=== PATIENT | male | born 1935 | race Caucasian/White ===

== ENCOUNTER → 2019-06-12 08:45 | Outpatient (BNVA) | payer MEDICARE, BC, SELFPAY | PROVIDERS: Family Provider Internal Medicine; PCP Internal Medicine; Visit Provider Specialist | DX: G40.909 Epilepsy, unspecified, not intractable, without status epilepticus (principal); G40.109 Localization-related (focal) (partial) symptomatic epilepsy and epileptic syndromes with simple partial seizures, not intractable, without status epilepticus; I65.1 Occlusion and stenosis of basilar artery; G31.84 Mild cognitive impairment of uncertain or unknown etiology | CPT/HCPCS: 99214 ==

== ENCOUNTER 2019-06-14 09:27 | Outpatient (CLI) | payer MEDICARE, BC, SELFPAY ==
[2019-06-14 09:51] LABS: Basophils # 0.1 10^3/uL (0.0-0.1); Basophils % 1.2 %; Eosinophils # 0.4 10^3/uL (0.0-0.8); Eosinophils % 3.4 %; Hematocrit 47.8 % (42.0-52.0); Hemoglobin 14.6 g/dL (11.7-16.6); Lymphocytes # 0.9 10^3/uL (0.8-4.8); Lymphocytes % 7.7 %; Mean Corpuscular HGB Conc 30.5 g/dL (30.0-36.0); Mean Corpuscular Hemoglobin 28.3 pg (28.0-34.0); Mean Corpuscular Volume 92.6 fL (80-94); Mean Platelet Volume 10.2 fL (7.4-10.4); Monocytes # 0.5 10^3/uL (0.2-0.9); Monocytes % 4.8 %; Neutrophils # 9.3 10^3/uL (1.8-7.7); Neutrophils % 82.4 %; Nucleated Red Blood Cells % 0 %; Platelet Count 589 10^3/cmm (130-400); Red Blood Count 5.16 10^6/uL (4.1-5.3); Red Cell Distribution Width 15.7 % (12.1-15.1); White Blood Count 11.2 10^3/uL (4.0-10.0)
== END 2019-06-14 09:28 | disposition home or self-care (01) ==
PROVIDERS: Family Provider Internal Medicine; PCP Internal Medicine; Visit Provider Internal Medicine Hematology & Oncology
DX: D75.1 Secondary polycythemia (principal)
CPT/HCPCS: 85025

== ENCOUNTER 2019-06-21 10:55 | Outpatient (CLI) | payer MEDICARE, BC, SELFPAY ==
[2019-06-21] MEDS: sodium chloride 0.9% 250 ML 999 ML IV (11:50)
--- NOTE | 2019-06-22 08:18 | ONC FU_ITS ---
Dr. Pratt follow up note Patient: Casey Alves Unit #: [id number]: 1935 Dicatated By: Connie Pratt M.D.Date of Visit:Jun 21, 2019 Onc Med Follow-up/Prog Note History of Present Illness: Mr. 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 sleep apnea on cpap Clinically, it appears he may be depressed as his couple of years ago, as per his daughter he is on Zoloft not using his CPAP machine as recommended by his PMD. 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 As per patient when he was in the hospital in [place], his hydroxyurea was increased to 500 mg twice a day and then later on it was reduced to 500 mg daily whereas before he went to [place] he used to take 500 mg every other day.So on 03/06/2019 hydroxyurea was reduced to 500 mg every other day. Because of progressive polycythemia which appears multifactorial including due to sleep apnea and patient being noncompliant with CPAP, now being treated with phlebotomies on as-needed basis And goal is to keep his hematocrit equal to or less than 45 Came for follow-up, denies any specific complaints, no headaches no fever no chills no melena hematochezia but patient is noncompliant with CPAP machine. Has seen Dr. Newman recently and had CT scan of head done on 05/24/2019 which shows mild atrophy and chronic ischemic disease no progression since 02/14/2019. Medications: Eliquis 1 (2.5 mg) Tablet Oral b.i.d., Finasteride 1 Tablet (of 5 mg) Oral daily, hydroCHLOROthiazide (25 mg) Tablet Oral Take as Directed, Hydroxyurea (500 mg) Capsule Oral Take as Directed, Keppra 1 Tablet (of 750 mg) Oral b.i.d., levETIRAcetam 1 Tablet (of 750 mg) Oral b.i.d., Levo-T 1 (137 mcg) Tablet Oral daily, Memantine HCl Tablet Oral b.i.d., Tamsulosin HCl Capsule Oral at bedtime Allergies: No Known Allergies. Review of Systems: Constitutional - Energy is fair. Appetite is good and weight is stable. No fever, chills, hot flashes, or night sweats, ENMT - No sinus congestion/drainage. No mouth sores. No sore throat or difficulty swallowing, Hematologic/Lymphatic - No abnormal bruising or bleeding, Respiratory - No shortness of breath. No cough. No pleuritic pain or hemoptysis, Cardiovascular - No angina pain. No palpitations, Gastrointestinal - No nausea or vomiting. No heartburn or acid reflux. No diarrhea or constipation. No blood in the stool or black stools, Genitourinary (M) - No dysuria or hematuria. No urinary frequency. No urgency or incontinence, Musculoskeletal - No complaint of joint pain, Integumentary - No chronic rashes, inflammation, ulcerations or skin changes, Neurologic - No headache or dizziness. No numbness/paresthesias or other focal neurologic symptoms, Psychiatric - No anxiety or depression. No insomnia. Vital Signs: Performed on Jun 21, 2019 11:11 Height - 74.00 in Weight - 219.0 lbs (LOW) BSA - 2.26 sq.m BMI - 28.12 Temperature - 98.3 F (LOW) Pulse - 57 /min (LOW) Respiration - 20 /min BP - 138/82 mm(hg) O2 Sat - 94 % (LOW) Pain - 0 Performance Status: 1 - No physically strenuous activity, but ambulatory and able to carry out light or sedentary work (e.g. office work, light house work). (ECOG) Physical Examination: ENMT - No oral exudates, ulcers, masses, thrush or mucositis. Oropharynx clear. Tongue normal, Respiratory - Lungs are clear to auscultation without rhonchi or wheezing, Cardiovascular - Regular rate and rhythm of heart, Abdomen - Non-tender, non-distended, Good bowel sounds. No guarding or rebound tenderness. No pulsatile masses, Extremities - no edema. Lab/Imaging: Test performed on Jun 14, 2019 09:39 WBC 11.2 10^9/L RBC 5.16 10^12/L HGB 14.6 g/dL HCT 47.8 % MCV 92.6 fl MCH 28.3 pg MCHC 30.5 g/dL RDW 15.7 % Platelet Count 589 10^9/L MPV 10.2 fL Neutrophils (Gran) 9.3 10^9/L Lymphocytes 0.9 10^9/L Monocytes 0.5 10^9/L Eosinophils 0.4 10^9/L Basophils 0.1 10^9/L Neutrophil % 3.4 % Manual Lymphocytes 7.7 % Manual Monocytes 4.8 % Manual Eosinophils 3.4 % Manual Basophils 1.2 % NRBCs 0.0 /100 WBC Test performed on May 10, 2019 10:13 Lymphocyte % 9.1 % Monocyte % 6.3 % Eosinophil % 3.6 % Basophils % 1.4 % Test performed on Mar 06, 2019 08:22 Sodium 143 mmol/L Potassium 4.0 mmol/L Chloride 99 mmol/L CO2 33 mmol/L Anion Gap 15.0 BUN 33 mg/dL Creatinine 1.4 mg/dL Cr Clearance (Est) 54.08 mL/min Glucose 127 mg/dl Calcium 9.0 mg/dL Protein, Total 6.8 g/dL Albumin 4.6 g/dL Globulin 2.2 gm/dL Bilirubin, Total 0.3 mg/dL ALT (SGPT) 33 U/L AST (SGOT) 11 U/L Alkaline Phosphatase 76 U/L CBC Slide Review SLIDE REVIEW PERFORM SLIDE REVIEW AGREES WITH AUTOMATED RESULTS ST Impression: 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 On cytoreduction therapy with hydroxyurea he was 1500 mg daily , was held till CBC recovery , then started on hydrea 500 mg twice a week , now changed to 3x/week on 08/31/17 , Sleep apnea confirmed with sleep study now using CPAP machine non compliant Anxiety/depression on antidepressant Zoloft 50 mg daily Intermittent jerky movements involving left arm/shoulder due to epilepsia partialis continua diagnosed by neurologist in [place] on 02/23/2019, now being treated with valproate. A. fib, controlled rate, on Eliquis 2.5 mg twice a day Plan: Discuss with patient regarding his labs white blood count 11.2 hemoglobin 14.6 crit 47.8 platelets 589,000 Clinically, patient is doing well tolerating hydroxyurea well with expected side effects. Patient has polycythemia which is multifactorial including due to myeloproliferative disorder and sleep apnea. Patient is supposed to use CPAP machine on daily basis but he is noncompliant. Discussed with him regarding importance of CPAP machine and patient said he will try to be compliant. In the meantime we will proceed with phlebotomy today as goal is to keep hematocrit equal to or below 45 and today's lab shows hematocrit is 47.8. He'll return to clinic in one month with CBC. Signed By: Connie Pratt M.D. <<Signature on File>>
== END 2019-06-21 10:56 | disposition home or self-care (01) ==
LOC: ONCMED 10:59
PROVIDERS: Family Provider Internal Medicine; PCP Internal Medicine; Visit Provider Internal Medicine Hematology & Oncology
DX: D45 Polycythemia vera (principal); G47.33 Obstructive sleep apnea (adult) (pediatric); G40.109 Localization-related (focal) (partial) symptomatic epilepsy and epileptic syndromes with simple partial seizures, not intractable, without status epilepticus; Z91.19 Patient's noncompliance with other medical treatment and regimen; F41.8 Other specified anxiety disorders; I48.91 Unspecified atrial fibrillation; Z79.01 Long term (current) use of anticoagulants; Z79.899 Other long term (current) drug therapy
CPT/HCPCS: 99195; 99214; J7050

== ENCOUNTER 2019-07-19 12:19 | Outpatient (CLI) | payer MEDICARE, BC, SELFPAY ==
[2019-07-19 12:50] LABS: Basophils # 0.1 10^3/uL (0.0-0.1); Basophils % 1.2 %; Eosinophils # 0.4 10^3/uL (0.0-0.8); Eosinophils % 3.4 %; Hematocrit 43.5 % (42.0-52.0); Lymphocytes # 1.1 10^3/uL (0.8-4.8); Lymphocytes % 9.8 %; Mean Corpuscular HGB Conc 29.9 g/dL (30.0-36.0); Mean Corpuscular Hemoglobin 24.8 pg (28.0-34.0); Mean Corpuscular Volume 82.9 fL (80-94); Monocytes # 0.7 10^3/uL (0.2-0.9); Monocytes % 6.1 %; Neutrophils # 8.5 10^3/uL (1.8-7.7); Neutrophils % 79.1 %; Nucleated Red Blood Cells % 0 %; Platelet Count 599 10^3/cmm (130-400); Red Blood Count 5.25 10^6/uL (4.1-5.3); Red Cell Distribution Width 15.3 % (12.1-15.1); White Blood Count 10.7 10^3/uL (4.0-10.0)
== END 2019-07-19 12:20 | disposition home or self-care (01) ==
LOC: ONCMED 12:26
PROVIDERS: Family Provider Internal Medicine; PCP Internal Medicine; Visit Provider Internal Medicine Hematology & Oncology
DX: D45 Polycythemia vera (principal)
CPT/HCPCS: 85025

== ENCOUNTER 2019-08-17 10:15 | Outpatient (CLI) | payer MEDICARE, BC, SELFPAY ==
[2019-08-17 10:16] LABS: Basophils # 0.2 10^3/uL (0.0-0.1); Basophils % 1.3 %; Eosinophils # 0.5 10^3/uL (0.0-0.8); Eosinophils % 3.6 %; Hematocrit 46.4 % (42.0-52.0); Hemoglobin 13.6 g/dL (11.7-16.6); Lymphocytes % 8.4 %; Mean Corpuscular HGB Conc 29.3 g/dL (30.0-36.0); Mean Corpuscular Hemoglobin 23.3 pg (28.0-34.0); Mean Corpuscular Volume 79.5 fL (80-94); Mean Platelet Volume 10.9 fL (7.4-10.4); Monocytes # 0.8 10^3/uL (0.2-0.9); Monocytes % 6.2 %; Neutrophils # 9.9 10^3/uL (1.8-7.7); Neutrophils % 80.2 %; Nucleated Red Blood Cells % 0 %; Platelet Count 699 10^3/cmm (130-400); Red Blood Count 5.84 10^6/uL (4.1-5.3); Red Cell Distribution Width 16.5 % (12.1-15.1); White Blood Count 12.3 10^3/uL (4.0-10.0)
== END 2019-08-17 10:16 | disposition home or self-care (01) ==
LOC: ONCMED 10:15
PROVIDERS: Family Provider Internal Medicine; PCP Internal Medicine; Visit Provider Internal Medicine Hematology & Oncology
DX: D45 Polycythemia vera (principal)
CPT/HCPCS: 85025

== ENCOUNTER 2019-09-04 12:10 | Outpatient (CLI) | payer MEDICARE, BC, SELFPAY ==
[2019-09-04 12:33] LABS: Basophils # 0.1 10^3/uL (0.0-0.1); Basophils % 1.2 %; Eosinophils # 0.4 10^3/uL (0.0-0.8); Eosinophils % 3.9 %; Hematocrit 46.1 % (42.0-52.0); Hemoglobin 13.6 g/dL (11.7-16.6); Lymphocytes % 8.8 %; Mean Corpuscular HGB Conc 29.5 g/dL (30.0-36.0); Mean Corpuscular Hemoglobin 23.4 pg (28.0-34.0); Mean Corpuscular Volume 79.5 fL (80-94); Mean Platelet Volume 10.6 fL (7.4-10.4); Monocytes # 0.7 10^3/uL (0.2-0.9); Neutrophils # 8.8 10^3/uL (1.8-7.7); Neutrophils % 79.6 %; Nucleated Red Blood Cells % 0 %; Platelet Count 644 10^3/cmm (130-400); Red Cell Distribution Width 17.2 % (12.1-15.1); White Blood Count 11.1 10^3/uL (4.0-10.0)
[2019-09-04 12:56] LABS: Alanine Aminotransferase 16 U/L (0-41); Albumin Level 4.4 g/dL (3.5-5.2); Alkaline Phosphatase 82 IU/L (40-130); Aspartate Amino Transferase 17 U/L (0-40); Blood Urea Nitrogen 23 mg/dL (8-23); Calcium 8.8 mg/dL (8.5-10.5); Carbon Dioxide 27 mmol/L (22-29); Chloride 100 mmol/L (98-107); Globulin 2.4 g/dL (1.3-4.6); Glucose 172 mg/dL (65-115); Osmolality Calculated 291 mOsm/kg (285-295); Sodium 140 mmol/L (136-145); Total Bilirubin 0.5 mg/dL (0.15-1.2); Total Protein 6.8 g/dL (6.6-8.7)
--- NOTE | 2019-09-04 14:34 | ONC FU_ITS ---
Dr. Pratt follow up note Patient: Casey Alves Unit #: [id number]: 1935 Dicatated By: Connie Pratt M.D.Date of Visit:Sep 04, 2019 Onc Med Follow-up/Prog Note History of Present Illness: Mr. 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 sleep apnea on cpap Clinically, it appears he may be depressed as his couple of years ago, as per his daughter he is on Zoloft not using his CPAP machine as recommended by his PMD. 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 As per patient when he was in the hospital in [place], his hydroxyurea was increased to 500 mg twice a day and then later on it was reduced to 500 mg daily whereas before he went to [place] he used to take 500 mg every other day.So on 03/06/2019 hydroxyurea was reduced to 500 mg every other day. Because of progressive polycythemia which appears multifactorial including due to sleep apnea and patient being noncompliant with CPAP, now being treated with phlebotomies on as-needed basis And goal is to keep his hematocrit equal to or less than [address] Newman recently and had CT scan of head done on 05/24/2019 which shows mild atrophy and chronic ischemic disease no progression since 02/14/2019. Came for follow-up, denies any specific complaints except episode of shortness of breath and feeling dizzy, lateral realize it was due to hydralazine prescribed by cardiology and as per patient now medicine has been discontinued and he is feeling better. Denies any headaches blurred vision double vision denies any fever chills denies any nausea or vomiting tolerating hydroxyurea well and also using CPAP machine on a regular basis. Medications: Eliquis 1 (2.5 mg) Tablet Oral b.i.d., Finasteride 1 Tablet (of 5 mg) Oral daily, hydroCHLOROthiazide (25 mg) Tablet Oral Take as Directed, Hydroxyurea (500 mg) Capsule Oral Take as Directed, Keppra 1 Tablet (of 750 mg) Oral b.i.d., levETIRAcetam 1 Tablet (of 750 mg) Oral b.i.d., Levo-T 1 (137 mcg) Tablet Oral daily, Memantine HCl Tablet Oral b.i.d., Tamsulosin HCl Capsule Oral at bedtime Allergies: No Known Allergies. Review of Systems: Constitutional - Energy is fair. Appetite is good and weight is stable. No fever, chills, hot flashes, or night sweats, ENMT - No sinus congestion/drainage. No mouth sores. No sore throat or difficulty swallowing, Hematologic/Lymphatic - No abnormal bruising or bleeding, Respiratory - No shortness of breath. No cough. No pleuritic pain or hemoptysis, Cardiovascular - No angina pain. No palpitations, Gastrointestinal - No nausea or vomiting. No heartburn or acid reflux. No diarrhea or constipation. No blood in the stool or black stools, Genitourinary (M) - No dysuria or hematuria. No urinary frequency. No urgency or incontinence, Musculoskeletal - No complaint of joint pain, Integumentary - Positive for bilateral lower edema, Neurologic - No headache or dizziness. No numbness/paresthesias or other focal neurologic symptoms, Psychiatric - No anxiety or depression. No insomnia. Vital Signs: Performed on Sep 04, 2019 13:36 Height - 74.00 in Weight - 228.2 lbs (HIGH) BSA - 2.30 sq.m BMI - 29.30 Temperature - 98.1 F (LOW) Pulse - 60 /min Respiration - 24 /min BP - 137/70 mm(hg) O2 Sat - 93 % (LOW) Pain - 0 Performance Status: 1 - No physically strenuous activity, but ambulatory and able to carry out light or sedentary work (e.g. office work, light house work). (ECOG) Physical Examination: ENMT - No oral exudates, ulcers, masses, thrush or mucositis. Oropharynx clear. Tongue normal, Respiratory - Lungs are clear to auscultation without rhonchi or wheezing, Cardiovascular - Regular rate and rhythm of heart, Abdomen - Non-tender, non-distended, Good bowel sounds. No guarding or rebound tenderness. No pulsatile masses, Extremities - no edema. Lab/Imaging: Test performed on Aug 17, 2019 08:15 WBC 12.3 10 3/uL RBC 5.84 10 6/uL HGB 13.6 g/dL HCT 46.4 % MCV 79.5 fL MCH 23.3 pg MCHC 29.3 g/dL RDW 16.5 % Platelet Count 699 10 3/cmm MPV 10.9 fL Neutrophils 9.9 10 3/uL Lymphocytes 1.0 10 3/uL Monocytes 0.8 10 3/uL Eosinophils 0.5 10 3/uL Basophils 0.2 10 3/uL Neutrophil % 80.2 % Lymphocyte % 8.4 % Monocyte % 6.2 % Eosinophil % 3.6 % Basophils % 1.3 % Test performed on Jun 14, 2019 09:39 Manual Lymphocytes 7.7 % Manual Monocytes 4.8 % Manual Eosinophils 3.4 % Manual Basophils 1.2 % NRBCs 0.0 /100 WBC Impression: 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 On cytoreduction therapy with hydroxyurea he was 1500 mg daily , was held till CBC recovery , then started on hydrea 500 mg twice a week , now changed to 3x/week on 08/31/17 , Sleep apnea confirmed with sleep study now using CPAP machine non compliant Anxiety/depression on antidepressant Zoloft 50 mg daily Intermittent jerky movements involving left arm/shoulder due to epilepsia partialis continua diagnosed by neurologist in [place] on 02/23/2019, now being treated with valproate. A. fib, controlled rate, on Eliquis 2.5 mg twice a day Plan: Discussed with patient regarding his labs white blood count 11.1 hemoglobin 13.6 crit 46.1 platelets 644,000 CMP within normal limit except glucose 172 creatinine 1.6 Clinically, patient is doing reasonably well, tolerating hydroxyurea 500 mg by mouth every other day, well. Also using CPAP machine as recommended on a regular basis. Overall feeling better , hematocrit 46.1 on is to keep it is equal to or below 45 but patient was having symptoms due to hydralazine, and also on diuretics for lower extremity edema. His creatinine is 1.6 compared to 1. 4 earlier so could be mildly dehydrated. Patient was advised to maintain good hydration. And his hematocrit may also be elevated due to mild dehydration. We will hold his phlebotomy and repeat CBC in a month. And patient was advised to maintain hydration and be compliant with CPAP machine and hydroxyurea. Signed By: Connie Pratt M.D. <<Signature on File>>
== END 2019-09-04 12:11 | disposition home or self-care (01) ==
LOC: ONCMED 12:10
PROVIDERS: Family Provider Internal Medicine; PCP Internal Medicine; Visit Provider Internal Medicine Hematology & Oncology
DX: D45 Polycythemia vera (principal); G47.33 Obstructive sleep apnea (adult) (pediatric); F41.8 Other specified anxiety disorders; I48.91 Unspecified atrial fibrillation; Z91.19 Patient's noncompliance with other medical treatment and regimen; Z79.899 Other long term (current) drug therapy; Z79.01 Long term (current) use of anticoagulants
CPT/HCPCS: 36415; 80053; 85025; 99214

== ENCOUNTER → 2019-10-02 07:43 | Outpatient (BNVA) | payer MEDICARE, BC, SELFPAY | PROVIDERS: Family Provider Internal Medicine; PCP Internal Medicine; Visit Provider Specialist | DX: G40.909 Epilepsy, unspecified, not intractable, without status epilepticus (principal); G30.9 Alzheimer's disease, unspecified; F02.80 Dementia in other diseases classified elsewhere, unspecified severity, without behavioral disturbance, psychotic disturbance, mood disturbance, and anxiety; R26.81 Unsteadiness on feet; R07.9 Chest pain, unspecified | CPT/HCPCS: 96116; 99214 ==

== ENCOUNTER 2019-10-04 07:05 | Outpatient (CLI) | payer MEDICARE, BC, SELFPAY ==
[2019-10-04 08:06] LABS: Basophils # 0.1 10^3/uL (0.0-0.1); Basophils % 1.3 %; Eosinophils # 0.4 10^3/uL (0.0-0.8); Eosinophils % 3.3 %; Hematocrit 47.5 % (42.0-52.0); Hemoglobin 13.9 g/dL (11.7-16.6); Lymphocytes # 0.8 10^3/uL (0.8-4.8); Lymphocytes % 7.5 %; Mean Corpuscular HGB Conc 29.3 g/dL (30.0-36.0); Mean Corpuscular Hemoglobin 23.5 pg (28.0-34.0); Mean Corpuscular Volume 80.2 fL (80-94); Mean Platelet Volume 11.2 fL (7.4-10.4); Monocytes # 0.6 10^3/uL (0.2-0.9); Monocytes % 5.6 %; Neutrophils # 9.1 10^3/uL (1.8-7.7); Neutrophils % 81.8 %; Nucleated Red Blood Cells % 0 %; Platelet Count 646 10^3/cmm (130-400); Red Blood Count 5.92 10^6/uL (4.1-5.3); Red Cell Distribution Width 18.6 % (12.1-15.1); White Blood Count 11.1 10^3/uL (4.0-10.0)
== END 2019-10-04 07:06 | disposition home or self-care (01) ==
LOC: ONCMED 15:31
PROVIDERS: Family Provider Internal Medicine; PCP Internal Medicine; Visit Provider Internal Medicine Hematology & Oncology
DX: D45 Polycythemia vera (principal)
CPT/HCPCS: 85025

== ENCOUNTER 2019-10-05 06:58 | Outpatient (CLI) | payer MEDICARE, BC, SELFPAY ==
--- NOTE | 2019-10-05 17:55 | ONC FU_ITS ---
Dr. Pratt follow up note Patient: Casey Alves Unit #: [id number]: 1935 Dicatated By: Connie Pratt M.D.Date of Visit:Oct 05, 2019 Onc Med Follow-up/Prog Note History of Present Illness: Mr. 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 sleep apnea on cpap Clinically, it appears he may be depressed as his couple of years ago, as per his daughter he is on Zoloft not using his CPAP machine as recommended by his PMD. 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 As per patient when he was in the hospital in [place], his hydroxyurea was increased to 500 mg twice a day and then later on it was reduced to 500 mg daily whereas before he went to [place] he used to take 500 mg every other day.So on 03/06/2019 hydroxyurea was reduced to 500 mg every other day. Because of progressive polycythemia which appears multifactorial including due to sleep apnea and patient being noncompliant with CPAP, now being treated with phlebotomies on as-needed basis And goal is to keep his hematocrit equal to or less than [address] Newman recently and had CT scan of head done on 05/24/2019 which shows mild atrophy and chronic ischemic disease no progression since 02/14/2019. tolerating hydroxyurea well and also using CPAP machine on a regular basis. Came for follow-up, denies any specific complaint except had a fall as he tripped over something, but denies any seizure-like activity except off and on increasing jerking movement in his left arm, for which she has seen Dr. Newman, as per patient she is considering brain scans and adjustment in his medication. Otherwise denies any headaches blurred vision or double vision, denies any focal weakness, denies any fever chills. Tolerating hydroxyurea well and using CPAP machine regularly Medications: Eliquis 1 (2.5 mg) Tablet Oral b.i.d., Finasteride 1 Tablet (of 5 mg) Oral daily, hydroCHLOROthiazide (25 mg) Tablet Oral Take as Directed, Hydroxyurea (500 mg) Capsule Oral Take as Directed, Keppra 1 Tablet (of 750 mg) Oral b.i.d., levETIRAcetam 1 Tablet (of 750 mg) Oral b.i.d., Levo-T 1 (137 mcg) Tablet Oral daily, Memantine HCl Tablet Oral b.i.d., Tamsulosin HCl Capsule Oral at bedtime Allergies: No Known Allergies. Review of Systems: Review of Systems is not available for this patient. Vital Signs: Vitals are not available for this patient. Performance Status: 2 - Ambulatory/capable of all self-care, unable to perform any work activities. Up and about more than 50% of waking hours. (ECOG) Physical Examination: Respiratory - Lungs are clear, Cardiovascular - Regular rate and rhythm of heart, Abdomen - bowel sounds present, no tenderness, Extremities - no visible edema but superficial abrasion on right knee, no knee swelling, movements intact. Lab/Imaging: Test performed on Sep 04, 2019 12:15 Sodium 140 mmol/L Potassium 4.0 mmol/L Chloride 100 mmol/L CO2 27 mmol/L Anion Gap 17.0 BUN 23 mg/dL Creatinine 1.6 mg/dL Cr Clearance (Est) 50.32 mL/min Glucose 172 mg/dL Calcium 8.8 mg/dL Protein, Total 6.8 g/dL Albumin 4.4 g/dL Globulin 2.4 g/dL Bilirubin, Total 0.5 mg/dL ALT (SGPT) 16 U/L AST (SGOT) 17 U/L Alkaline Phosphatase 82 IU/L WBC 11.1 10 3/uL RBC 5.80 10 6/uL HGB 13.6 g/dL HCT 46.1 % MCV 79.5 fL MCH 23.4 pg MCHC 29.5 g/dL RDW 17.2 % Platelet Count 644 10 3/cmm MPV 10.6 fL Neutrophils 8.8 10 3/uL Lymphocytes 1.0 10 3/uL Monocytes 0.7 10 3/uL Eosinophils 0.4 10 3/uL Basophils 0.1 10 3/uL Neutrophil % 79.6 % Lymphocyte % 8.8 % Monocyte % 6.0 % Eosinophil % 3.9 % Basophils % 1.2 % Test performed on Jun 14, 2019 09:39 Manual Lymphocytes 7.7 % Manual Monocytes 4.8 % Manual Eosinophils 3.4 % Manual Basophils 1.2 % NRBCs 0.0 /100 WBC Impression: 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 On cytoreduction therapy with hydroxyurea he was 1500 mg daily , was held till CBC recovery , then started on hydrea 500 mg twice a week , now changed to 3x/week on 08/31/17 , Sleep apnea confirmed with sleep study now using CPAP machine non compliant Anxiety/depression on antidepressant Zoloft 50 mg daily Intermittent jerky movements involving left arm/shoulder due to epilepsia partialis continua diagnosed by neurologist in [place] on 02/23/2019, now being treated with valproate. A. fib, controlled rate, on Eliquis 2.5 mg twice a day Plan: Discussed with patient regarding his labs white blood count 11.1 hemoglobin 13.9 crit 47.5 platelets 646,000 Clinically, patient doing reasonably well, tolerating hydroxyurea well. His follow-up lab shows mildly elevated hematocrit, goal is keep it equal to or under 45, we'll consider phlebotomy with a 500 mL whole blood and 250 cc normal saline replacement. And repeat CBC in 2 weeks. And patient was advised to maintain hydration and be compliant with CPAP machine and hydroxyurea. Signed By: Connie Pratt M.D. <<Signature on File>>
== END 2019-10-05 06:59 | disposition home or self-care (01) ==
PROVIDERS: Family Provider Internal Medicine; PCP Internal Medicine; Visit Provider Internal Medicine Hematology & Oncology
DX: D45 Polycythemia vera (principal); G47.30 Sleep apnea, unspecified; F41.8 Other specified anxiety disorders; G40.109 Localization-related (focal) (partial) symptomatic epilepsy and epileptic syndromes with simple partial seizures, not intractable, without status epilepticus; I48.91 Unspecified atrial fibrillation; Z79.01 Long term (current) use of anticoagulants; Z79.899 Other long term (current) drug therapy; Z91.19 Patient's noncompliance with other medical treatment and regimen
CPT/HCPCS: 99195; 99214

== ENCOUNTER → 2019-10-10 09:19 | Outpatient (BNVA) | payer MEDICARE, BC, SELFPAY | PROVIDERS: Family Provider Internal Medicine; PCP Internal Medicine; Visit Provider Specialist | DX: R56.9 Unspecified convulsions (principal) | CPT/HCPCS: 95816 ==

== ENCOUNTER 2019-10-11 07:10 | Outpatient (RCR) | payer MEDICARE, BC, SELFPAY | END 2019-11-05 23:59 | disposition home or self-care (01) | LOC: SPT 07:10 | PROVIDERS: Family Provider Internal Medicine; PCP Internal Medicine; Referring Provider Specialist; Visit Provider Specialist | DX: R26.81 Unsteadiness on feet (principal) | CPT/HCPCS: 97110; 97161 ==

== ENCOUNTER 2019-10-12 08:51 | Outpatient (CLI) | payer MEDICARE, BC, SELFPAY ==
--- NOTE | 2019-10-12 09:16 | ECG_ITS ---
NAME OF STUDY: DOBUTAMINE SESTAMIBI STRESS TEST INDICATION: UNSTABLE ANGINA PROCEDURE: At the baseline, the blood pressure was 105/78 mmHg, oxygen saturation 88% with a heart rate of 55 bpm. The electrocardiogram showed atrial fibrillation with frequent PVCs or aberrantly conducted beats. Nonspecific ST-T wave changes. The dobutamine was infused over a period of 10 minutes 40 seconds. The maximum heart rate obtained was 125 (91 % of the maximum predicted heart rate). The blood pressure at that time was 189/76 mmHg oxygen saturation 93%. The patient did not have any chest pain or any significant electrocardiogram changes with the dobutamine infusion. Frequent PVCs, PVC couplets/aberrantly conducted beats noted throughout the study. The physical examination remained unchanged. During the recovery phase, the patient did not have any specific symptoms. The blood pressure at the end of the recovery phase was 187/75 mmHg, oxygen saturation 92% with a heart rate of 98 beats per minute. CONCLUSION: 1. No significant EKG changes with dobutamine infusion. 2. Functional status could not be assessed given dobutamine infusion protocol. 3. Frequent PVCs, PVC couplets and aberrantly conducted beats noted during the study. 4. Sestamibi/Sestamibi perfusion scan pending; see separate report. Electronically Signed On 10-13-2019 16:10:06 CDT by Marlen Bernstein M.D. [email or web address]
--- NOTE | 2019-10-12 09:16 | NMCV_ITS ---
NM idalia perf SPECT r/s* [id number] Casey Alves Age: 84 Gender: M : 1935 Exam Date: 10/12/2019 10:03 Ordering Phys: Fela Newman MD Technologist: HARSHIL Anguiano Exam Location: [facility] Indications: UNSTABLE ANGINA PECTORIS STRESS TEST [facility] IMAGE PROTOCOL Rest/Stress 1 Dobutamine Day Radiopharmaceutical Dose (mCi) Administration Site Administered by Rest: Tc-99m 10.8 IV HARSHIL Anguiano Sestamibi Stress:Tc-99m 32.8 IV HARSHIL Marks Sestamibi Rest: 12-Oct-2019 60 Discovery 630 Stress: 12-Oct-2019 15 Discovery 630 Radiopharmaceutical was injected at 85 % maximum heart rate. Supine position only as patient was unable to lay prone. SPECT RESULTS Technical Quality: Good Raw Data Analysis: Normal Image Corrections: No attenuation or motion correction applied Summed Stress Score: 3 Summed Rest Score: 0 Summed Difference Score: 3 PERFUSION FINDINGS Small size perfusion abnormality of mild severity of entire inferior wall on rest images with mild reversibility in mid to apical inferior wall on supine stress images. FUNCTIONAL RESULTS (calculated via Gated SPECT) Stress Image LV EF (%): 59 Stress EDV (mL):109 TID: 0.88 Stress ESV (mL):45 FUNCTIONAL FINDINGS: The left ventricle is normal in size. Transient Ischemia Dilatation of 0.88. There is normal left ventricular systolic function. The left ventricular ejection fraction is normal with a value of 59%. There is normal left ventricular wall thickening. IMPRESSIONS 1. Small size reversible perfusion abnormality of mild severity of mid to apical inferior wall. This may represent small area of ischemia in right coronary artery territory, however in absence of prone imaging attenuation artifact cannot be completely ruled out. 2. The left ventricular ejection fraction is normal with a value of 59%. 3. There is normal left ventricular wall thickening. 4. No prior similar studies to compare. Marlen Bernstein MD (Electronically Signed) Final Date: 13 Oct 2019 15:59 S
[2019-10-12 09:19] VITALS: BMI 29.8
[2019-10-12 12:38] VITALS: BP 187/75; PULSE 98
[2019-10-12] MEDS: DOBUTtamine 200 MG in sodium chloride 0.9% 34 ML 59.9 MG IV (12:41)
== END 2019-10-12 08:52 | disposition home or self-care (01) ==
LOC: RAD 08:53
PROVIDERS: Family Provider Internal Medicine; PCP Internal Medicine; Visit Provider Specialist
DX: I20.0 Unstable angina (principal)
CPT/HCPCS: 78452; 93017; A9500; J0461; J1250; J3490; J7050

== ENCOUNTER 2019-10-18 09:10 | Outpatient (CLI) | payer MEDICARE, BC, SELFPAY ==
[2019-10-18 09:58] LABS: Basophils # 0.1 10^3/uL (0.0-0.1); Basophils % 1.3 %; Eosinophils # 0.3 10^3/uL (0.0-0.8); Hematocrit 44.8 % (42.0-52.0); Lymphocytes # 0.7 10^3/uL (0.8-4.8); Lymphocytes % 6.7 %; Mean Corpuscular Hemoglobin 23.3 pg (28.0-34.0); Mean Corpuscular Volume 80.1 fL (80-94); Mean Platelet Volume 10.9 fL (7.4-10.4); Monocytes # 0.6 10^3/uL (0.2-0.9); Monocytes % 5.7 %; Neutrophils # 8.8 10^3/uL (1.8-7.7); Neutrophils % 82.9 %; Nucleated Red Blood Cells % 0 %; Platelet Count 648 10^3/cmm (130-400); Red Blood Count 5.59 10^6/uL (4.1-5.3); Red Cell Distribution Width 18.2 % (12.1-15.1); White Blood Count 10.6 10^3/uL (4.0-10.0)
--- NOTE | 2019-10-18 14:50 | ONC FU_ITS ---
Dr. Pratt follow up note Patient: Casey Alves Unit #: [id number]: 1935 Dicatated By: Connie Pratt M.D.Date of Visit:October 18, 2019 Onc Med Follow-up/Prog Note History of Present Illness: Mr. 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 sleep apnea on cpap Clinically, it appears he may be depressed as his couple of years ago, as per his daughter he is on Zoloft not using his CPAP machine as recommended by his PMD. 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 As per patient when he was in the hospital in [place], his hydroxyurea was increased to 500 mg twice a day and then later on it was reduced to 500 mg daily whereas before he went to [place] he used to take 500 mg every other day.So on 03/06/2019 hydroxyurea was reduced to 500 mg every other day. Because of progressive polycythemia which appears multifactorial including due to sleep apnea and patient being noncompliant with CPAP, now being treated with phlebotomies on as-needed basis And goal is to keep his hematocrit equal to or less than [address] Newman recently and had CT scan of head done on 05/24/2019 which shows mild atrophy and chronic ischemic disease no progression since 02/14/2019. tolerating hydroxyurea well and also using CPAP machine on a regular basis. Came for follow-up, denies any specific complaints except generalized weakness and fatigue, unstable balance, now being evaluated by physical therapy, recommended by Dr. Newman and she is also adjusting his medication, and he was told, he may have another small 'stroke' , and recently underwent EEG and awaiting results. Denies any headaches blurred vision double vision otherwise no other new complaints no fever or chills no nausea or vomiting no diarrhea constipation no headaches or blurred vision. Tolerating hydroxyurea well, patient is noncompliant with his CPAP machine. And also tolerating by mouth on phlebotomies well Medications: Eliquis 1 (2.5 mg) Tablet Oral b.i.d., Finasteride 1 Tablet (of 5 mg) Oral daily, hydroCHLOROthiazide (25 mg) Tablet Oral Take as Directed, Hydroxyurea (500 mg) Capsule Oral Take as Directed, Keppra 1 Tablet (of 750 mg) Oral b.i.d., levETIRAcetam 1 Tablet (of 750 mg) Oral b.i.d., Levo-T 1 (137 mcg) Tablet Oral daily, Memantine HCl Tablet Oral b.i.d., Tamsulosin HCl Capsule Oral at bedtime Allergies: No Known Allergies. Review of Systems: Constitutional - Energy is poor. Appetite is good and weight is stable. No fever, chills, hot flashes, or night sweats, ENMT - No sinus congestion/drainage. No mouth sores. No sore throat or difficulty swallowing, Hematologic/Lymphatic - No abnormal bruising or bleeding, Respiratory - No shortness of breath. No cough. No pleuritic pain or hemoptysis, Cardiovascular - No angina pain. No palpitations, Gastrointestinal - No nausea or vomiting. No heartburn or acid reflux. No diarrhea or constipation. No blood in the stool or black stools, Genitourinary (M) - No dysuria or hematuria. No urinary frequency. No urgency or incontinence, Musculoskeletal - No complaint of joint pain, Neurologic - No headache or dizziness. Pt states that he has had testing done recently to check for possible recent stroke. Pt states he has not yet gotten the results, Psychiatric - No anxiety or depression. No insomnia. Vital Signs: Performed on October 18, 2019 10:28 Height - 74 in Weight - 219.6 lbs (LOW) BSA - 2.26 sq.m BMI - 28.20 Temperature - 97.8 F (LOW) Pulse - 118 /min (HIGH) Respiration - 16 /min BP - 151/78 mm(hg) (HIGH) O2 Sat - 94 % (LOW) Pain - 0 Performance Status: 2 - Ambulatory/capable of all self-care, unable to perform any work activities. Up and about more than 50% of waking hours. (ECOG) Physical Examination: ENMT - no mouth sores, Respiratory - Lungs are clear, Cardiovascular - irregular rhythm with controlled rate, Abdomen - soft also present, Extremities - no edema. Lab/Imaging: Test performed on October 18, 2019 09:25 WBC 10.6 10 3/uL RBC 5.59 10 6/uL HGB 13.0 g/dL HCT 44.8 % MCV 80.1 fL MCH 23.3 pg MCHC 29.0 g/dL RDW 18.2 % Platelet Count 648 10 3/cmm MPV 10.9 fL Neutrophils 8.8 10 3/uL Lymphocytes 0.7 10 3/uL Monocytes 0.6 10 3/uL Eosinophils 0.3 10 3/uL Basophils 0.1 10 3/uL Neutrophil % 82.9 % Lymphocyte % 6.7 % Monocyte % 5.7 % Eosinophil % 3.0 % Basophils % 1.3 % Test performed on Sep 04, 2019 12:15 Sodium 140 mmol/L Potassium 4.0 mmol/L Chloride 100 mmol/L CO2 27 mmol/L Anion Gap 17.0 BUN 23 mg/dL Creatinine 1.6 mg/dL Cr Clearance (Est) 50.32 mL/min Glucose 172 mg/dL Calcium 8.8 mg/dL Protein, Total 6.8 g/dL Albumin 4.4 g/dL Globulin 2.4 g/dL Bilirubin, Total 0.5 mg/dL ALT (SGPT) 16 U/L AST (SGOT) 17 U/L Alkaline Phosphatase 82 IU/L Test performed on Jun 14, 2019 09:39 Manual Lymphocytes 7.7 % Manual Monocytes 4.8 % Manual Eosinophils 3.4 % Manual Basophils 1.2 % NRBCs 0.0 /100 WBC Impression: 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 On cytoreduction therapy with hydroxyurea he was 1500 mg daily , was held till CBC recovery , then started on hydrea 500 mg twice a week , now changed to 3x/week on 08/31/17 , Sleep apnea confirmed with sleep study now using CPAP machine non compliant Anxiety/depression on antidepressant Zoloft 50 mg daily Intermittent jerky movements involving left arm/shoulder due to epilepsia partialis continua diagnosed by neurologist in [place] on 02/23/2019, now being treated with valproate. A. fib, controlled rate, on Eliquis 2.5 mg twice a day Plan: Discussed with patient regarding his labs white blood count 10.6 hemoglobin 13 crit 44.8 platelets 648,000 Clinically, patient is doing reasonably well, his follow-up CBC shows hematocrit less than 45, which is the target, so we'll continue to monitor as long as hematocrit is staying under 45 and patient was advised to use CPAP machine diligently and be compliant with hydroxyurea. And return to clinic in one month with CBC and continue phlebotomy on as-needed basis to keep hematocrit less than 45 Signed By: Connie Pratt M.D. <<Signature on File>>
== END 2019-10-18 09:11 | disposition home or self-care (01) ==
LOC: ONCMED 09:14
PROVIDERS: PCP Internal Medicine; Visit Provider Internal Medicine Hematology & Oncology
DX: D45 Polycythemia vera (principal); D47.3 Essential (hemorrhagic) thrombocythemia; D47.1 Chronic myeloproliferative disease; G47.33 Obstructive sleep apnea (adult) (pediatric); F41.8 Other specified anxiety disorders; G40.109 Localization-related (focal) (partial) symptomatic epilepsy and epileptic syndromes with simple partial seizures, not intractable, without status epilepticus; I48.19 Other persistent atrial fibrillation; Z79.01 Long term (current) use of anticoagulants; Z79.899 Other long term (current) drug therapy
CPT/HCPCS: 36415; 85025; 99214

== ENCOUNTER 2019-11-06 06:00 | Outpatient (RCR) | payer MEDICARE, BC, SELFPAY | END 2019-12-05 23:59 | disposition home or self-care (01) | LOC: SPT 06:00 | PROVIDERS: PCP Internal Medicine; Visit Provider Specialist | DX: R26.81 Unsteadiness on feet (principal) | CPT/HCPCS: 97110 ==

== ENCOUNTER 2019-11-21 07:52 | Outpatient (CLI) | payer MEDICARE, BC, SELFPAY ==
[2019-11-21 08:27] LABS: Basophils # 0.2 10^3/uL (0.0-0.1); Basophils % 1.4 %; Eosinophils # 0.3 10^3/uL (0.0-0.8); Eosinophils % 2.8 %; Hematocrit 47.9 % (42.0-52.0); Hemoglobin 13.6 g/dL (11.7-16.6); Lymphocytes # 0.8 10^3/uL (0.8-4.8); Lymphocytes % 6.6 %; Mean Corpuscular HGB Conc 28.4 g/dL (30.0-36.0); Mean Corpuscular Hemoglobin 22.9 pg (28.0-34.0); Mean Corpuscular Volume 80.6 fL (80-94); Mean Platelet Volume 10.6 fL (7.4-10.4); Monocytes # 0.7 10^3/uL (0.2-0.9); Monocytes % 5.4 %; Neutrophils # 10.3 10^3/uL (1.8-7.7); Neutrophils % 83.5 %; Nucleated Red Blood Cells % 0 %; Platelet Count 800 10^3/cmm (130-400); Red Blood Count 5.94 10^6/uL (4.1-5.3); Red Cell Distribution Width 19.2 % (12.1-15.1); White Blood Count 12.4 10^3/uL (4.0-10.0)
--- NOTE | 2019-11-21 17:26 | ONC FU_ITS ---
Dr. Pratt follow up note Patient: Casey Alves Unit #: [id number]: 1935 Dicatated By: Connie Pratt M.D.Date of Visit:Nov 21, 2019 Onc Med Follow-up/Prog Note History of Present Illness: Mr. 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 sleep apnea on cpap Clinically, it appears he may be depressed as his couple of years ago, as per his daughter he is on Zoloft not using his CPAP machine as recommended by his PMD. 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 As per patient when he was in the hospital in [place], his hydroxyurea was increased to 500 mg twice a day and then later on it was reduced to 500 mg daily whereas before he went to [place] he used to take 500 mg every other day.So on 03/06/2019 hydroxyurea was reduced to 500 mg every other day. Because of progressive polycythemia which appears multifactorial including due to sleep apnea and patient being noncompliant with CPAP, now being treated with phlebotomies on as-needed basis And goal is to keep his hematocrit equal to or less than [address] Newman recently and had CT scan of head done on 05/24/2019 which shows mild atrophy and chronic ischemic disease no progression since 02/14/2019. tolerating hydroxyurea well and also using CPAP machine on a regular basis. Came for follow-up, denies any specific complaint except generalized weakness and fatigue, recently underwent left forearm skin lesion biopsy, by PMD, waiting for pathology report. Otherwise denies any headaches blurred vision or double vision, denies any focal weakness, denies any nausea vomiting, denies any fever or chills. Tolerating hydroxyurea, every other day, well otherwise Medications: Eliquis 1 (2.5 mg) Tablet Oral b.i.d., Finasteride 1 Tablet (of 5 mg) Oral daily, hydroCHLOROthiazide (25 mg) Tablet Oral Take as Directed, Hydroxyurea (500 mg) Capsule Oral Take as Directed, Keppra 1 Tablet (of 750 mg) Oral b.i.d., levETIRAcetam 1 Tablet (of 750 mg) Oral b.i.d., Levo-T 1 (137 mcg) Tablet Oral daily, Memantine HCl Tablet Oral b.i.d., Tamsulosin HCl Capsule Oral at bedtime Allergies: No Known Allergies. Review of Systems: Constitutional - Energy is poor. Appetite is good and weight is stable. No fever, chills, hot flashes, or night sweats, ENMT - No sinus congestion/drainage. No mouth sores. No sore throat or difficulty swallowing, Hematologic/Lymphatic - No abnormal bruising or bleeding, Respiratory - No shortness of breath. No cough. No pleuritic pain or hemoptysis, Cardiovascular - No angina pain. No palpitations, Gastrointestinal - No nausea or vomiting. No heartburn or acid reflux. No diarrhea or constipation. No blood in the stool or black stools, Genitourinary (M) - No dysuria or hematuria. Positive for urinary frequency. No urgency or incontinence, Musculoskeletal - No complaint of joint pain, Integumentary - Positive for bilateral lower edema, Neurologic - No headache or dizziness, Psychiatric - No anxiety or depression. No insomnia. Vital Signs: Performed on Nov 21, 2019 08:44 Height - 74.00 in Weight - 224.6 lbs (HIGH) BSA - 2.28 sq.m BMI - 28.84 Temperature - 97.0 F (LOW) Pulse - 54 /min (LOW) Respiration - 20 /min BP - 195/92 mm(hg) (HIGH) O2 Sat - 93 % (LOW) Pain - 0 Performance Status: 1 - No physically strenuous activity, but ambulatory and able to carry out light or sedentary work (e.g. office work, light house work). (ECOG) Physical Examination: ENMT - No mouth sores, no thrush, no jaundice, Respiratory - Lungs are clear, Cardiovascular - irRegular rate and rhythm, Abdomen - Soft, bowel sounds present, nontender, Extremities - No visible edema, about half a centimeters skin lesion on the dorsum of left forearm status post biopsy. Lab/Imaging: Test performed on October 18, 2019 09:25 WBC 10.6 10 3/uL RBC 5.59 10 6/uL HGB 13.0 g/dL HCT 44.8 % MCV 80.1 fL MCH 23.3 pg MCHC 29.0 g/dL RDW 18.2 % Platelet Count 648 10 3/cmm MPV 10.9 fL Neutrophils 8.8 10 3/uL Lymphocytes 0.7 10 3/uL Monocytes 0.6 10 3/uL Eosinophils 0.3 10 3/uL Basophils 0.1 10 3/uL Neutrophil % 82.9 % Lymphocyte % 6.7 % Monocyte % 5.7 % Eosinophil % 3.0 % Basophils % 1.3 % Test performed on Sep 04, 2019 12:15 Sodium 140 mmol/L Potassium 4.0 mmol/L Chloride 100 mmol/L CO2 27 mmol/L Anion Gap 17.0 BUN 23 mg/dL Creatinine 1.6 mg/dL Cr Clearance (Est) 50.32 mL/min Glucose 172 mg/dL Calcium 8.8 mg/dL Protein, Total 6.8 g/dL Albumin 4.4 g/dL Globulin 2.4 g/dL Bilirubin, Total 0.5 mg/dL ALT (SGPT) 16 U/L AST (SGOT) 17 U/L Alkaline Phosphatase 82 IU/L Test performed on Jun 14, 2019 09:39 Manual Lymphocytes 7.7 % Manual Monocytes 4.8 % Manual Eosinophils 3.4 % Manual Basophils 1.2 % NRBCs 0.0 /100 WBC Impression: 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 On cytoreduction therapy with hydroxyurea he was 1500 mg daily , was held till CBC recovery , then started on hydrea 500 mg twice a week , now changed to 3x/week on 08/31/17 , Sleep apnea confirmed with sleep study now using CPAP machine non compliant Anxiety/depression on antidepressant Zoloft 50 mg daily Intermittent jerky movements involving left arm/shoulder due to epilepsia partialis continua diagnosed by neurologist in [place] on 02/23/2019, now being treated with valproate. A. fib, controlled rate, on Eliquis 2.5 mg twice a day Plan: Discussed with patient regarding his labs white blood count 12.4 hemoglobin 13.6 crit 47.9 platelets 800,000 compared to 648,000 on November 04, 2019 Clinically, patient is doing reasonably well, his follow-up lab work-up showed progressive polycythemia, patient is noncompliant with his CPAP machine. Patient was advised to use CPAP machine on regular basis. In the meantime we will consider phlebotomy to keep his hematocrit close to 42, if tolerated otherwise less than 45. We will also consider increasing his hydroxyurea dose to 500 mg p.o. daily from 500 mg 3 times a week as his follow-up CBC showed progressive thrombocytosis and now polycythemia with mild leukocytosis. We will repeat his CBC in 2 weeks and consider phlebotomy to keep hematocrit under 45, preferably 42, if tolerated. In the meantime patient was advised to maintain good hydration and he will return to clinic in 1 month with CBC. Signed By: Connie Pratt M.D. <<Signature on File>>
== END 2019-11-21 07:53 | disposition home or self-care (01) ==
LOC: ONCMED 07:57
PROVIDERS: PCP Internal Medicine; Visit Provider Internal Medicine Hematology & Oncology
DX: D75.1 Secondary polycythemia (principal); D47.3 Essential (hemorrhagic) thrombocythemia; D47.1 Chronic myeloproliferative disease; D72.829 Elevated white blood cell count, unspecified; G47.30 Sleep apnea, unspecified; F41.8 Other specified anxiety disorders; G40.109 Localization-related (focal) (partial) symptomatic epilepsy and epileptic syndromes with simple partial seizures, not intractable, without status epilepticus; I48.91 Unspecified atrial fibrillation; Z79.01 Long term (current) use of anticoagulants; Z91.19 Patient's noncompliance with other medical treatment and regimen; Z99.89 Dependence on other enabling machines and devices; Z79.899 Other long term (current) drug therapy
CPT/HCPCS: 36415; 85025; 99195; 99214

== ENCOUNTER 2019-12-04 16:53 | Outpatient (CLI) | payer MEDICARE, BC, SELFPAY ==
[2019-12-04 11:07] LABS: Basophils # 0.2 10^3/uL (0.0-0.1); Basophils % 1.8 %; Eosinophils # 0.4 10^3/uL (0.0-0.8); Eosinophils % 3.7 %; Hematocrit 44.9 % (42.0-52.0); Hemoglobin 12.8 g/dL (11.7-16.6); Lymphocytes # 0.9 10^3/uL (0.8-4.8); Lymphocytes % 8.4 %; Mean Corpuscular HGB Conc 28.5 g/dL (30.0-36.0); Mean Corpuscular Hemoglobin 22.7 pg (28.0-34.0); Mean Corpuscular Volume 79.8 fL (80-94); Mean Platelet Volume 10.5 fL (7.4-10.4); Monocytes # 0.6 10^3/uL (0.2-0.9); Monocytes % 5.5 %; Neutrophils # 8.3 10^3/uL (1.8-7.7); Neutrophils % 80.1 %; Nucleated Red Blood Cells % 0 %; Platelet Count 718 10^3/cmm (130-400); Red Blood Count 5.63 10^6/uL (4.1-5.3); Red Cell Distribution Width 18.3 % (12.1-15.1); White Blood Count 10.4 10^3/uL (4.0-10.0)
== END 2019-12-04 16:54 | disposition home or self-care (01) ==
LOC: ONCMED 16:53
PROVIDERS: PCP Internal Medicine; Visit Provider Internal Medicine Hematology & Oncology
DX: D45 Polycythemia vera (principal)
CPT/HCPCS: 85025

== ENCOUNTER 2019-12-18 08:10 | Outpatient (CLI) | payer MEDICARE, BC, SELFPAY ==
[2019-12-18 09:41] LABS: Basophils # 0.2 10^3/uL (0.0-0.1); Basophils % 1.4 %; Eosinophils # 0.4 10^3/uL (0.0-0.8); Eosinophils % 3.5 %; Hematocrit 45.8 % (42.0-52.0); Hemoglobin 13.3 g/dL (11.7-16.6); Lymphocytes # 0.9 10^3/uL (0.8-4.8); Lymphocytes % 8.2 %; Mean Corpuscular Hemoglobin 22.9 pg (28.0-34.0); Mean Platelet Volume 10.6 fL (7.4-10.4); Monocytes # 0.7 10^3/uL (0.2-0.9); Monocytes % 6.3 %; Neutrophils # 8.94 10^3/uL (1.8-7.7); Neutrophils % 80.2 %; Nucleated Red Blood Cells % 0 %; Platelet Count 467 10^3/cmm (130-400); White Blood Count 11.1 10^3/uL (4.0-10.0)
== END 2019-12-18 08:11 | disposition home or self-care (01) ==
LOC: ONCMED 10:11
PROVIDERS: PCP Internal Medicine; Visit Provider Internal Medicine Hematology & Oncology
DX: D45 Polycythemia vera (principal); E03.9 Hypothyroidism, unspecified; I10 Essential (primary) hypertension
CPT/HCPCS: 85025

== ENCOUNTER 2020-01-02 11:19 | Outpatient (CLI) | payer MEDICARE, BC, SELFPAY ==
[2020-01-02 12:04] LABS: Basophils # 0.2 10^3/uL (0.0-0.1); Basophils % 1.4 %; Eosinophils # 0.3 10^3/uL (0.0-0.8); Eosinophils % 2.3 %; Hematocrit 47.6 % (42.0-52.0); Hemoglobin 13.6 g/dL (11.7-16.6); Lymphocytes % 8.2 %; Mean Corpuscular HGB Conc 28.6 g/dL (30.0-36.0); Mean Corpuscular Hemoglobin 22.7 pg (28.0-34.0); Mean Corpuscular Volume 79.6 fL (80-94); Mean Platelet Volume 10.3 fL (7.4-10.4); Monocytes # 0.7 10^3/uL (0.2-0.9); Monocytes % 5.9 %; Neutrophils # 10.16 10^3/uL (1.8-7.7); Neutrophils % 81.7 %; Nucleated Red Blood Cells % 0 %; Platelet Count 603 10^3/cmm (130-400); Red Blood Count 5.98 10^6/uL (4.1-5.3); Red Cell Distribution Width 18.3 % (12.1-15.1); White Blood Count 12.4 10^3/uL (4.0-10.0)
[2020-01-02] MEDS: sodium chloride 0.9% 250 ML 999 ML IV (14:15)
--- NOTE | 2020-01-02 16:23 | ONC FU_ITS ---
Dr. Pratt follow up note Patient: Casey Alves Unit #: [id number]: 1935 Dicatated By: Connie Pratt M.D.Date of Visit:Jan 02, 2020 Onc Med Follow-up/Prog Note History of Present Illness: Mr. 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 sleep apnea on cpap Clinically, it appears he may be depressed as his couple of years ago, as per his daughter he is on Zoloft not using his CPAP machine as recommended by his PMD. 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 As per patient when he was in the hospital in [place], his hydroxyurea was increased to 500 mg twice a day and then later on it was reduced to 500 mg daily whereas before he went to [place] he used to take 500 mg every other day.So on 03/06/2019 hydroxyurea was reduced to 500 mg every other day. Because of progressive polycythemia which appears multifactorial including due to sleep apnea and patient being noncompliant with CPAP, now being treated with phlebotomies on as-needed basis And goal is to keep his hematocrit equal to or less than [address] Newman recently and had CT scan of head done on 05/24/2019 which shows mild atrophy and chronic ischemic disease no progression since 02/14/2019. tolerating hydroxyurea well and also using CPAP machine on a regular basis. Came for follow-up, denies any specific complaint except generalized weakness and fatigue otherwise no headaches no blurred vision no double vision, no shortness of breath or chest pain, no fever chills, no nausea or vomiting, no diarrhea constipation, tolerating hydroxyurea and phlebotomy on as-needed basis, well Medications: Eliquis 1 (2.5 mg) Tablet Oral b.i.d., Finasteride 1 Tablet (of 5 mg) Oral daily, hydroCHLOROthiazide (25 mg) Tablet Oral Take as Directed, Hydroxyurea (500 mg) Capsule Oral Take as Directed, Keppra 1 Tablet (of 750 mg) Oral b.i.d., levETIRAcetam 1 Tablet (of 750 mg) Oral b.i.d., Levo-T 1 (137 mcg) Tablet Oral daily, Memantine HCl Tablet Oral b.i.d., Tamsulosin HCl Capsule Oral at bedtime Allergies: No Known Allergies. Review of Systems: Constitutional - Energy is poor. Appetite is good and weight is stable. No fever, chills, hot flashes, or night sweats, ENMT - No sinus congestion/drainage. No mouth sores. No sore throat or difficulty swallowing, Hematologic/Lymphatic - No abnormal bruising or bleeding, Respiratory - No shortness of breath. No cough. No pleuritic pain or hemoptysis, Cardiovascular - No angina pain. No palpitations, Gastrointestinal - No nausea or vomiting. No heartburn or acid reflux. No diarrhea or constipation. No blood in the stool or black stools, Genitourinary (M) - No dysuria or hematuria. Positive for urinary frequency. No urgency or incontinence, Musculoskeletal - No complaint of joint pain, Integumentary - Positive for bilateral lower edema, Neurologic - No headache or dizziness, Psychiatric - No anxiety or depression. No insomnia. Vital Signs: Performed on Jan 02, 2020 12:43 Height - 74.00 in Weight - 212.4 lbs (LOW) BSA - 2.23 sq.m BMI - 27.27 Temperature - 97.8 F (LOW) Pulse - 59 /min (LOW) Respiration - 20 /min BP - 155/87 mm(hg) (HIGH) O2 Sat - 95 % (LOW) Pain - 6 Performance Status: 1 - No physically strenuous activity, but ambulatory and able to carry out light or sedentary work (e.g. office work, light house work). (ECOG) Physical Examination: ENMT - No mouth sores, no thrush, no jaundice, Respiratory - Lungs are clear, Cardiovascular - Regular rate and rhythm of heart, Abdomen - Soft, bowel sounds, Extremities - No visible edema. Lab/Imaging: Test performed on Dec 18, 2019 08:10 WBC 11.1 10 3/uL RBC 5.80 10 6/uL HGB 13.3 g/dL HCT 45.8 % MCV 79.0 fL MCH 22.9 pg MCHC 29.0 g/dL RDW 18.0 % Platelet Count 467 10 3/cmm MPV 10.6 fL Neutrophils 8.94 10 3/uL Lymphocytes 0.9 10 3/uL Monocytes 0.7 10 3/uL Eosinophils 0.4 10 3/uL Basophils 0.2 10 3/uL Neutrophil % 80.2 % Lymphocyte % 8.2 % Monocyte % 6.3 % Eosinophil % 3.5 % Basophils % 1.4 % NRBC % 0 % Test performed on Sep 04, 2019 12:15 Sodium 140 mmol/L Potassium 4.0 mmol/L Chloride 100 mmol/L CO2 27 mmol/L Anion Gap 17.0 BUN 23 mg/dL Creatinine 1.6 mg/dL Cr Clearance (Est) 50.32 mL/min Glucose 172 mg/dL Calcium 8.8 mg/dL Protein, Total 6.8 g/dL Albumin 4.4 g/dL Globulin 2.4 g/dL Bilirubin, Total 0.5 mg/dL ALT (SGPT) 16 U/L AST (SGOT) 17 U/L Alkaline Phosphatase 82 IU/L Impression: 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 On cytoreduction therapy with hydroxyurea he was 1500 mg daily , was held till CBC recovery , then started on hydrea 500 mg twice a week , now changed to 3x/week on 08/31/17 , Sleep apnea confirmed with sleep study now using CPAP machine non compliant Anxiety/depression on antidepressant Zoloft 50 mg daily Intermittent jerky movements involving left arm/shoulder due to epilepsia partialis continua diagnosed by neurologist in [place] on 02/23/2019, now being treated with valproate. A. fib, controlled rate, on Eliquis 2.5 mg twice a day Plan: Discussed with patient regarding his labs white blood count 12.4 hemoglobin 13.6 crit 47.6 platelets 603,000 Clinically, patient is doing well, with no new signs symptoms, tolerating hydroxyurea and phlebotomies on as-needed basis well. His follow-up labs shows hematocrit gone up to 47.6 and platelet count is 603,000 Patient was advised to be compliant with hydroxyurea as there is a concern about compliance. In the meantime, we will proceed with phlebotomy today and then continue every 2 weeks to keep hematocrit less than 45 as with further drop, there is a worsening of his generalized weakness and fatigue. Patient was advised to continue with aspirin and maintain good hydration and to be compliant with hydroxyurea and then return to clinic in 2 weeks with CBC and consider phlebotomy if his hematocrit is more than 45 and I will see him back in 1 month with CBC Signed By: Connie Pratt M.D. <<Signature on File>>
== END 2020-01-02 11:20 | disposition home or self-care (01) ==
PROVIDERS: PCP Internal Medicine; Visit Provider Internal Medicine Hematology & Oncology
DX: D47.1 Chronic myeloproliferative disease (principal); R53.1 Weakness; R53.83 Other fatigue; G47.30 Sleep apnea, unspecified; F41.8 Other specified anxiety disorders; G40.109 Localization-related (focal) (partial) symptomatic epilepsy and epileptic syndromes with simple partial seizures, not intractable, without status epilepticus; Z79.899 Other long term (current) drug therapy; I48.91 Unspecified atrial fibrillation; Z79.01 Long term (current) use of anticoagulants
CPT/HCPCS: 85025; 99195; 99214; J7050

== ENCOUNTER 2020-01-16 12:12 | Outpatient (CLI) | payer MEDICARE, BC, SELFPAY ==
[2020-01-16 13:23] LABS: Basophils # 0.1 10^3/uL (0.0-0.1); Basophils % 1.4 %; Eosinophils # 0.3 10^3/uL (0.0-0.8); Eosinophils % 2.9 %; Hematocrit 42.5 % (42.0-52.0); Hemoglobin 12.3 g/dL (11.7-16.6); Lymphocytes # 0.9 10^3/uL (0.8-4.8); Lymphocytes % 9.8 %; Mean Corpuscular HGB Conc 28.9 g/dL (30.0-36.0); Mean Corpuscular Hemoglobin 22.8 pg (28.0-34.0); Mean Corpuscular Volume 78.8 fL (80-94); Mean Platelet Volume 10.9 fL (7.4-10.4); Monocytes # 0.5 10^3/uL (0.2-0.9); Monocytes % 5.3 %; Neutrophils # 7.48 10^3/uL (1.8-7.7); Neutrophils % 80.2 %; Nucleated Red Blood Cells % 0 %; Platelet Count 413 10^3/cmm (130-400); Red Blood Count 5.39 10^6/uL (4.1-5.3); Red Cell Distribution Width 18.1 % (12.1-15.1); White Blood Count 9.3 10^3/uL (4.0-10.0)
== END 2020-01-16 12:13 | disposition home or self-care (01) ==
LOC: ONCMED 12:15
PROVIDERS: PCP Internal Medicine; Visit Provider Internal Medicine Hematology & Oncology
DX: D45 Polycythemia vera (principal); I10 Essential (primary) hypertension; E03.9 Hypothyroidism, unspecified
CPT/HCPCS: 36415; 85025

== ENCOUNTER 2020-01-30 11:07 | Outpatient (CLI) | payer MEDICARE, BC, SELFPAY ==
[2020-01-30 12:04] LABS: Basophils # 0.1 10^3/uL (0.0-0.1); Basophils % 1.4 %; Eosinophils # 0.3 10^3/uL (0.0-0.8); Eosinophils % 2.9 %; Hematocrit 41.8 % (42.0-52.0); Hemoglobin 12.2 g/dL (11.7-16.6); Lymphocytes # 0.8 10^3/uL (0.8-4.8); Lymphocytes % 8.1 %; Mean Corpuscular HGB Conc 29.2 g/dL (30.0-36.0); Mean Corpuscular Hemoglobin 23.4 pg (28.0-34.0); Mean Corpuscular Volume 80.1 fL (80-94); Mean Platelet Volume 10.5 fL (7.4-10.4); Monocytes # 0.5 10^3/uL (0.2-0.9); Monocytes % 5.4 %; Neutrophils # 7.91 10^3/uL (1.8-7.7); Neutrophils % 81.5 %; Nucleated Red Blood Cells % 0 %; Platelet Count 500 10^3/cmm (130-400); Red Blood Count 5.22 10^6/uL (4.1-5.3); Red Cell Distribution Width 18.9 % (12.1-15.1); White Blood Count 9.7 10^3/uL (4.0-10.0)
--- NOTE | 2020-01-30 13:40 | ONC FU_ITS ---
Dr. Pratt follow up note Patient: Casey Alves Unit #: [id number]: 1935 Dicatated By: Connie Pratt M.D.Date of Visit:Jan 30, 2020 Onc Med Follow-up/Prog Note History of Present Illness: Mr. 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 sleep apnea on cpap Clinically, it appears he may be depressed as his couple of years ago, as per his daughter he is on Zoloft not using his CPAP machine as recommended by his PMD. 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 As per patient when he was in the hospital in [place], his hydroxyurea was increased to 500 mg twice a day and then later on it was reduced to 500 mg daily whereas before he went to [place] he used to take 500 mg every other day.So on 03/06/2019 hydroxyurea was reduced to 500 mg every other day. Because of progressive polycythemia which appears multifactorial including due to sleep apnea and patient being noncompliant with CPAP, now being treated with phlebotomies on as-needed basis And goal is to keep his hematocrit equal to or less than [address] Newman recently and had CT scan of head done on 05/24/2019 which shows mild atrophy and chronic ischemic disease no progression since 02/14/2019. tolerating hydroxyurea well and also using CPAP machine on a regular basis. Came for follow-up, denies any specific complaints, no headaches, no blurred vision or double vision, no fever chills, no nausea or vomiting ,tolerating hydroxyurea and phlebotomy on as-needed basis, well Medications: Aspirin 1 Tablet (of 81 mg) Tablet, enteric coated Oral daily, Eliquis 1 (2.5 mg) Tablet Oral b.i.d., Finasteride 1 Tablet (of 5 mg) Oral daily, Hydroxyurea (500 mg) Capsule Oral Take as Directed, Keppra 1 Tablet (of 750 mg) Oral b.i.d., Levo-T 1 (137 mcg) Tablet Oral daily, Memantine HCl Tablet Oral b.i.d., Tamsulosin HCl Capsule Oral at bedtime Allergies: No Known Allergies. Review of Systems: Constitutional - Energy is poor. Appetite is good and weight is stable. No fever, chills, hot flashes, or night sweats, ENMT - No sinus congestion/drainage. No mouth sores. No sore throat or difficulty swallowing, Hematologic/Lymphatic - No abnormal bruising or bleeding, Respiratory - No shortness of breath. No cough. No pleuritic pain or hemoptysis, Cardiovascular - No angina pain. No palpitations, Gastrointestinal - No nausea or vomiting. No heartburn or acid reflux. No diarrhea or constipation. No blood in the stool or black stools, Genitourinary (M) - No dysuria or hematuria. Positive for urinary frequency. No urgency or incontinence, Musculoskeletal - No complaint of joint pain, Integumentary - Positive for bilateral lower edema, Neurologic - No headache or dizziness, Psychiatric - No anxiety or depression. No insomnia. Vital Signs: Performed on Jan 30, 2020 12:39 Height - 74.00 in Weight - 213.6 lbs (HIGH) BSA - 2.23 sq.m BMI - 27.42 Temperature - 98.0 F (LOW) Pulse - 43 /min (LOW) Respiration - 16 /min BP - 153/61 mm(hg) (HIGH) O2 Sat - 96 % Pain - 0 Performance Status: 1 - No physically strenuous activity, but ambulatory and able to carry out light or sedentary work (e.g. office work, light house work). (ECOG) Physical Examination: ENMT - No mouth sores, no thrush, no jaundice, Respiratory - Lungs are clear, Cardiovascular - Regular rate and rhythm of heart, Abdomen - Soft, bowel sounds present, Extremities - No edema or rash. Lab/Imaging: Test performed on Jan 16, 2020 12:30 WBC 9.3 10 3/uL RBC 5.39 10 6/uL HGB 12.3 g/dL HCT 42.5 % MCV 78.8 fL MCH 22.8 pg MCHC 28.9 g/dL RDW 18.1 % Platelet Count 413 10 3/cmm MPV 10.9 fL Neutrophils 7.48 10 3/uL Lymphocytes 0.9 10 3/uL Monocytes 0.5 10 3/uL Eosinophils 0.3 10 3/uL Basophils 0.1 10 3/uL Neutrophil % 80.2 % Lymphocyte % 9.8 % Monocyte % 5.3 % Eosinophil % 2.9 % Basophils % 1.4 % NRBC % 0 % Test performed on Sep 04, 2019 12:15 Sodium 140 mmol/L Potassium 4.0 mmol/L Chloride 100 mmol/L CO2 27 mmol/L Anion Gap 17.0 BUN 23 mg/dL Creatinine 1.6 mg/dL Cr Clearance (Est) 50.32 mL/min Glucose 172 mg/dL Calcium 8.8 mg/dL Protein, Total 6.8 g/dL Albumin 4.4 g/dL Globulin 2.4 g/dL Bilirubin, Total 0.5 mg/dL ALT (SGPT) 16 U/L AST (SGOT) 17 U/L Alkaline Phosphatase 82 IU/L Impression: 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 On cytoreduction therapy with hydroxyurea he was 1500 mg daily , was held till CBC recovery , then started on hydrea 500 mg twice a week , now changed to 3x/week on 08/31/17 , Sleep apnea confirmed with sleep study now using CPAP machine non compliant Anxiety/depression on antidepressant Zoloft 50 mg daily Intermittent jerky movements involving left arm/shoulder due to epilepsia partialis continua diagnosed by neurologist in [place] on 02/23/2019, now being treated with valproate. A. fib, controlled rate, on Eliquis 2.5 mg twice a day Plan: Discussed with patient regarding his labs white blood count 9.7, hemoglobin 12.2 hematocrit 41.8 platelets 500,000 Clinically, patient is doing well, tolerating hydroxyurea and phlebotomy on as-needed basis well, his hemoglobin/hematocrit and platelet count in a desirable range, will continue same and return to clinic in 2 months with CBC Signed By: Connie Pratt M.D. <<Signature on File>>
== END 2020-01-30 11:08 | disposition home or self-care (01) ==
LOC: ONCMED 11:12
PROVIDERS: PCP Internal Medicine; Visit Provider Internal Medicine Hematology & Oncology
DX: D47.1 Chronic myeloproliferative disease (principal); F41.8 Other specified anxiety disorders; I48.91 Unspecified atrial fibrillation; G40.109 Localization-related (focal) (partial) symptomatic epilepsy and epileptic syndromes with simple partial seizures, not intractable, without status epilepticus; Z79.01 Long term (current) use of anticoagulants; Z79.899 Other long term (current) drug therapy; G47.33 Obstructive sleep apnea (adult) (pediatric); Z91.19 Patient's noncompliance with other medical treatment and regimen
CPT/HCPCS: 85025; 99214

== ENCOUNTER 2020-02-02 12:33 | Emergency (ER) | payer MEDICARE, BC, SELFPAY ==
[2020-02-02 12:42] VITALS: BP 206/100; PULSE 66; RESP 18; TEMP 36.6; O2SAT 91; BMI 35.2
--- NOTE | 2020-02-02 12:45 | XR_ITS ---
WS: [id number] Left shoulder, 3 views, 02/02/2020 Clinical Data: Fall/injury Comparison: None. Findings: No fractures or dislocations are seen. The AC joint is normal. The adjacent left clavicle, left scapu la and ribs are normal. There is a small pellet in the soft tissue adjacent to the inferior left nec k. XR/XR shoulder LT min 2V* [id number] Impression: Negative left shoulder.
--- NOTE | 2020-02-02 12:45 | XR_ITS ---
WS: [id number] Right shoulder, 3 views, 02/02/2020 Clinical Data: Fall/injury Comparison: None. Findings: No fractures or dislocations are seen. The AC joint shows osteoarthritis. The adjacent right clavicle , right scapula and ribs are normal. The soft tissues are unremarkable. XR/XR shoulder RT min 2V* [id number] Impression: Negative for right shoulder fracture or dislocation.
--- NOTE | 2020-02-02 12:46 | CT_ITS ---
WS: [id number] CT cervical spine. Additional two-dimensional coronal and sagittal reconstruction was performed. 02/01 Clinical Data: PAIN Comparison: None. DLP: 815.[address] scans at [facility] use at least one of these dose optimization techniques: automat ed exposure control; mA and/or kV adjustment per patient size (includes targeted exams where dose is matched to clinical indication); or iterative reconstruction. Findings: No compression fractures are seen. Degenerative disc narrowing occurs at all levels but is most sever e at C4-C5, C5-C6 and C6-C7. There are anterior and posterior osteophytes at C4-C5, C5-C6 and C6-C7.. The spinous processes are in good alignment. The odontoid is unremarkable. There is no prevertebral soft tissue swelling. The soft tissues of the cervical spine and the lung apices show only a radiopaq ue pellet in the subcutaneous soft tissue lateral to the left C3 vertebral body. C2-C3: No disc bulge, canal stenosis or foraminal stenosis is seen. There is left facet joint arthrit is. C3-C4: No disc bulge, canal stenosis or foraminal stenosis is seen. Bilateral facet joint arthritis i s present. C4-C5: There is posterior osteophyte impingement causing mild canal stenosis C5-C6: No disc bulge, canal stenosis or foraminal stenosis is seen. There is bilateral facet joint ar thritis. C6-C7: There is posterior osteophyte impingement and bilateral facet joint arthritis causing canal an d foraminal stenosis. C7-T1: No disc bulge, canal stenosis or foraminal stenosis is seen. CT/CT cervical spin wo con* [id number] Impression: 1. Negative for cervical spine fracture. 2. Osteoarthritic change of the vertebral bodies C4-C7 with accompanying degene rative disc disease. 3. Multilevel posterior osteophyte formation, canal stenosis and facet joint ar thritis.
--- NOTE | 2020-02-02 12:46 | CT_ITS ---
WS: [id number] CT scan of the head, 02/02/2020 Clinical Data: Fall/injury/anticoagulated Comparison: CT head, 05/24/2019. DLP: 396.[address] scans at [facility] use at least one of these dose optimization techniques: automat ed exposure control; mA and/or kV adjustment per patient size (includes targeted exams where dose is matched to clinical indication); or iterative reconstruction. Findings: The ventricular system is moderately dilated without shift. Patient motion obscures detail especially of the skull base. No recent infarct or hemorrhage is seen. There is an area of encephalomalacia inv olving the posterior right parietal lobe which was not present on the previous CT. This appears to be several weeks or several months old. There are no abnormal intracerebral masses. The cerebellum and brainstem are not remarkable. Bony windows of the skull and skull base show no fractures or erosions. The mastoid air cells, safety intern al auditory canals, sella turcica, intraorbital contents, and paranasal sinuses are unremarkable. CT/CT head wo con* [id number] Impression: 1. Negative for acute infarct or hemorrhage. 2. 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 3. Moderate cerebral atrophy.
--- NOTE | 2020-02-02 12:46 | CT_ITS ---
WS: [id number] CT scan of the thoracic spine. Additional two-dimensional coronal and sagittal reconstruction was per formed. 02/02/2020 Clinical Data: Fall/injury Comparison: None. DLP: 1951.[address] scans at [facility] use at least one of these dose optimization techniques: automat ed exposure control; mA and/or kV adjustment per patient size (includes targeted exams where dose is matched to clinical indication); or iterative reconstruction. Findings: No compression fractures are seen. There is moderate anterior osteoarthritic spurring of the thoraci c vertebral bodies. The spinous processes are in good alignment. The proximal ribs are not remarkable . Osteoporosis and kyphosis are present. The disc heights are narrow at all levels. There is an incid ental left renal cyst. CT/CT thoracic spin wo con* [id number] Impression: 1. Negative for compression fracture. 2. Osteoarthritis, osteoporosis and kyphosis.
--- NOTE | 2020-02-02 12:46 | XR_ITS ---
WS: [id number] Portable AP upright chest, 02/02/2020 Clinical Data: Fall/injury Comparison: Portable chest, 02/15/2019. Findings: No nodules, masses or effusions are seen. The heart is enlarged. The pulmonary vascularity is not increased. No pneumonia or pneumothorax is seen. The aortic arch and descending aorta are tort uous. XR/XR chest 1V portable [id number] Impression: Atherosclerosis and cardiomegaly.
--- NOTE | 2020-02-02 12:48 | W.ED.FALL ---
HPI - Fall General: Chief Complaint: Fall Stated Complaint: fall Time Seen by Provider: 02/02/20 12:38 Source: patient and family Mode of arrival: ambulatory Limitations: no limitations History of Present Illness: HPI Narrative: Mr. Alves is a nice 84-year-old male who comes in complaining of back and shoulder pain after falling. Patient states that he fell asleep in a lawn chair outside and fell backward from a seated height onto the ground. Patient did not have loss of consciousness. He woke up when he felt himself falling. He is complaining of pain to his head, neck, upper back and both shoulders. His pain is not made any worse by range of motion of note the patient is on Eliquis for A. fib Associated symptoms-after fall: Reports neck pain; Denies abdominal pain, chest pain, confusion, difficulty walking, headache(s), hematuria, lightheadedness or vertigo Review of Systems Const: Denies: fever(s), chills, body aches, fatigue, malaise or diaphoresis Eyes: Denies: change in vision, blurry vision, photophobia, eye discomfort, eye discharge or eye redness ENMT: Denies: throat pain, odynophagia, hoarseness, swelling of lips/tongue, ear or mastoid pain, ear discharge, change in hearing or nasal discharge Card: Denies: chest pain, palpitations, irregular heart rhythm, edema, lightheadedness, syncope, pre-syncope, dyspnea on exertion or orthopnea Resp: Denies: dyspnea, productive cough, non-productive cough, wheezing, hemoptysis or chest congestion GI: Denies: abdominal pain, nausea, vomiting, hematemesis, coffee ground emesis, heartburn, diarrhea, constipation, GI cramping, hematochezia or melena : Denies: flank pain, dysuria, urinary frequency, urinary urgency or hematuria Musc: Reports: neck pain, back pain and extremity pain; Denies: extremity swelling, joint pain, joint swelling, joint redness, joint warmth or joint stiffness Skin/Breast: Denies: rash, pruritus, erythema or skin tenderness Neuro: Denies: headache(s), numbness in extremities, weakness in extremities, sensory changes, lack of coordination, difficulty walking, dizziness, vertigo, confusion, Slurred speech present or seizure-like activity Liban/Lymph: Denies: easy bruising, easy bleeding, petechiae, purpura or enlarged lymph nodes All/Imm: Denies: urticaria, throat swelling, tongue swelling, facial swelling or acute wheezing PFSH ED PFSH: Medical History Bradycardia Cardiomegaly Chronic atrial fibrillation 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 Hernia Hypertension Hypothyroid Obstructive sleep apnea Pancytopenia Polycythemia Pulmonary hypertension Restless leg Family History Father CAD (coronary artery disease) Physical Exam Const: COMMON NORMALS: no acute distress, patient oriented x3, no limitations, healthy appearing and well nourished GENERAL APPEARANCE: cooperative, well kempt and well developed HENMT: COMMON NORMALS: normocephalic, atraumatic, external ears normal, EAC's normal and Normal external nose present HEAD & SCALP: normal to inspection, normocephalic and atraumatic FACE & SINUS: normal facial exam and face symmetric NOSE: Normal external nose present and Normal nares present EXTERNAL EAR: Yes external ears normal EXTERNAL AUDITORY CANAL: EAC's normal MOUTH: Normal oral and palatal mucosa present, lip normal and tongue normal Eye: COMMON NORMALS: Equal, round and reactive pupils present and conjunctivae normal GENERAL EYE: appearance normal, both eyes and all related structures ALIGNMENT: Yes alignment normal PERIORBITAL: periorbital findings normal EYELID: eyelids normal CONJUNCTIVA: Yes conjunctivae normal SCLERA: sclerae normal PUPIL: Yes Equal, round and reactive pupils present Neck/C-Spine: COMMON NORMALS: full ROM, no lymphadenopathy, supple, no meningeal signs and no JVD GENERAL: Yes normal visual inspection, Yes trachea midline and Yes other (Mild tenderness to palpation in the midline) Chest: COMMONS NORMALS: normal inspection of the chest and normal palpation of entire chest wall Resp: COMMON NORMALS: normal respiratory effort, No retractions, No use of accessory muscles and clear to auscultation bilaterally EFFORT & INSPECTION: Yes able to speak in complete sentences and Yes symmetric chest movement AUSCULTATION: clear to auscultation bilaterally, no crackles, no rales, no rhonchi and no wheezes Cardio: COMMON NORMALS: no JVD, regular rate, regular rhythm, S1 normal heart sound present and S2 normal heart sound present RATE: regular rate RHYTHM: regular rhythm HEART SOUNDS: S1 normal heart sound present, S2 normal heart sound present, no click, no gallops, no murmurs, no rubs and abnormal split S2 GI: COMMON NORMALS: Soft to palpation and No hepatosplenomegaly present PALPATION: Yes Soft to palpation, No Tenderness to palpation present (GI), No Guarding due to palpation present (GI), No Rigid due to palpation, Yes No hepatosplenomegaly present, No Hernia present, No Palpable mass present and No Pulsatile mass present : COMMON NORMALS: Yes no CVA tenderness BLADDER/KIDNEY EXAM: Yes no CVA tenderness Back/Pelvis: COMMON NORMALS: no CVA tenderness GENERAL BACK: Yes other (Mild tenderness to palpation to the upper and mid thoracic spine) Extremity: COMMON NORMALS: normal to inspection, full ROM, capillary refill normal, no joint enlargement, no clubbing, cyanosis or edema and no calf tenderness Neuro: COMMON NORMALS: patient oriented x3, CN's II-XII intact bilaterally, moves all extremities, no focal motor deficits and no sensory deficits noted MENINGEAL SIGNS: Yes no meningeal signs SPEECH: speech normal Psych: COMMON NORMALS: mental status grossly normal, Normal thought process present, cooperative, normal affect, speech normal and activity/motor behavior normal APPEARANCE: Yes well kempt SPEECH: Yes normal speech THOUGHT PROCESS: Normal thought process present Skin: COMMON NORMALS: no rashes or lesions noted, turgor normal, no jaundice, no petechiae and no mottling GENERAL SKIN EXAM: no rashes or lesions noted and turgor normal Course Vital Signs: Vital signs: Vital Signs Temperature 97.9 F 02/02/20 12:42 Pulse Rate 69 02/02/20 15:37 Respiratory Rate 17 02/02/20 15:37 Blood Pressure 185/80 02/02/20 15:37 Pulse Oximetry 96 02/02/20 15:37 MDM - Fall MDM Narrative: Medical decision making narrative: Mr. Alves is a nice 84-year-old male who comes in after a fall at home. He is adamant he had no syncopal spell and has refused any lab work or EKGs. Patient states he simply fell back in the chair and landed on his back. There is no evidence of fracture or deep injury. He declines any further fashion care and like to be discharged. I see no sign of acute life-threatening injury. The patient thinks he will be okay taking Tylenol Motrin at home. I will give him 1 dose of something stronger here but he does agree to return here if her symptoms change or worsen. Lab Data: Labs: Lab Results 02/02/20 Range/Units 14:35 Urine Color Yellow (Yellow) Urine Appearance Clear (CLEAR) Urine pH 5 (5-7) Ur Specific Gravit y 1.015 (1.005-1.030) Urine Protein Trace (Negative) Urine Glucose (UA) Norm (Normal) Urine Ketones Negative (Negative) Urine Blood Neg (Negative) Urine Nitrate Negative (Negative) Urine Bilirubin Neg (NEGATIVE) Urine Urobilinogen Norm (Negative) mg/dL Ur Leukocyte Lila ase Negative (Negative) Urine RBC None (0-2) /hpf Urine WBC 0-4 H (0-5) /hpf Ur Squamous Epith Cells 0-4 H (0-5) Amorphous Sediment Not Reportable Urine Bacteria 1+ H (NONE) Hyaline Casts 0-4 H Urine Mucus Trace Imaging Data^: CXR: Attestation: I personally reviewed and interpreted this imaging study as follows: My impression: No acute cardiopulmonary or traumatic findings Left Shoulder: Attestation: I personally reviewed and interpreted this imaging study as follows: My impression: No acute fractures or dislocations Right Shoulder: Attestation: I personally reviewed and interpreted this imaging study as follows: My impression: No acute fractures or dislocations CT Head: Radiologist's impression: [place] [address] CT Scan Report Signed Patient: Casey Alves Unit #: [id number] : 1935 Age/Sex: 84 / M ADM Date: 02/02/20 Loc: ER Room/Bed: Attending Dr: Ordering Provider/Ordering MD: Kalina Sunshine DO Date of Service: 02/02/20 Procedure(s): CT head wo con* [id number] Accession Number(s): [id number] Report Number: [id number] WS: [id number] CT scan of the head, 02/02/2020 Clinical Data: Fall/injury/anticoagulated Comparison: CT head, 05/24/2019. DLP: 396.[address] scans at [facility] use at least one of these dose optimization techniques: automated exposure control; mA and/or kV adjustment per patient size (includes targeted exams where dose is matched to clinical indication); or iterative reconstruction. Findings: The ventricular system is moderately dilated without shift. Patient motion obscures detail especially of the skull base. No recent infarct or hemorrhage is seen. There is an area of encephalomalacia involving the posterior right parietal lobe which was not present on the previous CT. This appears to be several weeks or several months old. There are no abnormal intracerebral masses. The cerebellum and brainstem are not remarkable. Bony windows of the skull and skull base show no fractures or erosions. The mastoid air cells, internal auditory canals, sella turcica, intraorbital contents, and paranasal sinuses are unremarkable. CT/CT head wo con* [id number] Impression: 1. Negative for acute infarct or hemorrhage. 2. 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 3. Moderate cerebral atrophy. Dictated By: Jocelin Keller MD Signed By: Jocelin Keller MD Signed Date/Time: 02/02/20 1420 DD/ 1415 CT Cervical Spine: Radiologist's impression: [address] [address] [address] Scan Report Signed Patient: Casey Alves Unit #: [id number] : 1935 Age/Sex: 84 / M ADM Date: 02/02/20 Loc: ER Room/Bed: Attending Dr: Ordering Provider/Ordering MD: Kalina Sunshine DO Date of Service: 02/02/20 Procedure(s): CT cervical spin wo con* [id number] Accession Number(s): [id number] Report Number: [id number] WS: [id number] CT cervical spine. Additional two-dimensional coronal and sagittal reconstruction was performed. 02/02/2020 Clinical Data: PAIN Comparison: None. DLP: 815.[address] scans at [facility] use at least one of these dose optimization techniques: automated exposure control; mA and/or kV adjustment per patient size (includes targeted exams where dose is matched to clinical indication); or iterative reconstruction. Findings: No compression fractures are seen. Degenerative disc narrowing occurs at all levels but is most severe at C4-C5, C5-C6 and C6-C7. There are anterior and posterior osteophytes at C4-C5, C5-C6 and C6-C7.. The spinous processes are in good alignment. The odontoid is unremarkable. There is no prevertebral soft tissue swelling. The soft tissues of the cervical spine and the lung apices show only a radiopaque pellet in the subcutaneous soft tissue lateral to the left C3 vertebral body. C2-C3: No disc bulge, canal stenosis or foraminal stenosis is seen. There is left facet joint arthritis. C3-C4: No disc bulge, canal stenosis or foraminal stenosis is seen. Bilateral facet joint arthritis is present. C4-C5: There is posterior osteophyte impingement causing mild canal stenosis C5-C6: No disc bulge, canal stenosis or foraminal stenosis is seen. There is bilateral facet joint arthritis. C6-C7: There is posterior osteophyte impingement and bilateral facet joint arthritis causing canal and foraminal stenosis. C7-T1: No disc bulge, canal stenosis or foraminal stenosis is seen. CT/CT cervical spin wo con* [id number] Impression: 1. Negative for cervical spine fracture. 2. Osteoarthritic change of the vertebral bodies C4-C7 with accompanying degenerative disc disease. 3. Multilevel posterior osteophyte formation, canal stenosis and facet joint arthritis. Dictated By: Jocelin Keller MD Signed By: Jocelin Keller MD Signed Date/Time: 02/02/20 1415 DD/ 1407 CT Thoracic Spine: Radiologist's impression: [address] [address] [address] Scan Report Signed Patient: Casey Alves Unit #: [id number] : 1935 Age/Sex: 84 / M ADM Date: 02/02/20 Loc: ER Room/Bed: Attending Dr: Ordering Provider/Ordering MD: Kalina Sunshine DO Date of Service: 02/02/20 Procedure(s): CT thoracic spin wo con* [id number] Accession Number(s): [id number] Report Number: [id number] WS: [id number] CT scan of the thoracic spine. Additional two-dimensional coronal and sagittal reconstruction was performed. 02/02/2020 Clinical Data: Fall/injury Comparison: None. DLP: 1951.[address] scans at [facility] use at least one of these dose optimization techniques: automated exposure control; mA and/or kV adjustment per patient size (includes targeted exams where dose is matched to clinical indication); or iterative reconstruction. Findings: No compression fractures are seen. There is moderate anterior osteoarthritic spurring of the thoracic vertebral bodies. The spinous processes are in good alignment. The proximal ribs are not remarkable. Osteoporosis and kyphosis are present. The disc heights are narrow at all levels. There is an incidental left renal cyst. CT/CT thoracic spin wo con* [id number] Impression: 1. Negative for compression fracture. 2. Osteoarthritis, osteoporosis and kyphosis. Dictated By: Jocelin Keller MD Signed By: Jocelin Keller MD Signed Date/Time: 02/02/201425 DD/ 19 Discharge Plan Discharge Patient Disposition: Home Clinical Impression: Multiple contusions Condition: Stable Prescriptions: No Action donepezil 10 mg tablet 10 mg PO ONCE Qty: 90 RF: 1 Eliquis 2.5 mg tablet 2.5 mg PO BID RF: 0 finasteride 5 mg tablet 5 mg PO ONCE RF: 0 hydroxyurea 500 mg capsule 500 mg PO .COMPLEX RF: 0 levothyroxine 137 mcg capsule 137 mcg PO ONCE RF: 0 nystatin [Nystop] 100,000 unit/gram powder 1 applic TOPICAL .COMPLEX RF: 0 tamsulosin 0.4 mg capsule 0.4 mg PO ONCE RF: 0 levetiracetam [Keppra] 1,000 mg tablet 1,000 mg PO BID Qty: 180 RF: 2 isosorbide mononitrate 30 mg tablet extended release 24 hr See Rx Instructions .ROUTE .COMPLEX Qty: 90 RF: 3 hydralazine 25 mg tablet See Rx Instructions .ROUTE .COMPLEX Qty: 60 RF: 6 pravastatin 20 mg tablet 20 mg PO DAILY Qty: 90 RF: 3 Discharge Orders: Discharge Order (Routine); Ordered 02/02/20 Ordered By: Kalina Sunshine Referrals: Chin Salazar DO [Primary Care Provider] - 1-3 days Discharge Diet: Advance as tolerated Discharge Activity: Increase activity as tolerated Patient Instructions: Contusion in Adults (ED) Activity Restrictions/Additional Instructions: Please return to the ER immediately for any of the signs or symptoms listed on your discharge instruction sheets, worsening/changing of your symptoms, you are not getting better as quickly as expected, or for ANY other cause or concerns. Take [id number] Tylenol and Motrin for your pain at home. Rest until your pain is resolved. Regarding the abnormal findings of encephalomalacia seen on your CT scan today be certain to follow-up with Dr. Newman to address this further. Discharge Date/Time: 02/02/20 15:37 Coding Level of Care Code ED [employer] for [employer] Fwd Exam Comprehensive
[2020-02-02 13:03] VITALS: BP 186/95; PULSE 52; RESP 16; O2SAT 93
[2020-02-02 15:08] LABS: Add Urine Microscopic? YES; Bilirubin Urine Neg (NEGATIVE); Blood Urine Neg (Negative); Glucose Urine UA Norm (Normal); Ketones Urine Negative (Negative); Leukocyte Esterase Urine Negative (Negative); Nitrate Urine Negative (Negative); Protein Urine Trace (Negative); Specific Gravity, Urine 1.015 (1.005-1.030); Urine Appearance Clear (CLEAR); Urine Color Yellow (Yellow); Urobilinogen Urine Norm (Negative); pH Urine 5 (5-7)
[2020-02-02 15:13] VITALS: PULSE 54; RESP 16; O2SAT 91
[2020-02-02 15:14] VITALS: BP 185/80
[2020-02-02 15:17] LABS: Add Urine Culture? No; Bacteria Urine 1+; Hyaline Casts Urine 0-4; Mucus Urine TRACE; Squamous Epithelial Cell Urine 0-4 (0-5); WBC Urine 0-4 /hpf (0-5)
[2020-02-02 15:37] VITALS: BP 185/80; PULSE 69; RESP 17; O2SAT 96
== END 2020-02-02 15:37 | disposition home or self-care (01) ==
PROVIDERS: Emergency Provider Emergency Medicine; PCP Internal Medicine
DX: T07.XXXA Unspecified multiple injuries, initial encounter (principal); I48.20 Chronic atrial fibrillation, unspecified; I10 Essential (primary) hypertension; W07.XXXA Fall from chair, initial encounter
CPT/HCPCS: 12345; 70450; 71045; 72125; 72128; 73030; 81001; 99282; 99283

== ENCOUNTER 2020-02-09 13:33 | Emergency (ER) | payer MEDICARE, BC, SELFPAY ==
--- NOTE | 2020-02-09 | XR_ITS ---
WS: [id number] Portable AP upright chest, 02/09/2020 Clinical Data: CONSTIPATION Comparison: Portable chest, 02/02/2020. Findings: No nodules, masses or effusions are seen. The heart is large. The pulmonary vascularity is not increased. No pneumonia or pneumothorax is seen. The patient has a poor inspiratory effort. The a ortic arch and descending aorta show tortuosity. XR/XR chest 1V portable [id number] Impression: Cardiomegaly and atherosclerosis.
[2020-02-09 13:38] VITALS: BP 174/103; PULSE 60; RESP 20; TEMP 36.7; O2SAT 93; BMI 29.7
--- NOTE | 2020-02-09 14:06 | XR_ITS ---
WS: [id number] KUB, upright, 02/09/2020 Clinical Data: constipation Comparison: KUB, 02/16/2019. Findings: No abnormal intraabdominal masses or calcifications are seen. There is no dilatated small bowel or ev idence of obstruction. There are scattered air-fluid levels which are probably a small and large hima l. Patient motion obscures some detail. There is fecal material throughout the colon and there appears t o be a fecal impaction. XR/XR abdomen 1V* [id number] Impression: 1. Scattered air-fluid levels which may suggest a diffuse ileus. 2. Fecal material throughout the colon.
[2020-02-09 14:28] LABS: Basophils # 0.2 10^3/uL (0.0-0.1); Basophils % 1.6 %; Eosinophils # 0.2 10^3/uL (0.0-0.8); Eosinophils % 2.1 %; Hematocrit 42.9 % (42.0-52.0); Hemoglobin 12.6 g/dL (11.7-16.6); Lymphocytes # 0.7 10^3/uL (0.8-4.8); Lymphocytes % 7.2 %; Mean Corpuscular HGB Conc 29.4 g/dL (30.0-36.0); Mean Corpuscular Hemoglobin 23.6 pg (28.0-34.0); Mean Corpuscular Volume 80.2 fL (80-94); Mean Platelet Volume 10.1 fL (7.4-10.4); Monocytes # 0.5 10^3/uL (0.2-0.9); Monocytes % 5.4 %; Neutrophils # 8.28 10^3/uL (1.8-7.7); Neutrophils % 83.4 %; Nucleated Red Blood Cells % 0 %; Platelet Count 484 10^3/cmm (130-400); Red Blood Count 5.35 10^6/uL (4.1-5.3); Red Cell Distribution Width 19.7 % (12.1-15.1); White Blood Count 9.9 10^3/uL (4.0-10.0)
--- NOTE | 2020-02-09 14:29 | W.ED.ABDPA2 ---
HPI - Abdominal Pain General: Chief Complaint: Abdominal Pain Stated Complaint: cant go to the bathroom Time Seen by Provider: 02/09/20 13:40 Source: patient Mode of arrival: ambulatory Limitations: no limitations History of Present Illness: HPI narrative: 84-year-old gentleman with history of bowel issues presents to the emergency department with constipation. His last bowel movement has been more than a week ago. Normal for him is twice a week. He says he has been unable to have a bowel movement. His daughter asked him to come to the emergency department for evaluation. Denies any nausea but admits that his abdomen is distended and firm. No fever. No change in his urinary habits. Pertinent past history: constipation Associated Symptoms: Reports constipation; Denies chills, dysuria, fever(s), nausea and vomiting Review of Systems General: Reports: 10 or more systems reviewed and unremarkable except in HPI and below Const: Denies: fever(s), chills or body aches Eyes: Denies: change in vision or blurry vision ENMT: Denies: throat pain, enlarged tonsils, odynophagia, hoarseness, mouth pain or swelling of lips/tongue Card: Denies: palpitations, irregular heart rhythm, edema or swelling of feet/ankles Resp: Denies: dyspnea, productive cough or non-productive cough GI: Reports: abdominal pain and constipation; Denies: nausea or vomiting : Denies: flank pain, dysuria, urinary frequency, urinary urgency or urinary hesitancy Musc: Denies: neck pain, back pain or extremity swelling Skin/Breast: Denies: rash, pruritus or erythema Neuro: Denies: headache(s), numbness in extremities or weakness in extremities Endo: Denies: polyuria, polydipsia or tired all the time [facility] ED PFSH: Medical History Bradycardia Cardiomegaly Chronic atrial fibrillation 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 Hernia Hypertension Hypothyroid Obstructive sleep apnea Pancytopenia Polycythemia Pulmonary hypertension Restless leg Family History Father CAD (coronary artery disease) Physical Exam Const: COMMON NORMALS: no acute distress, average body habitus, patient oriented x3, no limitations, healthy appearing, alert and well nourished HENMT: COMMON NORMALS: normocephalic, atraumatic and moist oral mucous membranes HEAD & SCALP: normocephalic and atraumatic Neck/C-Spine: COMMON NORMALS: no meningeal signs and no JVD Resp: COMMON NORMALS: normal respiratory effort, No retractions, No use of accessory muscles, clear to auscultation bilaterally and percussion normal AUSCULTATION: clear to auscultation bilaterally PERCUSSION: percussion normal Cardio: COMMON NORMALS: no JVD, regular rate, regular rhythm, S1 normal heart sound present, S2 normal heart sound present, No gallops present (Cardio), No clicks present (Cardio), No murmurs present (Cardio), No rub (Cardio) and Peripheral pulses 2+ throughout RATE: regular rate RHYTHM: regular rhythm HEART SOUNDS: S1 normal heart sound present and S2 normal heart sound present PERIPHERAL PULSES: Peripheral pulses 2+ throughout GI: COMMON NORMALS: non-tender, No hepatosplenomegaly present, no masses and no bruits INSPECTION: Yes abdominal distension PALPATION: Yes Firmness to palpation present (GI) and Yes No hepatosplenomegaly present Extremity: COMMON NORMALS: normal to inspection, full ROM, capillary refill normal, no calf tenderness and no pedal edema Neuro: COMMON NORMALS: patient oriented x3 SENSORIUM/ORIENTATION: Yes alert MENINGEAL SIGNS: Yes no meningeal signs Skin: COMMON NORMALS: no rashes or lesions noted, no wounds, turgor normal, no jaundice, no petechiae and no mottling GENERAL SKIN EXAM: no rashes or lesions noted and turgor normal Course ED course: Patient absolutely refused to get the CT scan. He says he is unable to go and lie on the table. I advised that we could given some anxiolytic but he refused and said if I order a CT scan he will leave the emergency department. Reevaluation(s): Reevaluation #1: Patient has had a large to extra large bowel movement following the milk of molasses enema. Discussed his lab and imaging findings with him. Nothing acute other than constipation. We will discharge him home with a prescription for laxative. He voiced understanding and is in agreement with the plan. Time: 17:53 Vital Signs: Vital signs: Vital Signs Temperature 98.0 F 02/09/20 13:38 Pulse Rate 60 02/09/20 13:38 Respiratory Rate 20 H 02/09/20 13:38 Blood Pressure 174/103 02/09/20 13:38 Pulse Oximetry 93 02/09/20 13:38 MDM - Abdominal Pain MDM Narrative: Medical decision making narrative: 84-year-old gentleman who presents with constipation. He was given an enema with good success. He is discharged home with laxatives. Medical Records: Attestation: I reviewed the patient's medical records. Lab Data: Attestation: I reviewed the patient's lab results. Labs: Lab Results 02/09/20 02/09/20 Range/Units 14:20 14:20 WBC 9.9 (4.0-10.0) 10^3/ uL RBC 5.35 H (4.1-5.3) 10^6/u L Hgb 12.6 (11.7-16.6) g/dL Hct 42.9 (42.0-52.0) % MCV 80.2 (80-94) fL MCH 23.6 L (28.0-34.0) pg MCHC 29.4 L (30.0-36.0) g/dL RDW 19.7 H (12.1-15.1) % Plt Count 484 H (130-400) 10^3/c mm MPV 10.1 (7.4-10.4) fL Neut % (Auto) 83.4 % Lymph % (Auto) 7.2 % [place] % (Auto) 5.4 % Eos % (Auto) 2.1 % Baso % (Auto) 1.6 % Neut # (Auto) 8.28 H (1.8-7.7) 10^3/u L Lymph # (Auto) 0.7 L (0.8-4.8) 10^3/u L [place] # (Auto) 0.5 (0.2-0.9) 10^3/u L Eos # (Auto) 0.2 (0.0-0.8) 10^3/u L Baso # (Auto) 0.2 H (0.0-0.1) 10^3/u L Nucleated RBC % (a uto) 0 % Nucleated RBCs # 0.0 /100WBC Sodium 142 (136-145) mmol/L Potassium 4.4 (3.5-5.1) mmol/L Chloride 104 (98-107) mmol/L Carbon Dioxide 30 H (22-29) mmol/L Anion Gap 12.4 (5-19) BUN 22 (8-23) mg/dL Creatinine 1.4 H (0.7-1.2) mg/dL GFR Calculation Not Reportable Glucose 133 H (65-115) mg/dL Calculated Osmolal ity 293 (285-295) mOsm/k g Calcium 8.5 (8.5-10.5) mg/dL Total Bilirubin 0.5 (0.15-1.2) mg/dL AST 14 (0-40) U/L ALT 27 (0-41) U/L Alkaline Phosphata se 76 (40-130) IU/L Total Protein 6.9 (6.6-8.7) g/dL Albumin 4.2 (3.5-5.2) g/dL Globulin 2.7 (1.3-4.6) g/dL Imaging Data ^: Other Xray: Radiologist's impression: [address] [address] XRay Report Signed Patient: Libby Alves #: [id number] : 5Acct#:[id number] Age/Sex: 84 / MADM Date: 02/09/20 Loc: ERRoom/Bed: Attending Dr: Ordering Provider/Ordering MD: Thalia [place] [facility] [place] Service: 02/09/20 Procedure(s): XR abdomen 1V* [id number] Accession Number(s): [id number] Report Number: [id number] WS: [id number] KUB, upright, 02/09/2020 Clinical Data: constipation Comparison: KUB, 02/16/2019. Findings: No abnormal intraabdominal masses or calcifications are seen. There is no dilatated small bowel or evidence of obstruction. There are scattered air-fluid levels which are probably a small and large bowel. Patient motion obscures some detail. There is fecal material throughout the colon and there appears to be a fecal impaction. XR/XR abdomen 1V* [id number] Impression: 1. Scattered air-fluid levels which may suggest a diffuse ileus. 2. Fecal material throughout the colon. Dictated By:Jocelin Keller MD Signed By:Jocelin Keller MDSigned Date/Time:02/09/20 1500 DD/ 1459 Discharge Plan Discharge Patient Disposition: Home Clinical Impression: Constipation Qualifiers: Constipation type: chronic idiopathic constipation Qualified Code(s): K59.04 - Chronic idiopathic constipation Condition: Stable Prescriptions: New Miralax 17 gram/dose powder 17 gm PO DAILY PRN (Reason: constipation) Qty: 119 RF: 0 Continued donepezil 10 mg tablet 10 mg PO ONCE Qty: 90 RF: 1 Eliquis 2.5 mg tablet 2.5 mg PO BID RF: 0 finasteride 5 mg tablet 5 mg PO ONCE RF: 0 hydroxyurea 500 mg capsule 500 mg PO .COMPLEX RF: 0 levothyroxine 137 mcg capsule 137 mcg PO ONCE RF: 0 nystatin [Nystop] 100,000 unit/gram powder 1 applic TOPICAL .COMPLEX RF: 0 tamsulosin 0.4 mg capsule 0.4 mg PO ONCE RF: 0 levetiracetam [Keppra] 1,000 mg tablet 1,000 mg PO BID Qty: 180 RF: 2 isosorbide mononitrate 30 mg tablet extended release 24 hr See Rx Instructions .ROUTE .COMPLEX Qty: 90 RF: 3 hydralazine 25 mg tablet See Rx Instructions .ROUTE .COMPLEX Qty: 60 RF: 6 pravastatin 20 mg tablet 20 mg PO DAILY Qty: 90 RF: 3 Discharge Orders: Discharge Order (Routine); Ordered 02/09/20 Ordered By: Thalia Cooper Referrals: Chin Salazar DO [Primary Care Provider] - 4-7 days Discharge Diet: Usual diet Discharge Activity: Increase activity as tolerated Patient Instructions: Constipation (ED) Activity Restrictions/Additional Instructions: Return for any new or worsening symptoms. Increase your fiber intake. Drink plenty of fluids to keep well-hydrated. Use MiraLAX daily as needed. Coding Level of Care Code ED Relay Adjuster for Chg Fwd Exam Comprehensive
[2020-02-09 14:49] LABS: Alanine Aminotransferase 27 U/L (0-41); Albumin Level 4.2 g/dL (3.5-5.2); Alkaline Phosphatase 76 IU/L (40-130); Anion Gap 12.4 (5-19); Aspartate Amino Transferase 14 U/L (0-40); Blood Urea Nitrogen 22 mg/dL (8-23); Calcium 8.5 mg/dL (8.5-10.5); Carbon Dioxide 30 mmol/L (22-29); Chloride 104 mmol/L (98-107); Globulin 2.7 g/dL (1.3-4.6); Glucose 133 mg/dL (65-115); Osmolality Calculated 293 mOsm/kg (285-295); Potassium 4.4 mmol/L (3.5-5.1); Sodium 142 mmol/L (136-145); Total Bilirubin 0.5 mg/dL (0.15-1.2); Total Protein 6.9 g/dL (6.6-8.7)
[2020-02-09 18:04] VITALS: BP 143/88; PULSE 87; RESP 18; O2SAT 98
== END 2020-02-09 18:07 | disposition home or self-care (01) ==
PROVIDERS: Emergency Provider Family Medicine; PCP Internal Medicine
DX: K59.04 Chronic idiopathic constipation (principal); Z79.01 Long term (current) use of anticoagulants; I10 Essential (primary) hypertension; I48.20 Chronic atrial fibrillation, unspecified
CPT/HCPCS: 12345; 36415; 45915; 71045; 74018; 80053; 85025; 99281; 99282; 99283

== ENCOUNTER → 2020-02-22 13:03 | Outpatient (BNVA) | payer MEDICARE, BC, SELFPAY | PROVIDERS: PCP Internal Medicine; Referring Provider Internal Medicine; Visit Provider Nurse Practitioner Family | DX: R39.9 Unspecified symptoms and signs involving the genitourinary system (principal) | CPT/HCPCS: 81001 ==

== ENCOUNTER → 2020-03-19 15:05 | Outpatient (BNVA) | payer MEDICARE, BC, SELFPAY | PROVIDERS: PCP Internal Medicine; Visit Provider Urology | DX: R39.9 Unspecified symptoms and signs involving the genitourinary system (principal) | CPT/HCPCS: 81001 ==

== ENCOUNTER 2020-04-01 13:55 | Outpatient (CLI) | payer MEDICARE, BC, SELFPAY ==
[2020-04-01 14:41] LABS: Basophils # 0.2 10^3/uL (0.0-0.1); Basophils % 1.7 %; Eosinophils # 0.2 10^3/uL (0.0-0.8); Eosinophils % 2.3 %; Hematocrit 41.4 % (42.0-52.0); Hemoglobin 11.8 g/dL (11.7-16.6); Lymphocytes # 0.8 10^3/uL (0.8-4.8); Lymphocytes % 8.8 %; Mean Corpuscular HGB Conc 28.5 g/dL (30.0-36.0); Mean Corpuscular Hemoglobin 23.8 pg (28.0-34.0); Mean Corpuscular Volume 83.5 fL (80-94); Mean Platelet Volume 10.7 fL (7.4-10.4); Monocytes # 0.5 10^3/uL (0.2-0.9); Monocytes % 5.3 %; Neutrophils # 7.12 10^3/uL (1.8-7.7); Neutrophils % 81.6 %; Nucleated Red Blood Cells % 0 %; Platelet Count 479 10^3/cmm (130-400); Red Blood Count 4.96 10^6/uL (4.1-5.3); White Blood Count 8.7 10^3/uL (4.0-10.0)
== END 2020-04-01 13:56 | disposition home or self-care (01) ==
PROVIDERS: PCP Internal Medicine; Visit Provider Internal Medicine Hematology & Oncology
DX: D45 Polycythemia vera (principal)
CPT/HCPCS: 36415; 85025

== ENCOUNTER 2020-04-02 06:25 | Outpatient (CLI) | payer MEDICARE, BC, SELFPAY ==
--- NOTE | 2020-04-02 15:53 | ONC FU_ITS ---
Dr. Pratt follow up note Patient: Casey Alves Unit #: [id number]: 1935 Dicatated By: Connie Pratt M.D.Date of Visit:Apr 02, 2020 Onc Med Follow-up/Prog Note History of Present Illness: Mr. 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 sleep apnea on cpap Clinically, it appears he may be depressed as his couple of years ago, as per his daughter he is on Zoloft not using his CPAP machine as recommended by his PMD. 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 As per patient when he was in the hospital in [place], his hydroxyurea was increased to 500 mg twice a day and then later on it was reduced to 500 mg daily whereas before he went to [place] he used to take 500 mg every other day.So on 03/06/2019 hydroxyurea was reduced to 500 mg every other day. Because of progressive polycythemia which appears multifactorial including due to sleep apnea and patient being noncompliant with CPAP, now being treated with phlebotomies on as-needed basis And goal is to keep his hematocrit equal to or less than [address] Newman recently and had CT scan of head done on 05/24/2019 which shows mild atrophy and chronic ischemic disease no progression since 02/14/2019. tolerating hydroxyurea well and also using CPAP machine on a regular basis. Came for follow-up, denies any specific complaints,Except recent history of excessive urination at night, as per patient his PMD gave him medication which controlled it reasonably well and he was also referred to nephrology for lower extremity bilateral edema. no fever chills, no nausea or vomiting, no diarrhea or constipation, no headaches blurred vision or double vision Medications: Aspirin 1 Tablet (of 81 mg) Tablet, enteric coated Oral daily, Eliquis 1 (2.5 mg) Tablet Oral b.i.d., Finasteride 1 Tablet (of 5 mg) Oral daily, Hydroxyurea (500 mg) Capsule Oral Take as Directed, Keppra 1 Tablet (of 750 mg) Oral b.i.d., Levo-T 1 (137 mcg) Tablet Oral daily, Memantine HCl Tablet Oral b.i.d., Tamsulosin HCl Capsule Oral at bedtime Allergies: No Known Allergies. Review of Systems: Constitutional - Energy is poor. Appetite is good and weight is stable. No fever, chills, hot flashes, or night sweats, ENMT - No sinus congestion/drainage. No mouth sores. No sore throat or difficulty swallowing, Hematologic/Lymphatic - No abnormal bruising or bleeding, Respiratory - No shortness of breath. No cough. No pleuritic pain or hemoptysis, Cardiovascular - No angina pain. No palpitations, Gastrointestinal - No nausea or vomiting. No heartburn or acid reflux. No diarrhea or constipation. No blood in the stool or black stools, Genitourinary (M) - No dysuria or hematuria. Positive for urinary frequency. No urgency or incontinence, Musculoskeletal - No complaint of joint pain, Integumentary - Positive for bilateral lower edema, Neurologic - No headache or dizziness, Psychiatric - No anxiety or depression. No insomnia. Vital Signs: Performed on Apr 02, 2020 14:10 Height - 74.00 in Temperature - 98.4 F Pulse - 59 /min (LOW) Respiration - 20 /min BP - 170/76 mm(hg) (HIGH) O2 Sat - 92 % (LOW) Pain - 0 Performance Status: 1 - No physically strenuous activity, but ambulatory and able to carry out light or sedentary work (e.g. office work, light house work). (ECOG) Physical Examination: ENMT - No mouth sores, no thrush, no jaundice, Respiratory - Lungs are clear to auscultation, Cardiovascular - Regular rate and rhythm of heart, Abdomen - Soft, bowel sounds present, Extremities - 1+ edema bilaterally. 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 was On cytoreduction therapy with hydroxyurea 1500 mg daily , was held till CBC recovery , then started on hydrea 500 mg twice a week , now changed to 3x/week on 08/31/17 , Sleep apnea confirmed with sleep study now using CPAP machine non compliant Anxiety/depression on antidepressant Zoloft 50 mg daily Intermittent jerky movements involving left arm/shoulder due to epilepsia partialis continua diagnosed by neurologist in [place] on 02/23/2019, now being treated with valproate. A. fib, controlled rate, on Eliquis 2.5 mg twice a day Plan: Discussed with patient regarding his labs white blood count 8.7 hemoglobin 11.8 hematocrit 41.4 platelets 479,000 Clinically, patient is doing well with no new signs symptoms, tolerating hydroxyurea 500 mg p.o. every other day well his follow-up labs shows blood counts in desirable range, will continue with same and return to clinic in 3 months with CBC Signed By: Connie Pratt M.D. <<Signature on File>>
== END 2020-04-02 06:26 | disposition home or self-care (01) ==
LOC: ONCMED 06:27
PROVIDERS: PCP Internal Medicine; Visit Provider Internal Medicine Hematology & Oncology
DX: C94.6 Myelodysplastic disease, not elsewhere classified (principal); D75.1 Secondary polycythemia; G47.33 Obstructive sleep apnea (adult) (pediatric); F41.8 Other specified anxiety disorders; G40.109 Localization-related (focal) (partial) symptomatic epilepsy and epileptic syndromes with simple partial seizures, not intractable, without status epilepticus; I48.91 Unspecified atrial fibrillation; Z79.01 Long term (current) use of anticoagulants; Z79.899 Other long term (current) drug therapy
CPT/HCPCS: 99214

== ENCOUNTER → 2020-05-22 15:32 | Outpatient (BNVA) | payer MEDICARE, BC, SELFPAY | PROVIDERS: PCP Internal Medicine; Visit Provider Urology | DX: R39.9 Unspecified symptoms and signs involving the genitourinary system (principal) | CPT/HCPCS: 81003 ==

== ENCOUNTER → 2020-07-03 11:04 | Outpatient (BNVA) | payer MEDICARE, BC, SELFPAY | PROVIDERS: PCP Internal Medicine; Visit Provider Specialist | DX: G40.909 Epilepsy, unspecified, not intractable, without status epilepticus (principal) | CPT/HCPCS: 99214 ==

== ENCOUNTER 2020-07-04 08:54 | Outpatient (CLI) | payer MEDICARE, BC, SELFPAY ==
[2020-07-04 10:36] LABS: Basophils # 0.1 10^3/uL (0.0-0.1); Basophils % 1.4 %; Eosinophils # 0.2 10^3/uL (0.0-0.8); Eosinophils % 2.9 %; Hematocrit 45.9 % (42.0-52.0); Hemoglobin 13.4 g/dL (11.7-16.6); Lymphocytes # 0.9 10^3/uL (0.8-4.8); Mean Corpuscular HGB Conc 29.2 g/dL (30.0-36.0); Mean Corpuscular Volume 85.5 fL (80-94); Mean Platelet Volume 10.3 fL (7.4-10.4); Monocytes # 0.5 10^3/uL (0.2-0.9); Monocytes % 5.7 %; Neutrophils # 6.59 10^3/uL (1.8-7.7); Neutrophils % 78.6 %; Nucleated Red Blood Cells % 0 %; Platelet Count 494 10^3/cmm (130-400); Red Blood Count 5.37 10^6/uL (4.1-5.3); Red Cell Distribution Width 18.2 % (12.1-15.1); White Blood Count 8.4 10^3/uL (4.0-10.0)
--- NOTE | 2020-07-04 14:02 | ONC FU_ITS ---
Dr. Pratt follow up note Patient: Casey Alves Unit #: [id number]: 1935 Dicatated By: Connie Pratt M.D.Date of Visit:Jul 04, 2020 Onc Med Follow-up/Prog Note History of Present Illness: Mr. 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 sleep apnea on cpap Clinically, it appears he may be depressed as his couple of years ago, as per his daughter he is on Zoloft not using his CPAP machine as recommended by his PMD. 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 As per patient when he was in the hospital in [place], his hydroxyurea was increased to 500 mg twice a day and then later on it was reduced to 500 mg daily whereas before he went to [place] he used to take 500 mg every other day.So on 03/06/2019 hydroxyurea was reduced to 500 mg every other day. Because of progressive polycythemia which appears multifactorial including due to sleep apnea and patient being noncompliant with CPAP, now being treated with phlebotomies on as-needed basis And goal is to keep his hematocrit equal to or less than [address] Newman recently and had CT scan of head done on 05/24/2019 which shows mild atrophy and chronic ischemic disease no progression since 02/14/2019. tolerating hydroxyurea well and also using CPAP machine on a regular basis. Came for follow-up, denies any specific complaints, no fever chills, no nausea or vomiting, no diarrhea or constipation, no headaches blurred vision or double vision, tolerating hydroxyurea every other day, well Medications: Aspirin 1 Tablet (of 81 mg) Tablet, enteric coated Oral daily, Eliquis 1 (2.5 mg) Tablet Oral b.i.d., Finasteride 1 Tablet (of 5 mg) Oral daily, Hydroxyurea (500 mg) Capsule Oral Take as Directed, Keppra 1 Tablet (of 750 mg) Oral b.i.d., Levo-T 1 (137 mcg) Tablet Oral daily, Memantine HCl Tablet Oral b.i.d., Tamsulosin HCl Capsule Oral at bedtime Allergies: No Known Allergies. Review of Systems: Constitutional - Energy is poor. Appetite is good and weight is stable. No fever, chills, hot flashes, or night sweats, ENMT - No sinus congestion/drainage. No mouth sores. No sore throat or difficulty swallowing, Hematologic/Lymphatic - No abnormal bruising or bleeding, Respiratory - No shortness of breath. No cough. No pleuritic pain or hemoptysis, Cardiovascular - No angina pain. No palpitations, Gastrointestinal - No nausea or vomiting. No heartburn or acid reflux. No diarrhea or constipation. No blood in the stool or black stools, Genitourinary (M) - No dysuria or hematuria. Positive for urinary frequency. No urgency or incontinence, Musculoskeletal - No complaint of joint pain, Integumentary - Positive for bilateral lower edema, Neurologic - No headache or dizziness, Psychiatric - No anxiety or depression. No insomnia. Vital Signs: Performed on Jul 04, 2020 13:31 Height - 74.00 in Temperature - 98.6 F Pulse - 57 /min (LOW) Respiration - 16 /min BP - 133/77 mm(hg) O2 Sat - 96 % Pain - 0 Performance Status: 1 - No physically strenuous activity, but ambulatory and able to carry out light or sedentary work (e.g. office work, light house work). (ECOG) Physical Examination: ENMT - No mouth sores, no thrush, no jaundice, Respiratory - Lungs are clear to auscultation, Cardiovascular - Regular rate and rhythm of heart, Abdomen - Soft, bowel sounds present, Extremities - No visible edema. 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 was On cytoreduction therapy with hydroxyurea 1500 mg daily , was held till CBC recovery , then started on hydrea 500 mg twice a week , now changed to 3x/week on 08/31/17 , Sleep apnea confirmed with sleep study now using CPAP machine non compliant Anxiety/depression on antidepressant Zoloft 50 mg daily Intermittent jerky movements involving left arm/shoulder due to epilepsia partialis continua diagnosed by neurologist in [place] on 02/23/2019, now being treated with valproate. A. fib, controlled rate, on Eliquis 2.5 mg twice a day Plan: Discussed with patient regarding his labs white blood count 8.4 hemoglobin 13.4 hematocrit 45.9 platelets 494,000 Clinically, patient doing well with no new signs symptoms, tolerating hydroxyurea 500 mg p.o. every other day and a daily aspirin, well, his follow-up lab work-up is in desirable range, will continue to monitor and then he will return to clinic in 1 month with CBC Signed By: Connie Pratt M.D. <<Signature on File>>
== END 2020-07-04 08:55 | disposition home or self-care (01) ==
LOC: ONCMED 08:58
PROVIDERS: PCP Internal Medicine; Visit Provider Internal Medicine Hematology & Oncology
DX: D45 Polycythemia vera (principal); D47.3 Essential (hemorrhagic) thrombocythemia; C94.6 Myelodysplastic disease, not elsewhere classified; G47.33 Obstructive sleep apnea (adult) (pediatric); F41.9 Anxiety disorder, unspecified; F32.9 Major depressive disorder, single episode, unspecified; G40.109 Localization-related (focal) (partial) symptomatic epilepsy and epileptic syndromes with simple partial seizures, not intractable, without status epilepticus; I48.91 Unspecified atrial fibrillation; Z79.01 Long term (current) use of anticoagulants; Z79.899 Other long term (current) drug therapy
CPT/HCPCS: 36415; 85025; 99214

== ENCOUNTER 2020-07-30 07:10 | Outpatient (CLI) | payer MEDICARE, BC, SELFPAY ==
[2020-07-30 08:44] LABS: Basophils # 0.1 10^3/uL (0.0-0.1); Basophils % 1.5 %; Eosinophils # 0.2 10^3/uL (0.0-0.8); Eosinophils % 2.7 %; Hematocrit 45.2 % (42.0-52.0); Hemoglobin 13.4 g/dL (11.7-16.6); Lymphocytes # 0.8 10^3/uL (0.8-4.8); Lymphocytes % 9.2 %; Mean Corpuscular HGB Conc 29.6 g/dL (30.0-36.0); Mean Corpuscular Hemoglobin 25.7 pg (28.0-34.0); Mean Corpuscular Volume 86.8 fL (80-94); Mean Platelet Volume 11.1 fL (7.4-10.4); Monocytes # 0.6 10^3/uL (0.2-0.9); Monocytes % 7.3 %; Neutrophils # 6.53 10^3/uL (1.8-7.7); Neutrophils % 78.9 %; Nucleated Red Blood Cells % 0 %; Platelet Count 490 10^3/cmm (130-400); Red Blood Count 5.21 10^6/uL (4.1-5.3); Red Cell Distribution Width 18.6 % (12.1-15.1); White Blood Count 8.3 10^3/uL (4.0-10.0)
--- NOTE | 2020-07-30 16:08 | ONC FU_ITS ---
Dr. Pratt follow up note Patient: Casey Alves Unit #: [id number]: 1935 Dicatated By: Connie Pratt M.D.Date of Visit:Jul 30, 2020 Onc Med Follow-up/Prog Note History of Present Illness: Mr. 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 sleep apnea on cpap Clinically, it appears he may be depressed as his couple of years ago, as per his daughter he is on Zoloft not using his CPAP machine as recommended by his PMD. 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 As per patient when he was in the hospital in [place], his hydroxyurea was increased to 500 mg twice a day and then later on it was reduced to 500 mg daily whereas before he went to [place] he used to take 500 mg every other day.So on 03/06/2019 hydroxyurea was reduced to 500 mg every other day. Because of progressive polycythemia which appears multifactorial including due to sleep apnea and patient being noncompliant with CPAP, now being treated with phlebotomies on as-needed basis And goal is to keep his hematocrit equal to or less than [address] Newman recently and had CT scan of head done on 05/24/2019 which shows mild atrophy and chronic ischemic disease no progression since 02/14/2019. tolerating hydroxyurea well and also using CPAP machine on a regular basis. Came for follow-up, denies any specific complaints except generalized weakness and fatigue, no fever chills, no nausea vomiting, no diarrhea or constipation, no headaches blurred vision double vision, no new episode of focal weakness. Tolerating hydroxyurea well otherwise Medications: Aspirin 1 Tablet (of 81 mg) Tablet, enteric coated Oral daily, Eliquis 1 (2.5 mg) Tablet Oral b.i.d., Finasteride 1 Tablet (of 5 mg) Oral daily, Hydroxyurea (500 mg) Capsule Oral Take as Directed, Keppra 1 Tablet (of 750 mg) Oral b.i.d., Levo-T 1 (137 mcg) Tablet Oral daily, Memantine HCl Tablet Oral b.i.d., Tamsulosin HCl Capsule Oral at bedtime Allergies: No Known Allergies. Review of Systems: Review of Systems is not available for this patient. Vital Signs: Performed on Jul 30, 2020 09:39 Height - 74.00 in Weight - 209.4 lbs (LOW) BSA - 2.22 sq.m BMI - 26.89 Temperature - 97.9 F (LOW) Pulse - 89 /min Respiration - 18 /min BP - 132/70 mm(hg) O2 Sat - 91 % (LOW) Pain - 0 Performance Status: 2 - Ambulatory/capable of all self-care, unable to perform any work activities. Up and about more than 50% of waking hours. (ECOG) Physical Examination: ENMT - No mouth sores, no thrush, no jaundice, Respiratory - Lungs are clear to auscultation, Cardiovascular - Irregular rate and rhythm, Abdomen - Soft, bowel sounds present, Extremities - Trace edema bilaterally. Lab/Imaging: Test performed on Jul 04, 2020 10:18 WBC 8.4 10 3/uL RBC 5.37 10 6/uL HGB 13.4 g/dL HCT 45.9 % MCV 85.5 fL MCH 25.0 pg MCHC 29.2 g/dL RDW 18.2 % Platelet Count 494 10 3/cmm MPV 10.3 fL Neutrophils 6.59 10 3/uL Lymphocytes 0.9 10 3/uL Monocytes 0.5 10 3/uL Eosinophils 0.2 10 3/uL Basophils 0.1 10 3/uL Neutrophil % 78.6 % Lymphocyte % 11.0 % Monocyte % 5.7 % Eosinophil % 2.9 % Basophils % 1.4 % NRBC % 0 % Impression: 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 was On cytoreduction therapy with hydroxyurea 1500 mg daily , was held till CBC recovery , then started on hydrea 500 mg twice a week , now changed to 3x/week on 08/31/17 , Sleep apnea confirmed with sleep study now using CPAP machine non compliant Anxiety/depression on antidepressant Zoloft 50 mg daily Intermittent jerky movements involving left arm/shoulder due to epilepsia partialis continua diagnosed by neurologist in [place] on 02/23/2019, now being treated with valproate. A. fib, controlled rate, on Eliquis 2.5 mg twice a day Plan: Discussed with patient regarding his labs white blood count 8.3 hemoglobin 13.4 hematocrit 45.2 platelets 490,000 Clinically, patient is doing well with no new signs symptoms, tolerating hydroxyurea 500 mg p.o. every other day well but with expected side effects. His blood count looks reasonable, will continue with same dose of hydroxyurea and return to clinic in 3 months with CBC Signed By: Connie Pratt M.D. <<Signature on File>>
== END 2020-07-30 07:11 | disposition home or self-care (01) ==
LOC: ONCMED 07:13
PROVIDERS: PCP Internal Medicine; Visit Provider Internal Medicine Hematology & Oncology
DX: D45 Polycythemia vera (principal); D47.3 Essential (hemorrhagic) thrombocythemia; D47.1 Chronic myeloproliferative disease; Z79.899 Other long term (current) drug therapy; I48.91 Unspecified atrial fibrillation; Z79.01 Long term (current) use of anticoagulants
CPT/HCPCS: 36415; 85025; 99214

== ENCOUNTER 2020-10-30 12:03 | Outpatient (CLI) | payer MEDICARE, BC, SELFPAY ==
--- NOTE | 2020-10-30 16:54 | ONC FU_ITS ---
Dr. Pratt follow up note Patient: Casey Alves Unit #: [id number]: 1935 Dicatated By: Connie Pratt M.D.Date of Visit:October 30, 2020 Onc Med Follow-up/Prog Note History of Present Illness: Mr. 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 sleep apnea on cpap Clinically, it appears he may be depressed as his couple of years ago, as per his daughter he is on Zoloft not using his CPAP machine as recommended by his PMD. 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 As per patient when he was in the hospital in [place], his hydroxyurea was increased to 500 mg twice a day and then later on it was reduced to 500 mg daily whereas before he went to [place] he used to take 500 mg every other day.So on 03/06/2019 hydroxyurea was reduced to 500 mg every other day. Because of progressive polycythemia which appears multifactorial including due to sleep apnea and patient being noncompliant with CPAP, now being treated with phlebotomies on as-needed basis And goal is to keep his hematocrit equal to or less than [address] Newman recently and had CT scan of head done on 05/24/2019 which shows mild atrophy and chronic ischemic disease no progression since 02/14/2019. tolerating hydroxyurea well and also using CPAP machine on a regular basis. Came for follow-up, denies any specific complaints except generalized weakness and fatigue but no nausea or vomiting, no diarrhea or constipation, no melena or hematochezia, tolerating hydroxyurea well Medications: Aspirin 1 Tablet (of 81 mg) Tablet, enteric coated Oral daily, Eliquis 1 (2.5 mg) Tablet Oral b.i.d., Finasteride 1 Tablet (of 5 mg) Oral daily, Hydroxyurea (500 mg) Capsule Oral Take as Directed, Keppra 1 Tablet (of 750 mg) Oral b.i.d., Levo-T 1 (137 mcg) Tablet Oral daily, Memantine HCl Tablet Oral b.i.d., Tamsulosin HCl Capsule Oral at bedtime Allergies: No Known Allergies. Review of Systems: Review of Systems is not available for this patient. Vital Signs: Performed on October 30, 2020 15:10 Height - 74.00 in Weight - 212.6 lbs (HIGH) BSA - 2.23 sq.m BMI - 27.30 Temperature - 98.0 F (LOW) Pulse - 106 /min (HIGH) Respiration - 18 /min BP - 158/78 mm(hg) (HIGH) O2 Sat - 91 % (LOW) Pain - 0 Fatigue - 0 Performance Status: 0 - Fully active, able to carry on all predisease activities without restrictions. (ECOG) Physical Examination: ENMT - No mouth sores, no thrush, no jaundice, Respiratory - Lungs are clear to auscultation, Cardiovascular - Regular rate and rhythm of heart, Abdomen - Soft, bowel sounds present, Extremities - No visible edema. Lab/Imaging: Test performed on October 22, 2020 10:41 TSH 2.66 uU/mL Glucose 123.0 mg/dL BUN 24.0 mg/dL Creatinine 1.4 mg/dL Sodium 142.0 mmol/L Potassium 3.7 mmol/L Chloride 102.0 mmol/L CO2 32.0 mmol/L Calcium 8.5 mg/dL WBC 9.7 10^9/L RBC 5.06 10^12/L HGB 14.0 g/dL HCT 45.7 % MCV 90.3 fl MCH 27.7 pg MCHC 30.7 g/dL RDW 18.5 % Platelet Count 452.5 10^9/L Neutrophils (Gran) 7.8 10^9/L Lymphocytes 0.9 10^9/L Monocytes 0.7 10^9/L Manual Lymphocytes 9.3 % Manual Monocytes 6.9 % Test performed on Jul 30, 2020 08:20 MPV 11.1 fL Eosinophils 0.2 10 3/uL Basophils 0.1 10 3/uL Neutrophil % 78.9 % Lymphocyte % 9.2 % Monocyte % 7.3 % Eosinophil % 2.7 % Basophils % 1.5 % NRBC % 0 % Impression: 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 was On cytoreduction therapy with hydroxyurea 1500 mg daily , was held till CBC recovery , then started on hydrea 500 mg twice a week , now changed to 3x/week on 08/31/17 , Sleep apnea confirmed with sleep study now using CPAP machine non compliant Anxiety/depression on antidepressant Zoloft 50 mg daily Intermittent jerky movements involving left arm/shoulder due to epilepsia partialis continua diagnosed by neurologist in [place] on 02/23/2019, now being treated with valproate. A. fib, controlled rate, on Eliquis 2.5 mg twice a day Plan: Discussed with patient regarding his labs white blood count 9.7 hemoglobin 14 hematocrit 45.7 platelets 452 thousand, CMP within normal limits Clinically, patient doing well with no new signs, tolerating hydroxyurea well, his blood count is in desirable range, will continue with same e.g. 500 mg every other day Return to clinic in 3 months with CBC Signed By: Connie Pratt M.D. <<Signature on File>>
== END 2020-10-30 12:04 | disposition home or self-care (01) ==
LOC: ONCMED 12:07
PROVIDERS: PCP Internal Medicine; Visit Provider Internal Medicine Hematology & Oncology
DX: D45 Polycythemia vera (principal); D72.820 Lymphocytosis (symptomatic); G47.33 Obstructive sleep apnea (adult) (pediatric); F41.9 Anxiety disorder, unspecified; F32.9 Major depressive disorder, single episode, unspecified; G40.109 Localization-related (focal) (partial) symptomatic epilepsy and epileptic syndromes with simple partial seizures, not intractable, without status epilepticus; I48.20 Chronic atrial fibrillation, unspecified; Z79.01 Long term (current) use of anticoagulants; Z79.899 Other long term (current) drug therapy
CPT/HCPCS: 99214

== ENCOUNTER → 2021-01-01 10:21 | Outpatient (BNVA) | payer MEDICARE, BC, SELFPAY | PROVIDERS: PCP Internal Medicine; Visit Provider Specialist | DX: G40.909 Epilepsy, unspecified, not intractable, without status epilepticus (principal); G30.9 Alzheimer's disease, unspecified; F02.80 Dementia in other diseases classified elsewhere, unspecified severity, without behavioral disturbance, psychotic disturbance, mood disturbance, and anxiety | CPT/HCPCS: 96116; 99215 ==

== ENCOUNTER 2021-01-09 15:21 | Observation (INO) | payer MEDICARE, BC, SELFPAY ==
[2021-01-09] VITALS (9 sets, daily range): BP systolic 109–190; BP diastolic 65–114; PULSE 50–72; RESP 14–25; TEMP 37.3; O2SAT 94–98
--- NOTE | 2021-01-09 15:55 | XRR_ITS ---
PROCEDURE INFORMATION: Exam: XR Chest Exam date and time: 01/09/2021 3:55 PM Age: 85 years old Clinical indication: Cough and dyspnea; Patient HX: Low o2; Additional info: Dyspnea/cough TECHNIQUE: Imaging protocol: XR of the chest. Views: 1 view. Total images: 1 COMPARISON: CR XR chest 1V portable [id number] 02/09/2020 2:16 PM FINDINGS: Lungs: Mild bibasilar discoid atelectasis. Pleural spaces: Unremarkable. No pleural effusion. No pneumothorax. Heart/Mediastinum: Cardiac structures and configuration with cardiomegaly and arteriosclerosis. Bones/joints: Unremarkable for age. Soft tissues: Heavy body habitus. XR/XR chest 1V portable [id number] IMPRESSION: Mild bibasilar discoid atelectasis.
--- NOTE | 2021-01-09 15:56 | ECG_ITS ---
[facility] ED Test Date: 2021-01-09 Pat Name: Casey Alves Department: Room: Gender: Male Director Of Clinical Services: : 1935 Requested By: Wilbert Joseph Order Number: [id number] Lonny MD: Marlen Bernstein M.D. Measurements Intervals [place] Rate: 52 P: AR: QRS: 42 QRSD: 89 T: -70 QT: 499 QTc: 467 Interpretive Statements ATRIAL FIBRILLATION WITH SLOW VENTRICULAR RESPONSE ST DEVIATION AND MODERATE T-WAVE ABNORMALITY, CONSIDER INFERIOR ISCHEMIA [-0.1+ mV T WAVE IN II/aVF] Compared to ECG 02/11/2019 05:43:09 T-wave abnormality now present Possible ischemia now present Electronically Signed On 01-10-2021 16:42:18 CDT by Marlen Bernstein M.D. [id number]
--- NOTE | 2021-01-09 16:01 | ED_ITS ---
HPI - Weakness General: Chief complaint: Weakness Stated complaint: low o2, sent from [facility] Time Seen by Provider: 01/09/21 15:52 History of Present Illness: HPI Narrative: 85-year-old male presents emergency room from his primary care doctor's office. For last 3 days he had a relatively elevated blood pressure fever and hypoxia. He did not usually on oxygen is requiring 3 L by nasal cannula to maintain sats in the mid 90s he is mildly confused when I ask historical questions he responds with long-winded stories did not actually was answer the question that was asked. Patient had a negative Covid antigen at [facility]. Complaint: generalized weakness Onset (ago): day(s) (3) Duration: progressively worsening Severity: moderate Relieving factors: none Exacerbating factors: none Associated symptoms: Reports confusion, decreased appetite, nausea and short of breath; Denies chest pain, chills, melena, diaphoresis, dysuria, easy bruising, fever(s), headache(s), myalgias, rash, syncope or vomiting Review of Systems Const: Denies: fever(s), chills or diaphoresis Card: Denies: chest pain or syncope Resp: Reports: dyspnea and non-productive cough; Denies: productive cough GI: Reports: nausea; Denies: vomiting or melena : Denies: dysuria Neuro: Reports: confusion; Denies: headache(s) Liban/Lymph: Denies: easy bruising [facility] ED PFS: Medical History (Updated 01/09/21 @ 17:37 by Wilbert Alonzo DO) Bradycardia Cardiomegaly Chronic atrial fibrillation 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 Hernia Hypertension Hypothyroid Lower urinary tract symptoms (LUTS) Obstructive sleep apnea Pancytopenia Polycythemia Pulmonary hypertension Restless leg Family History Father CAD (coronary artery disease) CHF (congestive heart failure) Social History Smoking and tobacco status: never smoked Alcohol intake: never Adopted: No Lives independently: Yes Marital status: / History of recent travel: No Physical Exam Const: COMMON NORMALS: no acute distress GENERAL APPEARANCE: cooperative an d comfortable HENMT: COMMON NORMALS: normocephalic, atraumatic and hearing grossly normal bilaterally HEAD & SCALP: normocephalic and atraumatic Lymph: LYMPHATIC: no lymphadenopathy noted and no lymphedema noted Resp: AUSCULTATION: rales (Right greater than left) bilateral Cardio: COMMON NORMALS: regular rate, regular rhythm and No murmurs present (Cardio) RATE: regular rate RHYTHM: regular rhythm GI: COMMON NORMALS: Soft to palpation and No hepatosplenomegaly present AUSCULTATION: Yes normoactive bowel sounds PALPATION: Yes Soft to palpation, No Tenderness to palpation present (GI), No Guarding due to palpation present (GI) and Yes No hepatosplenomegaly present Extremity: COMMON NORMALS: normal to inspection, capillary refill normal, no clubbing, cyanosis or edema, no calf tenderness and no pedal edema Skin: COMMON NORMALS: no rashes or lesions noted GENERAL SKIN EXAM: no rashes or lesions noted Course Vital Signs: Vital signs: Vital Signs Temperature 99.2 F 01/09/21 15:45 Pulse Rate 51 L 01/09/21 16:30 Respiratory Rate 14 01/09/21 16:30 Blood Pressure 109/65 01/09/21 16:30 Pulse Oximetry 96 01/09/21 16:30 MDM - Weakness MDM Narrative: Medical decision making narrative: Discussed with hospitalist will admit for presumptive pneumonia with hypoxia and altered mental status. He has no neurologic symptoms and no meningeal symptoms. started on Levaquin. Lab Data: Labs: Lab Results 01/09/21 01/09/21 01/09/21 Range/Units 16:05 16:05 16:05 WBC 10.7 H (4.0-10.0) 10^3/ uL RBC 5.32 H (4.1-5.3) 10^6/u L Hgb 13.4 (11.7-16.6) g/dL Hct 45.9 (42.0-52.0) % MCV 86.3 (80-94) fL MCH 25.2 L (28.0-34.0) pg MCHC 29.2 L (30.0-36.0) g/dL RDW 17.3 H (12.1-15.1) % Plt Count 599 H (130-400) 10^3/c mm MPV 11.6 H (7.4-10.4) fL Neut % (Auto) 82.6 % Lymph % (Auto) 6.9 % Bacon % (Auto) 5.8 % Eos % (Auto) 3.0 % Baso % (Auto) 1.4 % Neut # (Auto) 8.87 H (1.8-7.7) 10^3/u L Lymph # (Auto) 0.7 L (0.8-4.8) 10^3/u L Bacon # (Auto) 0.6 (0.2-0.9) 10^3/u L Eos # (Auto) 0.3 (0.0-0.8) 10^3/u L Baso # (Auto) 0.2 H (0.0-0.1) 10^3/u L Nucleated RBC % (a uto) 0 % Nucleated RBCs # 0.0 /100WBC Specimen Type Sample Site ABG pH (7.35-7.45) ABG pCO2 (35-45) mmHg ABG pO2 (80.0-100.0) mmH g ABG HCO3 (22-26) mmol/L ABG O2 Saturation ABG Base Excess (-2.0-2.0) mmol/ L Gordon Test Hematocrit (42-52) % Hgb O2 Saturation (95-100) % Carboxyhemoglobin (0.4-20.1) %THgb Methemoglobin (0.4-1.5) % Total Hemoglobin (14-18) g/dL Ionized Calcium (1.1-1.4) mmol/L O2 Delivery Device O2 Liters/Min % Principal Web Developer ID Sodium 140 (136-145) mmol/L Potassium 4.6 (3.5-5.1) mmol/L Chloride 100 (98-107) mmol/L Carbon Dioxide 28 (22-29) mmol/L Anion Gap 16.6 (5-19) BUN 22 (8-23) mg/dL Creatinine 1.3 H (0.7-1.2) mg/dL GFR Calculation Not Reportable Glucose 104 (65-115) mg/dL Calculated Osmolal ity 294 (285-295) mOsm/k g Lactic Acid 1.2 (0.5-2.2) mmol/L Calcium 8.1 L (8.5-10.5) mg/dL Total Bilirubin 0.5 (0.15-1.2) mg/dL AST 11 (0-40) U/L ALT 14 (0-41) U/L Alkaline Phosphata se 78 (40-130) IU/L Creatine Kinase 67 (39-308) U/L Troponin T Baselin e (0-15) ng/L Total Protein 6.4 L (6.6-8.7) g/dL Albumin 4.0 (3.5-5.2) g/dL Globulin 2.4 (1.3-4.6) g/dL Lipase 21 (13-60) U/L 01/09/21 01/09/21 Range/Units 16:05 16:28 WBC (4.0-10.0) 10^3/ uL RBC (4.1-5.3) 10^6/u L Hgb (11.7-16.6) g/dL Hct (42.0-52.0) % MCV (80-94) fL MCH (28.0-34.0) pg MCHC (30.0-36.0) g/dL RDW (12.1-15.1) % Plt Count (130-400) 10^3/c mm MPV (7.4-10.4) fL Neut % (Auto) % Lymph % (Auto) % Bacon % (Auto) % Eos % (Auto) % Baso % (Auto) % Neut # (Auto) (1.8-7.7) 10^3/u L Lymph # (Auto) (0.8-4.8) 10^3/u L Bacon # (Auto) (0.2-0.9) 10^3/u L Eos # (Auto) (0.0-0.8) 10^3/u L Baso # (Auto) (0.0-0.1) 10^3/u L Nucleated RBC % (a uto) % Nucleated RBCs # /100WBC Specimen Type Arterial Sample Site Radial, left ABG pH 7.39 (7.35-7.45) ABG pCO2 55.0 H (35-45) mmHg ABG pO2 126.0 H (80.0-100.0) mmH g ABG HCO3 33.4 H (22-26) mmol/L ABG O2 Saturation 99.1 ABG Base Excess 6.7 H (-2.0-2.0) mmol/ L Gordon Test Pos Hematocrit 43.0 (42-52) % Hgb O2 Saturation 96.6 (95-100) % Carboxyhemoglobin 1.6 (0.4-20.1) %THgb Methemoglobin 0.8 (0.4-1.5) % Total Hemoglobin 14.0 (14-18) g/dL Ionized Calcium 1.1 (1.1-1.4) mmol/L O2 Delivery Device Nc O2 Liters/Min 3.0 % Principal Web Developer ID [email or web address] Sodium 144.0 H (136-145) mmol/L Potassium 4.1 (3.5-5.1) mmol/L Chloride (98-107) mmol/L Carbon Dioxide (22-29) mmol/L Anion Gap (5-19) BUN (8-23) mg/dL Creatinine (0.7-1.2) mg/dL GFR Calculation Glucose 111.0 (65-115) mg/dL Calculated Osmolal ity (285-295) mOsm/k g Lactic Acid (0.5-2.2) mmol/L Calcium (8.5-10.5) mg/dL Total Bilirubin (0.15-1.2) mg/dL AST (0-40) U/L ALT (0-41) U/L Alkaline Phosphata se (40-130) IU/L Creatine Kinase (39-308) U/L Troponin T Baselin e 44 H (0-15) ng/L Total Protein (6.6-8.7) g/dL Albumin (3.5-5.2) g/dL Globulin (1.3-4.6) g/dL Lipase (13-60) U/L Discharge Plan Discharge Patient Disposition: Admitted As Inpatient Clinical Impression: Pneumonia, Chronic atrial fibrillation, Hypertension, Mild cognitive impairment with memory loss, Suspected 2019-nCoV infection Condition: Stable Coding Level of Care Code ED Primary Teacher for [employer] Fwd Exam Comprehensive
[2021-01-09] MEDS: sodium chloride 0.9% 1,000 ML 500 ML IV (16:20)
[2021-01-09 16:21] LABS: Basophils # 0.2 10^3/uL (0.0-0.1); Basophils % 1.4 %; Eosinophils # 0.3 10^3/uL (0.0-0.8); Hematocrit 45.9 % (42.0-52.0); Hemoglobin 13.4 g/dL (11.7-16.6); Lymphocytes # 0.7 10^3/uL (0.8-4.8); Lymphocytes % 6.9 %; Mean Corpuscular HGB Conc 29.2 g/dL (30.0-36.0); Mean Corpuscular Hemoglobin 25.2 pg (28.0-34.0); Mean Corpuscular Volume 86.3 fL (80-94); Mean Platelet Volume 11.6 fL (7.4-10.4); Monocytes # 0.6 10^3/uL (0.2-0.9); Monocytes % 5.8 %; Neutrophils # 8.87 10^3/uL (1.8-7.7); Neutrophils % 82.6 %; Nucleated Red Blood Cells % 0 %; Platelet Count 599 10^3/cmm (130-400); Red Blood Count 5.32 10^6/uL (4.1-5.3); Red Cell Distribution Width 17.3 % (12.1-15.1); White Blood Count 10.7 10^3/uL (4.0-10.0)
[2021-01-09 16:40] LABS: ABG PH Result 7.39 (7.35-7.45); Base Excess ABG 6.7 mmol/L (-2.0-2.0); Blood Gas Allen Test Pos; Blood Gas Sample Site Radial, left; Blood Gas Sample Type Arterial; Carboxyhemoglobin 1.6 %THgb (0.4-20.1); HCO3 ABG 33.4 mmol/L (22-26); HGB O2 Sat 96.6 % (95-100); Ionized Calcium Level - ABG 1.1 mmol/L (1.1-1.4); Methemoglobin 0.8 % (0.4-1.5); Oxygen Device NC; Oxygen Saturation ABG 99.1; Potassium Level - ABG 4.1 mmol/L (3.5-5.0)
[2021-01-09 16:58] LABS: Troponin(5th) Baseline 44 ng/L (0-15)
[2021-01-09 16:59] LABS: Lactic Sepsis W/Reflex 1.2 mmol/L (0.5-2.2)
[2021-01-09 17:00] LABS: Alanine Aminotransferase 14 U/L (0-41); Alkaline Phosphatase 78 IU/L (40-130); Aspartate Amino Transferase 11 U/L (0-40); Blood Urea Nitrogen 22 mg/dL (8-23); Calcium 8.1 mg/dL (8.5-10.5); Carbon Dioxide 28 mmol/L (22-29); Chloride 100 mmol/L (98-107); Creatine Phosphokinase 67 U/L (39-308); Globulin 2.4 g/dL (1.3-4.6); Glucose 104 mg/dL (65-115); Lipase 21 U/L (13-60); Potassium 4.6 mmol/L (3.5-5.1); Total Bilirubin 0.5 mg/dL (0.15-1.2); Total Protein 6.4 g/dL (6.6-8.7)
[2021-01-09 17:32] LABS: Anion Gap 16.6 (5-19); Osmolality Calculated 294 mOsm/kg (285-295); Sodium 140 mmol/L (136-145)
[2021-01-09] MEDS: levofloxacin-dextrose 5 % 750 MG/150 ML PREMIX 100 MG IV (17:49)
--- NOTE | 2021-01-09 17:56 | ECG_ITS ---
[facility] ED Test Date: 2021-01-09 Pat Name: Casey Alves Department: Room: Gender: Male Campground Manager: : 1935 Requested By: Wilbert Joseph Order Number: [id number] Lonny MD: Marlen Bernstein M.D. Measurements Intervals [place] Rate: 57 P: DE: QRS: 52 QRSD: 97 T: 38 QT: 486 QTc: 474 Interpretive Statements ATRIAL FIBRILLATION WITH SLOW VENTRICULAR RESPONSE PROBABLE SEPTAL MYOCARDIAL INFARCTION [35 ms Q WAVE IN V1/V2], PROBABLY OLD Compared to ECG 01/09/2021 16:30:35 Myocardial infarct finding now present T-wave abnormality no longer present Possible ischemia no longer present Electronically Signed On 01-16-2021 10:07:52 CDT by Marlen Bernstein M.D. [id number]
--- NOTE | 2021-01-09 19:39 | P.HP_ITS ---
Providers/Chief Complaint Admitting Physician: Eddie Bearden Primary Care Provider: Chin Salazar DO Chief Complaint: low o2, sent from [facility] History of Present Illness 85-year-old gentleman with history of polycythemia vera, epilepsy partials continua, Alzheimer disease, atrial fibrillation, HTN, ISELA, not using CPAP, reported pulmonary hypertension, although he is not aware of this condition, recently with progressive functional decline due to which she had moved into assisted living, never smoker, denies other lung conditions, not on supplemental oxygen usually was brought in for evaluation due to malaise, generalized weakness, hypoxia noted requiring 3 L of oxygen, referred from primary provider's office. He himself attributes his symptoms to recent stress, having had an auction he states about 4 days ago to sell his house as well as all personal belongings, states that currently signed over the house, and feels that due to all that became unwell. Reported antigen done at PCP office for COVID was negative. He states he had received full course of vaccination. PCR test is sent in ER. CXR with mild bibasilar atelectasis. Temp is noted 99.2. Minimal WBC elevation at 10.7. Neutrophilic predominance. Saturation noted in the high 90s on 2 L nasal cannula. Baseline troponin 44. EKG with atrial fibrillation slow ventricular response. 99.6 reported at [facility]. Reported feeling unwell. Occasional cough, nonproductive. Little bit harder work of breathing. Also reported several accidents with diarrhea. Daughter does state he sometimes may get diarrhea after not having bowel movement for several days, and then taking fiber as well. Review of Systems Const: Reports: fever(s) and malaise; Denies: chills or body aches Eyes: Denies: change in vision or eye redness ENMT: Denies: throat pain, oral sores or ear or mastoid pain Card: Reports: dyspnea on exertion; Denies: chest pain, edema or pre-syncope Resp: Denies: dyspnea, productive cough, change in phlegm color or hemoptysis GI: Reports: diarrhea; Denies: abdominal pain, nausea, vomiting, constipation, hematochezia or melena : Denies: flank pain, difficulty urinating, urinary frequency or hematuria Musc: Denies: back pain, joint swelling or joint redness Skin/Breast: Denies: rash, sores or new lesions Neuro: Reports: confusion (Mild reported); Denies: headache(s), numbness in extremities, weakness in extremities, dizziness or seizure-like activity Endo: Denies: polyuria or polydipsia Liban/Lymph: Denies: easy bleeding or purpura All/Imm: Denies: urticaria, throat swelling or tongue swelling Medications/Allergies Home Medications Medication Instructions Recorded Confirmed Last Taken Type apixaban 2.5 mg tablet 2.5 mg PO BID@799,199906/12/19 01/09/21 01/09/21 History finasteride 5 mg tablet 5 mg PO DAILY@199906/12/19 01/09/21 01/08/21 History levothyroxine 137 mcg capsule 137 mcg PO DAILY@79906/12/19 01/09/21 01/09/21 History tamsulosin 0.4 mg capsule 0.4 mg PO DAILY@199906/12/19 01/09/21 01/08/21 History potassium chloride 10 mEq 10 meq PO DAILY@79905/22/20 01/09/21 01/09/21 History capsule,extended release hydroxyurea 500 mg capsule 500 mg PO DAILY@08 cap 07/03/20 01/09/21 Unknown History furosemide 40 mg tablet 40 mg PO DAILY@79901/01/21 01/09/21 01/09/21 History quetiapine 25 mg tablet 25 mg PO TID PRN #90 tab 01/01/21 01/09/21 Unknown Rx citalopram 20 mg PO DAILY@79901/09/21 01/09/21 01/09/21 History galantamine 8 mg PO DAILY@79901/09/21 01/09/21 01/09/21 History galantamine 16 mg PO DAILY 01/09/21 01/09/21 Unknown History galantamine 24 mg PO DAILY@79901/09/21 01/09/21 Unknown History hydralazine 25 mg PO BID@799,199901/09/21 01/09/21 01/09/21 History isosorbide mononitrate 15 mg PO DAILY@79901/09/21 01/09/21 01/09/21 History levetiracetam 1,000 mg PO BID@799,199901/09/21 01/09/21 01/09/21 History Allergies Allergy/AdvReac Type Severity Reaction Status Date / Time lorazepam [From Ativan] AdvReac hallucinati Verified 01/09/21 15:43 ons PFSH Acute PFSH: Medical History (Updated 01/09/21 @ 20:07 by Eddie Bearden MD) Bradycardia Cardiomegaly Chronic atrial fibrillation 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 Hernia Hypertension Hypothyroid Lower urinary tract symptoms (LUTS) Obstructive sleep apnea Pancytopenia Polycythemia Pulmonary hypertension Restless leg Family History Father CAD (coronary artery disease) CHF (congestive heart failure) Social History Smoking and tobacco status: never smoked Alcohol intake: never Adopted: No Lives independently: Yes Marital status: / History of recent travel: No Vitals/I&O/Wt Last Vital Signs Temp 99.2 F 01/09/21 15:45 Pulse 58 L 01/09/21 19:03 Resp 20 H 01/09/21 19:03 BP 158/78 01/09/21 19:03 Pulse Ox 97 01/09/21 19:03 01/09/21 01/09/21 01/09/21 06:59 14:59 22:59 Intake Total 1000 / 1000 Balance 1000 / 1000 Weight last 48 hrs Weight 93.894 kg Physical Exam Const: COMMON NORMALS: no acute distress, patient oriented x3 and alert G ENERAL APPEARANCE: cooperative, comfortable and frail appearing ORIENTATI ON/CONSCIOUSNESS: Yes awake HENMT: COMMON NORMALS: oropharynx normal Neck/C-Spine: COMMON NORMALS: no JVD Resp: COMMON NORMALS: normal respiratory effort and clear to auscultation bilaterally AUSCULTATION: clear to auscultation bilaterally and crackles Laterality: bilateral (Base) Cardio: COMMON NORMALS: no JVD, regular rhythm, S1 normal heart sound present, S2 normal heart sound present and No murmurs present (Cardio) RHYTHM: regular rhythm HEART SOUNDS: S1 normal heart sound present and S2 normal heart sound present GI: COMMON NORMALS: Normal to inspection, nondistended, normoactive bowel sounds present, Soft to palpation and non-tender PALPATION: Yes Soft to palpation Extremity: COMMON NORMALS: no joint enlargement GENERAL: Yes edema (Trace) Neuro: COMMON NORMALS: patient oriented x3 and moves all extremities Skin: COMMON NORMALS: no rashes or lesions noted GENERAL SKIN EXAM: no haydee hes or lesions noted Data : 01/09/21 16:05 01/09/21 16:05 A&P Assessment and plan (1) Fever: Unclear cause of fever at this time. Presenting with malaise, generalized weakness. Appears to be having some new hypoxia. Reported several episodes of diarrhea. Rapid antigen negative for COVID-19, and reports has received full course of vaccination. However, given constellation of symptoms, PCR has been sent out for additional assessment of possible COVID-19. Chest x-ray with noted atelectasis. Incentive spirometry requested. Pending UA. Requested bladder scan and straight cath. Blood cultures were collected in ER. He empirically received a dose of Levaquin. For now we will hold off continue antibiotic pending additional work-up. Reassess symptoms. Status: Acute (2) Malaise: As above. Status: Acute (3) Diarrhea: As above, COVID-19 PCR requested. Requesting stool studies. Alternatively diarrhea could also be secondary to galantamine which was recently initiated. Status: Acute (4) Hypoxia: New onset hypoxia with rigors requiring oxygen therapy. Does have history of pulmonary hypertension which is her states was diagnosed by his PCP. Denies he has seen a specialist. Would benefit from home O2 evaluation prior to discharge. Additional work-up as above with regards to COVID-19 testing. He does appear to also have JVD, reports dyspnea on exertion. Trace edema noted on exam. Mild crackles at bases, although does have noted atelectasis on chest x-ray. Not sure that NT proBNP will be reliable in his case, will not request at this time. We will assess with TTE. He otherwise does not appear to show symptoms of PE, VTE, and is on chronic anticoagulation with Eliquis. Status: Acute (5) Atelectasis: Incentive spirometry. Status: Acute (6) Troponin level elevated: Discussed with his daughter. Troponin at baseline 44. Complete troponin EKG series. Does not have chest pain or pressure. Does appear to have possibly some symptoms of CHF with JVD, [place] ROS[place], trace edema. Chronically takes Lasix. Discussed concern of underlying coronary disease with stress test with small size reversible perfusion abnormality of mild severity in mid to apical inferior wall. Attenuation artifact could not be entirely excluded. Ejection fraction was noted normal. Does not appear to be on antiplatelet medication or statin. We will add. With bradycardia and avoid beta-nabila. TTE as above. Status: Acute (7) Dyspnea on exertion: As above. Status: Acute (8) CAD (coronary artery disease): Suspected CAD based on stress testing back in October 2018. Discussed with the daughter. Discussed initiation of aspirin in addition to blood thinner, discussed risk of bleeding. Statin. Avoid beta-nabila due to slow ventricular response. Status: Acute (9) Atrial fibrillation with slow ventricular response: Continue Eliquis. 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 Following with Dr. Newman. Status: Acute (11) Alzheimer disease: Recently started on galantamine Status: Acute (12) Polycythemia: Hydroxyurea, phlebotomy as needed. Following with Dr. Pratt. Status: Acute Additional A&P Information ISELA: Does not use CPAP Appears to also have chronic kidney disease Other comorbidities noted Attestations Medical Necessity Statement*: Placed in observation for assessment management of fever, malaise, new need for supplemental oxygen, dyspnea on exertion in a gentleman with suspected underlying CAD, a number of additional comorbidities as above and advanced age. 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
[2021-01-09] MEDS: FUROsemide 10 mg/mL SDV 2mL 20 MG IVP (20:51)
[2021-01-09] MEDS: hyDRALAzine 25 mg Tablet PO (20:55)
[2021-01-09] MEDS: atorvastatin 40 mg Tablet PO (20:55)
[2021-01-09] MEDS: quetiapine 25 mg Tablet PO (20:56)
[2021-01-09 21:02] LABS: Thyroid Stimulating Hormone 1.52 uIU/mL (0.27-4.20)
[2021-01-09 22:10] LABS: Add Urine Microscopic? NO; Charge for UA Resulting for Rev
[2021-01-09 22:23] LABS: Bilirubin Urine Neg (Negative); Blood Urine Neg (Negative); Glucose Urine UA Norm (Normal); Ketones Urine Negative (Negative); Leukocyte Esterase Urine Negative (Negative); Nitrate Urine Negative (Negative); Protein Urine Neg (Negative); Specific Gravity, Urine 1.015 (1.005-1.030); Urine Appearance Clear (CLEAR); Urine Color Yellow (Yellow); Urobilinogen Urine Norm (Negative); pH Urine 5 (5-7)
[2021-01-09 22:36] LABS: Troponin 5 6HR 47.14 ng/L (0-15); Troponin 5 6HR Delta 3.14 ng/L (0-12)
[2021-01-10] VITALS (8 sets, daily range): BP systolic 135–175; BP diastolic 69–93; PULSE 48–70; RESP 18–20; TEMP 36.3–36.4; O2SAT 90–98
--- NOTE | 2021-01-10 07:48 | PC.NURSE ---
Around 1999: Patients b/p elevated. Notified Dr. Curiel. Orders received see, AUG. Around 0000: Patient confused, oriented to self, attempted to leave. Refusing telemetry. Patient needing frequent re-orientation and redirection. Frequent rounding performed and Bed alarm set. Around 0400: Patient refused morning labs, still refusing telemetry.
[2021-01-10] MEDS: citalopram 20 mg Tablet PO (10:23)
[2021-01-10] MEDS: levETIRAcetam 500 mg Tablet 1000 MG PO (10:23)
[2021-01-10] MEDS: FUROsemide 40 mg Tablet PO (10:24)
[2021-01-10] MEDS: apixaban 5 mg Tablet 2.5 MG PO (10:24)
[2021-01-10] MEDS: hyDRALAzine 25 mg Tablet PO (10:25)
[2021-01-10] MEDS: levothyroxine 137 mcg Tablet PO (10:25)
[2021-01-10] MEDS: aspirin 81 mg EC Tablet PO (10:26)
[2021-01-10] MEDS: isosorbide mononitrate ER 30 mg Tablet 15 MG PO (10:29)
--- NOTE | 2021-01-10 11:57 | PC.CHAP ---
Pastoral Care Encounter/Spiritual Assessment Type of Contact [] Declined transition nurse visit [] Patient/Family/Request visit [] Outpatient visit [] Follow-up visit [] Physician referral [] Code/Alert [] Routine visit [] Staff referral [] Actively dying [] Patient sleeping [] Family support [] [] Out of room [] Palliative care [] [] Receiving care in room [] Pre-surgical visit [] Trauma [] Long length of stay [] ICU visit [xx] Other: ISOLATION Relational/Emotional Strength [] Patient feels connected with others/family/visitors/staff [] Distress [] Loneliness/isolation [] Abandonment Spirituality of Patient [] Person of Ana [] Attends Amish of their [place] [] Believes in Prayer [] Reads Bible or Christian materials [] There are Spiritual issues to be addressed Vest [employer]isher Interventions [] Prayer [] Active listening [] Non-anxious presence [] Spiritual/emotional support [] Crisis/trauma care [] Spiritual counseling [] Bereavement support [] Provided bereavement packet [] Provided Bible/devotional materials [] Provided toy/stuffed animal, coloring book to patient or family member [] Provided Communion [] Anointing/[place] [] Salvation [] Completed spiritual assessment [] Other: Impact on Illness or Injury [] Angry [] Fearful [] Anxious [] Often cries [] Exhaustion [] Unable to work [] Unable to attend adventism [] Unable to walk/stand [] Unable to read [] Unable to drive [] Unable to eat/drink [] Unable to sleep [] Unable to be with family [] Patient intubated [] Other: Summary Time spent with patient
[2021-01-10 15:02] LABS: Coronavirus Test Green County Not Detected
[2021-01-10] MEDS: guaiFENesin 600 mg Tablet 1200 MG PO (15:49)
[2021-01-10] MEDS: levoFLOXacin 750 mg Tablet PO (15:50)
--- NOTE | 2021-01-10 16:00 | PM.DCS ---
Discharge Providers Date of Admission: 01/09/21 17:48 Date of Discharge: January 10, 2021 Attending Provider at Admission: Eddie Bearden Attending Provider at Discharge: Eddie Bearden Primary Care Provider: Chin Salazar, DO Diagnoses at Discharge Discharge Diagnosis (1) Fever: Status: Acute (2) Malaise: Status: Acute (3) Diarrhea: Status: Acute (4) Hypoxia: Status: Acute (5) Atelectasis: Status: Acute (6) Troponin level elevated: Status: Acute (7) Dyspnea on exertion: Status: Acute (8) CAD (coronary artery disease): Status: Acute (9) Atrial fibrillation with slow ventricular response: Status: Acute (10) 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: Status: Acute (11) Alzheimer disease: Status: Acute (12) Polycythemia: Status: Acute Reason for Visit Reason for Visit: low o2, sent from [facility] Hospital Course Pleasant 85-year-old gentleman with history of polycythemia vera, epilepsy partials continua, Alzheimer disease, atrial fibrillation, HTN, ISELA, not using CPAP, reported pulmonary hypertension, although he is not aware of this condition, recently with progressive functional decline due to which she had moved into assisted living, never smoker, denies other lung conditions, not on supplemental oxygen usually was brought in for evaluation due to malaise, generalized weakness, hypoxia noted requiring 3 L of oxygen, referred from primary provider's office. There was question of low-grade fever, possibly 99.6 at assisted living. Highest temperature here 99.2. Otherwise afebrile. Afebrile today. Due to hypoxia, generalized weakness, new oxygen requirement, was assessed by COVID-19 PCR which was negative. Chest x-ray showed some atelectasis in bibasilar lungs, possibly contributing symptoms, although early pneumonia could not be excluded. He was complaining of some congestive changes/difficulty getting up phlegm in his chest. Due to this he is given a short course of antibiotic for possible bacterial pneumonia. Mucinex is provided. He is asked to continue incentive spirometer for atelectasis. He did, however, undergo additional assessment by echocardiography due to finding of abnormal troponin presentation, [id number]. He remained chest pain-free. There is no suggestion of acute myocardial infarction. He does have history of abnormal stress test back in October 2019, with small size reversible perfusion abnormality of mild severity of mid to apical inferior wall, thought to be small area of ischemia in the right coronary artery territory, although attenuation could not be completely ruled out. Repeat echocardiogram currently shows severe pulmonary hypertension with tricuspid and pulmonic valve regurgitation. Biatrial enlargement. His hypoxia appears to be secondary to progression of pulmonary hypertension. He is on chronic anticoagulation with Eliquis due to known atrial fibrillation with slow ventricular response. Findings discussed with him and his daughter. Intermittent hypoxia, especially on exertion may explain episodes of confusion noted by his daughter. Due to need for oxygen he is were now asked not to drive until he can be reassessed by his primary provider. Home oxygen evaluation is requested prior to discharge. He is also asked to follow-up with pulmonology specialist after discharge. Due to concern for underlying coronary disease he is additionally initiated on low-dose aspirin, statin. He is additionally referred for reassessment by stress testing on outpatient basis. Today he otherwise did well. He has been up to chair. Pleasant, conversant. Denying any pain or discomfort. No trouble breathing with oxygen on. Does not appear to exhibit signs of confusion currently. Loose stool episodes reported prior to admission, did not appear to recur here. Stool studies were requested but could not be collected due to lack of sample. While in the hospital recently initiating galantamine was held. This is for now resumed, however, in case of recurrence of diarrhea episodes, please hold medication and contact his neurologist's office. Discussed with his daughter. Physical Exam Const: COMMON NORMALS: no acute distress, patient oriented x3 and alert GENERAL APPEARANCE: cooperative and comfortable ORIENTATION/CONSCIOUSNESS: Yes awake OTHER: Sitting up in chair. Pleasant, conversant. In good spirits. Tells me the story of how he was nominated to be [employer] at a [employer] party. HENMT: COMMON NORMALS: oropharynx normal Neck/C-Spine: COMMON NORMALS: no JVD Resp: COMMON NORMALS: normal respiratory effort and clear to auscultation bilaterally AUSCULTATION: clear to auscultation bilaterally Cardio: COMMON NORMALS: no JVD, regular rhythm, S1 normal heart sound present, S2 normal heart sound present and No murmurs present (Cardio) RHYTHM: regular rhythm HEART SOUNDS: S1 normal heart sound present and S2 normal heart sound present GI: COMMON NORMALS: Normal to inspection, nondistended, normoactive bowel sounds present, Soft to palpation and non-tender PALPATION: Yes Soft to palpation Extremity: COMMON NORMALS: no joint enlargement and no pedal edema Neuro: COMMON NORMALS: patient oriented x3 and moves all extremities SENSORIUM/ORIENTATION: Yes alert Skin: COMMON NORMALS: no rashes or lesions noted GENERAL SKIN EXAM: no rashes or lesions noted Discharge Data Data Completed and Pending: Completed Studies During Hospitalization Category Date Time Status XR chest 1V joo ble [id number] Stat Exams 01/09/21 15:55 Completed CV. echo complete * [id number] Routine Ultrasound 01/10/21 19:49 Completed Pending at discharge Category Date Time Status Blood Culture Sta t Lab 01/09/21 19:15 Results Clostridioides Di fficile PCR Routin e Lab 01/09/21 19:47 Uncollected Complete Blood Co unt w/Auto AM LABS Lab 01/10/21 04:00 Ordered Comprehensive Met abolic Panel AM LA BS Lab 01/10/21 04:00 Ordered Enteric Bacterial Panel by PCR Rout ine Lab 01/09/21 19:47 Uncollected Enteric Parasite Panel by PCR Routi ne Lab 01/09/21 19:47 Uncollected Labs from last 24 hours 01/09/21 01/09/21 01/09/21 21:57 21:30 19:20 WBC RBC Hgb Hct MCV MCH MCHC RDW Plt Count MPV Neut % (Auto) Lymph % (Auto) [place] % (Auto) Eos % (Auto) Baso % (Auto) Neut # (Auto) Lymph # (Auto) [place] # (Auto) Eos # (Auto) Baso # (Auto) Nucleated RBC % (a uto) Nucleated RBCs # Specimen Type Sample Site ABG pH ABG pCO2 ABG pO2 ABG HCO3 ABG O2 Saturation ABG Base Excess Gordon Test A-a O2 Gradient Hematocrit Hgb O2 Saturation Carboxyhemoglobin Methemoglobin Total Hemoglobin Ionized Calcium O2 Delivery Device O2 Liters/Min [employer] ID Sodium Potassium Chloride Carbon Dioxide Anion Gap BUN Creatinine GFR Calculation Glucose Calculated Osmolal ity Lactic Acid Calcium Total Bilirubin AST ALT Alkaline Phosphata se Creatine Kinase Troponin T Baselin e Troponin T 120 Min [place] Troponin T Troponin T Hi Sens 6Hr 47.14 H Troponin T Hi Sens 6Hr Delta 3.14 Total Protein Albumin Globulin Lipase TSH 1.52 Urine Color Yellow Urine Appearance Clear Urine pH 5 Ur Specific Gravit y 1.015 Urine Protein Neg Urine Glucose (UA) Norm Urine Ketones Negative Urine Blood Neg Urine Nitrate Negative Urine Bilirubin Neg Urine Urobilinogen Norm Ur Leukocyte Lila ase Negative Nasal/Oral COVID-1 9 PCR 01/09/21 01/09/21 01/09/21 19:20 16:28 16:05 WBC RBC Hgb Hct MCV MCH MCHC RDW Plt Count MPV Neut % (Auto) Lymph % (Auto) [place] % (Auto) Eos % (Auto) Baso % (Auto) Neut # (Auto) Lymph # (Auto) [place] # (Auto) Eos # (Auto) Baso # (Auto) Nucleated RBC % (a uto) Nucleated RBCs # Specimen Type Arterial Sample Site Radial, left ABG pH 7.39 ABG pCO2 55.0 H ABG pO2 126.0 H ABG HCO3 33.4 H ABG O2 Saturation 99.1 ABG Base Excess 6.7 H Gordon Test Pos A-a O2 Gradient Not Reportable Hematocrit 43.0 Hgb O2 Saturation 96.6 Carboxyhemoglobin 1.6 Methemoglobin 0.8 Total Hemoglobin 14.0 Ionized Calcium 1.1 O2 Delivery Device Nc O2 Liters/Min 3.0 Elevator Operator Freight ID jmn Sodium 144.0 H Potassium 4.1 Chloride Carbon Dioxide Anion Gap BUN Creatinine GFR Calculation Glucose 111.0 Calculated Osmolal ity Lactic Acid Calcium Total Bilirubin AST ALT Alkaline Phosphata se Creatine Kinase Troponin T Baselin e Troponin T 120 Min [place] 44.10 H Delta Troponin T 0.10 Troponin T Hi Sens 6Hr Troponin T Hi Sens 6Hr Delta Total Protein Albumin Globulin Lipase TSH Urine Color Urine Appearance Urine pH Ur Specific Gravit y Urine Protein Urine Glucose (UA) Urine Ketones Urine Blood Urine Nitrate Urine Bilirubin Urine Urobilinogen Ur Leukocyte Lila ase Nasal/Oral COVID-1 9 PCR Not detected 01/09/21 01/09/21 01/09/21 16:05 16:05 16:05 WBC 10.7 H RBC 5.32 H Hgb 13.4 Hct 45.9 MCV 86.3 MCH 25.2 L MCHC 29.2 L RDW 17.3 H Plt Count 599 H MPV 11.6 H Neut % (Auto) 82.6 Lymph % (Auto) 6.9 [place] % (Auto) 5.8 Eos % (Auto) 3.0 Baso % (Auto) 1.4 Neut # (Auto) 8.87 H Lymph # (Auto) 0.7 L [place] # (Auto) 0.6 Eos # (Auto) 0.3 Baso # (Auto) 0.2 H Nucleated RBC % (a uto) 0 Nucleated RBCs # 0.0 Specimen Type Sample Site ABG pH ABG pCO2 ABG pO2 ABG HCO3 ABG O2 Saturation ABG Base Excess Gordon Test A-a O2 Gradient Hematocrit Hgb O2 Saturation Carboxyhemoglobin Methemoglobin Total Hemoglobin Ionized Calcium O2 Delivery Device O2 Liters/Min Elevator Operator Fre[employer] ID Sodium 140 Potassium 4.6 Chloride 100 Carbon Dioxide 28 Anion Gap 16.6 BUN 22 Creatinine 1.3 H GFR Calculation Not Reportable Glucose 104 Calculated Osmolal ity 294 Lactic Acid Calcium 8.1 L Total Bilirubin 0.5 AST 11 ALT 14 Alkaline Phosphata se 78 Creatine Kinase 67 Troponin T Baselin e 44 H Troponin T 120 Min [place] Troponin T Troponin T Hi Sens 6Hr Troponin T Hi Sens 6Hr Delta Total Protein 6.4 L Albumin 4.0 Globulin 2.4 Lipase 21 TSH Urine Color Urine Appearance Urine pH Ur Specific Gravit y Urine Protein Urine Glucose (UA) Urine Ketones Urine Blood Urine Nitrate Urine Bilirubin Urine Urobilinogen Ur Leukocyte Lila ase Nasal/Oral COVID-1 9 PCR 01/09/21 16:05 WBC RBC Hgb Hct MCV MCH MCHC RDW Plt Count MPV Neut % (Auto) Lymph % (Auto) [place] % (Auto) Eos % (Auto) Baso % (Auto) Neut # (Auto) Lymph # (Auto) [place] # (Auto) Eos # (Auto) Baso # (Auto) Nucleated RBC % (a uto) Nucleated RBCs # Specimen Type Sample Site ABG pH ABG pCO2 ABG pO2 ABG HCO3 ABG O2 Saturation ABG Base Excess Gordon Test A-a O2 Gradient Hematocrit Hgb O2 Saturation Carboxyhemoglobin Methemoglobin Total Hemoglobin Ionized Calcium O2 Delivery Device O2 Liters/Min Elevator Operator Freight ID Sodium Potassium Chloride Carbon Dioxide Anion Gap BUN Creatinine GFR Calculation Glucose Calculated Osmolal ity Lactic Acid 1.2 Calcium Total Bilirubin AST ALT Alkaline Phosphata se Creatine Kinase Troponin T Baselin e Troponin T 120 Min [place] Troponin T Troponin T Hi Sens 6Hr Troponin T Hi Sens 6Hr [place] Total Protein Albumin Globulin Lipase TSH Urine Color Urine Appearance Urine pH Ur Specific Gravit y Urine Protein Urine Glucose (UA) Urine Ketones Urine Blood Urine Nitrate Urine Bilirubin Urine Urobilinogen Ur Leukocyte Lila ase Nasal/Oral COVID-1 9 PCR Vitals: Last Vital Signs Temp 97.4 F L 01/10/21 04:00 Pulse 54 L 01/10/21 12:00 Resp 18 01/10/21 12:00 BP 135/75 01/10/21 12:00 Pulse Ox 96 01/10/21 12:00 Discharge Plan Discharge Patient Disposition: Home Condition: Stable Prescriptions: New atorvastatin 40 mg Tablet 40 mg PO BEDTIME Qty: 30 RF: 0 aspirin 81 mg Tablet,Delayed Release (Dr/Ec) 81 mg PO DAILY Qty: 30 RF: 0 levofloxacin 750 mg Tablet 750 mg PO Q24H Qty: 6 RF: 0 guaifenesin [Mucinex] 600 mg Tablet Extended Release 12hr 1,200 mg PO BID Qty: 28 RF: 0 Continued Eliquis 2.5 mg tablet 2.5 mg PO BID@ RF: 0 finasteride 5 mg tablet 5 mg PO DAILY@1999 RF: 0 levothyroxine 137 mcg capsule 137 mcg PO DAILY@799 RF: 0 tamsulosin 0.4 mg capsule 0.4 mg PO DAILY@1999 RF: 0 hydroxyurea 500 mg capsule 500 mg PO DAILY@799 RF: 0 potassium chloride 10 mEq capsule, extended release 10 meq PO DAILY@799 RF: 0 furosemide [Lasix] 40 mg tablet 40 mg PO DAILY@799 RF: 0 quetiapine [Seroquel] 25 mg tablet 25 mg PO TID PRN (Reason: withdrawal symptoms) Qty: 90 RF: 0 levetiracetam 1,000 mg tablet 1,000 mg PO BID@ RF: 0 isosorbide mononitrate 30 mg tablet extended release 24 hr 15 mg PO DAILY@799 RF: 0 hydralazine 25 mg tablet 25 mg PO BID@ RF: 0 citalopram 20 mg tablet 20 mg PO DAILY@799 RF: 0 galantamine 8 mg capsule,ext rel. pellets 24 hr 8 mg PO DAILY@0800 RF: 0 galantamine 16 mg capsule,ext rel. pellets 24 hr 16 mg PO DAILY RF: 0 galantamine 24 mg capsule,ext rel. pellets 24 hr 24 mg PO DAILY@0800 RF: 0 Discharge Orders: Discharge Order (Routine); Ordered 01/10/21 Ordered By: Eddie Bearden Other Ambulatory Orders: Sestamibi Stress Test Request (Routine) Timeframe: 1 Week Facility: [facility] - Location: Cardiac Diagnostic Laboratory Ordered By: Eddie Bearden Referrals: Pulmonary [Provider Group] - 1 month (Pulmonary hypertension) Chin Salazar DO [Primary Care Provider] - 4-7 days Discharge Diet: Cardiac Discharge Activity: Increase activity as tolerated, Limit activity as instructed and Oxygen as instructed Patient Instructions: Opioid Safety Activity Restrictions/Additional Instructions: Please note we are finding severe pulmonary hypertension on echocardiogram, likely progression from previous disease, and you are now requiring oxygen. Please note with new oxygen requirement please do not drive until he can be reassessed by your primary provider. Due to possibility of acute pneumonia as well you are given a course of antibiotic to complete with Levaquin. Please continue incentive spirometer. Your COVID-19 PCR test was negative. Please follow-up with pulmonology specialist regarding pulmonary hypertension, as well as consideration of additional evaluation, and possible additional treatment options. Please note due to concern for coronary artery disease you are referred for repeat stress test. You are also started on aspirin and cholesterol medication. Aspirin together with your blood thinner medication may increase risk of bleeding. Please make strong efforts to avoid any injury. If you notice any bleeding, please seek medical attention. If you experience worsening shortness of breath, any severe fatigue, confusion, chest pain, or any other unusual symptoms, please seek medical attention. Please note that galantamine which you had started recently can cause diarrhea. In case diarrhea recurs, please hold the medication and contact your neurologist's office. Please continue usual follow-up with hematology and other subspecialists. 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
--- NOTE | 2021-01-10 19:49 | USCV_ITS ---
Casey Alves Age: 85 Gender: M : 1935 Exam Date: 01/10/2021 06:39 Ordering Phys: Eddie Bearden MD Technologist: Keturah Soto Exam Location: [facility] [place] Indication: DYSPNEA ON EXERTION BP: 174 / 93 HR: 59 Rhythm: Sinus Technical Quality: Technically difficult study MEASUREMENTS (Male / Female) Normal Values 2D ECHO LV Diastolic Diameter PLAX 3.9 cm 4.2 - 5.9 / 3.9 - 5.3 cm LV Systolic Diameter PLAX 2.5 cm IVS Diastolic Thickness 1.9 cm 0.6 - 1.0 / 0.6 - 0.9 cm IVS Systolic Thickness 2.2 cm LVPW Diastolic Thickness 1.2 cm 0.6 - 1.0 / 0.6 - 0.9 cm LVPW Systolic Thickness 1.6 cm RV Chamber Size 3.9 cm LVOT Diameter 2.0 cm LV Ejection Fraction 2D Teich 65.0 % LV Ejection Fraction MOD 2C 55.5 % LV Ejection Fraction 2C AL 56.4 % LA Diameter 3.4 cm LA Width 3.8 cm LA Height 6.0 cm RA Width 4.6 cm RA Height 6.5 cm Aorta at Sinotubular Diameter 1.9 cm M-MODE Aortic Annulus Diameter 3.6 cm LA Ao Ratio MM 1.0 DOPPLER AV Peak Velocity 117.0 cm/s LVOT Peak Velocity 78.0 cm/s AV Area Cont Eq vti 2.0 cm squared AV Area Cont Eq pk 2.1 cm squared TR Peak Velocity 374.0 cm/s TR Peak Gradient 56.0 mmHg TV Peak E Velocity 64.0 cm/s PV Peak Velocity 84.0 cm/s RV Acceleration Time 0.1 s RV Ejection Time 0.3 s RV AcT/ET 0.2 FINDINGS Left Ventricle Normal left ventricular size. LV systolic function is normal with EF of 55-60%. No regional wall motion abnormalities. Diastolic function is infdeterminate Right Ventricle The right ventricle is normal in size and function. Right Atrium The right atrium is dilated Left Atrium The left atrium is severely dilated Mitral Valve Thickened mitral valvewithout significant stenosis or prolapse. There is trace mitral regurgitation. Aortic Valve Thickened aortic valve without stenosis. There is no aortic regurgitation. Tricuspid Valve Structurally normal tricuspid valve without significant stenosis. Moderate tricuspid regurgitation. RVSP is 60-65mmHg. Severe pulmonary regurgitation Pulmonic Valve Structurally normal pulmonic valve without significant stenosis. There is mild pulmonic regurgitation. Pericardium Normal pericardium without effusion. Aorta Normal ascending aorta dimension. CONCLUSIONS LV systolic function is normal with EF of 55-60% Biatrial enlargement Trace mitral regurgitation is seen. Mild pulmonic regurgitation There is moderate tricuspid regurgitation Severe pulmonary hypertension Compared to prior echocardiogram from 05/2017, no significant changes are noted Moustapha Kim MD (Electronically Signed) Final Date: 10 January 2021 13:39 S
--- NOTE | 2021-01-13 16:49 | PC.RESP ---
Pulmonary Rehab information sent to patient.
== END 2021-01-10 18:00 | disposition home or self-care (01) ==
LOC: ER 17:37 → CSU 18:28
PROVIDERS: Admitting Provider Internal Medicine; Emergency Provider Family Medicine; PCP Internal Medicine; Visit Provider Internal Medicine
DX: R50.9 Fever, unspecified (principal); R53.81 Other malaise; R19.7 Diarrhea, unspecified; R09.02 Hypoxemia; J98.11 Atelectasis; R77.8 Other specified abnormalities of plasma proteins; R06.00 Dyspnea, unspecified; I25.10 Atherosclerotic heart disease of native coronary artery without angina pectoris; I48.91 Unspecified atrial fibrillation; G40.109 Localization-related (focal) (partial) symptomatic epilepsy and epileptic syndromes with simple partial seizures, not intractable, without status epilepticus; G30.9 Alzheimer's disease, unspecified; F02.80 Dementia in other diseases classified elsewhere, unspecified severity, without behavioral disturbance, psychotic disturbance, mood disturbance, and anxiety; D75.1 Secondary polycythemia; I10 Essential (primary) hypertension; G47.33 Obstructive sleep apnea (adult) (pediatric); Z99.81 Dependence on supplemental oxygen
CPT/HCPCS: 36415; 36600; 71045; 80051; 80053; 81003; 82330; 82550; 82805; 83605; 83690; 84443; 84484; 85025; 87040; 87635; 93005; 93306; 96361; 96365; 96375; 99285; G0378; J1940; J1956; J7030

== ENCOUNTER 2021-01-12 14:53 | Emergency (ER) | payer MEDICARE, BC, SELFPAY ==
[2021-01-12] VITALS (10 sets, daily range): BP systolic 159–197; BP diastolic 84–106; PULSE 47–54; RESP 17–21; TEMP 36.7; O2SAT 84–98; BMI 27.3
--- NOTE | 2021-01-12 15:17 | W.ED.GENADLT ---
HPI - General Adult General: Chief complaint: General Medical Stated complaint: LOW O2/CP LAST NIGHT Time Seen by Provider: 01/12/21 15:17 History of Present Illness: HPI narrative: Mr. Alves is a 85-year-old gentleman with a significant past medical history of angina, bradycardia, hypoxia who presents to the emergency department with a chief complaint of low oxygen levels. He reports a longstanding history of likely COPD though at some point he was told that he had pulmonary artery hypertension. He was recently hospitalized at which point he was hypoxemic however he was evaluated by respiratory therapy and not initially candidate for home oxygen. He was discharged to his long term facility/independent living and noted increased shortness of breath. He describes marked symptoms with any exertion though his symptoms persist at rest. He does have associated dizziness with exertion. Additionally he had one episode of nonradiating right lower chest pressure/aching that resolved spontaneously and lasted approximately 30 minutes at about 3 AM last night. He denies frequent episodes of chest pain. Overall the course of symptoms has persisted. He denies other significant changes from time of discharge. He has been compliant with his medication regimen. There are no other specific exacerbating or alleviating factors reported. Review of Systems General: Reports: 10 or more systems reviewed and unremarkable except in HPI and below Narrative: CONSTITUTIONAL: denies fever, fatigue, weakness EYES - denies pain, denies loss of vision EARS - denies ear issues. NOSE - denies congestion or rhinorrhea. THROAT - denies sore throat or difficulty swallowing. CARDIOVASCULAR - denies palpitations. Chest pain as noted in HPI, no current chest pain. RESPIRATORY -shortness of breath as noted in HPI. Denies cough GASTROINTESTINAL - denies abdominal pain, no nausea vomiting, no changes in bowel habits GENITOURINARY - denies dysuria or urinary frequency MUSCULOSKELETAL- denies deformity or pain SKIN - denies rashes or new changed skin lesions NEUROLOGIC - denies focal weakness or sensory changes HEMATOLOGIC/LYMPHATIC - denies easy bruising or lymphadenopathy. 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 No acute distress. Supplemental oxygen in place Eyes - PERRL, no conjunctival injection ENMT - Atraumatic external nose and ears. Moist mucous membranes NECK - supple. trachea midline CARDIOVASCULAR -bradycardic rate and rhythm. Peripheral pulses 2+ and equal RESPIRATORY - diminished symmetrically no retractions or accessory muscle use. Possible component of restrictive lung disease given kyphosis ABDOMEN/GI - Nontender/Nondistended. No tenderness to percussion or evidence of peritonitis MSK - Extremities without obvious deformity or tenderness to palpation SKIN - Warm, Dry NEURO - alert and appropriately oriented. strength and sensation intact. Moves all extremities equally. PSYCH - Appropriate mood and affect Course ED course: - Patient was seen and evaluated by me at bedside - Patient placed on cardiac monitors - Initial evaluation notable for no acute distress, nontoxic appearance. Supplemental oxygen in place. - Labs notable for negative delta troponin - Upon serial reexamination after treatment the patient was similar, no redevelopment of chest pain or any other new complaints ?Home O2 assessment ordered and patient qualifies for home O2 - Based on patient history, evaluation, labs, and imaging as interpreted the most likely cause of the patient's condition is COPD resulting in hypoxemia with exertional symptoms - The results of ED evaluation were discussed with the patient including prescriptions and/or symptomatic cares including appropriate and responsible use, followup plan, and return precautions. The patient verbalized understanding and felt safe for discharge. - Patient discharged in satisfactory condition. Vital Signs: Vital signs: Vital Signs Temperature 98.0 F 01/12/21 15:10 Pulse Rate 51 L 01/12/21 19:23 Respiratory Rate 17 01/12/21 19:23 Blood Pressure 190/89 01/12/21 19:23 Pulse Oximetry 97 01/12/21 19:23 [facility] - General Adult Medical Records: Attestation: I reviewed the patient's medical records. Lab Data: Attestation: I reviewed the patient's lab results. Labs: Lab Results 01/12/21 01/12/21 Range/Units 15:45 17:42 Troponin T Baselin e 42 H (0-15) ng/L Troponin T 120 Min jn 41.85 H (0-15) ng/L Delta Troponin T -0.15 L (0-10) ABS# Discharge Plan Discharge Patient Disposition: Home Clinical Impression: Hypoxia Condition: Stable Prescriptions: No Action Eliquis 2.5 mg tablet 2.5 mg PO BID@799,1999 RF: 0 finasteride 5 mg tablet 5 mg PO DAILY@1999 RF: 0 levothyroxine 137 mcg capsule 137 mcg PO DAILY@799 RF: 0 tamsulosin 0.4 mg capsule 0.4 mg PO DAILY@1999 RF: 0 hydroxyurea 500 mg capsule 500 mg PO DAILY@08 RF: 0 potassium chloride 10 mEq capsule, extended release 10 meq PO DAILY@08 RF: 0 furosemide [Lasix] 40 mg tablet 40 mg PO DAILY@08 RF: 0 quetiapine [Seroquel] 25 mg tablet 25 mg PO TID PRN (Reason: withdrawal symptoms) Qty: 90 RF: 0 levetiracetam 1,000 mg tablet 1,000 mg PO BID@799,1999 RF: 0 isosorbide mononitrate 30 mg tablet extended release 24 hr 15 mg PO DAILY@08 RF: 0 hydralazine 25 mg tablet 25 mg PO BID@799,1999 RF: 0 citalopram 20 mg tablet 20 mg PO DAILY@0800 RF: 0 galantamine 8 mg capsule,ext rel. pellets 24 hr 8 mg PO DAILY@0800 RF: 0 galantamine 16 mg capsule,ext rel. pellets 24 hr 16 mg PO DAILY RF: 0 galantamine 24 mg capsule,ext rel. pellets 24 hr 24 mg PO DAILY@0800 RF: 0 atorvastatin 40 mg Tablet 40 mg PO BEDTIME Qty: 30 RF: 0 aspirin 81 mg Tablet,Delayed Release (Dr/Ec) 81 mg PO DAILY Qty: 30 RF: 0 levofloxacin 750 mg Tablet 750 mg PO Q24H Qty: 6 RF: 0 Mucinex 600 mg Tablet Extended Release 12hr 1,200 mg PO BID Qty: 28 RF: 0 Discharge Orders: Discharge ED (Routine); Ordered 01/12/21 Ordered By: Tre Kearney Other Ambulatory Orders: DME: Oxygen (Order) Location: None Selected Ordered By: Tre Kearney Referrals: Chin Salazar DO [Primary Care Provider] - Discharge Diet: Usual diet Discharge Activity: Resume usual activity Patient Instructions: Chest Pain (ED), Hypoxia (ED), Opioid Safety Activity Restrictions/Additional Instructions: Thank you for visiting the emergency department. You were seen and evaluated for concerns over needing oxygen due to low oxygen saturation at home and symptoms with exertion. Please follow-up with your primary care provider. Please return to the emergency department for any reason that you are concerned about and feel needs emergency department evaluation. Coding Level of Care Code ED [employer]er for [employer]
--- NOTE | 2021-01-12 15:31 | ECG_ITS ---
[facility] Test Date: 2021-01-12 Pat Name: Casey Alves Department: Room: Gender: Male Character Actor: : 1935 Requested By: Tre Kearney Order Number: [id number] Lonny MD: Moustapha Kim M.D. Measurements Intervals [place] Rate: 46 P: WI: QRS: 18 QRSD: 81 T: 50 QT: 473 QTc: 415 Interpretive Statements ATRIAL FIBRILLATION WITH SLOW VENTRICULAR RATE Compared to ECG 01/09/2021 18:14:48 Atrial fibrillation no longer present Myocardial infarct finding no longer present Electronically Signed On 01-13-2021 17:30:13 CDT by Moustapha Kim M.D. [id number]
[2021-01-12 16:29] LABS: Troponin(5th) Baseline 42 ng/L (0-15)
[2021-01-12 18:25] LABS: Troponin 5 2HR 41.85 ng/L (0-15)
[2021-01-12 18:30] LABS: Troponin 5 2HR Delta -0.15 ABS# (0-10)
== END 2021-01-12 19:34 | disposition home or self-care (01) ==
PROVIDERS: Emergency Provider Emergency Medicine; PCP Internal Medicine
DX: R09.02 Hypoxemia (principal); G30.9 Alzheimer's disease, unspecified; F02.80 Dementia in other diseases classified elsewhere, unspecified severity, without behavioral disturbance, psychotic disturbance, mood disturbance, and anxiety; I25.10 Atherosclerotic heart disease of native coronary artery without angina pectoris; J44.9 Chronic obstructive pulmonary disease, unspecified; I10 Essential (primary) hypertension; Z79.01 Long term (current) use of anticoagulants; Z79.82 Long term (current) use of aspirin
CPT/HCPCS: 84484; 93005; 99284

== ENCOUNTER 2021-02-13 12:57 | Outpatient (CLI) | payer MEDICARE, BC, SELFPAY ==
--- NOTE | 2021-02-14 13:46 | ONC FU_ITS ---
Dr. Pratt follow up note Patient: Casey Alves Unit #: [id number]: 1935 Dicatated By: Connie Pratt M.D.Date of Visit:Feb 13, 2021 Onc Med Follow-up/Prog Note History of Present Illness: Mr. 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 sleep apnea on cpap Clinically, it appears he may be depressed as his couple of years ago, as per his daughter he is on Zoloft not using his CPAP machine as recommended by his PMD. But tolerating hydroxyurea well otherwise , Intermittent jerky movements in the left arm/shoulder, persistent numbness in the left upper extremity, chronic numbness in the left lower extremity, was seen by neurologist in [place] on 02/23/2019 and was diagnosed with epilepsia partialis continua and started on valproate . As per patient when he was in the hospital in [place], his hydroxyurea was increased to 500 mg twice a day and then later on it was reduced to 500 mg daily whereas before he went to [place] he used to take 500 mg every other day.So on 03/06/2019 hydroxyurea was reduced to 500 mg every other day. Because of progressive polycythemia which appears multifactorial including due to sleep apnea and patient being noncompliant with CPAP, now being treated with phlebotomies on as-needed basis And goal is to keep his hematocrit equal to or less than [address] Newman recently and had CT scan of head done on 05/24/2019 which shows mild atrophy and chronic ischemic disease no progression since 02/14/2019. tolerating hydroxyurea well and also using CPAP machine on a regular basis. Came for follow-up, denies any specific complaints, no fever chills, no nausea or vomiting, no diarrhea constipation, patient is on home oxygen and now he is assisted living custodial resident, as per patient's daughter he was recently treated for congestive heart failure with diuretics and now on home oxygen and also diagnosed with dementia. But no focal weakness, no headaches or blurred vision or double vision, tolerating daily hydroxyurea well Medications: Aspirin 1 Tablet (of 81 mg) Tablet, enteric coated Oral daily, Eliquis 1 (2.5 mg) Tablet Oral b.i.d., Finasteride 1 Tablet (of 5 mg) Oral daily, Furosemide 1 Tablet (of 40 mg) Oral b.i.d., Hydroxyurea (500 mg) Capsule Oral Take as Directed, Keppra 1 Tablet (of 750 mg) Oral b.i.d., K-Tab 1 Tablet (of 10 meq) Tablet, controlled release Oral b.i.d., Levo-T 1 (137 mcg) Tablet Oral daily, Memantine HCl Tablet Oral b.i.d., SEROquel 1 Tablet (of 25 mg) Oral t.i.d. PRN, Tamsulosin HCl Capsule Oral at bedtime Allergies: No Known Allergies. Review of Systems: Review of Systems is not available for this patient. Vital Signs: Performed on Feb 13, 2021 13:35 Height - 74.00 in Temperature - 97.0 F (LOW) Pulse - 67 /min Respiration - 17 /min BP - 122/74 mm(hg) O2 Sat - 98 % Pain - 0 Performance Status: 2 - Ambulatory/capable of all self-care, unable to perform any work activities. Up and about more than 50% of waking hours. (ECOG) Physical Examination: ENMT - No mouth sores, no thrush, Respiratory - Poor air entry otherwise clear, Cardiovascular - Regular rate and rhythm of heart, Abdomen - Soft, bowel sounds present, Extremities - Trace edema bilaterally. Lab/Imaging: Test performed on October 22, 2020 10:41 TSH 2.66 uU/mL Glucose 123.0 mg/dL BUN 24.0 mg/dL Creatinine 1.4 mg/dL Sodium 142.0 mmol/L Potassium 3.7 mmol/L Chloride 102.0 mmol/L CO2 32.0 mmol/L Calcium 8.5 mg/dL WBC 9.7 10^9/L RBC 5.06 10^12/L HGB 14.0 g/dL HCT 45.7 % MCV 90.3 fl MCH 27.7 pg MCHC 30.7 g/dL RDW 18.5 % Platelet Count 452.5 10^9/L Neutrophils (Gran) 7.8 10^9/L Lymphocytes 0.9 10^9/L Monocytes 0.7 10^9/L Manual Lymphocytes 9.3 % Manual Monocytes 6.9 % Impression: 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 was On cytoreduction therapy with hydroxyurea 1500 mg daily , was held till CBC recovery , then started on hydrea 500 mg twice a week , now changed to 3x/week on 08/31/17 , Sleep apnea confirmed with sleep study now using CPAP machine non compliant Anxiety/depression on antidepressant Zoloft 50 mg daily Intermittent jerky movements involving left arm/shoulder due to epilepsia partialis continua diagnosed by neurologist in [place] on 02/23/2019, now being treated with valproate. A. fib, controlled rate, on Eliquis 2.5 mg twice a day Plan: Discussed with patient regarding his labs white blood count 11.7 hemoglobin 14.2 hematocrit 46.2 platelets 624,000 Clinically, patient doing reasonably well, considering his other comorbid condition like congestive heart failure, dementia, now on diuretics and home oxygen and patient not too happy with assisted home living resident., Is a follow-up lab work-up is in desirable range, will continue with hydroxyurea 500 mg p.o. daily and then return to clinic in 2 months with CBC, patient's daughter prefer telemedicine. Signed By: Connie Pratt M.D. <<Signature on File>>
== END 2021-02-13 12:58 | disposition home or self-care (01) ==
PROVIDERS: PCP Internal Medicine; Visit Provider Internal Medicine Hematology & Oncology
DX: D75.1 Secondary polycythemia (principal); D47.3 Essential (hemorrhagic) thrombocythemia; G47.30 Sleep apnea, unspecified; G40.109 Localization-related (focal) (partial) symptomatic epilepsy and epileptic syndromes with simple partial seizures, not intractable, without status epilepticus; I48.91 Unspecified atrial fibrillation; I50.9 Heart failure, unspecified; F03.90 Unspecified dementia, unspecified severity, without behavioral disturbance, psychotic disturbance, mood disturbance, and anxiety; Z79.01 Long term (current) use of anticoagulants; Z79.899 Other long term (current) drug therapy; Z79.82 Long term (current) use of aspirin; Z99.81 Dependence on supplemental oxygen
CPT/HCPCS: 99214

== ENCOUNTER → 2021-04-02 12:55 | Outpatient (BNVA) | payer MEDICARE, BC, SELFPAY | PROVIDERS: PCP Internal Medicine; Visit Provider Specialist | DX: G30.9 Alzheimer's disease, unspecified (principal); F02.80 Dementia in other diseases classified elsewhere, unspecified severity, without behavioral disturbance, psychotic disturbance, mood disturbance, and anxiety; R09.02 Hypoxemia; I69.398 Other sequelae of cerebral infarction; G40.109 Localization-related (focal) (partial) symptomatic epilepsy and epileptic syndromes with simple partial seizures, not intractable, without status epilepticus | CPT/HCPCS: 99214 ==

== ENCOUNTER 2021-04-15 13:41 | Outpatient (CLI) | payer MEDICARE, BC, SELFPAY ==
[2021-04-15 14:04] LABS: Basophils # 0.2 10^3/uL (0.0-0.1); Basophils % 1.4 %; Eosinophils # 0.4 10^3/uL (0.0-0.8); Eosinophils % 3.9 %; Hematocrit 47.1 % (42.0-52.0); Lymphocytes # 0.7 10^3/uL (0.8-4.8); Lymphocytes % 6.7 %; Mean Corpuscular HGB Conc 29.7 g/dL (30.0-36.0); Mean Corpuscular Hemoglobin 26.6 pg (28.0-34.0); Mean Corpuscular Volume 89.5 fl (80-94); Mean Platelet Volume 10.5 fL (7.4-10.4); Monocytes # 0.7 10^3/uL (0.2-0.9); Monocytes % 6.2 %; Neutrophils # 8.83 10^3/uL (1.8-7.7); Neutrophils % 81.2 %; Nucleated Red Blood Cells % 0 %; Platelet Count 714 10^3/cmm (130-400); Red Blood Count 5.26 10^6/uL (4.1-5.3); Red Cell Distribution Width 18.5 % (12.1-15.1); White Blood Count 10.9 10^3/uL (4.0-10.0)
== END 2021-04-15 13:42 | disposition home or self-care (01) ==
PROVIDERS: PCP Internal Medicine; Visit Provider Internal Medicine Hematology & Oncology
DX: D64.9 Anemia, unspecified (principal)
CPT/HCPCS: 85025

== ENCOUNTER 2021-04-17 06:55 | Outpatient (CLI) | payer MEDICARE, BC, SELFPAY ==
--- NOTE | 2021-04-17 16:04 | ONC FU_ITS ---
Dr. Pratt follow up note Patient: Casey Alves Unit #: [id number]: 1935 Dicatated By: Connie Pratt M.D.Date of Visit:Apr 17, 2021 Onc Med Follow-up/Prog Note History of Present Illness: Mr. 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 sleep apnea on cpap Clinically, it appears he may be depressed as his couple of years ago, as per his daughter he is on Zoloft not using his CPAP machine as recommended by his PMD. But tolerating hydroxyurea well otherwise , Intermittent jerky movements in the left arm/shoulder, persistent numbness in the left upper extremity, chronic numbness in the left lower extremity, was seen by neurologist in [place] on 02/23/2019 and was diagnosed with epilepsia partialis continua and started on valproate . As per patient when he was in the hospital in [place], his hydroxyurea was increased to 500 mg twice a day and then later on it was reduced to 500 mg daily whereas before he went to [place] he used to take 500 mg every other day.So on 03/06/2019 hydroxyurea was reduced to 500 mg every other day., On April 17, 2021 his hydroxyurea dose was increased to 1000 mg p.o. every Wednesday, Wednesday and Wednesday and continue with 5 mg on remaining days Because of progressive polycythemia which appears multifactorial including due to sleep apnea and patient being noncompliant with CPAP, now being treated with phlebotomies on as-needed basis And goal is to keep his hematocrit equal to or less than [address] Newman recently and had CT scan of head done on 05/24/2019 which shows mild atrophy and chronic ischemic disease no progression since 02/14/2019. tolerating hydroxyurea well and also using CPAP machine on a regular basis. Evaluated via telemedicine, patient denies any specific complaint except generalized weakness and fatigue but no headaches no blurred vision no double vision no focal weakness, no nausea or vomiting, no diarrhea constipation no fever or chills. Tolerating daily hydroxyurea well Medications: Aspirin 1 Tablet (of 81 mg) Tablet, enteric coated Oral daily, Eliquis 1 (2.5 mg) Tablet Oral b.i.d., Finasteride 1 Tablet (of 5 mg) Oral daily, Furosemide 1 Tablet (of 40 mg) Oral b.i.d., Hydroxyurea (500 mg) Capsule Oral Take as Directed, Keppra 1 Tablet (of 750 mg) Oral b.i.d., K-Tab 1 Tablet (of 10 meq) Tablet, controlled release Oral b.i.d., Levo-T 1 (137 mcg) Tablet Oral daily, Memantine HCl Tablet Oral b.i.d., SEROquel 1 Tablet (of 25 mg) Oral t.i.d. PRN, Tamsulosin HCl Capsule Oral at bedtime Allergies: No Known Allergies. Review of Systems: Review of Systems is not available for this patient. Vital Signs: Vitals are not available for this patient. Performance Status: 2 - Ambulatory/capable of all self-care, unable to perform any work activities. Up and about more than 50% of waking hours. (ECOG) Physical Examination: ENMT - Patient denies any mouth sores or jaundice, Respiratory - Denies any shortness of breath or wheezing, Cardiovascular - Denies any palpitation, Abdomen - Denies any abdominal pain or fullness, Extremities - Some edema lower extremities. Lab/Imaging: Test performed on Apr 15, 2021 13:20 WBC 10.9 10^9/L RBC 5.26 10^12/L HGB 14.0 g/dL HCT 47.1 % MCV 89.5 fl MCH 26.6 pg MCHC 29.7 g/dL RDW 18.5 % Platelet Count 714 10^9/L MPV 10.5 fL Neutrophils (Gran) 8.83 10^9/L Lymphocytes 0.7303 10^9/L Monocytes 0.6758 10^9/L Eosinophils 0.4251 10^9/L Basophils 0.1526 10^9/L NRBCs 0.0 /100 WBC Test performed on October 22, 2020 10:41 TSH 2.66 uU/mL Glucose 123.0 mg/dL BUN 24.0 mg/dL Creatinine 1.4 mg/dL Sodium 142.0 mmol/L Potassium 3.7 mmol/L Chloride 102.0 mmol/L CO2 32.0 mmol/L Calcium 8.5 mg/dL Manual Lymphocytes 9.3 % Manual Monocytes 6.9 % Impression: 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 was On cytoreduction therapy with hydroxyurea 1500 mg daily , was held till CBC recovery , then started on hydrea 500 mg twice a week , now changed to 3x/week on 08/31/17 , Sleep apnea confirmed with sleep study now using CPAP machine non compliant Anxiety/depression on antidepressant Zoloft 50 mg daily Intermittent jerky movements involving left arm/shoulder due to epilepsia partialis continua diagnosed by neurologist in [place] on 02/23/2019, now being treated with valproate. A. fib, controlled rate, on Eliquis 2.5 mg twice a day Plan: Discussed with patient regarding his labs white blood count 10.9 hemoglobin 14 hematocrit 47.1 platelets 714,000 Clinically, patient is doing reasonably well now being treated with hydroxyurea 500 mg p.o. daily, his follow-up lab work-up shows progressive thrombocytosis and mild increase in hematocrit, at this point, we will increase his hydroxyurea dose to 1000 mg p.o. on every Wednesday, Wednesday and Wednesday and on remaining days 500 mg p.o. and repeat his CBC in a month. Patient was advised to maintain hydration Signed By: Connie Pratt M.D. <<Signature on File>>
== END 2021-04-17 06:56 | disposition home or self-care (01) ==
LOC: ONCMED 06:55
PROVIDERS: PCP Internal Medicine; Visit Provider Internal Medicine Hematology & Oncology
DX: D45 Polycythemia vera (principal); D75.838 Other thrombocytosis; G47.33 Obstructive sleep apnea (adult) (pediatric); F41.9 Anxiety disorder, unspecified; F32.9 Major depressive disorder, single episode, unspecified; G40.109 Localization-related (focal) (partial) symptomatic epilepsy and epileptic syndromes with simple partial seizures, not intractable, without status epilepticus; Z79.899 Other long term (current) drug therapy
CPT/HCPCS: 99214

== ENCOUNTER 2021-05-22 08:58 | Outpatient (CLI) | payer MEDICARE, BC, SELFPAY ==
[2021-05-22 09:19] LABS: Basophils # 0.2 10^3/uL (0.0-0.1); Basophils % 1.5 %; Eosinophils # 0.4 10^3/uL (0.0-0.8); Eosinophils % 4.2 %; Hematocrit 48.5 % (42.0-52.0); Hemoglobin 14.4 g/dL (11.7-16.6); Lymphocytes # 0.7 10^3/uL (0.8-4.8); Lymphocytes % 6.5 %; Mean Corpuscular HGB Conc 29.7 g/dL (30.0-36.0); Mean Corpuscular Hemoglobin 27.4 pg (28.0-34.0); Mean Corpuscular Volume 92.2 fl (80-94); Mean Platelet Volume 10.5 fL (7.4-10.4); Monocytes # 0.6 10^3/uL (0.2-0.9); Monocytes % 5.6 %; Neutrophils % 81.9 %; Nucleated Red Blood Cells % 0 %; Platelet Count 568 10^3/cmm (130-400); Red Blood Count 5.26 10^6/uL (4.1-5.3); Red Cell Distribution Width 16.7 % (12.1-15.1); White Blood Count 10.4 10^3/uL (4.0-10.0)
== END 2021-05-22 08:59 | disposition home or self-care (01) ==
LOC: LAB 09:00
PROVIDERS: PCP Internal Medicine; Visit Provider Internal Medicine Hematology & Oncology
DX: D45 Polycythemia vera (principal)
CPT/HCPCS: 85025

== ENCOUNTER 2021-06-24 14:05 | Outpatient (CLI) | payer MEDICARE, BC, SELFPAY ==
[2021-06-24 14:28] LABS: Basophils # 0.1 10^3/uL (0.0-0.1); Basophils % 1.1 %; Eosinophils # 0.3 10^3/uL (0.0-0.8); Eosinophils % 3.2 %; Hematocrit 44.2 % (42.0-52.0); Hemoglobin 13.3 g/dL (11.7-16.6); Lymphocytes # 0.7 10^3/uL (0.8-4.8); Lymphocytes % 8.5 %; Mean Corpuscular HGB Conc 30.1 g/dL (30.0-36.0); Mean Corpuscular Hemoglobin 28.4 pg (28.0-34.0); Mean Corpuscular Volume 94.2 fl (80-94); Mean Platelet Volume 10.5 fL (7.4-10.4); Monocytes # 0.5 10^3/uL (0.2-0.9); Monocytes % 5.4 %; Neutrophils # 6.76 10^3/uL (1.8-7.7); Neutrophils % 81.3 %; Nucleated Red Blood Cells % 0 %; Platelet Count 438 10^3/cmm (130-400); Red Blood Count 4.69 10^6/uL (4.1-5.3); Red Cell Distribution Width 19.1 % (12.1-15.1); White Blood Count 8.3 10^3/uL (4.0-10.0)
== END 2021-06-24 14:06 | disposition home or self-care (01) ==
LOC: LAB 14:09
PROVIDERS: PCP Internal Medicine; Visit Provider Internal Medicine Hematology & Oncology
DX: D64.9 Anemia, unspecified (principal)
CPT/HCPCS: 85025

== ENCOUNTER 2021-07-07 14:04 | Outpatient (CLI) | payer MEDICARE, BC, SELFPAY ==
[2021-07-07 14:39] LABS: Basophils # 0.1 10^3/uL (0.0-0.1); Eosinophils # 0.2 10^3/uL (0.0-0.8); Eosinophils % 2.8 %; Hemoglobin 13.5 g/dL (11.7-16.6); Lymphocytes # 0.6 10^3/uL (0.8-4.8); Lymphocytes % 7.1 %; Mean Corpuscular HGB Conc 30.7 g/dL (30.0-36.0); Mean Corpuscular Hemoglobin 29.4 pg (28.0-34.0); Mean Corpuscular Volume 95.9 fl (80-94); Mean Platelet Volume 10.3 fL (7.4-10.4); Monocytes # 0.6 10^3/uL (0.2-0.9); Monocytes % 6.8 %; Neutrophils # 7.07 10^3/uL (1.8-7.7); Neutrophils % 82.1 %; Nucleated Red Blood Cells % 0 %; Platelet Count 458 10^3/cmm (130-400); Red Blood Count 4.59 10^6/uL (4.1-5.3); Red Cell Distribution Width 20.4 % (12.1-15.1); White Blood Count 8.6 10^3/uL (4.0-10.0)
== END 2021-07-07 14:05 | disposition home or self-care (01) ==
PROVIDERS: PCP Internal Medicine; Visit Provider Internal Medicine Hematology & Oncology
DX: D64.9 Anemia, unspecified (principal)
CPT/HCPCS: 85025

== ENCOUNTER 2021-07-30 13:58 | Emergency (ER) | payer MEDICARE, BC, SELFPAY ==
[2021-07-30 14:05] VITALS: BP 146/66; PULSE 47; RESP 16; TEMP 37.1; O2SAT 90; BMI 27.3
--- NOTE | 2021-07-30 14:06 | CT_ITS ---
WS: [id number] CT HEAD NONCONTRAST HISTORY: Fall, chronic oral anticoagulation TECHNIQUE: Contiguous axial imaging performed through the brain in 2.5 mm imaging. Bone and soft tiss ue windows. Sagittal and coronal reformats reviewed. All CT scans at [facility] use at least one of these dose optimization techniques: automated exposure control; mA and/or kV adjustment per pa tient size (includes targeted exams where dose is matched to clinical indication); or iterative recon struction. DLP: 1890.36 mGy.cm COMPARISON: 02/02/2020 No acute intracranial hemorrhage, midline shift or mass effect. Mild bilateral atrophy. Prior RIGHT occipital lobe infarct. Small lacunar infarcts in the LEFT thalam us and RIGHT vicente. Ventricles: Ventricles are very mildly prominent on the basis of atrophy. No inferior displacement of cerebellar tonsils. Paranasal sinuses: Mucous retention cyst LEFT maxillary sinus. Mastoid air cells: Well pneumatized. Calvarium and scalp: Skull is intact with no soft tissue edema or swelling. Ectatic and mildly dilated tortuous LEFT vertebral artery. Similar to prior studies. CT/CT head wo con* [id number] IMPRESSION: 1. No acute intracranial hemorrhage or edema. 2. Atrophy and remote RIGHT occipital lobe infarct and several lacunar infarct s as above.
[2021-07-30 14:14] VITALS: BP 146/66; PULSE 50; RESP 16; O2SAT 93
--- NOTE | 2021-07-30 14:41 | ED_ITS ---
HPI - Fall General: Chief Complaint: Fall Stated Complaint: GROUND LEVEL FALL/ HIT HEAD Time Seen by Provider: 07/30/21 14:01 Source: patient Mode of arrival: EMS History of Present Illness: 86-year-old male brought in by EMS from a local assisted living. He is going to the restroom stumbled and fell fell backwards and hit his head. There is no loss of conscious he has a small abrasion in the upper portion of the occiput. He is on Coumadin. He denies any other injuries. He is actually a little bit annoyed that he was made to come to the emergency room he states he does not really hurt anywhere he states he does not even have a headache. He denies any difficulty with speech balance or vision no nausea or vomiting since the fall. Denies any other injuries. Moves all extremities without difficulty. MD complaint: fall Onset (ago): minute(s) Fall from: standing Fall witnessed: yes, by bystander Place fall occurred: intermediate/SNF Loss of consciousness: None Prolonged down time: no Symptoms prior to fall: none Context: tripped/slipped Location of injury: head Severity: mild Quality: aching Associated symptoms-after fall: Denies abdominal pain or chest pain Review of Systems Const: Denies: fever(s), chills, body aches, change in appetite, fatigue or malaise ENMT: Denies: throat pain, ear or mastoid pain, nasal discharge or nasal congestion Card: Denies: chest pain, edema, dyspnea on exertion or orthopnea Resp: Denies: dyspnea, productive cough or non-productive cough GI: Denies: abdominal pain, nausea, vomiting, hematemesis, coffee ground emesis, diarrhea, constipation, bloating, hematochezia or melena : Denies: flank pain, dysuria, urinary frequency or urinary urgency Skin/Breast: Denies: rash or pruritus PFSH ED PFSH: Medical History Alzheimer disease Atrial fibrillation with slow ventricular response Bradycardia CAD (coronary artery disease) Cardiomegaly CHF (congestive heart failure), NYHA class III Chronic atrial fibrillation COPD (chronic obstructive pulmonary disease) Diarrhea 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 Hernia Hypertension Hypothyroid Lower urinary tract symptoms (LUTS) Mild cognitive impairment with memory loss Obstructive sleep apnea Pancytopenia Polycythemia Pulmonary hypertension Restless leg Family History Father CAD (coronary artery disease) CHF (congestive heart failure) Social History Second hand smoke exposure: No Smoking risk assessment/counseling performed?: No Alcohol intake: never Counseling given: No Counseling given: No Lives independently: Yes Marital status: / Current occupational status: retired History of recent travel: No Current gender identity: Male Physical Exam Const: COMMON NORMALS: no acute distress GENERAL APPEARANCE: cooperative and comfortable ORIENTATION/CONSCIOUSNESS: Yes awake, Yes oriented to person, Yes oriented to place and Yes oriented to time HENMT: COMMON NORMALS: normocephalic, atraumatic and hearing grossly normal bilaterally HEAD & SCALP: normocephalic and atraumatic Neck/C-Spine: COMMON NORMALS: no JVD Resp: COMMON NORMALS: normal respiratory effort, No retractions, No use of accessory muscles and clear to auscultation bilaterally AUSCULTATION: clear to auscultation bilaterally Cardio: COMMON NORMALS: no JVD, regular rate, regular rhythm and No murmurs present (Cardio) RATE: regular rate RHYTHM: regular rhythm GI: COMMON NORMALS: Soft to palpation and No hepatosplenomegaly present AUSCULTATION: Yes normoactive bowel sounds PALPATION: Yes Soft to palpation, No Tenderness to palpation present (GI), No Guarding due to palpation present (GI) and Yes No hepatosplenomegaly present Extremity: COMMON NORMALS: normal to inspection, capillary refill normal, no clubbing, cyanosis or edema, no calf tenderness and no pedal edema Neuro: SENSORIUM/ORIENTATION: Yes oriented to person, Yes oriented to place and Yes oriented to time Skin: OTHER: Abrasion over the occiput not full-thickness no active bleeding not amenable to sutures or violet Course Vital Signs: Vital signs: Vital Signs Temperature 98.7 F 07/30/21 14:05 Pulse Rate 50 L 07/30/21 14:14 Respiratory Rate 16 07/30/21 14:14 Blood Pressure 146/66 07/30/21 14:14 Pulse Oximetry 93 07/30/21 14:14 MDM - Fall Medical Decision Making CT head negative. Otherwise patient has no signs of injury. Will discharge back to intermediate follow-up as needed Medical Records I reviewed the patient's medical records. Lab Data I reviewed the patient's lab results. Radiology Impressions Head CT 07/30/21 14:06 IMPRESSION: 1. No acute intracranial hemorrhage or edema. 2. 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 Discharge Plan Discharge Patient Disposition: Home Clinical Impression: Fall Condition: Stable Prescriptions: No Action Eliquis 2.5 mg tablet 2.5 mg PO BID@0800,1999 0RF finasteride 5 mg tablet 5 mg PO DAILY@1999 0RF levothyroxine 137 mcg capsule 137 mcg PO DAILY@799 0RF tamsulosin 0.4 mg capsule 0.4 mg PO DAILY@1999 0RF hydroxyurea 500 mg capsule 500 mg PO DAILY@0800 0RF Rx Instructions: TAKE 3 TIMES PER WEEK. potassium chloride 10 mEq capsule, extended release 10 meq PO DAILY@0800 0RF furosemide [Lasix] 40 mg tablet 40 mg PO BID 0RF quetiapine [Seroquel] 25 mg tablet 25 mg PO TID PRN (Reason: withdrawal symptoms) Qty: 90 5RF Rx Instructions: Take three times a day as needed for agitation galantamine 24 mg capsule,ext rel. pellets 24 hr See Rx Instructions .ROUTE .COMPLEX Qty: 90 0RF Dose Instruction: TAKE 1 CAPSULE BY MOUTH DAILY AT 8 AM WITH BREAKFAST Rx Instructions: TAKE 1 CAPSULE BY MOUTH DAILY AT 8 AM WITH BREAKFAST citalopram 20 mg tablet See Rx Instructions .ROUTE .COMPLEX Qty: 28 10RF Dose Instruction: TAKE 1 TABLET BY MOUTH DAILY Rx Instructions: TAKE 1 TABLET BY MOUTH DAILY levetiracetam 1,000 mg tablet 1,000 mg PO BID@0800,1999 0RF hydralazine 25 mg tablet 25 mg PO BID@0800,1999 0RF atorvastatin 40 mg Tablet 40 mg PO BEDTIME Qty: 30 0RF aspirin 81 mg Tablet,Delayed Release (Dr/Ec) 81 mg PO DAILY Qty: 30 0RF isosorbide mononitrate 30 mg tablet extended release 24 hr 30 mg PO DAILY@0800 0RF Discharge Orders: Discharge ED (Routine); Ordered 07/30/21 Ordered By: Wilbert Alonzo Referrals: Chin Salazar DO [Primary Care Provider] - Discharge Diet: Usual diet Discharge Activity: Increase activity as tolerated Patient Instructions: Opioid Safety Coding Level of Care Code ED 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
== END 2021-07-30 17:27 | disposition home or self-care (01) ==
PROVIDERS: Emergency Provider Family Medicine; PCP Internal Medicine
DX: S00.01XA Abrasion of scalp, initial encounter (principal); Z79.01 Long term (current) use of anticoagulants; Z79.82 Long term (current) use of aspirin; G30.9 Alzheimer's disease, unspecified; F02.80 Dementia in other diseases classified elsewhere, unspecified severity, without behavioral disturbance, psychotic disturbance, mood disturbance, and anxiety; I25.10 Atherosclerotic heart disease of native coronary artery without angina pectoris; I11.0 Hypertensive heart disease with heart failure; I50.9 Heart failure, unspecified; J44.9 Chronic obstructive pulmonary disease, unspecified; W01.198A Fall on same level from slipping, tripping and stumbling with subsequent striking against other object, initial encounter; Y92.091 Bathroom in other non-institutional residence as the place of occurrence of the external cause
CPT/HCPCS: 70450; 99283

== ENCOUNTER 2021-08-02 11:49 | Emergency (ER) | payer MEDICARE, BC, SELFPAY ==
--- NOTE | 2021-08-02 11:51 | XRR_ITS ---
PROCEDURE INFORMATION: Exam: XR Right Hip Exam date and time: 08/02/2021 11:51 AM Age: 86 years old Clinical indication: Hip pain; Right hip; Additional info: Eval for hip pain TECHNIQUE: Imaging protocol: XR Right hip. Views: 1 view hip with pelvis when performed. COMPARISON: CT Chest/Abdomen/Pelvis wo IV 01/15/2018 4:31 AM FINDINGS: Bones/joints: Low density bone consistent with osteopenia/osteoporosis. Soft tissues: Unremarkable. XR/XR hip RT 2-3V wo/w pel* [id number] IMPRESSION: 1. Low density bone consistent with osteopenia/osteoporosis. 2. No acute findings. 3. If pain persists, CT or MRI of the pelvis and hip may be helpful to rule out occult pathology if clinically indicated.
[2021-08-02 11:52] VITALS: BP 140/69; PULSE 55; RESP 17; TEMP 36.9; O2SAT 98
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
--- NOTE | 2021-08-02 12:02 | XRR_ITS ---
PROCEDURE INFORMATION: Exam: XR Sacrum and Coccyx, 2 or More Views Exam date and time: 08/02/2021 12:02 PM Age: 86 years old Clinical indication: Injury or trauma; Fall; Blunt trauma (contusions or hematomas); Additional info: R glute hematoma TECHNIQUE: Imaging protocol: XR of the sacrum and coccyx, 2 or more views. COMPARISON: CR (PELVIS, ) 08/02/2021 12:26 PM FINDINGS: Bones/joints: Low density bone consistent with osteopenia/osteoporosis. Soft tissues: Normal. XR/XR sacrum coccyx min 2V 24478 IMPRESSION: 1. Low density bone consistent with osteopenia/osteoporosis. 2. No acute findings. 3. If pain persists, CT may be helpful to rule out occult pathology if clinically indicated.
--- NOTE | 2021-08-02 12:25 | ECG_ITS ---
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 Measurements Intervals [place] Rate: 44 P: MD: QRS: 30 QRSD: 85 T: 67 QT: 482 QTc: 417 Interpretive Statements Atrial fibrillation with a slow ventricular response rate. Nonspecific ST-T changes. 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 [email or web address]
[2021-08-02 13:35] LABS: Basophils # 0.1 10^3/uL (0.0-0.1); Basophils % 0.7 %; Eosinophils # 0.1 10^3/uL (0.0-0.8); Eosinophils % 1.2 %; Hematocrit 42.2 % (42.0-52.0); Hemoglobin 13.2 g/dL (11.7-16.6); Lymphocytes # 0.5 10^3/uL (0.8-4.8); Lymphocytes % 4.2 %; Mean Corpuscular HGB Conc 31.3 g/dL (30.0-36.0); Mean Corpuscular Hemoglobin 31.2 pg (28.0-34.0); Mean Corpuscular Volume 99.8 fl (80-94); Mean Platelet Volume 10.2 fL (7.4-10.4); Monocytes # 0.8 10^3/uL (0.2-0.9); Monocytes % 7.6 %; Neutrophils # 9.15 10^3/uL (1.8-7.7); Neutrophils % 85.7 %; Nucleated Red Blood Cells % 0 %; Platelet Count 435 10^3/cmm (130-400); Red Blood Count 4.23 10^6/uL (4.1-5.3); Red Cell Distribution Width 21.2 % (12.1-15.1); White Blood Count 10.7 10^3/uL (4.0-10.0)
[2021-08-02 13:39] LABS: Add Urine Microscopic? NO; Charge for UA Resulting for Rev
[2021-08-02 13:46] LABS: Bilirubin Urine Neg (Negative); Blood Urine Neg (Negative); Glucose Urine UA Norm (Normal); Ketones Urine Negative (Negative); Leukocyte Esterase Urine Negative (Negative); Nitrate Urine Negative (Negative); Protein Urine Neg (Negative); Urine Appearance Clear (CLEAR); Urine Color Straw (Yellow); Urobilinogen Urine Norm (Negative); pH Urine 7 (5-7)
[2021-08-02 14:00] VITALS: BP 142/67; PULSE 47; RESP 18; O2SAT 98
[2021-08-02 14:06] LABS: Anion Gap 13.5 (5-19); Blood Urea Nitrogen 19 mg/dL (8-23); Calcium 8.5 mg/dL (8.5-10.5); Carbon Dioxide 32 mmol/L (22-29); Chloride 101 mmol/L (98-107); Free T4 Free Thyroxine 1.55 ng/dL (0.82-1.77); Glucose 129 mg/dL (65-115); Magnesium 2.2 mg/dL (1.7-2.3); Osmolality Calculated 300 mOsm/kg (285-295); Potassium 3.5 mmol/L (3.5-5.1); Sodium 143 mmol/L (136-145); Thyroid Stimulating Hormone 1.34 uIU/mL (0.27-4.20)
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
[2021-08-02] MEDS: lidocaine 5% Patch 1 PATCH TOPICAL (14:49)
[2021-08-02 14:50] VITALS: RESP 20; O2SAT 95
[2021-08-02] MEDS: oxyCODONE-APAP 5-325 mg Tablet 1 TAB PO (14:50)
--- NOTE | 2021-08-04 13:59 | DCPLANNER ---
Addendum entered by Madison Curran 09/04/21 07:54: Patient had a follow up appointment scheduled for 08.05.[address] Muse at [facility] - patient did attend appointment. Original Note: manager produce had message to schedule a follow up appointment for patient with heart care, a primary care physician and [facility]. manager produce spoke with patients daughter, and stated that the only follow up appointment that needed to be scheduled at this time was with Dr. Matthew for primary care. manager produce was told that Dr. Crocker will be seeing patients at [facility], for patients. manager produce called [facility], spoke that [facility], gave clinic patients information. A follow up appointment was scheduled for Thursday, August 05, 2021 at 2:[address] Muse. Patient will then see Dr. Crocker at [facility]. manager produce called patients daughter, Malu, and gave her the appointment information.
== END 2021-08-02 16:15 | disposition home or self-care (01) ==
PROVIDERS: Emergency Provider Emergency Medicine; PCP Internal Medicine
DX: M25.551 Pain in right hip (principal); T14.8XXA Other injury of unspecified body region, initial encounter; Z79.01 Long term (current) use of anticoagulants; Z79.82 Long term (current) use of aspirin; I25.10 Atherosclerotic heart disease of native coronary artery without angina pectoris; I11.0 Hypertensive heart disease with heart failure; I50.9 Heart failure, unspecified; J44.9 Chronic obstructive pulmonary disease, unspecified; W19.XXXA Unspecified fall, initial encounter; Y92.129 Unspecified place in nursing home as the place of occurrence of the external cause
CPT/HCPCS: 72220; 73502; 80048; 81003; 83735; 84439; 84443; 85025; 93005; 99283

== ENCOUNTER 2021-08-13 14:10 | Outpatient (CLI) | payer MEDICARE, BC, SELFPAY ==
[2021-08-13 14:56] LABS: Basophils # 0.1 10^3/uL (0.0-0.1); Basophils % 0.7 %; Eosinophils # 0.2 10^3/uL (0.0-0.8); Eosinophils % 1.2 %; Hematocrit 46.5 % (42.0-52.0); Hemoglobin 14.5 g/dL (11.7-16.6); Lymphocytes # 0.5 10^3/uL (0.8-4.8); Mean Corpuscular HGB Conc 31.2 g/dL (30.0-36.0); Mean Corpuscular Hemoglobin 32.7 pg (28.0-34.0); Mean Corpuscular Volume 104.7 fl (80-94); Mean Platelet Volume 10.3 fL (7.4-10.4); Monocytes # 0.8 10^3/uL (0.2-0.9); Monocytes % 6.1 %; Neutrophils % 87.2 %; Nucleated Red Blood Cells % 0 %; Platelet Count 685 10^3/cmm (130-400); Red Blood Count 4.44 10^6/uL (4.1-5.3); Red Cell Distribution Width 20.6 % (12.1-15.1); White Blood Count 12.7 10^3/uL (4.0-10.0)
== END 2021-08-13 14:11 | disposition home or self-care (01) ==
LOC: LAB 14:14
PROVIDERS: PCP Internal Medicine; Visit Provider Internal Medicine Hematology & Oncology
DX: D64.9 Anemia, unspecified (principal)
CPT/HCPCS: 85025

== ENCOUNTER 2021-09-01 15:31 | Outpatient (CLI) | payer MEDICARE, BC, SELFPAY ==
[2021-09-01 15:49] LABS: Add Urine Microscopic? NO; Charge for UA Resulting for Rev
[2021-09-01 16:00] LABS: Urine Appearance Clear (CLEAR); Urine Color Yellow (Yellow)
[2021-09-01 16:01] LABS: Bilirubin Urine Neg (Negative); Blood Urine Neg (Negative); Glucose Urine UA Norm (Normal); Ketones Urine Negative (Negative); Leukocyte Esterase Urine Negative (Negative); Nitrate Urine Negative (Negative); Protein Urine Neg (Negative); Urobilinogen Urine Norm (Negative); pH Urine 6.5 (5-7)
== END 2021-09-01 15:32 | disposition home or self-care (01) ==
LOC: LAB 15:41
PROVIDERS: PCP Internal Medicine; Visit Provider Family Medicine
DX: Z01.89 Encounter for other specified special examinations (principal)
CPT/HCPCS: 81003; 87086

== ENCOUNTER 2021-09-10 07:36 | Emergency (ER) | payer MEDICARE, BC, SELFPAY ==
--- NOTE | 2021-09-10 07:47 | CT_ITS ---
WS: [id number] CT ABDOMEN PELVIS TECHNIQUE: Contrast-enhanced CT of the abdomen and pelvis with coronal and sagittal reformatted image s. CLINICAL INFORMATION: abd /back pain COMPARISON: CT January 15, 2018 DLP: 1849.[address] scans at [facility] use at least one of these dose optimization techniques: automated e xposure control; mA and/or kV adjustment per patient size (includes targeted exams where dose is matc hed to clinical indication); or iterative reconstruction. FINDINGS: Diffuse fatty infiltration liver. Multiple hepatic cysts. Normal portal vein and splenic vein. Normal spleen. Cardiomegaly. Bibasilar atelectasis. Cholelithiasis. No gallbladder wall thickening or peric holecystic fluid. Fatty atrophy of the pancreas. Normal caliber abdominal aorta. Small esophageal hia dread hernia. Celiac and SMA are patent. Normal caliber abdominal aorta. Rectosigmoid constipation with rectal distention. Adrenal glands are normal. Normal renal parenchymal enhancement. No hydronephrosis. LEFT renal cyst measuring 5.4 x 5.6 CM. Bilateral renal cortical atr ophy. Smaller bilateral renal cysts. Some of these are too small to definitively characterize.. No pe riaortic lymphadenopathy. Umbilical hernia containing a loop of nonobstructed small bowel. Hernia mouth measuring 4.5 x 1.9 cm transverse by craniocaudal. No bowel obstruction or fluid. Adjacent loop of colon closely abuts the hernia but not currently hernia. Acute appearing L2 compression fracture is new since 2018 with compression and fragmentation of the s uperior endplate. Air-filled fracture cleft with loss of approximately 30% vertebral body height. Min imal retropulsion posterior superior cortex. No high-grade central canal stenosis. Compression fractu re appears acute. Associated paravertebral soft tissue edema. CT/CT abdomen pelvis w con* [id number] IMPRESSION: 1. Fat-containing umbilical hernia with herniated loop of nonobstructed small bowel. No evidence of high-grade obstruction. Herniated bowel is new since 2018 . 2. Recent acute appearing compression fracture L2 vertebral body with compress ion superior endplate with fragmentation. Air in the fracture cleft. Loss of ap proximately 30% vertebral body height. Minimal retropulsion posterior superior cortex with mild effacement of ventral thecal sac. No high-grade central canal stenosis. Associated paravertebral edema. 3. Cardiomegaly. 4. Cholelithiasis. 5. Hepatic and renal cysts. 6. Rectosigmoid constipation. Notified Kimo Fernandez MD at 09/10/2021 10:33 AM.
--- NOTE | 2021-09-10 07:48 | ED_ITS ---
HPI - Abdominal Pain General: Chief Complaint: Back Pain/Injury Stated Complaint: CONSTIPATION/ BACK PAIN/ SI Time Seen by Provider: 09/10/21 07:37 History of Present Illness: 86-year-old male presents due to diffuse abdominal pain. Back pain. History of mechanical fall 2 to 3 weeks ago. He presents from nursing facility. States that since the fall he has had low back pain and diffuse abdominal pain. Also reports constipation but states that he is able to pass liquid stool just notes solid stool. Denies any chest pain headache or other focal pain or injury. Denies any nausea vomiting or diarrhea. Denies dysuria or urethral discharge. Patient states that he reported suicidal ideation and just to [facility] staff 4 weeks. States that he does not want to actually hurt himself. He has not had any recent attempts. Patient does have a history of Alzheimer's. States that he has recently choked around about shooting himself but does not have access to any firearms. Denies any desire to hurt anyone else. Patient also denies any urinary or fecal incontinence or retention or saddle anesthesia. Review of Systems Narrative: - CONSTITUTIONAL: Denies weight loss, fever and chills. - HEENT: Denies changes in vision and hearing. - RESPIRATORY: Denies SOB and cough. - CV: Denies palpitations and CP. - GI: As above - : Denies dysuria and urinary frequency. - MSK: Denies myalgia and joint pain. - SKIN: Denies rash and pruritus. - NEUROLOGICAL: Denies headache, weakness, numbness and syncope. 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 Hernia Hypertension Hypothyroid Lower urinary tract symptoms (LUTS) Mild cognitive impairment with memory loss Obstructive sleep apnea Pancytopenia Pulmonary hypertension Restless leg Vertebrobasilar dolichoectasia Weakness of both lower extremities Family History Father CAD (coronary artery disease) CHF (congestive heart failure) Social History Smoking and tobacco status: never smoked Second hand smoke exposure: No Smoking risk assessment/counseling performed?: No Alcohol intake: never Counseling given: No Counseling given: No Lives independently: Yes Marital status: / Current occupational status: retired History of recent travel: No Current gender identity: Male Physical Exam Narrative: EXAM NARRATIVE: - GENERAL: Alert and oriented x 3. No acute distress. Well-nourished. - EYES: EOMI. Anicteric. - HENT: Atraumatic, no C-spine tenderness. Moist mucous membranes. No scleral i cterus. No cervical lymphadenopathy. - LUNGS: Clear to auscultation bilaterally. No accessory muscle use. Equal lung sounds bilaterally. No respiratory distress. - CARDIOVASCULAR: Regular rate and rhythm. No murmur. No JVD. - ABDOMEN: Soft, non-tender and non-distended. Negative CVA tenderness bilaterally, no rebound or guarding, negative Suazo sign. No palpable masses. - EXTREMITIES: No edema. Non-tender. No back tenderness to palpation. No saddle anesthesia, lower extremity strength sensation reflexes intact. - SKIN: No rashes or lesions. Warm. - NEUROLOGIC: No meningismus or focal neurological deficits. CN II-XII grossly intact. - PSYCHIATRIC: Cooperative. Appropriate mood and affect. Course Vital Signs: Vital signs: Vital Signs Pulse Rate 50 L 09/10/21 17:36 Respiratory Rate 18 09/10/21 17:36 Blood Pressure 147/85 09/10/21 17:36 Pulse Oximetry 92 09/10/21 17:36 MDM - Abdominal Pain Medical Decision Making 86-year-old gentleman presents due to abdominal pain constipation back pain. CT scan is concerning for L2 compression fracture with some retropulsion. Does not have any focal neurologic deficits however in the setting of constipation and possible fecal retention MRI was obtained which is concerning for retropulsion and some effacement of the thecal sac. Discussed with radiologist and there also might be some enhancement concerning for small focal area of bleeding. Patient is on Eliquis which will likely need to be held. Discussed with spinal surgeon, Dr. Berry, at this time he does not recommend acute intervention and reviewed images and states that there is no sign of cauda equina syndrome however orthopedic surgery consulted and recommends thoracic images be obtained as well. Discussed orthopedic surgery they will follow up on results of the study on outpatient basis. In addition discussed with psychiatry who cleared him from suicidal ideation standpoint. Outpatient states that he made a joke and does not have access to firearms. Denies genuine desire to hurt himself or others. At this time I believe patient would be safe for discharge and outpatient follow-up. Return precautions provided. Plan was reviewed with the patient who expressed understanding. Questions answered. Patient will follow up with orthopedic surgery and PCP. Patient discharged in stable condition. Lab Data : 09/10/21 08:30 09/10/21 08:30 Labs/Radiology: Radiology Impressions Abdomen/Pelvis CT 09/10/21 07:47 IMPRESSION: 1. Fat-containing umbilical hernia with herniated loop of nonobstructed small bowel. No evidence of high-grade obstruction. Herniated bowel is new since 2018. 2. Recent acute appearing compression fracture L2 vertebral body with compression superior endplate with fragmentation. Air in the fracture cleft. Loss of approximately 30% vertebral body height. Minimal retropulsion posterior superior cortex with mild effacement of ventral thecal sac. No high-grade central canal stenosis. Associated paravertebral edema. 3. Cardiomegaly. 4. Cholelithiasis. 5. Hepatic and renal cysts. 6. Rectosigmoid constipation. Notified Kimo Fernandez MD at 09/10/2021 10:33 AM. Lumbar Spine MRI 09/10/21 10:47 IMPRESSION: 1. Again seen is the slightly comminuted acute L2 superior endplate compression fracture with slight retropulsion posterior superior endplate and fluid in the fracture cleft. In combination with L1-L2 disc bulging, this results in moderate central canal stenosis with narrowing of the subarticular recess. Moderate facet arthropathy at this level contributes to stenosis. 2. Diffuse paravertebral, psoas, and epidural enhancement at the L2 level with enhancement and edema in the inferior L1 endplate with superimposed Schmorl's node. Enhancement and edema presumably reactive post trauma. Recommend correlation with infection to exclude superimposed discitis. 3. Small amount of suspected LEFT eccentric epidural blood products at the L3- L4 level results in LEFT to RIGHT mass effect on the thecal sac and mild central canal stenosis. This would be compatible with recent trauma and fracture. 4. Mild central canal stenosis L4-L5 with slight impingement on the LEFT subarticular recess due to disc bulging with facet arthropathy and ligament flavum hypertrophy. 5. Otherwise mild foraminal narrowing described above. Notified Kimo Fernandez MD at 09/10/2021 2:52 PM. Laboratory Results WBC 9.6 10^3/uL (4.0-10.0) 09/10/21 08:30 RBC 4.52 10^6/uL (4.1-5.3) 09/10/21 08:30 Hgb 15.6 g/dL (11.7-16.6) 09/10/21 08:30 Hct 48.8 % (42.0-52.0) 09/10/21 08:30 MCV 108.0 fl (80-94) H 09/10/21 08:30 MCH 34.5 pg (28.0-34.0) H 09/10/21 08:30 MCHC 32.0 g/dL (30.0-36.0) 09/10/21 08:30 RDW 16.1 % (12.1-15.1) H 09/10/21 08:30 Plt Count 493 10^3/cmm (130-400) H 09/10/21 08:30 MPV 10.3 fL (7.4-10.4) 09/10/21 08:30 Neut % (Auto) 84.9 % 09/10/21 08:30 Lymph % (Auto) 6.2 % 09/10/21 08:30 Childress % (Auto) 6.3 % 09/10/21 08:30 Eos % (Auto) 1.1 % 09/10/21 08:30 Baso % (Auto) 0.7 % 09/10/21 08:30 Neut # (Auto) 8.12 10^3/uL (1.8-7.7) H 09/10/21 08:30 Lymph # (Auto) 0.6 10^3/uL (0.8-4.8) L 09/10/21 08:30 Childress # (Auto) 0.6 10^3/uL (0.2-0.9) 09/10/21 08:30 Eos # (Auto) 0.1 10^3/uL (0.0-0.8) 09/10/21 08:30 Baso # (Auto) 0.1 10^3/uL (0.0-0.1) 09/10/21 08:30 Nucleated RBC % (auto) 0 % 09/10/21 08:30 Nucleated RBCs # 0.0 /100WBC 09/10/21 08:30 Sodium 140 mmol/L (136-145) 09/10/21 08:30 Potassium 3.7 mmol/L (3.5-5.1) 09/10/21 08:30 Chloride 97 mmol/L (98-107) L 09/10/21 08:30 Carbon Dioxide 31 mmol/L (22-29) H 09/10/21 08:30 Anion Gap 15.7 (5-19) 09/10/21 08:30 BUN 23 mg/dL (8-23) 09/10/21 08:30 Creatinine 1.3 mg/dL (0.7-1.2) H 09/10/21 08:30 GFR Calculation Not Reportable 09/10/21 08:30 Glucose 153 mg/dL (65-115) H 09/10/21 08:30 Calculated Osmolality 297 mOsm/kg (285-295) H 09/10/21 08:30 Lactate 1.8 mmol/L (0.5-2.2) 09/10/21 08:30 Calcium 9.0 mg/dL (8.5-10.5) 09/10/21 08:30 Total Bilirubin 0.6 mg/dL (0.15-1.2) 09/10/21 08:30 AST 9 U/L (0-40) 09/10/21 08:30 ALT 15 U/L (0-41) 09/10/21 08:30 Alkaline Phosphatase 134 IU/L (40-130) H 09/10/21 08:30 Total Protein 7.0 g/dL (6.6-8.7) 09/10/21 08:30 Albumin 3.7 g/dL (3.5-5.2) 09/10/21 08:30 Globulin 3.3 g/dL (1.3-4.6) 09/10/21 08:30 Lipase 20 U/L (13-60) 09/10/21 08:30 TSH 1.88 uIU/mL (0.27-4.20) 09/10/21 08:30 Urine Color Dark yellow (Yellow) 09/10/21 10:00 Urine Appearance Clear (CLEAR) 09/10/21 10:00 Urine pH 6 (5-7) 09/10/21 10:00 Ur Specific [place] 1.015 (1.005-1.030) 09/10/21 10:00 Urine Protein Neg (Negative) 09/10/21 10:00 Urine Glucose (UA) Norm (Normal) 09/10/21 10:00 Urine Ketones Negative (Negative) 09/10/21 10:00 Urine Blood Neg (Negative) 09/10/21 10:00 Urine Nitrate Negative (Negative) 09/10/21 10:00 Urine Bilirubin Neg (Negative) 09/10/21 10:00 Urine Urobilinogen 1 mg/dL (Negative) H 09/10/21 10:00 Ur Leukocyte Esterase Negative (Negative) 09/10/21 10:00 Urine RBC None /hpf (0-2) 09/10/21 10:00 Urine WBC Rare /hpf (0-5) 09/10/21 10:00 Ur Squamous Epith Cells None /hpf (0-5) 09/10/21 10:00 Amorphous Sediment Not Reportable 09/10/21 10:00 Urine Bacteria None /hpf (NONE) 09/10/21 10:00 Discharge Plan Discharge Patient Disposition: Home Clinical Impression: Constipation, Compression fracture of vertebra, Suicidal ideation Condition: Stable Prescriptions: New Senna with Docusate Sodium 8.6-50 mg tablet 1 tab-cap PO DAILY Qty: 7 0RF No Action Eliquis 2.5 mg tablet 2.5 mg PO BID@0800,1999 0RF finasteride 5 mg tablet 5 mg PO DAILY@1999 0RF tamsulosin 0.4 mg capsule 0.4 mg PO DAILY@1999 0RF hydroxyurea 500 mg capsule See Rx Instructions .ROUTE .COMPLEX 0RF Rx Instructions: 1,000MG PO EVERY WEDNESDAY,WEDNESDAY, AND WEDNESDAY AND 500MG PO ON WEDNESDAY AND WEDNESDAY potassium chloride 10 mEq capsule, extended release 10 meq PO DAILY@0800 0RF aloe vera Gel 1 applic topical DAILY PRN (Reason: dry skin) 0RF Percocet 5-325 mg tablet 1 tab PO Q8H PRN (Reason: pain) 30 Days Qty: 60 0RF acetaminophen [Acetaminophen Extra Strength] 500 mg tablet 500 mg PO Q6H PRN (Reason: pain) Qty: 100 2RF levetiracetam 1,000 mg tablet 1,000 mg PO BID@0800,2000 0RF hydralazine 25 mg tablet 25 mg PO BID@0800,2000 0RF isosorbide mononitrate 30 mg tablet extended release 24 hr 15 mg PO DAILY@0800 0RF furosemide [Lasix] 80 mg Tablet 80 mg PO DAILY@08 0RF citalopram 20 mg tablet 20 mg PO DAILY@08 0RF galantamine 24 mg capsule,ext rel. pellets 24 hr 24 mg PO DAILY@08 0RF levothyroxine 137 mcg tablet 137 mcg PO DAILY@08 0RF Seroquel 25 mg tablet 25 mg PO TID PRN (Reason: Agitation) 0RF aspirin 81 mg tablet,delayed release (DR/EC) 81 mg PO DAILY@08 0RF Discharge Orders: Discharge ED (Routine); Ordered 09/10/21 Ordered By: Kimo Fernandez Referrals: Julito Berry DO [Physician] - 1-3 days Chin Salazar DO [Primary Care Provider] - 1-3 days Patient Instructions: Constipation (ED), Vertebral Compression Fracture (ED), Suicide Prevention (ED), Opioid Safety Coding Level of Care Code ED Broom Stitcher for Alfa Miller
[2021-09-10 07:49] VITALS: BP 147/85; PULSE 44; RESP 14; O2SAT 95; BMI 21.7
[2021-09-10] MEDS: HYDROcodone-acetaminophen 5-325 mg Tablet 1 TAB PO (08:15)
[2021-09-10] MEDS: sodium chloride 0.9% 500 ML 999 ML IV (08:16)
[2021-09-10 08:49] LABS: Basophils # 0.1 10^3/uL (0.0-0.1); Basophils % 0.7 %; Eosinophils # 0.1 10^3/uL (0.0-0.8); Eosinophils % 1.1 %; Hematocrit 48.8 % (42.0-52.0); Hemoglobin 15.6 g/dL (11.7-16.6); Lymphocytes # 0.6 10^3/uL (0.8-4.8); Lymphocytes % 6.2 %; Mean Corpuscular Hemoglobin 34.5 pg (28.0-34.0); Mean Platelet Volume 10.3 fL (7.4-10.4); Monocytes # 0.6 10^3/uL (0.2-0.9); Monocytes % 6.3 %; Neutrophils # 8.12 10^3/uL (1.8-7.7); Neutrophils % 84.9 %; Nucleated Red Blood Cells % 0 %; Platelet Count 493 10^3/cmm (130-400); Red Blood Count 4.52 10^6/uL (4.1-5.3); Red Cell Distribution Width 16.1 % (12.1-15.1); White Blood Count 9.6 10^3/uL (4.0-10.0)
[2021-09-10 09:09] LABS: Lactate (Lactic Acid level) 1.8 mmol/L (0.5-2.2)
[2021-09-10 09:18] LABS: Alanine Aminotransferase 15 U/L (0-41); Albumin Level 3.7 g/dL (3.5-5.2); Alkaline Phosphatase 134 IU/L (40-130); Anion Gap 15.7 (5-19); Aspartate Amino Transferase 9 U/L (0-40); Blood Urea Nitrogen 23 mg/dL (8-23); Carbon Dioxide 31 mmol/L (22-29); Chloride 97 mmol/L (98-107); Globulin 3.3 g/dL (1.3-4.6); Glucose 153 mg/dL (65-115); Lipase 20 U/L (13-60); Osmolality Calculated 297 mOsm/kg (285-295); Potassium 3.7 mmol/L (3.5-5.1); Sodium 140 mmol/L (136-145); Thyroid Stimulating Hormone 1.88 uIU/mL (0.27-4.20); Total Bilirubin 0.6 mg/dL (0.15-1.2)
[2021-09-10] MEDS: iodixanol 320 mg/mL 100mL Btl IV (09:41)
[2021-09-10 10:31] LABS: Add Urine Culture? No; Bilirubin Urine Neg (Negative); Blood Urine Neg (Negative); Glucose Urine UA Norm (Normal); Ketones Urine Negative (Negative); Nitrate Urine Negative (Negative); Protein Urine Neg (Negative); Specific Gravity, Urine 1.015 (1.005-1.030); Urine Appearance Clear (CLEAR); Urine Color Dark Yellow (Yellow); Urobilinogen Urine 1 mg/dL (Negative); WBC Urine RARE /hpf (0-5); pH Urine 6 (5-7)
--- NOTE | 2021-09-10 10:47 | MR_ITS ---
WS: [id number] MRI LUMBAR SPINE WITH CONTRAST TECHNIQUE: Sagittal T1, T2 and STIR imaging. Axial T1 and T2 imaging. Post gadolinium imaging was obt ained. CLINICAL INFORMATION: Vertebral fracture with retropulsion, constipation COMPARISON: CT September 10, 2021 FINDINGS: Mild lumbar curve. Again seen is the comminuted compression fracture involving the superior endplate L2 with loss of approximately 30% vertebral body height and fluid in the fracture cleft. Diffuse arsh a involving the L2 vertebral body with edema extending into the pedicles bilaterally. Slight retropul duke of the posterior superior endplate with moderate central canal stenosis. Narrowing of the subart icular recess bilaterally. Moderate facet arthropathy contributes to central canal stenosis. Diffuse epidural enhancement with diffuse paravertebral soft tissue edema and enhancement from recent trauma. Enhancement along the inferior endplate at L1 with edema and superimposed Schmorl's node. Mild LEFT to RIGHT central canal stenosis at the L3-L4 level with compression of the LEFT aspect of t he thecal sac. Small amount of suspected LEFT eccentric epidural blood products presumably from recen t trauma and compression fracture. L1-L2: Moderate central canal stenosis due to mild disc bulging in combination with slight retropulsi on of the superior endplate L2. Facet arthropathy and ligamentum hypertrophy contributes to stenosis. Slight narrowing of the subarticular recess bilaterally. Mild bilateral foraminal narrowing. L2-L3: Mild annular bulging. Slight narrowing of the subarticular recess bilaterally. Spinal canal an d foramen are patent. Moderate facet arthropathy. L3-L4: Mild annular bulging. LEFT eccentric suspected epidural blood products with LEFT to RIGHT mass effect on the thecal sac. Mild central canal stenosis. Moderate facet arthropathy. Foramen are paten t. L4-L5: Mild disc bulging with slight effacement of ventral thecal sac. Mild central canal stenosis. S light impingement on the traversing L5 nerve roots bilaterally. Moderate facet arthropathy. Mild LEFT and no significant RIGHT foraminal narrowing. L5-S1: Mild disc bulging with osteophytic ridging. Moderate facet arthropathy. Foramen are patent. Sp inal canal is patent. Partially visualized LEFT renal cyst. 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 Hemangiomas within the thoracic spine. MR/MR lumbar spine wo/w con [id number] IMPRESSION: 1. Again seen is the slightly comminuted acute L2 superior endplate compressio n fracture with slight retropulsion posterior superior endplate and fluid in th e fracture cleft. In combination with L1-L2 disc bulging, this results in moder ate central canal stenosis with narrowing of the subarticular recess. Moderate facet arthropathy at this level contributes to stenosis. 2. Diffuse paravertebral, psoas, and epidural enhancement at the L2 level with enhancement and edema in the inferior L1 endplate with superimposed Schmorl's node. Enhancement and edema presumably reactive post trauma. Recommend correlat ion with infection to exclude superimposed discitis. 3. Small amount of suspected LEFT eccentric epidural blood products at the L3- L4 level results in LEFT to RIGHT mass effect on the thecal sac and mild centra l canal stenosis. This would be compatible with recent trauma and fracture. 4. Mild central canal stenosis L4-L5 with slight impingement on the LEFT subar ticular recess due to disc bulging with facet arthropathy and ligament flavum h ypertrophy. 5. Otherwise mild foraminal narrowing described above. Notified Kimo Fernandez MD at 09/10/2021 2:52 PM.
[2021-09-10 10:50] LABS: Leukocyte Esterase Urine Negative (Negative)
--- NOTE | 2021-09-10 15:16 | PM.CONSULT ---
Providers/Reason For Consult Consulting Physician/Specialty*: Orthopedic spine Reason for Consult*: Back Pain Primary Care Provider: Chin Salazar DO History of Present Illness History of Present Illness Casey Alves is a 86 year old male who was evaluated in complaining of back pain. He states that approximately 3 weeks ago he had fallen from a standing position sustaining injury to his back he is presented to the emergency room on multiple different occasions without any findings in his back. He had a CAT scan today which showed an L2 compression fracture orthopedics was consulted for evaluation. Upon evaluation in the emergency room he complains of sharp stabbing pain in his back weakness in his legs. Movement bending twisting activities make his back pain unbearable. He denies any neck pain denies any shoulder or arm pain. States that the pain in his back is constant spasming in nature. He has not found much other than rest to give him some temporary relief. An extensive review of the patient's past medical history, surgical history, allergies, medications, family history, social history, and review of systems was completed Review of Systems Narrative: - CONSTITUTIONAL: Denies weight loss, fever and chills. - HEENT: Denies changes in vision and hearing. - RESPIRATORY: Denies SOB and cough. - CV: Denies palpitations and CP. - GI: As above - : Denies dysuria and urinary frequency. - MSK: Denies myalgia and joint pain. - SKIN: Denies rash and pruritus. - NEUROLOGICAL: Denies headache, weakness, numbness and syncope. - PSYCHIATRIC: As above Medications/Allergies Home Medications Medication Instructions Recorded Confirmed Last Taken Type apixaban 2.5 mg tablet (Eliquis) 2.5 mg PO BID@080006/12/19 09/10/21 09/09/21 History finasteride 5 mg tablet 5 mg PO DAILY@199906/12/19 09/10/21 09/09/21 History tamsulosin 0.4 mg capsule 0.4 mg PO DAILY@199906/12/19 09/10/21 09/09/21 History potassium chloride 10 mEq 10 meq PO DAILY@0800 05/22/20 09/10/21 09/09/21 History capsule,extended release hydralazine 25 mg tablet 25 mg PO BID@080001/09/21 09/10/21 09/09/21 History levetiracetam 1,000 mg tablet 1,000 mg PO BID@0800,2000 01/09/21 09/10/21 09/09/21 History isosorbide mononitrate 30 mg 15 mg PO DAILY@0800 tab 02/12/21 09/10/21 09/09/21 History tablet,extended release 24 hr citalopram 20 mg tablet 20 mg PO DAILY@08/02/21 09/10/21 09/09/21 History furosemide 80 mg tablet (Lasix) 80 mg PO DAILY@08/02/21 09/10/21 09/09/21 History galantamine 24 mg 24 hr 24 mg PO DAILY@08/02/21 09/10/21 09/09/21 History capsule,extended release aloe vera 1 applic TOPICAL DAILY PRN g 09/06/21 09/10/21 Unknown History hydroxyurea 500 mg capsule See Rx Instructions .ROUTE 09/06/21 09/10/21 Unknown History .COMPLEX cap acetaminophen 500 mg tablet 500 mg PO Q6H PRN #100 tab 09/08/21 09/10/21 Unknown Rx (Acetaminophen Extra Strength) oxycodone-acetaminophen 5 mg-325 1 tab PO Q8H PRN 30 Days #60 tab 09/08/21 09/10/21 09/10/21 01:15 Rx mg tablet (Percocet) aspirin 81 mg tablet,delayed 81 mg PO DAILY@09/10/21 09/10/21 09/09/21 History release levothyroxine 137 mcg tablet 137 mcg PO DAILY@09/10/21 09/10/21 09/09/21 History quetiapine 25 mg tablet (Seroquel) 25 mg PO TID PRN 09/10/21 09/10/21 Unknown History Allergies Allergy/AdvReac Type Severity Reaction Status Date / Time lorazepam [From Ativan] AdvReac hallucinati Verified 09/10/21 07:49 ons PFSH Acute PFSH: Medical History Acquired polycythemia vera Alzheimer disease Atrial fibrillation with slow ventricular response Bradycardia CAD (coronary artery disease) Cardiomegaly CHF (congestive heart failure), NYHA class III Chronic atrial fibrillation COPD (chronic obstructive pulmonary disease) Diarrhea Encounter for rehabilitation evaluation 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 Hernia Hypertension Hypothyroid Lower urinary tract symptoms (LUTS) Mild cognitive impairment with memory loss Obstructive sleep apnea Pancytopenia Pulmonary hypertension Restless leg Vertebrobasilar dolichoectasia Weakness of both lower extremities Family History Father CAD (coronary artery disease) CHF (congestive heart failure) Social History Smoking and tobacco status: never smoked Second hand smoke exposure: No Smoking risk assessment/counseling performed?: No Alcohol intake: never Counseling given: No Counseling given: No Lives independently: Yes Marital status: / Current occupational status: retired History of recent travel: No Current gender identity: Male Vitals/I&O/Wt Last Vital Signs Pulse 44 L 09/10/21 07:49 Resp 14 09/10/21 07:49 BP 147/85 09/10/21 07:49 Pulse Ox 95 09/10/21 07:49 Weight last 48 hrs Weight 165 lb Physical Exam Narrative: He is alert oriented he is able to wiggle all lower extremities with some pain worse in the left than the right. He can dorsiflex and plantarflex he can flex his knees with increased back pain. He has normal station light touch toes warm good cap refill dorsalis pedis posterior pulses are palpable. He has negative logroll bilaterally. He has palpable pain in the lumbar and thoracic region with percussion as well. He has normal station light touch in both upper extremities the shoulders elbows and wrists hands warm well cap refill is no palpable pain in the cervical spine. He is laying in the position no obvious bruising or swelling in his lumbar or thoracic region. States he has back pain with palpation through the mid and lumbar region. HENMT: COMMON NORMALS: normocephalic and atraumatic HEAD & SCALP: normocephalic and atraumatic Resp: EFFORT & INSPECTION: Yes decreased respiratory effort Cardio: RHYTHM: abnormal rhythm GI: COMMON NORMALS: Soft to palpation and non-tender PALPATION: Yes Soft to palpation : COMMON NORMALS: Yes no CVA tenderness BLADDER/KIDNEY EXAM: Yes no CVA tenderness Back/Pelvis: COMMON NORMALS: no CVA tenderness Psych: COMMON NORMALS: cooperative Data : 09/10/21 08:30 09/10/21 08:30 MRI: My impression: MRI scan of the lumbar spine shows advanced degenerative changes throughout the lumbar region. There is evidence of acute compression fracture of L2. There is advanced stenosis throughout the lumbar spine. With facet arthropathy. There is evidence of thoracic lesions at T8 and T9. A&P Assessment and plan (1) Traumatic compression fracture of L2 vertebra: Discussed at length with the patient treatment options which could involve a kyphoplasty at L2. Upon evaluation of the MRI scan there appears to be thoracic lesions and therefore would recommend an MRI scan with and without contrast of the thoracic spine. We will also get upright standing radiographs of the thoracic and lumbar spine. 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
--- NOTE | 2021-09-10 15:30 | MRR_ITS ---
PROCEDURE INFORMATION: Exam: MR Thoracic Spine With Contrast Exam date and time: 09/10/2021 6:09 PM Age: 86 years old Clinical indication: Pain in thoracic spine; Patient HX: Patient has had lower back pain and constipation for 3 weeks/post fall; Additional info: Fall and lesion t8/9 TECHNIQUE: Imaging protocol: Multiplanar magnetic resonance images of the thoracic spine with intravenous contrast. Contrast material: PROHANCE; Contrast volume: 17 ml; Contrast route: INTRAVENOUS (IV); COMPARISON: CT thoracic spin wo con* [id number] 02/02/2020 1:50 PM FINDINGS: Vertebrae: No acute thoracic spine fractures. Thoracic spine alignment is unremarkable with exaggerated kyphotic curvature. There is patchy increased T2 signal within T8 and T9 vertebral bodies with no height loss. The vertebral body is also demonstrate patchy increased T1 signal. There is patchy heterogeneous enhancement within the T8 vertebral body. No significant enhancement of T9 vertebral body. The known L2 vertebral fracture is partially visible. There is a previous compression fracture at T2 which is unchanged in height loss from the comparison. The thoracic spine demonstrates moderate degenerative changes at multiple levels. Spinal cord: Normal signal. No cord compression. T1-T2: No significant disc disease. No significant spinal canal stenosis. T2-T3: No significant disc disease. No significant spinal canal stenosis. T3-T4: No significant disc disease. No significant spinal canal stenosis. T4-T5: No significant disc disease. No significant spinal canal stenosis. T5-T6: No significant disc disease. No significant spinal canal stenosis. T6-T7: No significant disc disease. No significant spinal canal stenosis. T7-T8: No significant disc disease. No significant spinal canal stenosis. T8-T9: No significant disc disease. No significant spinal canal stenosis. T9-T10: No significant disc disease. No significant spinal canal stenosis. T10-T11: No significant disc disease. No significant spinal canal stenosis. T11-T12: No significant disc disease. No significant spinal canal stenosis. Soft tissues: Unremarkable thoracic paraspinal soft tissues. MR/MR thoracic spine w con [id number] IMPRESSION: 1. Negative for acute thoracic spine fracture. 2. No changes in thoracic spine from cross modality comparison utilizing CT thoracic spine from 02/02/2020. 3. Vertebral body lesions of T8 and T9 are likely benign. Paget disease changes are suspected, alternatively possibly intraosseous hemangiomas. 4. Redemonstration of known L2 vertebral compression fracture. 5. Healed T2 compression fracture.
[2021-09-10 17:06] VITALS: PULSE 52; RESP 16; O2SAT 99
[2021-09-10 17:36] VITALS: BP 147/85; PULSE 50; RESP 18; O2SAT 92
--- NOTE | 2021-09-10 18:08 | PC.NURSE ---
[id number] Work up ordered and intiated. Diagnostics obainted. VS stable, no acute distress [id number] CT done, Fracture seen in spine. MRI ordered. Daughter updated and states she will be in around 1 11-1300 MRI came for patient and requested to try to have a BM before transport. Attempt unsuccessful. MRI initiated. Daughter here at 1300. Updated that patient would be over there for at least an hour 1430 Patient returned. He is line of site of sitters. no aggressive or adverse behaviors noted in ED [id number] Additonal MRI ordered. Daughter is here. Telehealth eval by Psych completed. No new orders noted other than MRI. Confirmed with physician that patient to remain NPO until official plan of care recommended. 1814 To MRI via cart, daughter accompanied patient. VS stable.
--- NOTE | 2021-09-10 18:50 | PC.NURSE ---
1850 Back brace obtained, per physician request. Will have to be applied by nursing staff as no PT available. Patient still in MRI.
[2021-09-10 19:29] VITALS: BP 155/68; PULSE 51; RESP 16; O2SAT 99
--- NOTE | 2021-09-12 09:28 | DCPLANNER ---
Addendum entered by Madison Curran 09/30/21 20:45: Patient had a follow up appointment scheduled for with ortho - appointment was cancelled. Addendum entered by Madison Curran 09/16/21 09:03: Patient has a follow up appointment scheduled for , September 18, 2021 at 9:15 with MARLEE Tenorio at ortho. Clinic will call patient with appointment information. Original Note: health information manager had message to schedule a follow up appointment for patient with ortho. health information manager sent patients information to the ortho clinic front staff for review. Patients information will be printed and reviewed. Clinic will call patient with appointment information.
== END 2021-09-10 21:28 | disposition home or self-care (01) ==
PROVIDERS: Emergency Provider Emergency Medicine; PCP Internal Medicine
DX: K59.00 Constipation, unspecified (principal); S32.028A Other fracture of second lumbar vertebra, initial encounter for closed fracture; W19.XXXA Unspecified fall, initial encounter; Z91.81 History of falling; Y92.129 Unspecified place in nursing home as the place of occurrence of the external cause; R45.851 Suicidal ideations
CPT/HCPCS: 72147; 72158; 74177; 80053; 81001; 83605; 83690; 84443; 85025; 99284; J7040; Q9967

== ENCOUNTER 2021-09-16 08:04 | Inpatient (IN) | payer MEDICARE, BC, SELFPAY ==
[2021-09-16] VITALS (15 sets, daily range): BP systolic 110–182; BP diastolic 61–79; PULSE 39–72; RESP 15–20; TEMP 36.6–36.8; O2SAT 96–100; BMI 21.7; BMI 25.8
--- NOTE | 2021-09-16 08:14 | XRR_ITS ---
PROCEDURE INFORMATION: Exam: XR Chest Exam date and time: 09/16/2021 8:26 AM Age: 86 years old Clinical indication: Dyspnea TECHNIQUE: Imaging protocol: XR of the chest. Views: 1 view. COMPARISON: CR XR chest 1V portable [id number] 01/09/2021 4:05 PM FINDINGS: Lungs: Hypoinflation and mild interstitial prominence. Pleural spaces: Mild pleural thickening, without dependent pleural effusion. Heart/Mediastinum: Borderline cardiomegaly. Bones/joints: Osteopenia and degenerative change. XR/XR chest 1V portable [id number] IMPRESSION: Borderline cardiomegaly, without acute airspace
--- NOTE | 2021-09-16 08:15 | ECG_ITS ---
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 Measurements Intervals Curran Rate: 61 P: CT: QRS: 36 QRSD: 97 T: 11 QT: 457 QTc: 462 Interpretive Statements ATRIAL FIBRILLATION WITH ABERRANT CONDUCTION OR VENTRICULAR PREMATURE COMPLEXES MODERATE ST DEPRESSION [0.05+ mV ST DEPRESSION] Compared to ECG 08/02/2021 12:37:55 Ventricular premature complex(es) now present Aberrant conduction of supraventricular beat(s) now present ST (T wave) deviation still present Electronically Signed On 09-17-2021 6:35:35 CDT by Marlen Bernstein M.D. [id number]
[2021-09-16] MEDS: ondansetron 2 mg/ML SDV 2 mL 4 MG IVP (08:30)
[2021-09-16] MEDS: morphine 4 mg/mL SDV 1 mL IVP (08:31)
[2021-09-16 08:33] LABS: Basophils # 0.1 10^3/uL (0.0-0.1); Basophils % 0.7 %; Eosinophils # 0.2 10^3/uL (0.0-0.8); Eosinophils % 1.9 %; Hematocrit 43.6 % (42.0-52.0); Lymphocytes # 0.5 10^3/uL (0.8-4.8); Lymphocytes % 4.6 %; Mean Corpuscular HGB Conc 32.1 g/dL (30.0-36.0); Mean Corpuscular Hemoglobin 34.4 pg (28.0-34.0); Mean Corpuscular Volume 107.1 fl (80-94); Mean Platelet Volume 10.2 fL (7.4-10.4); Monocytes # 0.5 10^3/uL (0.2-0.9); Monocytes % 4.7 %; Neutrophils # 8.61 10^3/uL (1.8-7.7); Neutrophils % 87.6 %; Nucleated Red Blood Cells % 0 %; Platelet Count 494 10^3/cmm (130-400); Red Blood Count 4.07 10^6/uL (4.1-5.3); White Blood Count 9.8 10^3/uL (4.0-10.0)
[2021-09-16 09:29] LABS: Alanine Aminotransferase 11 U/L (0-41); Alkaline Phosphatase 124 IU/L (40-130); Chloride 99 mmol/L (98-107); Potassium 3.6 mmol/L (3.5-5.1); Sodium 138 mmol/L (136-145)
[2021-09-16 09:43] LABS: Anion Gap 12.6 (5-19); Aspartate Amino Transferase 13 U/L (0-40); Blood Urea Nitrogen 16 mg/dL (8-23); Calcium 8.6 mg/dL (8.5-10.5); Carbon Dioxide 30 mmol/L (22-29); Creatinine Clr Calc Pharmacy 53.0981; Glucose 173 mg/dL (65-115); Osmolality Calculated 291 mOsm/kg (285-295); Total Bilirubin 0.6 mg/dL (0.15-1.2); Total Protein 5.7 g/dL (6.6-8.7)
[2021-09-16 09:48] LABS: Albumin Level 3.4 g/dL (3.5-5.2); Globulin 2.3 g/dL (1.3-4.6)
--- NOTE | 2021-09-16 09:54 | PC.PHAR ---
pt is from [facility] from [facility] the pt had no medications except for one tab of oxycodone -apap 5mg/325mg today @05:30
--- NOTE | 2021-09-16 10:11 | ED_ITS ---
HPI - Back Pain/Injury General: Chief Complaint: Back Pain/Injury Stated Complaint: BACK PAIN Time Seen by Provider: 09/16/21 08:08 Source: patient and other (Discussed with patient's nurse at [facility]) Mode of arrival: EMS History of Present Illness: 86-year-old male presents emergency room from assisted via EMS. Chief complaint is back pain patient is little bit lethargic when he first arrived he denies any other injuries no recent falls or other exacerbating incidents since he was here 1 week ago in the emergency room at that time he had thoracic and lumbar MRIs. He is complaining of proximal thigh pain bilaterally and not able to get up and walk due to pain. He is using oxycodone 5/325 1 every 6 hours not adequately been treating his pain. I called and discussed with the nurse he has been ambulating with a walker less and less and now really unable to at all due to pain she denies him having any further suicidal ideation. When he came in last week that was an issue it has not been sent. Patient to consult by orthopedic spine surgery but has not had the follow-up yet nor is he had anything scheduled. MD elicited complaint: back pain Pertinent past history: prior back pain Timing: constant Location: lumbar spine Exacerbating factors: movement, sitting upright and walking Relieving factors: medication and supine Associated symptoms: Reports arthralgias, difficulty walking and weakness; Deny abdominal pain, chills, change in bowel habits, dysuria, fatigue, fecal incontinence, fever(s), hematuria, myalgias, nausea, numbness, syncope, tingling/numbness/burning, urinary frequency, urinary urgency or vomiting Treatments prior to arrival: prescription analgesics Work related injury: No Review of Systems Const: Denies: fever(s), chills or fatigue Card: Denies: syncope Resp: Denies: dyspnea, non-productive cough or wheezing GI: Denies: abdominal pain, nausea, vomiting, fecal incontinence or change in bowel habits : Denies: flank pain, difficulty urinating, dysuria, urinary urgency or hematuria Musc: Reports: back pain and extremity pain (Proximal thighs bilaterally) Neuro: Reports: difficulty walking PFS ED PFSH: Medical History Acquired polycythemia vera Alzheimer disease Atrial fibrillation with slow ventricular response Bradycardia CAD (coronary artery disease) Cardiomegaly CHF (congestive heart failure), NYHA class III Chronic atrial fibrillation COPD (chronic obstructive pulmonary disease) Diarrhea Encounter for rehabilitation evaluation 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 Hernia Hypertension Hypothyroid Lower urinary tract symptoms (LUTS) Mild cognitive impairment with memory loss Obstructive sleep apnea Pancytopenia Pulmonary hypertension Restless leg Vertebrobasilar dolichoectasia Weakness of both lower extremities Family History Father CAD (coronary artery disease) CHF (congestive heart failure) Social History Smoking and tobacco status: never smoked Second hand smoke exposure: No Smoking risk assessment/counseling performed?: No Alcohol intake: never Counseling given: No Counseling given: No Lives independently: Yes Marital status: / Current occupational status: retired History of recent travel: No Current gender identity: Male Physical Exam Const: COMMON NORMALS: no acute distress GENERAL APPEARANCE: cooperative and comfortable ORIENTATION/CONSCIOUSNESS: Yes awake HENMT: COMMON NORMALS: normocephalic, atraumatic and hearing grossly normal bilaterally HEAD & SCALP: normocephalic and atraumatic Neck/C-Spine: COMMON NORMALS: no JVD Resp: COMMON NORMALS: normal respiratory effort, No retractions, No use of accessory muscles and clear to auscultation bilaterally AUSCULTATION: clear to auscultation bilaterally Cardio: COMMON NORMALS: no JVD, regular rate, regular rhythm and No murmurs present (Cardio) RATE: regular rate RHYTHM: regular rhythm GI: COMMON NORMALS: Soft to palpation and No hepatosplenomegaly present AUSCULTATION: Yes normoactive bowel sounds PALPATION: Yes Soft to palpation, No Tenderness to palpation present (GI), No Guarding due to palpation present (GI) and Yes No hepatosplenomegaly present Extremity: COMMON NORMALS: normal to inspection, capillary refill normal and no calf tenderness Skin: COMMON NORMALS: no rashes or lesions noted GENERAL SKIN EXAM: no rashes or lesions noted Course Vital Signs: Vital signs: Vital Signs Temperature 98.2 F 09/16/21 08:12 Pulse Rate 53 L 09/16/21 10:06 Respiratory Rate 15 09/16/21 10:06 Blood Pressure 140/79 09/16/21 10:06 Pulse Oximetry 98 09/16/21 10:06 MDM - Back Pain/Injury Medical Decision Making Patient is failing outpatient therapy pain medication has been given is not adequate control his pain and he felt a point week cannot really get up to transfer or use the walker anymore. Was given pain medication he arrived here discussed Dr. ruiz and Dr. Moody will admit Dr. Berry plans to do kyphoplasty tomorrow morning. Christian will be the admitting Medical Records I reviewed the patient's medical records. Labs I reviewed the patient's lab results. : 09/16/21 08:26 09/16/21 09:00 Radiology Impressions Chest X-Ray 09/16/21 08:14 IMPRESSION: Borderline cardiomegaly, without acute airspace ADDENDUM: 09/16/21 1005 There is mild blunting of the left costophrenic angle, suspicious for small left pleural effusion. Laboratory Results WBC 9.8 10^3/uL (4.0-10.0) 09/16/21 08:26 RBC 4.07 10^6/uL (4.1-5.3) L 09/16/21 08:26 Hgb 14.0 g/dL (11.7-16.6) 09/16/21 08:26 Hct 43.6 % (42.0-52.0) 09/16/21 08:26 MCV 107.1 fl (80-94) H 09/16/21 08:26 MCH 34.4 pg (28.0-34.0) H 09/16/21 08:26 MCHC 32.1 g/dL (30.0-36.0) 09/16/21 08:26 RDW 15.0 % (12.1-15.1) 09/16/21 08:26 Plt Count 494 10^3/cmm (130-400) H 09/16/21 08:26 MPV 10.2 fL (7.4-10.4) 09/16/21 08:26 Neut % (Auto) 87.6 % 09/16/21 08:26 Lymph % (Auto) 4.6 % 09/16/21 08:26 Morrison % (Auto) 4.7 % 09/16/21 08:26 Eos % (Auto) 1.9 % 09/16/21 08: Baso % (Auto) 0.7 % 09/16/21 08: Neut # (Auto) 8.61 10^3/uL (1.8-7.7) H 09/16/21 08: Lymph # (Auto) 0.5 10^3/uL (0.8-4.8) L 09/16/21 08: Morrison # (Auto) 0.5 10^3/uL (0.2-0.9) 09/16/21 08: Eos # (Auto) 0.2 10^3/uL (0.0-0.8) 09/16/21 08: Baso # (Auto) 0.1 10^3/uL (0.0-0.1) 09/16/21 08: Nucleated RBC % (auto) 0 % 09/16/21 08: Nucleated RBCs # 0.0 /100WBC 09/16/21 08: Sodium 138 mmol/L (136-145) 09/16/21 09:00 Potassium 3.6 mmol/L (3.5-5.1) 09/16/21 09:00 Chloride 99 mmol/L (98-107) 09/16/21 09:00 Carbon Dioxide 30 mmol/L (22-29) H 09/16/21 09:00 Anion Gap 12.6 (5-19) 09/16/21 09:00 BUN 16 mg/dL (8-23) 09/16/21 09:00 Creatinine 1.1 mg/dL (0.7-1.2) 09/16/21 09:00 GFR Calculation Not Reportable 09/16/21 09:00 Glucose 173 mg/dL (65-115) H 09/16/21 09:00 Calculated Osmolality 291 mOsm/kg (285-295) 09/16/21 09:00 Calcium 8.6 mg/dL (8.5-10.5) 09/16/21 09:00 Total Bilirubin 0.6 mg/dL (0.15-1.2) 09/16/21 09:00 AST 13 U/L (0-40) 09/16/21 09:00 ALT 11 U/L (0-41) 09/16/21 09:00 Alkaline Phosphatase 124 IU/L (40-130) 09/16/21 09:00 Total Protein 5.7 g/dL (6.6-8.7) L 09/16/21 09:00 Albumin 3.4 g/dL (3.5-5.2) L 09/16/21 09:00 Globulin 2.3 g/dL (1.3-4.6) 09/16/21 09:00 Discharge Plan Discharge Patient Disposition: Admitted As Inpatient Clinical Impression: Compression fracture of vertebra, Bradycardia, COPD (chronic obstructive pulmonary disease), Alzheimer disease, Acquired polycythemia vera, Weakness of both lower extremities Condition: Stable Prescriptions: No Action Eliquis 2.5 mg tablet 2.5 mg PO BID@799,1999 0RF finasteride 5 mg tablet 5 mg PO DAILY@1999 0RF tamsulosin 0.4 mg capsule 0.4 mg PO DAILY@1999 0RF hydroxyurea 500 mg capsule See Rx Instructions .ROUTE .COMPLEX 0RF Rx Instructions: 1,000MG PO EVERY WEDNESDAY,WEDNESDAY, AND WEDNESDAY AND 500MG PO ON WEDNESDAY AND WEDNESDAY potassium chloride 10 mEq capsule, extended release 10 meq PO DAILY@0800 0RF aloe vera Gel 1 applic topical DAILY PRN (Reason: dry skin) 0RF Percocet 5-325 mg tablet 1 tab PO Q8H PRN (Reason: pain) 30 Days Qty: 60 0RF acetaminophen [Acetaminophen Extra Strength] 500 mg tablet 500 mg PO Q6H PRN (Reason: pain) Qty: 100 2RF levetiracetam 1,000 mg tablet 1,000 mg PO BID@799,1999 0RF hydralazine 25 mg tablet 25 mg PO BID@799,1999 0RF isosorbide mononitrate 30 mg tablet extended release 24 hr 15 mg PO DAILY@0800 0RF furosemide [Lasix] 80 mg Tablet 80 mg PO DAILY@08 0RF citalopram 20 mg tablet 20 mg PO DAILY@08 0RF galantamine 24 mg capsule,ext rel. pellets 24 hr 24 mg PO DAILY@08 0RF levothyroxine 137 mcg tablet 137 mcg PO DAILY@08 0RF quetiapine [Seroquel] 25 mg tablet 25 mg PO TID PRN (Reason: Agitation) 0RF aspirin 81 mg tablet,delayed release (DR/EC) 81 mg PO DAILY@08 0RF nystatin 100,000 unit/gram Powder 1 applic TOPICAL BID 0RF Rx Instructions: to groin area Senna Plus 8.6-50 mg tablet 1 tab-cap PO DAILY 0RF Rx Instructions: for 7 days (09/15/21-09/22/21) Referrals: Chin Salazar DO [Primary Care Provider] - Coding Level of Care Code ED Surgical Corsetier for Chg Paul
--- NOTE | 2021-09-16 14:05 | PM.HP ---
Providers/Chief Complaint Admitting Physician: Amilcar Sanchez MD Primary Care Provider: Chin Salazar DO Chief Complaint: BACK PAIN History of Present Illness Casey Alves is a 86 year old male with underlying dementia who resides at [facility]. From my understanding he had a fall 4 to 5 weeks ago, and has been having some back pain ever since. He was seen in the emergency department on September 10 for suicidal ideation, back pain and constipation. He received an orthopedic consultation at that time. He has come back to the emergency department today with intractable back pain, decreasing mobility. Patient himself has underlying confusion history is somewhat difficult. He does remember that he has back pain, that is in the lower portion of his back. He does remember a fall in the past. He states pain medicine helps some. Nursing facility reports diminished mobility. Other history is difficult to obtain from the patient. I have called and left a message for daughter. Review of Systems General: Reports: ROS unobtainable due to mental status (Difficult to obtain secondary to dementia) Medications/Allergies Home Medications Medication Instructions Recorded Confirmed Last Taken Type apixaban 2.5 mg tablet (Eliquis) 2.5 mg PO BID@0800,199906/12/19 09/16/21 09/15/21 History finasteride 5 mg tablet 5 mg PO DAILY@199906/12/19 09/16/21 09/15/21 History tamsulosin 0.4 mg capsule 0.4 mg PO DAILY@199906/12/19 09/16/21 09/15/21 History potassium chloride 10 mEq 10 meq PO DAILY@0800 05/22/20 09/16/21 09/15/21 History capsule,extended release hydralazine 25 mg tablet 25 mg PO BID@0800,199901/09/21 09/16/21 09/15/21 History levetiracetam 1,000 mg tablet 1,000 mg PO BID@0800,199901/09/21 09/16/21 09/15/21 History isosorbide mononitrate 30 mg 15 mg PO DAILY@0800 tab 02/12/21 09/16/21 09/15/21 History tablet,extended release 24 hr citalopram 20 mg tablet 20 mg PO DAILY@08/02/21 09/16/21 09/15/21 History furosemide 80 mg tablet (Lasix) 80 mg PO DAILY@08/02/21 09/16/21 09/15/21 History galantamine 24 mg 24 hr 24 mg PO DAILY@08/02/21 09/16/21 09/15/21 History capsule,extended release aloe vera 1 applic TOPICAL DAILY PRN g 09/06/21 09/16/21 Unknown History hydroxyurea 500 mg capsule See Rx Instructions .ROUTE 09/06/21 09/16/21 09/15/21 History .COMPLEX cap acetaminophen 500 mg tablet 500 mg PO Q6H PRN #100 tab 09/08/21 09/16/21 Unknown Rx (Acetaminophen Extra Strength) oxycodone-acetaminophen 5 mg-325 1 tab PO Q8H PRN 30 Days #60 tab 09/08/21 09/16/21 09/16/21 05:30 Rx mg tablet (Percocet) aspirin 81 mg tablet,delayed 81 mg PO DAILY@09/10/21 09/16/21 09/15/21 History release levothyroxine 137 mcg tablet 137 mcg PO DAILY@09/10/21 09/16/21 09/15/21 History quetiapine 25 mg tablet (Seroquel) 25 mg PO TID PRN 09/10/21 09/16/21 Unknown History nystatin 100,000 unit/gram topical 1 applic TOPICAL BID 09/16/21 09/16/21 Unknown History powder sennosides 8.6 mg-docusate sodium 1 tab-cap PO DAILY 09/16/21 09/16/21 09/15/21 History 50 mg tablet (Senna Plus) Allergies Allergy/AdvReac Type Severity Reaction Status Date / Time lorazepam [From Ativan] AdvReac hallucinati Verified 09/16/21 08:11 ons PFSH Acute PFSH: Medical History Acquired polycythemia vera Alzheimer disease Atrial fibrillation with slow ventricular response Bradycardia CAD (coronary artery disease) Cardiomegaly CHF (congestive heart failure), NYHA class III Chronic atrial fibrillation COPD (chronic obstructive pulmonary disease) Diarrhea Encounter for rehabilitation evaluation 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 Hernia Hypertension Hypothyroid Lower urinary tract symptoms (LUTS) Mild cognitive impairment with memory loss Obstructive sleep apnea Pancytopenia Pulmonary hypertension Restless leg Vertebrobasilar dolichoectasia Weakness of both lower extremities Family History Father CAD (coronary artery disease) CHF (congestive heart failure) Social History Smoking and tobacco status: never smoked Second hand smoke exposure: No Smoking risk assessment/counseling performed?: No Alcohol intake: never Counseling given: No Counseling given: No Lives independently: Yes Marital status: / Current occupational status: retired History of recent travel: No Current gender identity: Male Vitals/I&O/Wt Last Vital Signs Temp 97.9 F 09/16/21 11:52 Pulse 45 L 09/16/21 11:52 Resp 18 09/16/21 11:52 BP 150/69 09/16/21 11:52 Pulse Ox 97 09/16/21 11:52 Weight last 48 hrs Weight 74.843 kg Physical Exam Narrative: General exam is a conversant but confused male, in no distress. HEENT: Atraumatic normocephalic. Pupils equally round. Oropharynx clear. Neck supple no lymphadenopathy thyromegaly Cardiovascular irregular, irregular with slow rate Lungs are clear no wheezing or crackles. Diminished breath sounds are noted. Abdomen is soft with positive bowel sounds. No obvious organomegaly exam is deferred Extremities no cyanosis clubbing or edema, patient is able to perform a straight leg raise. Skin without rash Neuro: Confused with no obvious focal deficits. No foot drop. Sensation intact. On bladder scan only about 200 cc of retained urine. Data : 09/16/21 08:26 09/16/21 09:00 Other Labs: EKG demonstrated atrial fibrillation, rate of 60, normal axis, nonspecific ST-T wave changes I have ordered a urinalysis which is pending Chest x-ray cardiomegaly, no infiltrate Thoracic spine MRI no significant acute findings. Lumbar spine MRI demonstrates slightly comminuted acute L2 superior endplate compression, with disc bulging resulting in moderate central spinal stenosis. Some enhancement and edema consistent with post trauma and some small amount of likely blood products L3-L4 with some mass-effect on the thecal sac and mild central canal stenosis. These were done on September 10. CT abdomen and pelvis from September 10 demonstrated constipation, spinal abnormalities above, cardiomegaly, cholelithiasis LFTs are normal Albumin 3.4 A&P Assessment and plan (1) Compression fracture of vertebra: Patient presents with history of fall 4 to 5 weeks ago. He is having significant pain, intractable, that is affecting his mobility. This is progressed to a point he is no longer safe to be at his assisted care living facility. He does not have evidence of cauda equina syndrome currently. 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 Oxycodone, morphine as needed for pain Physical therapy consultation Addition of Neurontin 100 mg twice daily Consultation with orthopedic spine surgery Status: Acute (2) Atrial fibrillation with slow ventricular response: This is chronic Avoid any rate controlling agents Telemetry Hold patient's apixaban, as surgery may be needed for intractable back pain. Status: Acute (3) Alzheimer disease: Has dementia, with behaviors. Note that he has had a severe reaction to benzodiazepines in the past with hallucinations. Seroquel as needed is given at the assisted living. He has significant macrocytosis. TSH has been recently checked. We will also check a B12. Status: Acute (4) COPD (chronic obstructive pulmonary disease): Has significant COPD, on chronic oxygen at 3 L. Continue oxygen currently, use DuoNeb as needed. Status: Acute (5) Epilepsia partialis continua: Continue Keppra Status: Acute (6) CHF (congestive heart failure), NYHA class III: Currently compensated. Reassess on restarting Lasix, potassium tomorrow Status: Acute Qualifiers: Congestive heart failure type: diastolic Congestive heart failure chronicity: acute on chronic Qualified Code(s): I50.33 - Acute on chronic diastolic (congestive) heart failure Plan Multiple other medical problems as outlined in past medical history Full code currently SCDs for DVT prophylaxis as spinal surgery is being contemplated. 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
--- NOTE | 2021-09-16 14:27 | ECG_ITS ---
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 Measurements Intervals [place] Rate: 39 P: NE: QRS: 27 QRSD: 94 T: 29 QT: 532 QTc: 430 Interpretive Statements SUPRAVENTRICULAR BRADYCARDIA SEPTAL MYOCARDIAL INFARCTION , OF INDETERMINATE AGE [40+ ms Q WAVE IN V1/V2] CRITICAL TEST RESULT Compared to ECG 09/16/2021 08:21:29 Myocardial infarct finding now present Atrial fibrillation no longer present Ventricular premature complex(es) no longer present Aberrant conduction of supraventricular beat(s) no longer present ST (T wave) deviation no longer present Electronically Signed On 09-17-2021 6:50:22 CDT by Marlen Bernstein M.D. [id number]
[2021-09-16] MEDS: acetaminophen 500 mg Tablet PO (14:32)
[2021-09-16] MEDS: oxyCODONE 5 mg IR Tab/Cap PO (14:32)
[2021-09-16 14:35] LABS: Estmated Average Glucose 148; Hemoglobin A1C 6.8 % (4.0-6.0)
[2021-09-16 15:23] LABS: Vitamin B12 340 pg/mL (232-1245)
--- NOTE | 2021-09-16 17:37 | PM.CONSULT ---
Providers/Reason For Consult Consulting Physician/Specialty*: Orthopaedic Spine Reason for Consult*: Back Pain Attending Physician: Amilcar Sanchez MD Primary Care Provider: Chin Salazar DO History of Present Illness History of Present Illness Mr Alves is a 86 year old male who was evaluated in complaining of back pain.? He states that approximately 4-5 weeks ago he had fallen from a standing position sustaining injury to his back. He is presented to the [facility] ER on multiple occasions for his Back Pain. MRI and CAT scan have showed an acute L2 compression fracture orthopedics was consulted for evaluation.? He complains of sharp stabbing pain in his back with weakness in his legs.? Movement bending twisting activities make his back pain unbearable.? He denies any neck pain denies any shoulder or arm pain.? States that the pain in his back is constant spasming in nature.? He cannot stand due to pain. He has not found much other than rest to give him some temporary relief. He was evaluated in ROom 268 without family present. An extensive review of the patient's past medical history, surgical history, allergies, medications, family history, social history, and review of systems was completed Review of Systems General: Reports: ROS unobtainable due to mental status (Difficult to obtain secondary to dementia) Medications/Allergies Home Medications Medication Instructions Recorded Confirmed Last Taken Type apixaban 2.5 mg tablet (Eliquis) 2.5 mg PO BID@0800,199906/12/19 09/16/21 09/15/21 History finasteride 5 mg tablet 5 mg PO DAILY@199906/12/19 09/16/21 09/15/21 History tamsulosin 0.4 mg capsule 0.4 mg PO DAILY@199906/12/19 09/16/21 09/15/21 History potassium chloride 10 mEq 10 meq PO DAILY@0800 05/22/20 09/16/21 09/15/21 History capsule,extended release hydralazine 25 mg tablet 25 mg PO BID@0800,199901/09/21 09/16/21 09/15/21 History levetiracetam 1,000 mg tablet 1,000 mg PO BID@0800,199901/09/21 09/16/21 09/15/21 History isosorbide mononitrate 30 mg 15 mg PO DAILY@0800 tab 02/12/21 09/16/21 09/15/21 History tablet,extended release 24 hr citalopram 20 mg tablet 20 mg PO DAILY@08/02/21 09/16/21 09/15/21 History furosemide 80 mg tablet (Lasix) 80 mg PO DAILY@08/02/21 09/16/21 09/15/21 History galantamine 24 mg 24 hr 24 mg PO DAILY@08/02/21 09/16/21 09/15/21 History capsule,extended release aloe vera 1 applic TOPICAL DAILY PRN g 09/06/21 09/16/21 Unknown History hydroxyurea 500 mg capsule See Rx Instructions .ROUTE 09/06/21 09/16/21 09/15/21 History .COMPLEX cap acetaminophen 500 mg tablet 500 mg PO Q6H PRN #100 tab 09/08/21 09/16/21 Unknown Rx (Acetaminophen Extra Strength) oxycodone-acetaminophen 5 mg-325 1 tab PO Q8H PRN 30 Days #60 tab 09/08/21 09/16/21 09/16/21 05:30 Rx mg tablet (Percocet) aspirin 81 mg tablet,delayed 81 mg PO DAILY@09/10/21 09/16/21 09/15/21 History release levothyroxine 137 mcg tablet 137 mcg PO DAILY@09/10/21 09/16/21 09/15/21 History quetiapine 25 mg tablet (Seroquel) 25 mg PO TID PRN 09/10/21 09/16/21 Unknown History nystatin 100,000 unit/gram topical 1 applic TOPICAL BID 09/16/21 09/16/21 Unknown History powder sennosides 8.6 mg-docusate sodium 1 tab-cap PO DAILY 09/16/21 09/16/21 09/15/21 History 50 mg tablet (Senna Plus) Allergies Allergy/AdvReac Type Severity Reaction Status Date / Time lorazepam [From Ativan] AdvReac hallucinati Verified 09/16/21 08:11 ons Current Medications Generic Name Dose Route Start Last Admin Trade Name Freq PRN Reason Stop Dose Admin Acetaminophen 500 mg 09/16/21 14:03 09/16/21 14:32 Acetaminophen 500 Mg Tablet PO 500 mg Q6H PRN Administration MILD pain Oxycodone HCl 5 mg 09/16/21 14:04 09/16/21 14:32 Oxycodone 5 Mg Ir Tab/Cap PO 5 mg Q4H PRN Administration MODERATE PAIN PFSH Acute PFSH: Medical History Acquired polycythemia vera Alzheimer disease Atrial fibrillation with slow ventricular response Bradycardia CAD (coronary artery disease) Cardiomegaly CHF (congestive heart failure), NYHA class III Chronic atrial fibrillation COPD (chronic obstructive pulmonary disease) Diarrhea Encounter for rehabilitation evaluation 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 Hernia Hypertension Hypothyroid Lower urinary tract symptoms (LUTS) Mild cognitive impairment with memory loss Obstructive sleep apnea Pancytopenia Pulmonary hypertension Restless leg Vertebrobasilar dolichoectasia Weakness of both lower extremities Family History Father CAD (coronary artery disease) CHF (congestive heart failure) Social History Smoking and tobacco status: never smoked Second hand smoke exposure: No Smoking risk assessment/counseling performed?: No Alcohol intake: never Counseling given: No Counseling given: No Lives independently: Yes Marital status: / Current occupational status: retired History of recent travel: No Current gender identity: Male Vitals/I&O/Wt Last Vital Signs Temp 97.8 F 09/16/21 15:38 Pulse 51 L 09/16/21 15:38 Resp 17 09/16/21 15:38 BP 163/73 09/16/21 15:38 Pulse Ox 99 09/16/21 15:38 Weight last 48 hrs Weight 195 lb 14.4 oz Weight 165 lb Physical Exam Narrative: He is alert oriented he is able to wiggle all lower extremities with some pain worse in the left than the right.? He can dorsiflex and plantarflex he can flex his knees with increased back pain.? He has normal sensation to light touch, toes warm with good cap refill, dorsalis pedis posterior pulses are palpable.? He has negative logroll bilaterally.? He has palpable pain in the lumbar, non-tender in thoracic region.? He has normal station light touch in both upper extremities the shoulders elbows and wrists hands warm well cap refill is no palpable pain in the cervical spine.? He is laying in the position no obvious bruising or swelling in his lumbar or thoracic region.? States he has back pain with palpation through the mid and lumbar region. HENMT: COMMON NORMALS: normocephalic and atraumatic HEAD & SCALP: normocephalic and atraumatic Resp: COMMON NORMALS: normal respiratory effort Cardio: COMMON NORMALS: regular rate and regular rhythm RATE: regular rate RHYTHM: regular rhythm GI: COMMON NORMALS: non-tender : COMMON NORMALS: Yes no CVA tenderness BLADDER/KIDNEY EXAM: Yes no CVA tenderness Back/Pelvis: COMMON NORMALS: no CVA tenderness Psych: COMMON NORMALS: cooperative Data : 09/16/21 08:26 09/16/21 09:00 MRI: My impression: MR/MR lumbar spine wo/w con [id number] IMPRESSION: ? 1.? Again seen is the slightly comminuted acute L2 superior endplate compression fracture with slight retropulsion posterior superior endplate and fluid in the fracture cleft. In combination with L1-L2 disc bulging, this results in moderate central canal stenosis with narrowing of the subarticular recess. Moderate facet arthropathy at this level contributes to stenosis. 2.? Diffuse paravertebral, psoas, and epidural enhancement at the L2 level with enhancement and edema in the inferior L1 endplate with superimposed Schmorl's node. Enhancement and edema presumably reactive post trauma. Recommend correlation with infection to exclude superimposed discitis. 3.? Small amount of suspected LEFT eccentric epidural blood products at the L3-L4 level results in LEFT to RIGHT mass effect on the thecal sac and mild central canal stenosis. This would be compatible with recent trauma and fracture. 4.? Mild central canal stenosis L4-L5 with slight impingement on the LEFT subarticular recess due to disc bulging with facet arthropathy and ligament flavum hypertrophy. 5.? Otherwise mild foraminal narrowing described above. A&P Assessment and plan (1) Traumatic compression fracture of L2 vertebra: Discussed options with the patient of back brace verse surgical Kyphoplasty. He wishes to proceed with L2 Kyphoplasty. Disscussed with Dr Berry and he agrees with stated plan. 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
[2021-09-16] MEDS: morphine 4 mg/mL SDV 1 mL 2 MG IVP (17:52)
[2021-09-16] MEDS: gabapentin 100 mg Capsule PO (17:53)
[2021-09-16] MEDS: finasteride 5 mg Tablet PO (19:29)
[2021-09-16] MEDS: levETIRAcetam 500 mg Tablet 1000 MG PO (19:29)
[2021-09-16] MEDS: hyDRALAzine 25 mg Tablet PO (19:29)
[2021-09-16] MEDS: tamsulosin 0.4 mg Capsule PO (19:30)
[2021-09-16 19:51] LABS: Add Urine Culture? No; Bacteria Urine TRACE /hpf; Bilirubin Urine 2+ (Negative); Blood Urine Neg (Negative); Glucose Urine UA Norm (Normal); Hyaline Casts Urine 0-4 /lpf; Ketones Urine Negative (Negative); Leukocyte Esterase Urine Negative (Negative); Nitrate Urine Negative (Negative); Protein Urine Neg (Negative); RBC Urine 0-4 /hpf (0-2); Specific Gravity, Urine 1.015 (1.005-1.030); Squamous Epithelial Cell Urine 0-4 /hpf (0-5); Urine Appearance Clear (CLEAR); Urine Color Yellow (Yellow); Urobilinogen Urine 1 mg/dL (Negative); WBC Urine 0-4 /hpf (0-5); pH Urine 6 (5-7)
[2021-09-16 21:35] LABS: Glucose Point of Care 168 mg/dL (70-110)
[2021-09-17] VITALS (25 sets, daily range): BP systolic 133–168; BP diastolic 58–84; PULSE 39–78; RESP 12–19; TEMP 36.1–36.7; O2SAT 90–100
--- NOTE | 2021-09-17 | SCC_ITS ---
Procedure done: L2 Kyphoplasty 90.7 seconds of fluoroscopic guidance, for a cumulative dose of 96.8 mGy, was provided to Dr. Berry by the radiology department. C-arm images of the lumbar spine were saved for the patient's permanent record. [facility]
[2021-09-17 06:14] LABS: Basophils # 0.1 10^3/uL (0.0-0.1); Eosinophils # 0.2 10^3/uL (0.0-0.8); Eosinophils % 1.8 %; Hematocrit 44.6 % (42.0-52.0); Lymphocytes # 0.6 10^3/uL (0.8-4.8); Lymphocytes % 6.2 %; Mean Corpuscular HGB Conc 31.4 g/dL (30.0-36.0); Mean Corpuscular Hemoglobin 35.3 pg (28.0-34.0); Mean Corpuscular Volume 112.3 fl (80-94); Mean Platelet Volume 9.7 fL (7.4-10.4); Monocytes # 0.6 10^3/uL (0.2-0.9); Monocytes % 6.9 %; Neutrophils # 7.71 10^3/uL (1.8-7.7); Neutrophils % 83.5 %; Nucleated Red Blood Cells % 0 %; Platelet Count 445 10^3/cmm (130-400); Red Blood Count 3.97 10^6/uL (4.1-5.3); Red Cell Distribution Width 15.3 % (12.1-15.1); White Blood Count 9.2 10^3/uL (4.0-10.0)
[2021-09-17 07:05] LABS: Alanine Aminotransferase 12 U/L (0-41); Albumin Level 3.2 g/dL (3.5-5.2); Alkaline Phosphatase 120 IU/L (40-130); Anion Gap 12.8 (5-19); Aspartate Amino Transferase 7 U/L (0-40); Blood Urea Nitrogen 16 mg/dL (8-23); Calcium 8.7 mg/dL (8.5-10.5); Carbon Dioxide 34 mmol/L (22-29); Chloride 102 mmol/L (98-107); Globulin 3.1 g/dL (1.3-4.6); Glucose 120 mg/dL (65-115); Osmolality Calculated 302 mOsm/kg (285-295); Potassium 3.8 mmol/L (3.5-5.1); Sodium 145 mmol/L (136-145); Total Bilirubin 0.5 mg/dL (0.15-1.2); Total Protein 6.3 g/dL (6.6-8.7)
[2021-09-17] MEDS: levothyroxine 137 mcg Tablet PO (07:47)
[2021-09-17] MEDS: hyDRALAzine 25 mg Tablet PO ×2 (07:48→20:16)
[2021-09-17] MEDS: levETIRAcetam 500 mg Tablet 1000 MG PO ×2 (07:49→20:16)
[2021-09-17] MEDS: isosorbide mononitrate ER 30 mg Tablet 15 MG PO (07:49)
[2021-09-17] MEDS: oxyCODONE 5 mg IR Tab/Cap PO (07:49)
[2021-09-17] MEDS: citalopram 20 mg Tablet PO (07:51)
--- NOTE | 2021-09-17 08:09 | PC.NURSE ---
meds Sip of water to take morning meds.
--- NOTE | 2021-09-17 09:18 | PM.PN ---
Subjective Subjective: Casey reports his back hurts quite a bit. He knows he is getting surgery today. No chest pain or shortness of breath. Medications: Reviewed: Yes Vitals/I&O/Wt Last Vital Signs Temp 97.9 F 09/17/21 07:28 Pulse 39 L 09/17/21 07:58 Resp 18 09/17/21 07:58 BP 166/81 09/17/21 07:28 Pulse Ox 96 09/17/21 07:58 09/16/21 09/17/21 09/17/21 22:59 06:59 14:59 Intake Total 680 / 680 Output Total 475 / 475 Balance 680 / 680 -475 / 205 Weight last 48 hrs Weight 88.859 kg Weight 74.843 kg Physical Exam Narrative: General exam conversant but confused Neck supple no lymphadenopathy thyromegaly Cardiovascular irregular, irregular with slow rate Lungs are clear no wheezing or crackles. Diminished breath sounds are noted. Abdomen is soft with positive bowel sounds. No obvious organomegaly exam demonstrates Tee Extremities no cyanosis clubbing or edema, patient is able to perform a straight leg raise. Skin without rash Neuro: Confused but no focal deficits Urinary Catheter Management: Tee: Cath Placed During This Visit: yes Reason for Continuing Indwelling Catheter: Acute Urinary Retention or Obstruction Urinary Catheter Date of Insertion: 09/16/21 Urinary Catheter Time of Insertion: 19:15 Data : 09/17/21 06:04 09/17/21 06:04 A&P Assessment and plan (1) Compression fracture of vertebra: Patient presents with history of fall 4 to 5 weeks ago. He is having significant pain, intractable, that is affecting his mobility. This is progressed to a point he is no longer safe to be at his assisted care living facility. He does not have evidence of cauda equina syndrome currently. 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 Oxycodone, morphine as needed for pain Physical therapy consultation appreciated Neurontin added yesterday Appreciate orthopedic spine surgery consult. Kyphoplasty planned today Will need nursing facility placement Status: Acute (2) Atrial fibrillation with slow ventricular response: This is chronic Avoid any rate controlling agents Telemetry Hold patient's apixaban, as surgery may be needed for intractable back pain. Status: Acute (3) Alzheimer disease: Has dementia, with behaviors. Note that he has had a severe reaction to benzodiazepines in the past with hallucinations. Seroquel as needed is given at the assisted living. He has significant macrocytosis. TSH has been recently checked. B12 is normal Status: Acute (4) COPD (chronic obstructive pulmonary disease): Has significant COPD, on chronic oxygen at 3 L. Continue oxygen currently, use DuoNeb as needed. Status: Acute (5) Epilepsia partialis continua: Continue Keppra Status: Acute (6) CHF (congestive heart failure), NYHA class III: Currently compensated. Holding Lasix currently Status: Acute Qualifiers: Congestive heart failure type: diastolic Congestive heart failure chronicity: acute on chronic Qualified Code(s): I50.33 - Acute on chronic diastolic (congestive) heart failure Plan Multiple other medical problems as outlined in past medical history Full code currently SCDs for DVT prophylaxis as spinal surgery is being contemplated. 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
--- NOTE | 2021-09-17 11:20 | PC.CHAP ---
Pastoral Care Encounter/Spiritual Assessment Type of Contact [] Declined subscription crew leader visit [] Patient/Family/Request visit [] Outpatient visit [] Follow-up visit [] Physician referral [] Code/Alert [x] Routine visit [] Staff referral [] Actively dying [] Patient sleeping [] Family support [] [x] Out of room [] Palliative care [] [] Receiving care in room [] Pre-surgical visit [] Trauma [] Long length of stay [] ICU visit [] Other: Relational/Emotional Strength [] Patient feels connected with others/family/visitors/staff [] Distress [] Loneliness/isolation [] Abandonment Spirituality of Patient [] Person of Ana [] Attends Jehovah'S Witness of their Ana [] Believes in Prayer [] Reads Bible or Jewish materials [] There are Spiritual issues to be addressed Match Up Worker Interventions [] Prayer [] Active listening [] Non-anxious presence [] Spiritual/emotional support [] Crisis/trauma care [] Spiritual counseling [] Bereavement support [] Provided bereavement packet [] Provided Bible/devotional materials [] Provided toy/stuffed animal, coloring book to patient or family member [] Provided Communion [] Anointing/Ezel [] Salvation [] Completed spiritual assessment [] Other: Impact on Illness or Injury [] Angry [] Fearful [] Anxious [] Often cries [] Exhaustion [] Unable to work [] Unable to attend quaker [] Unable to walk/stand [] Unable to read [] Unable to drive [] Unable to eat/drink [] Unable to sleep [] Unable to be with family [] Patient intubated [] Other: Summary Time spent with patient
--- NOTE | 2021-09-17 11:23 | PC.NURSE ---
Surgery Pt taken down to surgery.
--- NOTE | 2021-09-17 11:50 | W.PM.OPSUD ---
Surgery/Procedure H&P Update DATE OF PROCEDURE: September 17, 2021 DATE H&P PERFORMED: 09/16/21 H&P UPDATE INFORMATION: I have reviewed H&P completed within last 30 days, I have examined patient prior to procedure and No changes to prior documentation PREOP DIAGNOSIS: L2 Traumatic Compression Fracture PLANNED PROCEDURE: Operation Date: 09/17/21 11:15 Proposed Procedures p Kyphoplasty L2(Not Applicable) - Julito Berry, DO
[2021-09-17] MEDS: sodium chloride 0.9% 1,000 ML 30 ML IV (12:00)
--- NOTE | 2021-09-17 12:43 | ANES.PREANE2 ---
Pre-Anesthetic Assessment Height/Weight: Height 1.85 m Weight 88.859 kg Temp Pulse Resp BP Pulse Ox 97.9 F 39 L 18 166/81 96 09/17/21 07:28 09/17/21 07:58 09/17/21 07:58 09/17/21 07:28 09/17/21 07:58 Preop Diagnosis: L2 Traumatic Compression Fracture Operation Date: 09/17/21 11:15 Proposed Procedures p Kyphoplasty L2(Not Applicable) - Julito Berry, DO Familial anesthetic complications: None Was Beta Inez taken within 24 hours: N/A Was Clonidine taken within 24 hours: N/A Last intake: Intake Last Liquid Date 09/17/21 Last Liquid Time 07:55 Last Solid Date 09/16/21 Last Solid Time 18:00 Social No alcohol and No tobacco Exam alert and clear to auscultation bilaterally Rohit Airway Submandibular: within normal limits Cervical ROM: within normal limits Mallampati: Class II Dentition: chipped Pulmonary Chronic Obstructive Pulmonary Disease CV/HEM Congestive Heart Failure (preserved LV fxn) and Hypertension PHTN (severe) Musc/skel Lower Back Pain and Osteoarthritis/DJD Neuropsych Dementia and Neuropathy Anesthetic Plan ASA status: 3 Anesthesia: General Medications/Allergies Home Medications Medication Instructions Recorded Confirmed Last Taken Type apixaban 2.5 mg tablet (Eliquis) 2.5 mg PO BID@0800,199906/12/19 09/16/21 09/15/21 History finasteride 5 mg tablet 5 mg PO DAILY@199906/12/19 09/16/21 09/15/21 History tamsulosin 0.4 mg capsule 0.4 mg PO DAILY@199906/12/19 09/16/21 09/15/21 History potassium chloride 10 mEq 10 meq PO DAILY@0800 05/22/20 09/16/21 09/15/21 History capsule,extended release hydralazine 25 mg tablet 25 mg PO BID@0800,199901/09/21 09/16/21 09/15/21 History levetiracetam 1,000 mg tablet 1,000 mg PO BID@0800,199901/09/21 09/16/21 09/15/21 History isosorbide mononitrate 30 mg 15 mg PO DAILY@0800 tab 02/12/21 09/16/21 09/15/21 History tablet,extended release 24 hr citalopram 20 mg tablet 20 mg PO DAILY@08/02/21 09/16/21 09/15/21 History furosemide 80 mg tablet (Lasix) 80 mg PO DAILY@08/02/21 09/16/21 09/15/21 History galantamine 24 mg 24 hr 24 mg PO DAILY@08/02/21 09/16/21 09/15/21 History capsule,extended release aloe vera 1 applic TOPICAL DAILY PRN g 09/06/21 09/16/21 Unknown History hydroxyurea 500 mg capsule See Rx Instructions .ROUTE 09/06/21 09/16/21 09/15/21 History .COMPLEX cap acetaminophen 500 mg tablet 500 mg PO Q6H PRN #100 tab 09/08/21 09/16/21 Unknown Rx (Acetaminophen Extra Strength) oxycodone-acetaminophen 5 mg-325 1 tab PO Q8H PRN 30 Days #60 tab 09/08/21 09/16/21 09/16/21 05:30 Rx mg tablet (Percocet) aspirin 81 mg tablet,delayed 81 mg PO DAILY@09/10/21 09/16/21 09/15/21 History release levothyroxine 137 mcg tablet 137 mcg PO DAILY@09/10/21 09/16/21 09/15/21 History quetiapine 25 mg tablet (Seroquel) 25 mg PO TID PRN 09/10/21 09/16/21 Unknown History nystatin 100,000 unit/gram topical 1 applic TOPICAL BID 09/16/21 09/16/21 Unknown History powder sennosides 8.6 mg-docusate sodium 1 tab-cap PO DAILY 09/16/21 09/16/21 09/15/21 History 50 mg tablet (Senna Plus) Allergies Allergy/AdvReac Type Severity Reaction Status Date / Time lorazepam [From Ativan] AdvReac hallucinati Verified 09/16/21 08:11 ons Current Medications Generic Name Dose Route Start Last Admin Trade Name Freq PRN Reason Stop Dose Admin Acetaminophen 500 mg 09/16/21 14:03 09/16/21 14:32 Acetaminophen 500 Mg Tablet PO 500 mg Q6H PRN Administration MILD pain Citalopram Hydrobromide 20 mg 09/17/21 08:00 09/17/21 07:51 Citalopram 20 Mg Tablet PO 20 mg DAILY@08 [facility] Administration Finasteride 5 mg 09/16/21 20:00 09/16/21 19:29 Finasteride 5 Mg Tablet PO 5 mg DAILY@1999 [facility] Administration Gabapentin 100 mg 09/16/21 18:00 09/17/21 09:21 Gabapentin 100 Mg Capsule PO Not Given BID [facility] Hydralazine HCl 25 mg 09/16/21 20:00 09/17/21 07:48 Hydralazine 25 Mg Tablet PO 25 mg BID@08 [facility] Administration Sodium Chloride 1,000 mls @ 30 mls/hr 09/17/21 11:30 09/17/21 12:00 Sodium Chloride 0.9% IV 09/18/21 11:29 30 mls/hr .Q24H [facility] Administration Isosorbide Mononitrate 15 mg 09/17/21 08:00 09/17/21 07:49 Isosorbide Mononitrate Er 30 Mg Tablet PO 15 mg DAILY@0800 [facility] Administration Levetiracetam 1,000 mg 09/16/21 20:00 09/17/21 07:49 Levetiracetam 500 Mg Tablet PO 1,000 mg BID@ [facility] Administration Levothyroxine Sodium 137 mcg 09/17/21 08:00 09/17/21 07:47 Levothyroxine 137 Mcg Tablet PO 137 mcg DAILY@08 [facility] Administration Morphine Sulfate 2 mg 09/16/21 14:25 09/16/21 17:52 Morphine 4 Mg/Ml Sdv 1 Ml IVP 2 mg Q4H PRN Administration SEVERE PAIN Oxycodone HCl 5 mg 09/16/21 14:04 09/17/21 07:49 Oxycodone 5 Mg Ir Tab/Cap PO 5 mg Q4H PRN Administration MODERATE PAIN Senna/Docusate Sodium 1 tab 09/17/21 09:00 09/17/21 09:21 Sennosides-Docusate Tablet PO Not Given DAILY [facility] Tamsulosin HCl 0.4 mg 09/16/21 20:00 09/16/21 19:30 Tamsulosin 0.4 Mg Capsule PO 0.4 mg DAILY@1999 [facility] Administration [facility] Anesthesia Medical History Acquired polycythemia vera Alzheimer disease Atrial fibrillation with slow ventricular response Bradycardia CAD (coronary artery disease) Cardiomegaly CHF (congestive heart failure), NYHA class III Chronic atrial fibrillation COPD (chronic obstructive pulmonary disease) Diarrhea Encounter for rehabilitation evaluation 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 Hernia Hypertension Hypothyroid Lower urinary tract symptoms (LUTS) Mild cognitive impairment with memory loss Obstructive sleep apnea Pancytopenia Pulmonary hypertension Restless leg Vertebrobasilar dolichoectasia Weakness of both lower extremities Family History Father CAD (coronary artery disease) CHF (congestive heart failure) Social History Smoking and tobacco status: never smoked Second hand smoke exposure: No Smoking risk assessment/counseling performed?: No Alcohol intake: never Counseling given: No Counseling given: No Lives independently: Yes Marital status: / Current occupational status: retired History of recent travel: No Current gender identity: Male Data Anesthesia : 09/17/21 06:04 09/17/21 06:04 Short CBC 09/16/21 09/17/21 Range/Units 08:26 06:04 WBC 9.8 9.2 (4.0-10.0) 10^3/uL Hgb 14.0 14.0 (11.7-16.6) g/dL Hct 43.6 44.6 (42.0-52.0) % MCV 107.1 H 112.3 H (80-94) fl Plt Count 494 H 445 H (130-400) 10^3/cmm Neut % (Auto) 87.6 83.5 % Neut # (Auto) 8.61 H 7.71 H (1.8-7.7) 10^3/uL BMP 09/16/21 09/16/21 09/17/21 08:26 09:00 06:04 Sodium Cancelled 138 145 Potassium Cancelled 3.6 3.8 Chloride Cancelled 99 102 Carbon Dioxide Cancelled 30 H 34 H BUN Cancelled 16 16 Creatinine Cancelled 1.1 1.1 Glucose Cancelled 173 H 120 H Calcium Cancelled 8.6 8.7 Liver Function 09/16/21 09/16/21 09/17/21 Range/Units 08:26 09:00 06:04 Total Bilirubin Cancelled 0.6 0.5 AST Cancelled 13 7 ALT Cancelled 11 12 Alkaline Phosphatase Cancelled 124 120 Albumin Cancelled 3.4 L 3.2 L Urine 09/16/21 Range/Units 19:16 Urine Color Yellow (Yellow) Urine Appearance Clear (CLEAR) Urine pH 6 (5-7) Ur Specific [place] 1.015 (1.005-1.030) Urine Protein Neg (Negative) Urine Glucose (UA) Norm (Normal) Urine Ketones Negative (Negative) Urine Nitrate Negative (Negative) Urine Bilirubin 2+ H (Negative) Ur Leukocyte Esterase Negative (Negative) Urine RBC 0-4 H (0-2) /hpf Urine WBC 0-4 H (0-5) /hpf Cardiac Studies: Echocardiogram 01/10/21 Sestamibi Stress Test (Cardiology) 10/12/19 Holter Monitor 09/28/19
[2021-09-17] MEDS: iohexol 300 mg/mL 50 mL Btl (OR ONLY) XX (12:44)
[2021-09-17] MEDS: lactated ringers 1,000 ML 90 ML IV (15:44)
[2021-09-17] MEDS: HYDROcodone-acetaminophen 5-325 mg Tablet PO (15:48)
--- NOTE | 2021-09-17 16:18 | ANE.PACU2 ---
Inpatient post-anesthesia follow up: Airway intact: Yes Vital signs: Temperature 97.6 F Pulse Rate 53 Respiratory Rate 18 Blood Pressure 168/78 Pulse Oximetry 97 Oxygen Delivery Me thod Room Air Oxygen Flow Rate 3 Fraction of Inspir ed Oxygen Hydration adequate: Yes Nausea and vomiting: No Pain level: 2 Mental status: Baseline
--- NOTE | 2021-09-17 18:15 | SC_ITS ---
WS: [id number] Lumbar kyphoplasty, 09/17/2021 Clinical Data: L2 Kypho Comparison: None. Findings: Lumbar kyphoplasty. SC/C-arm FL for Kyphoplasty Impression: Lumbar kyphoplasty.
[2021-09-17] MEDS: gabapentin 100 mg Capsule PO (18:29)
[2021-09-17] MEDS: docusate sodium 100 mg Capsule PO (18:29)
[2021-09-17] MEDS: finasteride 5 mg Tablet PO (20:16)
[2021-09-17] MEDS: tamsulosin 0.4 mg Capsule PO (20:16)
[2021-09-17 21:02] LABS: Glucose Point of Care 242 mg/dL (70-110)
[2021-09-18] VITALS (7 sets, daily range): BP systolic 132–164; BP diastolic 58–87; PULSE 49–82; RESP 16–20; TEMP 36.5–36.9; O2SAT 92–98
[2021-09-18] MEDS: lactated ringers 1,000 ML 90 ML IV (02:11)
[2021-09-18 06:06] LABS: Basophils % 0.5 %; Eosinophils # 0.1 10^3/uL (0.0-0.8); Eosinophils % 0.7 %; Hematocrit 41.3 % (42.0-52.0); Lymphocytes # 0.4 10^3/uL (0.8-4.8); Mean Corpuscular HGB Conc 31.5 g/dL (30.0-36.0); Mean Corpuscular Volume 111.3 fl (80-94); Mean Platelet Volume 10.2 fL (7.4-10.4); Monocytes # 0.7 10^3/uL (0.2-0.9); Monocytes % 7.5 %; Neutrophils % 85.5 %; Nucleated Red Blood Cells % 0 %; Platelet Count 481 10^3/cmm (130-400); Red Blood Count 3.71 10^6/uL (4.1-5.3); Red Cell Distribution Width 14.9 % (12.1-15.1); White Blood Count 8.7 10^3/uL (4.0-10.0)
[2021-09-18 06:14] LABS: Glucose Point of Care 129 mg/dL (70-110)
[2021-09-18] MEDS: HYDROcodone-acetaminophen 5-325 mg Tablet PO ×2 (06:18→17:40)
[2021-09-18 06:32] LABS: Anion Gap 10.5 (5-19); Blood Urea Nitrogen 23 mg/dL (8-23); Calcium 8.3 mg/dL (8.5-10.5); Carbon Dioxide 33 mmol/L (22-29); Chloride 100 mmol/L (98-107); Glucose 135 mg/dL (65-115); Osmolality Calculated 294 mOsm/kg (285-295); Potassium 4.5 mmol/L (3.5-5.1); Sodium 139 mmol/L (136-145)
--- NOTE | 2021-09-18 08:09 | PM.PN ---
Subjective Subjective: Casey reports he is doing okay. Back still hurts, but improved from yesterday. Confusion is evident in my conversation, about the same as yesterday. No chest pain or shortness of breath. Medications: Reviewed: Yes Vitals/I&O/Wt Last Vital Signs Temp 98.4 F 09/18/21 07:02 Pulse 59 L 09/18/21 07:31 Resp 16 09/18/21 07:31 BP 164/87 09/18/21 07:02 Pulse Ox 96 09/18/21 07:31 09/17/21 09/18/21 09/18/21 22:59 06:59 14:59 Intake Total 1150 / 1400 1820.5 / 3220.5 Output Total 275 / 1075 400 / 1475 Balance 875 / 325 1420.5 / 1745.5 Weight last 48 hrs Weight 88.859 kg Physical Exam Narrative: General exam conversant but confused Neck supple no lymphadenopathy thyromegaly Cardiovascular irregular, irregular with slow rate Lungs are clear no wheezing or crackles. Diminished breath sounds are noted. Abdomen is soft with positive bowel sounds. No obvious organomegaly Back with small dressing, no drainage exam demonstrates Tee Extremities no cyanosis clubbing or edema, patient is able to perform a straight leg raise. Skin without rash Neuro: Confused but no focal deficits Urinary Catheter Management: Tee: Cath Placed During This Visit: yes Reason for Continuing Indwelling Catheter: Acute Urinary Retention or Obstruction Urinary Catheter Date of Insertion: 09/16/21 Urinary Catheter Time of Insertion: 19:15 Data : 09/18/21 05:39 09/18/21 05:39 A&P Assessment and plan (1) Compression fracture of vertebra: Patient presents with history of fall 4 to 5 weeks ago. He is having significant pain, intractable, that is affecting his mobility. This is progressed to a point he is no longer safe to be at his assisted care living facility. He does not have evidence of cauda equina syndrome currently. 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 Oxycodone, morphine as needed for pain Physical therapy consultation appreciated Neurontin added yesterday Appreciate orthopedic spine surgery consult. Kyphoplasty was performed September 17. Patient believes pain is improved. Will need nursing facility placement Required Tee on entering hospital. DC Tee today, BladderScan as needed Status: Acute (2) Atrial fibrillation with slow ventricular response: This is chronic Avoid any rate controlling agents Telemetry Hold patient's apixaban, as surgery may be needed for intractable back pain. Resume apixaban tonight Status: Acute (3) Alzheimer disease: Has dementia, with behaviors. Note that he has had a severe reaction to benzodiazepines in the past with hallucinations. Seroquel as needed is given at the assisted living. He has significant macrocytosis. TSH has been recently checked. B12 is normal Status: Acute (4) COPD (chronic obstructive pulmonary disease): Has significant COPD, on chronic oxygen at 3 L. Continue oxygen currently, use DuoNeb as needed. Status: Acute (5) Epilepsia partialis continua: Continue Keppra Status: Acute (6) CHF (congestive heart failure), NYHA class III: Currently compensated. May resume his Lasix. Status: Acute Qualifiers: Congestive heart failure type: diastolic Congestive heart failure chronicity: acute on chronic Qualified Code(s): I50.33 - Acute on chronic diastolic (congestive) heart failure Plan Multiple other medical problems as outlined in past medical history Full code currently SCDs for DVT prophylaxis as spinal surgery is being contemplated. Attestations Medical Necessity Statement*: Needs continued hospitalization, for close follow-up of intractable pain, started physical therapy, concern for placement in this gentleman with spinal stenosis secondary to compression fracture with kyphoplasty yesterday. 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
[2021-09-18] MEDS: levothyroxine 137 mcg Tablet PO (08:33)
[2021-09-18] MEDS: isosorbide mononitrate ER 30 mg Tablet 15 MG PO (08:33)
[2021-09-18] MEDS: docusate sodium 100 mg Capsule PO ×2 (08:33→17:39)
[2021-09-18] MEDS: citalopram 20 mg Tablet PO (08:33)
[2021-09-18] MEDS: sennosides-docusate Tablet 1 TAB PO (08:33)
[2021-09-18] MEDS: gabapentin 100 mg Capsule PO ×2 (08:33→17:39)
[2021-09-18] MEDS: levETIRAcetam 500 mg Tablet 1000 MG PO ×2 (08:33→20:30)
--- NOTE | 2021-09-18 08:35 | P.PN_ITS ---
Subjective Subjective: POD 1 Casey is sitting up in the chair this morning states his back pain is much improved. He is somewhat confused this morning. Denies any chest pain or shortness of breath. Denies any headaches. Vitals/I&O/Wt Last Vital Signs Temp 98.4 F 09/18/21 07:02 Pulse 59 L 09/18/21 07:31 Resp 16 09/18/21 07:31 BP 164/87 09/18/21 07:02 Pulse Ox 96 09/18/21 07:31 09/17/21 09/18/21 09/18/21 22:59 06:59 14:59 Intake Total 1150 / 1400 1820.5 / 3220.5 Output Total 275 / 1075 400 / 1475 Balance 875 / 325 1420.5 / 1745.5 Weight last 48 hrs Weight 195 lb 14.4 oz Physical Exam Narrative: Patient presents alert with a good general appearance normal mood and affect. Mild tenderness around the incisional site with the incision appear to be clean and dry. No signs of erythema or drainage. No signs of infection. Patient denies any fevers or chills. 4/5 motor strength both lower extremities with negative straight leg raise bilaterally. Calves are supple no medial thigh tenderness. Pulses are 2+ at the dorsalis pedis and posterior tibial region. Good capillary refill throughout normal sensation light touch both lower extremities. Urinary Catheter Management: Tee: Cath Placed During This Visit: yes Reason for Continuing Indwelling Catheter: Acute Urinary Retention or Obstruction Urinary Catheter Date of Insertion: 09/16/21 Urinary Catheter Time of Insertion: 19:15 Data : 09/18/21 05:39 09/18/21 05:39 A&P Assessment and plan (1) Traumatic compression fracture of L2 vertebra: Casey is reporting significant improvement of his back pain this morning following a L2 kyphoplasty procedure. From orthopedic standpoint he is ready for discharge back to nursing facility when medically stable. We will see him back in the office in 2 weeks time for suture removal. Discussed being cautious with bending lifting and twisting activities. Continue to mobilize with physical therapy. Discontinue Tee catheter. 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
[2021-09-18] MEDS: FUROsemide 40 mg Tablet 80 MG PO (08:36)
[2021-09-18] MEDS: potassium chloride ER 10 mEq Tablet PO (08:36)
[2021-09-18] MEDS: hyDRALAzine 25 mg Tablet PO ×2 (08:36→20:29)
[2021-09-18 14:02] LABS: SARS Covid-2 Antigen Negative (Negative)
[2021-09-18] MEDS: apixaban 5 mg Tablet 2.5 MG PO (20:29)
[2021-09-18] MEDS: finasteride 5 mg Tablet PO (20:29)
[2021-09-18] MEDS: tamsulosin 0.4 mg Capsule PO (20:30)
[2021-09-19] VITALS: BP 119/66; PULSE 44; RESP 17; TEMP 37.1; O2SAT 97
[2021-09-19] MEDS: HYDROcodone-acetaminophen 5-325 mg Tablet PO ×2 (01:06→05:23)
[2021-09-19 04:00] VITALS: BP 173/73; PULSE 52; RESP 19; TEMP 36.8; O2SAT 97
[2021-09-19 05:47] LABS: Basophils # 0.1 10^3/uL (0.0-0.1); Eosinophils # 0.2 10^3/uL (0.0-0.8); Eosinophils % 1.9 %; Hematocrit 44.2 % (42.0-52.0); Hemoglobin 14.1 g/dL (11.7-16.6); Lymphocytes # 0.6 10^3/uL (0.8-4.8); Lymphocytes % 7.7 %; Mean Corpuscular HGB Conc 31.9 g/dL (30.0-36.0); Mean Corpuscular Hemoglobin 35.1 pg (28.0-34.0); Mean Platelet Volume 10.2 fL (7.4-10.4); Monocytes # 0.6 10^3/uL (0.2-0.9); Monocytes % 7.5 %; Neutrophils # 6.64 10^3/uL (1.8-7.7); Neutrophils % 80.8 %; Nucleated Red Blood Cells % 0 %; Platelet Count 473 10^3/cmm (130-400); Red Blood Count 4.02 10^6/uL (4.1-5.3); Red Cell Distribution Width 15.2 % (12.1-15.1); White Blood Count 8.2 10^3/uL (4.0-10.0)
[2021-09-19 06:10] LABS: Anion Gap 12.4 (5-19); Blood Urea Nitrogen 21 mg/dL (8-23); Calcium 8.2 mg/dL (8.5-10.5); Carbon Dioxide 35 mmol/L (22-29); Chloride 101 mmol/L (98-107); Glucose 129 mg/dL (65-115); Osmolality Calculated 303 mOsm/kg (285-295); Potassium 4.4 mmol/L (3.5-5.1); Sodium 144 mmol/L (136-145)
[2021-09-19 07:31] VITALS: BP 164/71; PULSE 69; RESP 18; TEMP 36.8; O2SAT 94
[2021-09-19 08:17] VITALS: PULSE 53; RESP 18; O2SAT 96
[2021-09-19] MEDS: levothyroxine 137 mcg Tablet PO (08:24)
[2021-09-19] MEDS: docusate sodium 100 mg Capsule PO (08:24)
[2021-09-19] MEDS: isosorbide mononitrate ER 30 mg Tablet 15 MG PO (08:25)
[2021-09-19] MEDS: sennosides-docusate Tablet 1 TAB PO (08:25)
[2021-09-19] MEDS: potassium chloride ER 10 mEq Tablet PO (08:25)
[2021-09-19] MEDS: gabapentin 100 mg Capsule PO (08:25)
[2021-09-19] MEDS: FUROsemide 40 mg Tablet 80 MG PO (08:25)
[2021-09-19] MEDS: citalopram 20 mg Tablet PO (08:25)
[2021-09-19] MEDS: hyDRALAzine 25 mg Tablet PO (08:27)
[2021-09-19] MEDS: levETIRAcetam 500 mg Tablet 1000 MG PO (08:27)
[2021-09-19] MEDS: apixaban 5 mg Tablet 2.5 MG PO (08:27)
--- NOTE | 2021-09-19 08:35 | PM.PN ---
Subjective Subjective: POD 2 Patient resting comfortably. Reports some back pain is resolved. Denies any headaches, chest pain, shortness of breath. Vitals/I&O/Wt Last Vital Signs Temp 98.3 F 09/19/21 07:31 Pulse 53 L 09/19/21 08:17 Resp 18 09/19/21 08:17 BP 164/71 09/19/21 07:31 Pulse Ox 96 09/19/21 08:17 09/18/21 09/19/21 09/19/21 22:59 06:59 14:59 Intake Total 360 / 780 540 / 1320 Output Total 400 / 850 400 / 1250 Balance -40 / -70 140 / 70 Physical Exam Narrative: Patient presents alert with a good general appearance normal mood and affect. Normal coordination normal stability. Mild tenderness around the incisional site with the incision appear to be healing nicely. No signs of erythema or drainage. No signs of infection. Patient denies any fevers or chills. 5/5 motor strength both lower extremities with negative straight leg raise bilaterally. Calves are supple no medial thigh tenderness. Pulses are 2+ at the dorsalis pedis and posterior tibial region. Good capillary refill throughout normal sensation light touch both lower extremities. Urinary Catheter Management: Tee: Cath Placed During This Visit: yes, but has since been removed by the nurse Reason for Continuing Indwelling Catheter: Decision to DC Catheter Urinary Catheter Date of Insertion: 09/16/21 Urinary Catheter Time of Insertion: 19:15 Date Urinary Catheter Removed: 09/18/21 Time Urinary Catheter Discontinued: 09:00 Data : 09/19/21 05:05 09/19/21 05:05 A&P Assessment and plan (1) Traumatic compression fracture of L2 vertebra: Physical therapy to continue mobilizing. Be cautious with bending lifting or twisting activities. Okay from orthopedic standpoint to send him back to the nursing facility once cleared medically. We will see him back in the office in 2 weeks time for suture removal. 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
--- NOTE | 2021-09-19 09:29 | P.DS_ITS ---
Discharge Providers Date of Admission: 09/16/21 10:08 Date of Discharge: September 19, 2021 Attending Provider at Admission: Amilcar Sanchez MD Attending Provider at Discharge: Amilcar Sanchez MD Primary Care Provider: Chin Salazar DO Diagnoses at Discharge Discharge Diagnosis (1) Traumatic compression fracture of L2 vertebra: Status: Acute Reason for Visit Reason for Visit: BACK PAIN Hospital Course Hospital Course Joselyn Mistry presented with intractable back pain. He had known compression fracture, with some spinal stenosis resulting. Orthopedic spine surgery was consulted, and kyphoplasty performed on September 17. Etiology of compression fract ure was a fall 4 to 5 weeks previously. He did well after surgery with decreased pain. It was thought he could benefit from nursing facility placement which was arranged on September 19. Physical Exam Narrative: General exam no distress Neck is supple Cardiovascular irregular, without murmur Lungs clear Abdomen is soft positive bowel sounds Extremities no cyanosis clubbing or edema. No foot drop. Back dressing noted Urinary Catheter Management: Tee: Cath Placed During This Visit: yes, but has since been removed by the nurse Reason for Continuing Indwelling Catheter: Decision to DC Catheter Urinary Catheter Date of Insertion: 09/16/21 Urinary Catheter Time of Insertion: 19:15 Date Urinary Catheter Removed: 09/18/21 Time Urinary Catheter Discontinued: 09:00 Discharge Data Studies Completed and Pending Completed Studies During Hospitalization Category Date Time Status XR chest 1V portable [id number] Urgent Exams 09/16/21 08:14 Completed Pathology: Surgical [PTH] Routine Pth 09/17/21 12:42 Completed Radiology Impressions Chest X-Ray 09/16/21 08:14 IMPRESSION: Borderline cardiomegaly, without acute airspace ADDENDUM: 09/16/21 1005 There is mild blunting of the left costophrenic angle, suspicious for small left pleural effusion. C-Arm Fluoroscopy 09/17/21 18:15 Impression: Lumbar kyphoplasty. Laboratory Results WBC 8.2 10^3/uL (4.0-10.0) 09/19/21 05:05 RBC 4.02 10^6/uL (4.1-5.3) L 09/19/21 05:05 Hgb 14.1 g/dL (11.7-16.6) 09/19/21 05:05 Hct 44.2 % (42.0-52.0) 09/19/21 05:05 MCV 110.0 fl (80-94) H 09/19/21 05:05 MCH 35.1 pg (28.0-34.0) H 09/19/21 05:05 MCHC 31.9 g/dL (30.0-36.0) 09/19/21 05:05 RDW 15.2 % (12.1-15.1) H 09/19/21 05:05 Plt Count 473 10^3/cmm (130-400) H 09/19/21 05:05 MPV 10.2 fL (7.4-10.4) 09/19/21 05:05 Neut % (Auto) 80.8 % 09/19/21 05:05 Lymph % (Auto) 7.7 % 09/19/21 05:05 Randall % (Auto) 7.5 % 09/19/21 05:05 Eos % (Auto) 1.9 % 09/19/21 05:05 Baso % (Auto) 1.0 % 09/19/21 05:05 Neut # (Auto) 6.64 10^3/uL (1.8-7.7) 09/19/21 05:05 Lymph # (Auto) 0.6 10^3/uL (0.8-4.8) L 09/19/21 05:05 Randall # (Auto) 0.6 10^3/uL (0.2-0.9) 09/19/21 05:05 Eos # (Auto) 0.2 10^3/uL (0.0-0.8) 09/19/21 05:05 Baso # (Auto) 0.1 10^3/uL (0.0-0.1) 09/19/21 05:05 Nucleated RBC % (auto) 0 % 09/19/21 05:05 Nucleated RBCs # 0.0 /100WBC 09/19/21 05:05 Sodium 144 mmol/L (136-145) 09/19/21 05:05 Potassium 4.4 mmol/L (3.5-5.1) 09/19/21 05:05 Chloride 101 mmol/L (98-107) 09/19/21 05:05 Carbon Dioxide 35 mmol/L (22-29) H 09/19/21 05:05 Anion Gap 12.4 (5-19) 09/19/21 05:05 BUN 21 mg/dL (8-23) 09/19/21 05:05 Creatinine 1.2 mg/dL (0.7-1.2) 09/19/21 05:05 GFR Calculation Not Reportable 09/19/21 05:05 Glucose 129 mg/dL (65-115) H 09/19/21 05:05 POC Glucose 129 mg/dL (70-110) H 09/18/21 06:00 Estimat Average Glucose 148 09/16/21 08:26 Hemoglobin A1c 6.8 % (4.0-6.0) H 09/16/21 08:26 Calculated Osmolality 303 mOsm/kg (285-295) H 09/19/21 05:05 Calcium 8.2 mg/dL (8.5-10.5) L 09/19/21 05:05 Total Bilirubin 0.5 mg/dL (0.15-1.2) 09/17/21 06:04 AST 7 U/L (0-40) 09/17/21 06:04 ALT 12 U/L (0-41) 09/17/21 06:04 Alkaline Phosphatase 120 IU/L (40-130) 09/17/21 06:04 Total Protein 6.3 g/dL (6.6-8.7) L 09/17/21 06:04 Albumin 3.2 g/dL (3.5-5.2) L 09/17/21 06:04 Globulin 3.1 g/dL (1.3-4.6) 09/17/21 06:04 Vitamin B12 340 pg/mL (232-1245) 09/16/21 09:00 Urine Color Yellow (Yellow) 09/16/21 19:16 Urine Appearance Clear (CLEAR) 09/16/21 19:16 Urine pH 6 (5-7) 09/16/21 19:16 Ur Specific Stockwell 1.015 (1.005-1.030) 09/16/21 19:16 Urine Protein Neg (Negative) 09/16/21 19:16 Urine Glucose (UA) Norm (Normal) 09/16/21 19:16 Urine Ketones Negative (Negative) 09/16/21 19:16 Urine Blood Neg (Negative) 09/16/21 19:16 Urine Nitrate Negative (Negative) 09/16/21 19:16 Urine Bilirubin 2+ (Negative) H 09/16/21 19:16 Urine Urobilinogen 1 mg/dL (Negative) H 09/16/21 19:16 Ur Leukocyte Esterase Negative (Negative) 09/16/21 19:16 Urine RBC 0-4 /hpf (0-2) H 09/16/21 19:16 Urine WBC 0-4 /hpf (0-5) H 09/16/21 19:16 Ur Squamous Epith Cells 0-4 /hpf (0-5) H 09/16/21 19:16 Amorphous Sediment Not Reportable 09/16/21 19:16 Urine Bacteria Trace /hpf (NONE) 09/16/21 19:16 Hyaline Casts 0-4 /lpf H 09/16/21 19:16 SARS-CoV-2 Ag (Rapid) Negative (Negative) 09/18/21 12:30 Vitals Last Vital Signs Temp 98.3 F 09/19/21 07:31 Pulse 53 L 09/19/21 08:17 Resp 18 09/19/21 08:17 BP 164/71 09/19/21 07:31 Pulse Ox 96 09/19/21 08:17 Discharge Plan Discharge Patient Disposition: Xfer SNF Condition: Stable Prescriptions: New oxycodone 5 mg Tablet 5 mg PO Q4H PRN (Reason: Moderate Pain) Qty: 20 0RF gabapentin 100 mg Capsule 100 mg PO BID Qty: 60 0RF Continued Eliquis 2.5 mg tablet 2.5 mg PO BID@799,1999 0RF finasteride 5 mg tablet 5 mg PO DAILY@1999 0RF tamsulosin 0.4 mg capsule 0.4 mg PO DAILY@1999 0RF hydroxyurea 500 mg capsule See Rx Instructions .ROUTE .COMPLEX 0RF Rx Instructions: 1,000MG PO EVERY WEDNESDAY,WEDNESDAY, AND WEDNESDAY AND 500MG PO ON WEDNESDAY AND WEDNESDAY potassium chloride 10 mEq capsule, extended release 10 meq PO DAILY@0800 0RF aloe vera Gel 1 applic topical DAILY PRN (Reason: dry skin) 0RF acetaminophen [Acetaminophen Extra Strength] 500 mg tablet 500 mg PO Q6H PRN (Reason: pain) Qty: 100 2RF levetiracetam 1,000 mg tablet 1,000 mg PO BID@799,1999 0RF hydralazine 25 mg tablet 25 mg PO BID@0800,2000 0RF isosorbide mononitrate 30 mg tablet extended release 24 hr 15 mg PO DAILY@0800 0RF furosemide [Lasix] 80 mg Tablet 80 mg PO DAILY@08 0RF citalopram 20 mg tablet 20 mg PO DAILY@08 0RF galantamine 24 mg capsule,ext rel. pellets 24 hr 24 mg PO DAILY@08 0RF levothyroxine 137 mcg tablet 137 mcg PO DAILY@08 0RF quetiapine [Seroquel] 25 mg tablet 25 mg PO TID PRN (Reason: Agitation) 0RF aspirin 81 mg tablet,delayed release (DR/EC) 81 mg PO DAILY@08 0RF nystatin 100,000 unit/gram Powder 1 applic TOPICAL BID 0RF Rx Instructions: to groin area Senna Plus 8.6-50 mg tablet 1 tab-cap PO DAILY 0RF Rx Instructions: for 7 days (09/15/21-09/22/21) Discontinued Percocet 5-325 mg tablet 1 tab PO Q8H PRN (Reason: pain) 30 Days Qty: 60 0RF Discharge Orders: Discharge Order (Routine); Ordered 09/19/21 Ordered By: Amilcar Sanchez Referrals: [facility] [Outside] Julito Berry DO [Physician] - 2 weeks Chin Salazar DO [Primary Care Provider] - 09/29/21 3:45 pm Discharge Diet: Cardiac Discharge Activity: Increase activity as tolerated Activity Restrictions/Additional Instructions: Thank you for [facility] for your care! The following is a list of instructions, from your provider, to follow upon your discharge to ensure you have the optimal recovery from your recent injury or surgery. Follow-up care is a danielson part of your treatment and safety. Be sure to make and go to all appointments and call your doctor if you are having problems. If you do not already have a follow-up appointment made, call Dr. Berry's] office in the next 1-3 days to make follow up appointment for [1-2] weeks at [phone]. It is also a good idea to know your test results and keep a list of the medicines you take. Medications will be prescribed for you at your provider's discretion. These me dications are to be used as instructed; if they are taken more often that prescribed they will not be refilled early and in most cases will not be refilled at all. > When a refill is needed,you should contact clemente hernandez 2-3 business days before your prescription runs out. Medications will NOT be refilled by numerical control drill press operator providers after hours! > Many pain medications contain Tylenol (Acetaminophen). Do not consume more than 4,000 mg of Tylenol per day in total with any combination ofmedications. > Pain medications can cause constipation. Please use an over the counter stool softener as directed, while taking pain medications. Consult your local pharmacist with questions or recommendations on stool softeners. If constipation persists, contact our office or your primary care provider. > While under our care, you are not to receive pain medications or other controlled substances from any other provider unless our office is notified and approves. Any attempts to do so will result in refusal to prescribe any further pain medications and possible dismissal from our practice. Your wound and/or dressing should remain clean and dry for [address] surgery. On postoperative day 2 (48 hours after your surgery) the dressing (if present) should be removed and it is okay to shower and get the incision wet. Pad dry afterwards. No further dressing should be required from that point on. Do not put any creams or ointments on theincision > It is normal for there to be a small amount of discharge (bloody or blood tinged) present from a surgical wound for the first 1-3days. > The wound should be examined twice a day for signs of infection. Mild redness or bruising is to be expected but indications that an infection maybe starting would include; An increase in redness, swelling, or discharge, a foul odor present around the incision, and/or a fever greater than 101 ?F ? Showering is permitted, however we ask that you do not take a bath, sit in a whirlpool / Jacuzzi, or go swimming for 1 month. For only the first 2 days after surgery, lt will be necessary for you to cover your wound/dressing with plastic and tape to keep it dry. ? Walking is essential for the healing process after surgery. We would like you to slowly advance your walking. This should be done on relatively flat clear ground (inside or out) or can be done on a treadmill. Remember this goal does not have to happen all at once, slowly increase your distance and duration. This can be broken into more more than one walk per day as tolerated. Patients who walk as directed after surgery rarely require Physical Therapy. In the unlikely event this issue arises your provider will direct hospital staff to make the appropriate arrangements. ? No lifting over 5 pounds {a gallon of milk) or bending/twisting until further notice. Each of these activities places an unnecessary amount of stress onto the body and can impede the delicate healing process. > Instead of bending at the waist, keep your back straight and bend at the knees. > Instead of twisting your torso, keep your back straight and turn your entire body with your feet. ? You may sleep in any position which makes you comfortable. Many patients find comfort sleeping in a reclining chair. It is not abnormal to have difficulty sleeping for the first several weeks following your surgery. We recommend trying Benadry! or Tylenol PM as directed to help with your sleeping difficulties. Both medications are over the counter and available without pr escription. ? NO SMOKING!!! Smoking dramatically increases the probability of developing postoperative wound infections. ? Common complaints after lumbar and/or thoracic spine surgery include, but are not limited to: numbness and/or tingling in the legs, pain around the incision and surrounding tissues, muscle spasms, or stiffness of the middle to low back. Contact our office if these symptoms persist or if an acute change occurs. ? No driving for the first 3-5days, and not while taking narcotics until seen at your follow-up appointment and cleared. There are no restrictions for riding on short trips, however if you take a longer trip, arrangements should be made to make regular stops to get out of the vehicle and stretch . ? Swelling is an unfortunate event that will take place with any surgery and is the primary source of your postoperative discomfort. While walking and regular approved activities helps control inflammation, there are additional steps you can take to minimizeswelling. > Place ice over the surgical site and surrounding tissue for twenty minutes, followed by applying a low/medium heat (heating pad) for an additional twenty minutes every 1-2 hours as needed for painrelief. > You may use of over the counter anti-inflammatory medications (Ibuprofen, Motrin, Aleve, Advil, etc) as directed on the package label. These types of medicines wm significantly reduce the amount of discomfort you experience after surgery from swelling. It should be noted that if you have and allergy to any of these medications, or a history of ulcers or kidney disease you should consult you primary care provider prior to starting these medications. Take all medicine as required Follow-up for any worsening Discharge Attestations Time Spent in Discharge Care*: greater than 30 min Quality Metrics Clinical Quality Measures [ No reported AMI, CVA or VTE this stay] Coding Level of Care Code Acute [facility] note Diagnoses Traumatic compression fracture of L2 vertebra S32.020A
--- NOTE | 2021-09-19 10:51 | PC.SOCIAL ---
IMM Update pg 2 of IMM updated and reviewed w/ patient. Copy provided and copy placed in chart.
[2021-09-19 11:14] VITALS: BP 159/89; PULSE 64; RESP 18; TEMP 37; O2SAT 96
--- NOTE | 2021-09-19 11:16 | PC.NURSE ---
Report called to HINA Girard, at [facility].
[2021-09-19 12:15] VITALS: RESP 18
[2021-09-19] MEDS: oxyCODONE 5 mg IR Tab/Cap PO (12:15)
--- NOTE | 2021-09-22 13:42 | P.OP_ITS ---
Operative Report Date of procedure: September 22, 2021 Pre-op diagnosis: Preop Diagnosis L2 Traumatic osteoporotic Wedge Compression Fracture Post-op diagnosis: same Procedure done: L2 Kyphoplasty Surgeon: Julito Berry Estimated blood loss (mL): 5 Procedure: Patient had an L2 kyphoplasty done. Brought to operative suite after undergoing anesthesia was placed in the prone position. AP and lateral fluoroscopy was brought in in biplanar fluoroscopy. Skin screws made at the 11:00 on the left pedicle and the 1:00 on the right pedicle the cannulated awl was inserted first biopsy was taken. And then the drill was placed and then the balloon was inserted this was followed by placing cement this was done under C-arm guidance ensure the cement stayed into the vertebral space. AP lateral fluoroscopy showed the cement was appropriate placed nothing trial back in the pedicles wou nds were irrigated and closed with a nylon suture and sterile dressings applied patient was transferred to the PACU in stable condition.
== END 2021-09-19 13:15 | disposition skilled nursing facility (03) | DRG 478 ==
LOC: ER 11:06 → MEDSURG 11:23
PROVIDERS: Orthopaedic Surgery; Admitting Provider Internal Medicine; Emergency Provider Family Medicine; PCP Internal Medicine; Visit Provider Internal Medicine
PROC: 0QU03JZ Supplement Lumbar Vertebra with Synthetic Substitute, Percutaneous Approach (ICD-10-PCS; principal; 2021-09-17 11:15)
DX: M80.88XA Other osteoporosis with current pathological fracture, vertebra(e), initial encounter for fracture (principal); G40.109 Localization-related (focal) (partial) symptomatic epilepsy and epileptic syndromes with simple partial seizures, not intractable, without status epilepticus; I50.32 Chronic diastolic (congestive) heart failure; M48.061 Spinal stenosis, lumbar region without neurogenic claudication; J43.9 Emphysema, unspecified; G30.9 Alzheimer's disease, unspecified; F02.80 Dementia in other diseases classified elsewhere, unspecified severity, without behavioral disturbance, psychotic disturbance, mood disturbance, and anxiety; D45 Polycythemia vera; K59.00 Constipation, unspecified; I48.91 Unspecified atrial fibrillation; I11.0 Hypertensive heart disease with heart failure; Z79.01 Long term (current) use of anticoagulants; Z79.82 Long term (current) use of aspirin
CPT/HCPCS: 36415; 36416; 51702; 51798; 71045; 76000; 80048; 80053; 81001; 82607; 82962; 83036; 85025; 87426; 88307; 88311; 93005; 96374; 96375; 97161; 97530; 99285; J0690; J1100; J2270; J2405; J2704; J2710; J3010; J3490; J7030

== ENCOUNTER → 2021-10-02 08:11 | Outpatient (BNVA) | payer MEDICARE, BC, SELFPAY | PROVIDERS: PCP Internal Medicine; Visit Provider Physician Assistant | DX: Z47.89 Encounter for other orthopedic aftercare (principal); Z98.890 Other specified postprocedural states | CPT/HCPCS: 72100; 99024; 99999 ==

== ENCOUNTER 2022-01-31 18:25 | Inpatient (IN) | payer MEDICARE, BC, SELFPAY ==
[2022-01-31 18:34] VITALS: BP 141/91; PULSE 75; RESP 15; O2SAT 93
--- NOTE | 2022-01-31 18:46 | XRR_ITS ---
PROCEDURE INFORMATION: Exam: XR Left Hip Exam date and time: 01/31/2022 7:03 PM Age: 86 years old Clinical indication: Injury or trauma; Fall; Blunt trauma (contusions or hematomas); Left; Hip TECHNIQUE: Imaging protocol: Radiologic exam of the Left hip. Views: 2 or 3 views hip with pelvis when performed. COMPARISON: CT abdomen pelvis w con* [id number] 09/10/2021 9:41 AM FINDINGS: Bones/joints: Subcapital impacted hip fracture with overlap of the fracture fragments. Soft tissues: Unremarkable. XR/XR hip LT 2-3V wo/w pel* [id number] IMPRESSION: Subcapital impacted hip fracture with overlap of the fracture fragments.
--- NOTE | 2022-01-31 18:46 | CTR_ITS ---
PROCEDURE INFORMATION: Exam: CT Head Without Contrast Exam date and time: 01/31/2022 7:00 PM Age: 86 years old Clinical indication: Altered mental status/memory loss; Additional info: AMS TECHNIQUE: Imaging protocol: Computed tomography of the head without contrast. Radiation optimization: All CT scans at this facility use at least one of these dose optimization techniques: automated exposure control; mA and/or kV adjustment per patient size (includes targeted exams where dose is matched to clinical indication); or iterative reconstruction. COMPARISON: CT head wo con* [id number] 07/30/2021 2:27 PM RADIATION DOSE METRICS: Total DLP (mGy-cm): 1220.18 FINDINGS: Brain: Large amount diffuse white matter disease likely reflecting chronic microvascular ischemic changes. Cerebral ventricles: No ventriculomegaly. Paranasal sinuses: Visualized sinuses are unremarkable. No fluid levels. Mastoid air cells: Visualized mastoid air cells are well aerated. Bones/joints: Unremarkable. No acute fracture. Soft tissues: Unremarkable. CT/CT head wo con* [id number] IMPRESSION: Negative for intracranial hemorrhage or mass effect.
--- NOTE | 2022-01-31 18:46 | XRR_ITS ---
PROCEDURE INFORMATION: Exam: XR Chest Exam date and time: 01/31/2022 7:03 PM Age: 86 years old Clinical indication: Dyspnea; Additional info: AMS TECHNIQUE: Imaging protocol: Radiologic exam of the chest. Views: 1 view. COMPARISON: CR XR chest 1V portable [id number] 09/16/2021 8:26 AM FINDINGS: Lungs: Bilateral hilar atelectasis versus minimal infiltrate. Pleural spaces: Small left pleural effusion. Heart/Mediastinum: Cardiomegaly and pulmonary vascular congestion. Bones/joints: Unremarkable. XR/XR chest 1V portable [id number] IMPRESSION: 1. Cardiomegaly and pulmonary vascular congestion. 2. Bilateral hilar atelectasis versus minimal infiltrate. 3. Small left pleural effusion.
--- NOTE | 2022-01-31 18:50 | W.ED.AMS ---
HPI - Altered Mental Status General: Chief Complaint: Altered Mental Status Stated Complaint: AMS Time Seen by Provider: 01/31/22 18:31 History of Present Illness: Patient is brought in by EMS from the senior living with mental status change. Per EMS the patient fell a couple of days ago, and since then his mental status has been declining. He has a history of dementia. On physical exam he has dry mucous membranes. He is confused. He answers most questions by tell me to go asked the nurse who would probably know better and appears confused. He does complain of pain with palpation of his left hip and pelvis. Review of Systems General: Reports: Other (Review of systems is limited due to patient's mental status) Const: Denies: fever(s) or body aches Eyes: Denies: change in vision or blurry vision ENMT: Denies: throat pain or odynophagia Card: Denies: chest pain or palpitations Resp: Denies: dyspnea or productive cough GI: Denies: abdominal pain, nausea or vomiting : Denies: flank pain or dysuria Musc: Denies: neck pain or back pain Skin/Breast: Denies: rash or pruritus Neuro: Reports: numbness in extremities and weakness in extremities; Denies: headache(s) Psych: Denies: anxiety or change in appetite Endo: Denies: polyuria or excessive sweating PFSH ED PFSH: Medical History (Updated 01/31/22 @ 20:57 by Alexis Amaro MD) Acquired polycythemia vera Alzheimer disease Atrial fibrillation with slow ventricular response Bradycardia CAD (coronary artery disease) Cardiomegaly CHF (congestive heart failure), NYHA class III Chronic atrial fibrillation COPD (chronic obstructive pulmonary disease) Diarrhea Encounter for rehabilitation evaluation 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 Hernia Hypertension Hypothyroid Lower urinary tract symptoms (LUTS) Mild cognitive impairment with memory loss Obstructive sleep apnea Pancytopenia Pulmonary hypertension Restless leg Vertebrobasilar dolichoectasia Weakness of both lower extremities Surgical History (Updated 01/31/22 @ 20:54 by Alexis Amaro MD) History of kyphoplasty Family History Father CAD (coronary artery disease) CHF (congestive heart failure) Social History Smoking and tobacco status: never smoked Second hand smoke exposure: No Smoking risk assessment/counseling performed?: No Alcohol intake: never Counseling given: No Counseling given: No Lives independently: Yes Marital status: / Current occupational status: retired History of recent travel: No Current gender identity: Male Physical Exam Const: OTHER: Patient is awake, confused, ill-appearing HENMT: COMMON NORMALS: normocephalic and atraumatic HEAD & SCALP: normocephalic and atraumatic OTHER: Dry mucous membranes Eye: COMMON NORMALS: Equal, round and reactive pupils present and EOMs intact bilaterally PUPIL: Yes Equal, round and reactive pupils present Neck/C-Spine: COMMON NORMALS: full ROM and supple Resp: COMMON NORMALS: normal respiratory effort, No retractions and No use of accessory muscles Cardio: COMMON NORMALS: regular rate and regular rhythm RATE: regular rate RHYTHM: regular rhythm GI: COMMON NORMALS: Normal to inspection, nondistended, normoactive bowel sounds present, Soft to palpation and non-tender PALPATION: Yes Soft to palpation Back/Pelvis: COMMON NORMALS: thoracic and lumbar spine normal to inspection and no thoracic nor lumbar tenderness OTHER: Left-sided hip and pelvis pain with palpation Extremity: COMMON NORMALS: normal to inspection and full ROM Neuro: OTHER: Patient is confused, awake, oriented x0 Skin: COMMON NORMALS: no rashes or lesions noted and no wounds GENERAL SKIN EXAM: no rashes or lesions noted Course Vital Signs: Vital signs: Vital Signs Pulse Rate 81 01/31/22 22:05 Respiratory Rate 18 01/31/22 22:05 Blood Pressure 151/91 01/31/22 22:05 Pulse Oximetry 94 01/31/22 22:05 Oxygen Delivery Me thod 01/31/22 21:10 Oxygen Flow Rate 3 01/31/22 21:10 MDM - Altered Mental Status Medical Decision Making Patient is brought in by EMS from the senior living with mental status change. Per EMS the patient fell a couple of days ago, and since then his mental status has been declining. He has a history of dementia. On physical exam he has dry mucous membranes. He is confused. He answers most questions by tell me to go asked the nurse who would probably know better and appears confused. He does complain of pain with palpation of his left hip and pelvis. Will check labs, give IV fluids, CT, x-ray, and reassess. On reassessment I talked to the hospitalist and orthopedic surgery about the patient. We will start him on antibiotics, and admit to the hospital for further work-up and treatment of his altered mental status, left hip fracture, and elevated WBC. Lab Data : 01/31/22 19:12 01/31/22 19:12 Radiology Impressions Chest X-Ray 01/31/22 18:46 IMPRESSION: 1. Cardiomegaly and pulmonary vascular congestion. 2. Bilateral hilar atelectasis versus minimal infiltrate. 3. Small left pleural effusion. Head CT 01/31/22 18:46 IMPRESSION: Negative for intracranial hemorrhage or mass effect. Hip/Pelvis X-Ray 01/31/22 18:46 IMPRESSION: Subcapital impacted hip fracture with overlap of the fracture fragments. Lumbar Spine CT 01/31/22 20:14 IMPRESSION: 1. L2 vertebral body chronic appearing compression fracture with retropulsion of bony fragments resulting in severe spinal canal narrowing, with vertebroplasty changes. 2. L4 vertebral body compression fracture without retropulsion of bony fragments, not seen on prior exam, potentially acute. 3. Cholelithiasis. 4. Left kidney cyst. COMMENTS: Consistent with the [employer]'s Incidental Findings Committee white paper (J Am Tomy Radiol 2018): Any incidental renal lesion less than 1 cm or classified as too small to characterize, or any incidental cystic renal lesion characterized as simple-appearing, is likely benign. No follow-up imaging is recommended for these lesions per consensus recommendations based on imaging criteria. Cervical Spine CT 01/31/22 20:33 IMPRESSION: No acute findings. Thoracic Spine CT 01/31/22 20:34 IMPRESSION: 1. T2 vertebral body superior endplate compression fracture, somewhat advanced compared to prior exam, likely chronic, negative for retropulsion of bony fragments or spinal canal narrowing. 2. T11 vertebral body chronic appearing compression fracture with retropulsion of bony fragments resulting in moderate spinal canal narrowing with vertebroplasty changes. 3. Small bilateral pleural effusions. 4. Hepatic cysts and left renal cyst partially visualized. 5. Cholelithiasis. 6. Bilateral dependent atelectasis versus infiltrate. 7. Left 8th and 9th posterior rib fractures somewhat visualized. Laboratory Results WBC 14.8 10^3/uL (4.0-10.0) H 01/31/22 19:12 RBC 4.13 10^6/uL (4.1-5.3) 01/31/22 19:12 Hgb 15.2 g/dL (11.7-16.6) 01/31/22 19:12 Hct 47.2 % (42.0-52.0) 01/31/22 19:12 MCV 114.3 fl (80-94) H 01/31/22 19:12 MCH 36.8 pg (28.0-34.0) H 01/31/22 19:12 MCHC 32.2 g/dL (30.0-36.0) 01/31/22 19:12 RDW 14.0 % (12.1-15.1) 01/31/22 19:12 Plt Count 418 10^3/cmm (130-400) H 01/31/22 19:12 MPV 11.1 fL (7.4-10.4) H 01/31/22 19:12 Neut % (Auto) 90.8 % 01/31/22 19:12 Lymph % (Auto) 2.0 % 01/31/22 19:12 Ward % (Auto) 5.9 % 01/31/22 19:12 Eos % (Auto) 0.1 % 01/31/22 19:12 Baso % (Auto) 0.5 % 01/31/22 19:12 Neut # (Auto) 13.44 10^3/uL (1.8-7.7) H 01/31/22 19:12 Lymph # (Auto) 0.3 10^3/uL (0.8-4.8) L 01/31/22 19:12 Ward # (Auto) 0.9 10^3/uL (0.2-0.9) 01/31/22 19:12 Eos # (Auto) 0.0 10^3/uL (0.0-0.8) 01/31/22 19:12 Baso # (Auto) 0.1 10^3/uL (0.0-0.1) 01/31/22 19:12 Nucleated RBC % (auto) 0 % 01/31/22 19:12 Nucleated RBCs # 0.0 /100WBC 01/31/22 19:12 Specimen Type Arterial 01/31/22 19:05 Sample Site Radial, right 01/31/22 19:05 ABG pH 7.45 (7.35-7.45) 01/31/22 19:05 ABG pCO2 42.3 mmHg (35-45) 01/31/22 19:05 ABG pO2 56.9 mmHg (80.0-100.0) L 01/31/22 19:05 ABG HCO3 29.0 mmol/L (22-26) H 01/31/22 19:05 ABG Base Excess 4.4 mmol/L (-2.0-2.0) H 01/31/22 19:05 Gordon Test Pos 01/31/22 19:05 Hematocrit 47.9 % (42-52) 01/31/22 19:05 O2 Delivery Device Nc 01/31/22 19:05 O2 Liters/Min 4.0 % 01/31/22 19:05 Food Mixer ID [place] 01/31/22 19:05 Sodium 145 mmol/L (136-145) 01/31/22 19:12 Potassium 4.5 mmol/L (3.5-5.1) 01/31/22 19:12 Chloride 104 mmol/L (98-107) 01/31/22 19:12 Carbon Dioxide 25 mmol/L (22-29) 01/31/22 19:12 Anion Gap 20.5 (5-19) H 01/31/22 19:12 BUN 32 mg/dL (8-23) H 01/31/22 19:12 Creatinine 1.4 mg/dL (0.7-1.2) H 01/31/22 19:12 GFR Calculation Not Reportable 01/31/22 19:12 Glucose 230 mg/dL (65-115) H 01/31/22 19:12 Calculated Osmolality 314 mOsm/kg (285-295) H 01/31/22 19:12 Lactate 2.5 mmol/L (0.5-2.2) H 01/31/22 19:12 Calcium 9.0 mg/dL (8.5-10.5) 01/31/22 19:12 Magnesium 2.4 mg/dL (1.7-2.3) H 01/31/22 19:12 Total Bilirubin 1.2 mg/dL (0.15-1.2) 01/31/22 19:12 AST 10 U/L (0-40) 01/31/22 19:12 ALT 13 U/L (0-41) 01/31/22 19:12 Alkaline Phosphatase 119 U/L (40-130) 01/31/22 19:12 Ammonia 40 umol/L (16-60) 01/31/22 19:12 C-Reactive Protein 91.3 mg/L (0.0-4.9) H 01/31/22 19:12 Total Protein 5.7 g/dL (6.6-8.7) L 01/31/22 19:12 Albumin 3.6 g/dL (3.5-5.2) 01/31/22 19:12 Globulin 2.1 g/dL (1.3-4.6) 01/31/22 19:12 Lipase 9 U/L (13-60) L 01/31/22 19:12 Procalcitonin 0.21 ng/mL (0-0.5) 01/31/22 19:12 Urine Color Dark yellow (Yellow) 01/31/22 19:59 Urine Appearance Clear (CLEAR) 01/31/22 19:59 Urine pH 5 (5-7) 01/31/22 19:59 Ur Specific [place] 1.025 (1.005-1.030) 01/31/22 19:59 Urine Protein Trace (Negative) 01/31/22 19:59 Urine Glucose (UA) Norm (Normal) 01/31/22 19:59 Urine Ketones Negative (Negative) 01/31/22 19:59 Urine Blood Neg (Negative) 01/31/22 19:59 Urine Nitrate Negative (Negative) 01/31/22 19:59 Urine Bilirubin 1+ (Negative) H 01/31/22 19:59 Urine Urobilinogen 4 mg/dL (Negative) H 01/31/22 19:59 Ur Leukocyte Esterase Negative (Negative) 01/31/22 19:59 Urine RBC 0-4 /hpf (0-2) H 01/31/22 19:59 Urine WBC 0-4 /hpf (0-5) H 01/31/22 19:59 Ur Squamous Epith Cells 0-4 /hpf (0-5) H 01/31/22 19:59 Amorphous Sediment Not Reportable 01/31/22 19:59 Urine Bacteria 1+ /hpf (NONE) H 01/31/22 19:59 Hyaline Casts 40-55 /lpf H 01/31/22 19:59 Urine Mucus Trace /hpf 01/31/22 19:59 Salicylates < 0.3 mg/dL (3-10) L 01/31/22 19:12 Acetaminophen < 5.0 ug/mL (10-30) L 01/31/22 19:12 Ethyl Alcohol < 10 mg/dL (0-10) 01/31/22 19:12 Discharge Plan Discharge Patient Disposition: Admitted As Inpatient Admit Provider: Alexis Amaro Clinical Impression: Closed hip fracture, HCAP (healthcare-associated pneumonia) Condition: Stable Coding Level of Care Code ED [employer] Architect for Chg Fwd Exam Comprehensive
[2022-01-31 19:16] LABS: ABG PCO2 42.3 mmHg (35-45); ABG PH Result 7.45 (7.35-7.45); Arterial Blood Gas Hematocrit 47.9 % (42-52); Base Excess ABG 4.4 mmol/L (-2.0-2.0); Blood Gas Allen Test Pos; Blood Gas Operator Identificat WALCI; Blood Gas Sample Site Radial, right; Blood Gas Sample Type Arterial; Oxygen Device NC; PO2 ABG 56.9 mmHg (80.0-100.0)
[2022-01-31] MEDS: sodium chloride 0.9% 500 ML IV (19:27)
[2022-01-31 19:29] LABS: Basophils # 0.1 10^3/uL (0.0-0.1); Basophils % 0.5 %; Eosinophils % 0.1 %; Hematocrit 47.2 % (42.0-52.0); Hemoglobin 15.2 g/dL (11.7-16.6); Lymphocytes # 0.3 10^3/uL (0.8-4.8); Mean Corpuscular HGB Conc 32.2 g/dL (30.0-36.0); Mean Corpuscular Hemoglobin 36.8 pg (28.0-34.0); Mean Corpuscular Volume 114.3 fl (80-94); Mean Platelet Volume 11.1 fL (7.4-10.4); Monocytes # 0.9 10^3/uL (0.2-0.9); Monocytes % 5.9 %; Neutrophils # 13.44 10^3/uL (1.8-7.7); Neutrophils % 90.8 %; Nucleated Red Blood Cells % 0 %; Platelet Count 418 10^3/cmm (130-400); Red Blood Count 4.13 10^6/uL (4.1-5.3); White Blood Count 14.8 10^3/uL (4.0-10.0)
[2022-01-31 19:51] LABS: Acetaminophen < 5.0 ug/mL (10-30); Alanine Aminotransferase 13 U/L (0-41); Albumin Level 3.6 g/dL (3.5-5.2); Alcohol Level < 10 mg/dL (0-10); Alkaline Phosphatase 119 U/L (40-130); Aspartate Amino Transferase 10 U/L (0-40); Blood Urea Nitrogen 32 mg/dL (8-23); Carbon Dioxide 25 mmol/L (22-29); Chloride 104 mmol/L (98-107); Globulin 2.1 g/dL (1.3-4.6); Glucose 230 mg/dL (65-115); Lipase 9 U/L (13-60); Magnesium 2.4 mg/dL (1.7-2.3); Osmolality Calculated 314 mOsm/kg (285-295); Salicylate < 0.3 mg/dL (3-10); Sodium 145 mmol/L (136-145); Total Bilirubin 1.2 mg/dL (0.15-1.2); Total Protein 5.7 g/dL (6.6-8.7)
[2022-01-31 19:52] LABS: Ammonia 40 umol/L (16-60); Lactate (Lactic Acid level) 2.5 mmol/L (0.5-2.2)
[2022-01-31 20:03] LABS: Anion Gap 20.5 (5-19); Potassium 4.5 mmol/L (3.5-5.1)
--- NOTE | 2022-01-31 20:14 | CTR_ITS ---
PROCEDURE INFORMATION: Exam: CT Lumbar Spine Without Contrast Exam date and time: 01/31/2022 8:33 PM Age: 86 years old Clinical indication: Injury or trauma; Fall; Blunt trauma (contusions or hematomas) TECHNIQUE: Imaging protocol: Computed tomography of the lumbar spine without contrast. Radiation optimization: All CT scans at this facility use at least one of these dose optimization techniques: automated exposure control; mA and/or kV adjustment per patient size (includes targeted exams where dose is matched to clinical indication); or iterative reconstruction. COMPARISON: MR lumbar spine wo/w con [id number] 09/10/2021 1:17 PM RADIATION DOSE METRICS: Total DLP (mGy-cm): 862.3 FINDINGS: Bones/joints: L2 vertebral body chronic appearing compression fracture with retropulsion of bony fragments resulting in severe spinal canal narrowing, with vertebroplasty changes. L4 vertebral body compression fracture without retropulsion of bony fragments, not seen on prior exam, potentially acute. L1-L2: No significant disc protrusion. No severe spinal canal stenosis. No significant neural foraminal narrowing. L2-L3: No significant disc protrusion. No severe spinal canal stenosis. No significant neural foraminal narrowing. L3-L4: No significant disc protrusion. No severe spinal canal stenosis. No significant neural foraminal narrowing. L4-L5: No significant disc protrusion. No severe spinal canal stenosis. No significant neural foraminal narrowing. L5-S1: No significant disc protrusion. No severe spinal canal stenosis. No significant neural foraminal narrowing. Gallbladder and bile ducts: Cholelithiasis. Kidneys and ureters: Left kidney cyst. Soft tissues: Unremarkable. CT/CT lumbar spine wo con* [id number] IMPRESSION: 1. L2 vertebral body chronic appearing compression fracture with retropulsion of bony fragments resulting in severe spinal canal narrowing, with vertebroplasty changes. 2. L4 vertebral body compression fracture without retropulsion of bony fragments, not seen on prior exam, potentially acute. 3. Cholelithiasis. 4. Left kidney cyst. COMMENTS: Consistent with the [employer]'s Incidental Findings Committee white paper (J Am Tomy Radiol 2018): Any incidental renal lesion less than 1 cm or classified as too small to characterize, or any incidental cystic renal lesion characterized as simple-appearing, is likely benign. No follow-up imaging is recommended for these lesions per consensus recommendations based on imaging criteria.
[2022-01-31] MEDS: cefepime 1,000 MG in sodium chloride 0.9% (plus) 50 ML 100 MG IV (20:24)
--- NOTE | 2022-01-31 20:33 | CTR_ITS ---
PROCEDURE INFORMATION: Exam: CT Cervical Spine Without Contrast Exam date and time: 01/31/2022 8:46 PM Age: 86 years old Clinical indication: Injury or trauma; Fall; Blunt trauma TECHNIQUE: Imaging protocol: Computed tomography of the cervical spine without contrast. Radiation optimization: All CT scans at this facility use at least one of these dose optimization techniques: automated exposure control; mA and/or kV adjustment per patient size (includes targeted exams where dose is matched to clinical indication); or iterative reconstruction. COMPARISON: CT cervical spin wo con* [id number] 02/02/2020 1:48 PM RADIATION DOSE METRICS: Total DLP (mGy-cm): 245.07 FINDINGS: Bones/joints: No acute fracture. Normal alignment. C2-C3: No significant disc protrusion. No severe spinal canal stenosis. No significant neural foraminal narrowing. C3-C4: No significant disc protrusion. No severe spinal canal stenosis. No significant neural foraminal narrowing. C4-C5: No significant disc protrusion. No severe spinal canal stenosis. No significant neural foraminal narrowing. C5-C6: No significant disc protrusion. No severe spinal canal stenosis. No significant neural foraminal narrowing. C6-C7: No significant disc protrusion. No severe spinal canal stenosis. No significant neural foraminal narrowing. C7-T1: No significant disc protrusion. No severe spinal canal stenosis. No significant neural foraminal narrowing. Lungs: Lung apices are normal. Soft tissues: Unremarkable. CT/CT cervical spin wo con* [id number] IMPRESSION: No acute findings.
--- NOTE | 2022-01-31 20:34 | CTR_ITS ---
PROCEDURE INFORMATION: Exam: CT Thoracic Spine Without Contrast Exam date and time: 01/31/2022 8:39 PM Age: 86 years old Clinical indication: Injury or trauma; Fall; Blunt trauma (contusions or hematomas); Additional info: Fall, pain TECHNIQUE: Imaging protocol: Computed tomography of the thoracic spine without contrast. Radiation optimization: All CT scans at this facility use at least one of these dose optimization techniques: automated exposure control; mA and/or kV adjustment per patient size (includes targeted exams where dose is matched to clinical indication); or iterative reconstruction. COMPARISON: MR thoracic spine w con [id number] 09/10/2021 6:09 PM RADIATION DOSE METRICS: Total DLP (mGy-cm): 1148.88 FINDINGS: Bones/joints: T2 vertebral body superior endplate compression fracture, somewhat advanced compared to prior exam, likely chronic, negative for retropulsion of bony fragments or spinal canal narrowing. T11 vertebral body chronic appearing compression fracture with retropulsion of bony fragments resulting in moderate spinal canal narrowing with vertebroplasty changes. Left 8th and 9th posterior rib fractures somewhat visualized. T1-T2: No significant disc protrusion. No severe spinal canal stenosis. No significant neural foraminal narrowing. T2-T3: No significant disc protrusion. No severe spinal canal stenosis. No significant neural foraminal narrowing. T3-T4: No significant disc protrusion. No severe spinal canal stenosis. No significant neural foraminal narrowing. T4-T5: No significant disc protrusion. No severe spinal canal stenosis. No significant neural foraminal narrowing. T5-T6: No significant disc protrusion. No severe spinal canal stenosis. No significant neural foraminal narrowing. T6-T7: No significant disc protrusion. No severe spinal canal stenosis. No significant neural foraminal narrowing. T7-T8: No significant disc protrusion. No severe spinal canal stenosis. No significant neural foraminal narrowing. T8-T9: No significant disc protrusion. No severe spinal canal stenosis. No significant neural foraminal narrowing. T9-T10: No significant disc protrusion. No severe spinal canal stenosis. No significant neural foraminal narrowing. T10-T11: No significant disc protrusion. No severe spinal canal stenosis. No significant neural foraminal narrowing. T11-T12: No significant disc protrusion. No severe spinal canal stenosis. No significant neural foraminal narrowing. T12-L1: No significant disc protrusion. No severe spinal canal stenosis. No significant neural foraminal narrowing. Lungs: Bilateral dependent atelectasis versus infiltrate. Pleural spaces: Small bilateral pleural effusions. Gallbladder and bile ducts: Cholelithiasis. Kidneys and ureters: Hepatic cysts and left renal cyst partially visualized. CT/CT thoracic spin wo con* [id number] IMPRESSION: 1. T2 vertebral body superior endplate compression fracture, somewhat advanced compared to prior exam, likely chronic, negative for retropulsion of bony fragments or spinal canal narrowing. 2. T11 vertebral body chronic appearing compression fracture with retropulsion of bony fragments resulting in moderate spinal canal narrowing with vertebroplasty changes. 3. Small bilateral pleural effusions. 4. Hepatic cysts and left renal cyst partially visualized. 5. Cholelithiasis. 6. Bilateral dependent atelectasis versus infiltrate. 7. Left 8th and 9th posterior rib fractures somewhat visualized.
[2022-01-31 20:48] LABS: C Reactive Protein 91.3 mg/L (0.0-4.9)
--- NOTE | 2022-01-31 20:51 | P.HP_ITS ---
Providers/Chief Complaint Primary Care Provider: Chin Salazar DO Chief Complaint: AMS History of Present Illness Casey Alves is a 86 year old male with a past medical history of dementia, polycythemia, history of spinal stenosis requiring kyphoplasty in September, atrial fibrillation on Eliquis, pulm hypertension, CHF, history of epilepsy, history of COPD, history of BPH, who presents to [facility] for [facility][note 3] due to a unwitnessed fall. Currently patient is alert to person, not to place, to time, most of the history was provided by nursing staff at patient's group home. According to nursing staff patient fell a couple of days ago, had an unwitnessed fall, since then he has been experiencing increasing fatigue, decreased mentation, diffuse pain complaints. According to nursing staff patient has been participating with physical therapy, can ambulate with physical therapy with help of walker, but recently that has decreased since his fall. In addition he has been increasingly confused, no fevers, history of UTIs, during my examination, he complains of back pain, hip pain, and diffuse musculoskeletal pain Review of Systems General: Reports: ROS unobtainable due to mental status Medications/Allergies Home Medications Medication Instructions Recorded Confirmed Last Taken Type apixaban 2.5 mg tablet (Eliquis) 2.5 mg PO BID@0800,199906/12/19 10/02/21 09/15/21 History finasteride 5 mg tablet 5 mg PO DAILY@199906/12/19 10/02/21 09/15/21 History tamsulosin 0.4 mg capsule 0.4 mg PO DAILY@199906/12/19 10/02/21 09/15/21 History potassium chloride 10 mEq 10 meq PO DAILY@0800 05/22/20 10/02/21 09/15/21 History capsule,extended release hydralazine 25 mg tablet 25 mg PO BID@0800,199901/09/21 10/02/21 09/15/21 History levetiracetam 1,000 mg tablet 1,000 mg PO BID@0800,199901/09/21 10/02/21 09/15/21 History isosorbide mononitrate 30 mg 15 mg PO DAILY@0800 02/12/21 10/02/21 09/15/21 History tablet,extended release 24 hr citalopram 20 mg tablet 20 mg PO DAILY@08/02/21 10/02/21 09/15/21 History furosemide 80 mg tablet (Lasix) 80 mg PO DAILY@08/02/21 10/02/21 09/15/21 History galantamine 24 mg 24 hr 24 mg PO DAILY@08/02/21 10/02/21 09/15/21 History capsule,extended release aloe vera 1 applic topical DAILY PRN dry skin 09/06/21 10/02/21 Unknown History hydroxyurea 500 mg capsule See Rx Instructions .Route .COMPLEX 09/06/21 10/02/21 09/15/21 History acetaminophen 500 mg tablet 500 mg PO Q6H PRN pain #100 tabs 09/08/21 10/02/21 Unknown Rx (Acetaminophen Extra Strength) aspirin 81 mg tablet,delayed 81 mg PO DAILY@09/10/21 10/02/21 09/15/21 History release levothyroxine 137 mcg tablet 137 mcg PO DAILY@09/10/21 10/02/21 09/15/21 History quetiapine 25 mg tablet (Seroquel) 25 mg PO TID PRN Agitation 09/10/21 10/02/21 Unknown History nystatin 100,000 unit/gram topical 1 applic topical BID 09/16/21 10/02/21 Unknown History powder sennosides 8.6 mg-docusate sodium 1 tab-cap PO DAILY 09/16/21 10/02/21 09/15/21 History 50 mg tablet (Senna Plus) gabapentin 100 mg capsule 100 mg PO BID #60 caps 09/19/21 10/02/21 Unknown Rx oxycodone 5 mg tablet 5 mg PO Q4H PRN Moderate Pain #20 09/19/21 10/02/21 Unknown Rx tabs Allergies Allergy/AdvReac Type Severity Reaction Status Date / Time lorazepam [From Ativan] AdvReac hallucinati Verified 10/02/21 08:17 ons PFSH Acute PFSH: Medical History (Updated 01/31/22 @ 20:57 by Alexis Amaro MD) Acquired polycythemia vera Alzheimer disease Atrial fibrillation with slow ventricular response Bradycardia CAD (coronary artery disease) Cardiomegaly CHF (congestive heart failure), NYHA class III Chronic atrial fibrillation COPD (chronic obstructive pulmonary disease) Diarrhea Encounter for rehabilitation evaluation 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 Hernia Hypertension Hypothyroid Lower urinary tract symptoms (LUTS) Mild cognitive impairment with memory loss Obstructive sleep apnea Pancytopenia Pulmonary hypertension Restless leg Vertebrobasilar dolichoectasia Weakness of both lower extremities Surgical History (Updated 01/31/22 @ 20:54 by Alexis Amaro MD) History of kyphoplasty Family History Father CAD (coronary artery disease) CHF (congestive heart failure) Social History Smoking and tobacco status: never smoked Second hand smoke exposure: No Smoking risk assessment/counseling performed?: No Alcohol intake: never Counseling given: No Counseling given: No Lives independently: Yes Marital status: / Current occupational status: retired History of recent travel: No Current gender identity: Male Vitals/I&O/Wt Last Vital Signs Pulse 75 01/31/22 18:34 Resp 15 01/31/22 18:34 BP 141/91 01/31/22 18:34 Pulse Ox 93 01/31/22 18:34 O2 Del Method 01/31/22 18:34 O2 Flow Rate 4 01/31/22 18:34 01/31/22 01/31/22 01/31/22 06:59 14:59 22:59 Intake Total 500 / 500 Balance 500 / 500 Physical Exam Const: COMMON NORMALS: no acute distress OTHER: Alert to person, not to place, not to time HENMT: COMMON NORMALS: normocephalic HEAD & SCALP: normocephalic Neck/C-Spine: OTHER: Has cervical pain, cervical spinal paraspinal muscle spasms, thoracic spinal tenderness, paraspinal muscle spasm and pain, lumbar spinal pain, spinal tenderness, left pain Resp: COMMON NORMALS: normal respiratory effort, No retractions, No use of accessory muscles and clear to auscultation bilaterally AUSCULTATION: clear to auscultation bilaterally Cardio: COMMON NORMALS: regular rate, regular rhythm, S1 normal heart sound present and S2 normal heart sound present RATE: regular rate RHYTHM: regular rhythm HEART SOUNDS: S1 normal heart sound present and S2 normal heart sound present GI: COMMON NORMALS: Normal to inspection, nondistended, normoactive bowel sounds present, Soft to palpation and non-tender Extremity: COMMON NORMALS: no pedal edema Neuro: OTHER: Does not follow a lot of testing Data : 01/31/22 19:12 01/31/22 19:12 A&P Assessment and plan (1) Closed hip fracture: Status: Acute (2) Pneumonia: Status: Acute (3) Fall: Status: Acute (4) Musculoskeletal pain: Status: Acute Plan Has subcapital impacted left hip fracture with overlapping fracture fragments -Has taken Eliquis this morning -Hold Eliquis -Plan on possible surgical intervention in the next 48 hours -Morphine for pain control -Dysphagia diet -DNR/DNI -SCDs for DVT prophylaxis, anticoagulation on hold for possible surgical intervention -Orthopedics on consult Bilateral atelectasis versus infiltrate on chest x-ray -Potentially aspiration pneumonia versus healthcare associated pneumonia -Continue vancomycin, cefepime -Follow blood cultures -Follow sputum cultures Diffuse musculoskeletal pain, complains of spinal pain, fall unwitnessed -History of L2 kyphoplasty after fall -We will do CT of spine Atrial fibrillation on anticoagulation, hold Eliquis Hypothyroidism continue home medications History of epilepsy continue Keppra Hypertension continue home medications Attestations Medical Necessity Statement*: Patient requires hospitalization for hip fracture, inpatient, greater than 2 midnights Coding Level of Care 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
[2022-01-31 20:55] LABS: Procalcitonin 0.21 ng/mL (0-0.5)
[2022-01-31 21:10] VITALS: BP 151/91; PULSE 81; RESP 18; O2SAT 94
[2022-01-31 21:13] LABS: Erythrocyte Sedimentation Rate 6 mm/hr (0-10)
[2022-01-31 21:16] LABS: Bilirubin Urine 1+ (Negative); Blood Urine Neg (Negative); Glucose Urine UA Norm (Normal); Ketones Urine Negative (Negative); Nitrate Urine Negative (Negative); Protein Urine Trace (Negative); Specific Gravity, Urine 1.025 (1.005-1.030); Urine Appearance Clear (CLEAR); Urine Color Dark Yellow (Yellow); pH Urine 5 (5-7)
[2022-01-31 21:17] LABS: Add Urine Culture? No; Add Urine Microscopic? YES; Bacteria Urine 1+ /hpf; Hyaline Casts Urine 40-55 /lpf; Leukocyte Esterase Urine Negative (Negative); Mucus Urine TRACE /hpf; RBC Urine 0-4 /hpf (0-2); Squamous Epithelial Cell Urine 0-4 /hpf (0-5); Urobilinogen Urine 4 mg/dL (Negative); WBC Urine 0-4 /hpf (0-5)
[2022-01-31] MEDS: morphine 4 mg/mL SDV 1 mL 2 MG IVP (21:19)
[2022-01-31 22:05] VITALS: BP 151/91; PULSE 81; RESP 18; O2SAT 94
[2022-01-31 22:26] VITALS: BP 148/81; PULSE 75; RESP 23; TEMP 37.2; O2SAT 91
[2022-01-31 22:58] LABS: Thyroid Stimulating Hormone 1.63 uIU/mL (0.27-4.20)
[2022-01-31 23:45] VITALS: PULSE 77; O2SAT 94
[2022-01-31 23:46] VITALS: O2SAT 94
[2022-01-31] MEDS: pantoprazole 40 mg SDV IVP (23:57)
[2022-01-31] MEDS: sodium chloride 0.9% 1,000 ML 75 ML IV (23:57)
[2022-02-01] VITALS (11 sets, daily range): BP systolic 131–176; BP diastolic 76–92; PULSE 64–85; RESP 16–22; TEMP 36.2–36.9; O2SAT 93–98; BMI 17.4
--- NOTE | 2022-02-01 00:39 | ECG_ITS ---
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 Measurements Intervals [place]ondo Rate: 80 P: IL: QRS: 20 QRSD: 96 T: -74 QT: 436 QTc: 505 Interpretive Statements ATRIAL FIBRILLATION WITH ABERRANT CONDUCTION OR VENTRICULAR PREMATURE COMPLEXES ST DEVIATION AND MARKED T-WAVE ABNORMALITY, CONSIDER ANTEROLATERAL ISCHEMIA [-0.5+ mV T-WAVE IN I/aVL/V3-V6] ST DEVIATION AND MODERATE T-WAVE ABNORMALITY, CONSIDER INFERIOR ISCHEMIA [-0.1+ mV T-WAVE IN II/aVF] Compared to ECG 09/16/2021 14:00:09 Ventricular premature complex(es) now present Aberrant conduction of supraventricular beat(s) now present T-wave abnormality now present Possible ischemia now present Myocardial infarct finding no longer present Electronically Signed On 02-01-2022 8:24:32 CDT by Brayan Gorman M.D. [id number]
--- NOTE | 2022-02-01 00:51 | PC.PHAR ---
Pharmacokinetic dosing service Date: 01/31/22 Time: 50 Objective: Patient: Casey Alves Floor: 272-1 Age: 86 yo Serum creatinine: 1.4 mg/dL Height: 73.0 Inches Weight (kg): 59.874 Diagnosis: Relevant medical/social history: Cultures and sensitivities: Other labs: Assessment: IBW (kg): 79.90 Dosing wt(kg): 59.874 Estimated Creatinine clearance (ml/min): 32.1 CRCL method: Cockcroft and Gault using ibw(default). Drug selected: Vancomycin Loading dose (mg): 0 Vd (liters): 53.9 (factor used: 0.9 L/kg) Tank (hr-1): 0.031 Half life (hrs): 22.36 Recommended dose: 1000 mg Interval: 24 hrs Infusion time (hrs): 1.5 Predicted peak (mcg/mL): 34.5 Predicted trough (mcg/mL): 17.18 Total body weight is being used for vancomycin dosing. Renal function is stable [ ] /unstable [ ] Recommendations: Give Vancomycin 1000 mg q 24 hrs with an expected Cpeak of 34.5 mcg/ml and an expected Ctrough of 17.18 mcg/ml Renal dosing of other antibiotics (review renal dosing of other medications and list guidelines here): Thank you for the consult, will continue to follow. Signature: Kenzie Costello [facility]
[2022-02-01 01:31] LABS: Basophils # 0.1 10^3/uL (0.0-0.1); Basophils % 0.7 %; Eosinophils # 0.1 10^3/uL (0.0-0.8); Eosinophils % 0.6 %; Hematocrit 46.8 % (42.0-52.0); Hemoglobin 14.9 g/dL (11.7-16.6); Lymphocytes # 0.5 10^3/uL (0.8-4.8); Lymphocytes % 3.5 %; Mean Corpuscular HGB Conc 31.8 g/dL (30.0-36.0); Mean Corpuscular Hemoglobin 36.9 pg (28.0-34.0); Mean Corpuscular Volume 115.8 fl (80-94); Mean Platelet Volume 10.9 fL (7.4-10.4); Monocytes # 1.1 10^3/uL (0.2-0.9); Monocytes % 8.6 %; Neutrophils % 85.7 %; Nucleated Red Blood Cells % 0 %; Platelet Count 394 10^3/cmm (130-400); Red Blood Count 4.04 10^6/uL (4.1-5.3); Red Cell Distribution Width 14.1 % (12.1-15.1); White Blood Count 12.7 10^3/uL (4.0-10.0)
[2022-02-01 02:06] LABS: Alanine Aminotransferase 11 U/L (0-41); Albumin Level 3.2 g/dL (3.5-5.2); Alkaline Phosphatase 105 U/L (40-130); Anion Gap 16.8 (5-19); Aspartate Amino Transferase 9 U/L (0-40); Blood Urea Nitrogen 33 mg/dL (8-23); Calcium 8.6 mg/dL (8.5-10.5); Carbon Dioxide 24 mmol/L (22-29); Chloride 106 mmol/L (98-107); Globulin 2.5 g/dL (1.3-4.6); Glucose 150 mg/dL (65-115); Magnesium 2.3 mg/dL (1.7-2.3); Osmolality Calculated 306 mOsm/kg (285-295); Phosphorus 3.2 mg/dL (2.5-4.5); Potassium 3.8 mmol/L (3.5-5.1); Sodium 143 mmol/L (136-145); Total Protein 5.7 g/dL (6.6-8.7)
[2022-02-01 02:09] LABS: Troponin(5th) Baseline 128 ng/L (0-15)
[2022-02-01] MEDS: vancomycin 1,000 MG in sodium chloride 0.9% 250 ML 250 MG IV (02:45)
[2022-02-01 04:16] LABS: Troponin 5 2HR 129.4 ng/L (0-15); Troponin 5 2HR Delta 1.4 ABS# (0-10)
--- NOTE | 2022-02-01 05:44 | PC.NURSE ---
Morphine Dose 0530: Hooked up Morphine syringe to give medicine and assisted the pt to put gown back on. When went to push a little more of the medication noticed that the plunger had fallen out and the medicine spilled in the bed. Notified the Physician and received orders for more pain medication.
[2022-02-01] MEDS: gabapentin 100 mg Capsule PO ×2 (09:19→17:28)
[2022-02-01] MEDS: isosorbide mononitrate ER 30 mg Tablet 15 MG PO (09:19)
[2022-02-01] MEDS: levothyroxine 137 mcg Tablet PO (09:20)
[2022-02-01] MEDS: citalopram 20 mg Tablet PO (09:20)
[2022-02-01 09:21] LABS: Troponin 5 6HR Delta -22.5 ng/L (0-12)
[2022-02-01] MEDS: aspirin 81 mg EC Tablet PO (09:21)
[2022-02-01] MEDS: carvedilol 3.125 mg Tablet PO ×2 (09:21→17:28)
[2022-02-01 09:22] LABS: Troponin 5 6HR 105.5 ng/L (0-15)
[2022-02-01] MEDS: potassium chloride ER 10 mEq Tablet PO (09:22)
[2022-02-01] MEDS: cefepime 1,000 MG in sodium chloride 0.9% (plus) 50 ML 100 MG IV ×2 (09:23→22:30)
[2022-02-01] MEDS: levETIRAcetam 500 mg Tablet 1000 MG PO ×2 (09:25→22:29)
[2022-02-01] MEDS: hyDRALAzine 25 mg Tablet PO ×2 (09:26→22:30)
[2022-02-01] MEDS: nystatin powder 15 gm Btl 1 APPLIC TOPICAL ×2 (09:26→17:28)
[2022-02-01] MEDS: sodium chloride 0.9% 1,000 ML 50 ML IV ×2 (13:35→17:27)
--- NOTE | 2022-02-01 15:15 | P.PN_ITS ---
Subjective Subjective: Overnight labs overnight labs and H&P reviewed. Patient remains lethargic, does not awaken easily. No further episodes of arrhythmia noted. Awaiting orthopedic evaluation. Medications: Reviewed: Yes Vitals/I&O/Wt Last Vital Signs Temp 97.1 F L 02/01/22 12:00 Pulse 75 02/01/22 14:00 Resp 17 02/01/22 12:00 BP 131/84 02/01/22 12:00 Pulse Ox 98 02/01/22 12:00 O2 Del Method 02/01/22 12:00 O2 Flow Rate 3 02/01/22 08:00 02/01/22 02/01/22 02/01/22 06:59 14:59 22:59 Intake Total 250 / 800 1050 / 1050 Output Total 300 / 300 Balance -50 / 500 1050 / 1050 Weight last 48 hrs Weight 59.874 kg Physical Exam Narrative: General: No acute distress, AO x1 HEENT: PERRLA, pupils bilaterally equal and reactive, pallors not present Chest: Normal vesicular breath sounds anteriorly CVS: S1-S2 regular, no murmurs, no tachycardia, no gallops, no rubs Abdomen: Soft, nontender, no organomegaly, Neuro: unable to follow commands to complete exam. oriented x 1 Extremities: no edema, clubbing or cyanosis Urinary Catheter Management: Tee: Cath Placed During This Visit: yes Reason for Continuing Indwelling Catheter: Required Immobilization for Trauma or Surgery or Anesthesia Urinary Catheter Date of Insertion: 01/31/22 Urinary Catheter Time of Insertion: 20:45 Data : 02/01/22 01:05 02/01/22 01:05 Micro: Microbiology 02/01/22 07:05 MRSA Culture - Final Nose 01/31/22 22:45 Blood Culture - Preliminary Blood SPECIMEN COLLECTED 01/31/22 22:41 Blood Culture - Preliminary Blood SPECIMEN COLLECTED A&P Assessment and plan (1) Closed hip fracture: Status: Acute (2) Pneumonia: Status: Acute (3) Fall: Status: Acute (4) Musculoskeletal pain: Status: Acute Plan - Has subcapital impacted left hip fracture with overlapping fracture fragments -Hold Eliquis . last dose taken on 01/31 am -Plan on possible surgical intervention, awaiting orthopedics evaluation -Morphine for pain control -Dysphagia diet -DNR/DNI -SCDs for DVT prophylaxis, anticoagulation on hold for possible surgical intervention Bilateral atelectasis versus infiltrate on chest x-ray -Potentially aspiration pneumonia versus healthcare associated pneumonia -Continue vancomycin, cefepime -Follow blood cultures -Follow sputum cultures Diffuse musculoskeletal pain, complains of spinal pain, fall unwitnessed -History of L2 kyphoplasty after fall -no noted fractures or dislocations on cervical or lumbar spine CT. -Thoracic spine CT shows compression fractures at T2, T11 and left eighth and ninth posterior rib fractures. Encourage spirometry if able to follow commands. Atrial fibrillation on anticoagulation, hold Eliquis. Continue beta-blockers Hypothyroidism continue home medications History of epilepsy continue Keppra Hypertension continue home medications Attestations Medical Necessity Statement*: Left hip fracture, will likely need surgical f ixation. 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
--- NOTE | 2022-02-01 16:47 | P.CONIM_ITS ---
Providers/Reason For Consult Consulting Physician/Specialty*: Yovani Hathaway MD; orthopedic surgery Reason for Consult*: Left femoral neck fracture Attending Physician: Berta Finnegan MD Primary Care Provider: Chin Salazar DO History of Present Illness History of Present Illness Casey Alves is a 86 year old male senior care resident who apparently sustained a fall yesterday. The family reports that he is minimally ambulatory and spends most of his time in a wheelchair. He has dementia and unfortunately has a number of falls as he attempts to transfer in and out of his wheelchair. Patient reportedly fell from his wheelchair 3 days ago. He experienced fatigue confusion and diffuse pain. He was transferred to our emergency room on 01/31/2022 where radiographs revealed a displaced left intertrochanteric hip fracture. The patient has a history of a previous kyphoplasty on 09/17/2021. CT scan in the emergency room on this admission revealed multiple compression fractures as well. Medications/Allergies Home Medications Medication Instructions Recorded Confirmed Last Taken Type apixaban 2.5 mg tablet (Eliquis) 2.5 mg PO BID@0806/12/19 01/31/22 09/15/21 History finasteride 5 mg tablet 5 mg PO DAILY@199906/12/19 01/31/22 09/15/21 History tamsulosin 0.4 mg capsule 0.4 mg PO DAILY@199906/12/19 01/31/22 09/15/21 History potassium chloride 10 mEq 10 meq PO DAILY@0800 05/22/20 01/31/22 09/15/21 History capsule,extended release levetiracetam 1,000 mg tablet 1,000 mg PO BID@01/09/21 01/31/22 09/15/21 History citalopram 20 mg tablet 20 mg PO DAILY@08/02/21 01/31/22 09/15/21 History furosemide 80 mg tablet (Lasix) 40 mg PO DAILY@08/02/21 01/31/22 09/15/21 History aloe vera 1 applic topical DAILY PRN dry skin 09/06/21 01/31/22 Unknown History hydroxyurea 500 mg capsule See Rx Instructions .Route .COMPLEX 09/06/21 01/31/22 09/15/21 History acetaminophen 500 mg tablet 500 mg PO Q6H PRN pain #100 tabs 09/08/21 01/31/22 Unknown Rx (Acetaminophen Extra Strength) aspirin 81 mg tablet,delayed 81 mg PO DAILY@09/10/21 01/31/22 09/15/21 History release levothyroxine 137 mcg tablet 137 mcg PO DAILY@08 09/10/21 01/31/22 09/15/21 History nystatin 100,000 unit/gram topical 1 applic topical BID PRN Redness 09/16/21 Unknown History powder oxycodone 5 mg tablet 5 mg PO Q4H PRN Moderate Pain #20 09/19/21 01/31/22 Unknown Rx tabs bisacodyl 10 mg rectal suppository 10 mg WI DAILY PRN Constipation 01/31/22 01/31/22 Unknown History (Dulcolax (bisacodyl)) duloxetine 30 mg capsule,delayed 30 mg PO DAILY 01/31/22 01/31/22 Unknown History release esomeprazole magnesium 20 mg 20 mg PO DAILY 01/31/22 01/31/22 Unknown History capsule,delayed release magnesium hydroxide 400 mg/5 mL 30 ml PO DAILY PRN Constipation 01/31/22 01/31/22 Unknown History oral suspension (Milk of Magnesia) neomycin-bacitracn Zn-polymyxn 3.5 1 applic topical DAILY 01/31/22 01/31/22 Unknown History mg-400 unit-5,000 unit top oint pkt (Triple Antibiotic) polyethylene glycol 3350 17 gram 17 g PO DAILY 01/31/22 01/31/22 Unknown History oral powder packet (Miralax) sodium phosphates 19 gram-7 118 ml WI DAILY PRN Constipation 01/31/22 01/31/22 Unknown History gram/118 mL enema (Fleet Enema) Allergies Allergy/AdvReac Type Severity Reaction Status Date / Time lorazepam [From Ativan] AdvReac hallucinati Verified 10/02/21 08:17 ons Current Medications Generic Name Dose Route Start Last Admin Trade Name Freq PRN Reason Stop Dose Admin Aspirin 81 mg 02/01/22 09:00 02/01/22 09:21 Aspirin 81 Mg Ec Tablet PO 81 mg DAILY TARIK Administration Carvedilol 3.125 mg 02/01/22 09:00 02/01/22 09:21 Carvedilol 3.125 Mg Tablet PO 3.125 mg BID TARIK Administration Citalopram Hydrobromide 20 mg 02/01/22 08:00 02/01/22 09:20 Citalopram 20 Mg Tablet PO 20 mg DAILY@08 [facility] Administration Gabapentin 100 mg 02/01/22 09:00 02/01/22 09:19 Gabapentin 100 Mg Capsule PO 100 mg BID TARIK Administration Hydralazine HCl 25 mg 02/01/22 08:00 02/01/22 09:26 Hydralazine 25 Mg Tablet PO 25 mg BID@ [facility] Administration Cefepime HCl 1,000 mg/ Sodium 50 mls @ 100 mls/hr 02/01/22 09:00 02/01/22 10:10 Chloride IV Infused Q12H [facility] Infusion Protocol Sodium Chloride 1,000 mls @ 50 mls/hr 01/31/22 22:26 02/01/22 13:35 Sodium Chloride 0.9% IV 50 mls/hr .Q20H TARIK Administration Vancomycin HCl 1,000 mg/ 250 mls @ 250 mls/hr 02/01/22 01:00 02/01/22 03:45 Sodium Chloride IV Infused Q24H [facility] Infusion Isosorbide Mononitrate 15 mg 02/01/22 08:00 02/01/22 09:19 Isosorbide Mononitrate Er 30 Mg Tablet PO 15 mg DAILY@0800 [facility] Administration Levetiracetam 1,000 mg 02/01/22 08:00 02/01/22 09:25 Levetiracetam 500 Mg Tablet PO 1,000 mg BID@ [facility] Administration Levothyroxine Sodium 137 mcg 02/01/22 08:00 02/01/22 09:20 Levothyroxine 137 Mcg Tablet PO 137 mcg DAILY@08 [facility] Administration Morphine Sulfate 2 mg 01/31/22 22:44 02/01/22 05:30 Morphine 2 Mg/Ml Syr 1 Ml IVP 2 mg Q4H PRN Administration SEVERE PAIN Non-Formulary Medication 24 mg 02/01/22 08:00 02/01/22 09:22 Galantamine PO Not Given DAILY@08 [facility] Nystatin 1 applic 02/01/22 09:00 02/01/22 09:26 Nystatin Powder 15 Gm Btl TOPICAL 1 applic BID [facility] Administration Pantoprazole Sodium 40 mg 01/31/22 22:26 01/31/22 23:57 Pantoprazole 40 Mg Sdv IVP 40 mg Q24H TARIK Administration Potassium Chloride 10 meq 02/01/22 08:00 02/01/22 09:22 Potassium Chloride Er 10 Meq Tablet PO 10 meq DAILY@0800 TARIK Administration PFSH Acute PFSH: Medical History (Updated 02/01/22 @ 16:52 by Yovani Hathaway MD) Acquired polycythemia vera Alzheimer disease Atrial fibrillation with slow ventricular response Bradycardia CAD (coronary artery disease) Cardiomegaly CHF (congestive heart failure), NYHA class III Chronic atrial fibrillation COPD (chronic obstructive pulmonary disease) Diarrhea Encounter for rehabilitation evaluation 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 Hernia Hypertension Hypothyroid Lower urinary tract symptoms (LUTS) Mild cognitive impairment with memory loss Obstructive sleep apnea Pancytopenia Pulmonary hypertension Restless leg Vertebrobasilar dolichoectasia Weakness of both lower extremities Surgical History (Updated 01/31/22 @ 20:54 by Alexis Amaro MD) History of kyphoplasty Family History Father CAD (coronary artery disease) CHF (congestive heart failure) Social History Smoking and tobacco status: never smoked Second hand smoke exposure: No Smoking risk assessment/counseling performed?: No Alcohol intake: never Counseling given: No Counseling given: No Lives independently: Yes Marital status: / Current occupational status: retired History of recent travel: No Current gender identity: Male Vitals/I&O/Wt Last Vital Signs Temp 97.1 F L 02/01/22 12:00 Pulse 64 02/01/22 16:00 Resp 20 H 02/01/22 16:00 BP 151/85 02/01/22 16:00 Pulse Ox 94 02/01/22 16:00 O2 Del Method 02/01/22 16:00 O2 Flow Rate 3 02/01/22 08:00 02/01/22 02/01/22 02/01/22 06:59 14:59 22:59 Intake Total 250 / 800 1050 / 1050 Output Total 300 / 300 275 / 275 Balance -50 / 500 775 / 775 Weight last 48 hrs Weight 132 lb Physical Exam Narrative: Mr. Alves is an elderly male resting supine in bed. He does not respond to voice. He is confused and gives no history. There is shortening and external rotation of the left hip. He has severe pain with most of the left hip. He will not move his toes or ankle to voice. Urinary Catheter Management: Tee: Cath Placed During This Visit: yes Reason for Continuing Indwelling Catheter: Required Immobilization for Trauma or Surgery or Anesthesia Urinary Catheter Date of Insertion: 01/31/22 Urinary Catheter Time of Insertion: 20:45 Data : 02/01/22 01:05 02/01/22 01:05 Micro: Microbiology 02/01/22 07:05 MRSA Culture - Final Nose 01/31/22 22:45 Blood Culture - Preliminary Blood SPECIMEN COLLECTED 01/31/22 22:41 Blood Culture - Preliminary Blood SPECIMEN COLLECTED Xray Ortho: Radiologist's impression: Radiographs of the left hip rare reviewed dated 01/31/2022. Patient has a displaced left femoral neck fracture. A&P Assessment and plan (1) Displaced fracture of left femoral neck: I discussed options with the family, including a daughter who is DURABLE POWER OF SEO MANAGER.. I told them possible treatments for displaced femoral neck fracture would include nonoperative treatment, open reduction internal fixation, or hemiarthroplasty. I told them without treatment the patient would experience ongoing of pain that would limit mobility. This would require pain medications and place her at medical risks due to prolonged periods of bed rest. I discussed the possibility of open reduction internal fixation with pins. I warn ed them that for displaced fractures of the risk of nonunion and malunion is exceptionally high. In addition there is a high likelihood that the blood applied to the femoral head has been disrupted and that even with successful stabilization of the fracture the femoral head will go on to . I finally discussed the possibility of hemiarthroplasty. I think this would give the patient the greatest chance of being immediately mobilized. I discussed risk of a bleeding and a possible need for blood products. I discussed risk of deep venous thromboses and pulmonary emboli and the need for anticoagulation. I discussed the use of the TXA that may be utilized to diminish blood loss. I discussed risk of component failure and loosening that could require revision. I discussed the risk of dislocation and a bipolar arthroplasty which is quite unlikely. After a long discussion of options they agree to hemiarthroplasty of the hip. The patient has significant medical comorbidities. His last dose of Eliquis was taken out yesterday. This will need to be held for at least 48 hours prior to surgery. 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
[2022-02-01] MEDS: pantoprazole 40 mg SDV IVP (22:28)
[2022-02-01] MEDS: atorvastatin 40 mg Tablet PO (22:29)
[2022-02-01] MEDS: finasteride 5 mg Tablet PO (22:30)
[2022-02-01] MEDS: tamsulosin 0.4 mg Capsule PO (22:30)
[2022-02-02] VITALS (10 sets, daily range): BP systolic 112–164; BP diastolic 66–90; PULSE 0–76; RESP 15–20; TEMP 36.4–36.6; O2SAT 92–99
[2022-02-02] MEDS: vancomycin 1,000 MG in sodium chloride 0.9% 250 ML 250 MG IV (01:29)
[2022-02-02 05:33] LABS: Basophils # 0.1 10^3/uL (0.0-0.1); Eosinophils # 0.3 10^3/uL (0.0-0.8); Eosinophils % 2.8 %; Hematocrit 45.7 % (42.0-52.0); Hemoglobin 14.1 g/dL (11.7-16.6); Lymphocytes # 0.3 10^3/uL (0.8-4.8); Lymphocytes % 3.5 %; Mean Corpuscular HGB Conc 30.9 g/dL (30.0-36.0); Mean Corpuscular Volume 119.9 fl (80-94); Mean Platelet Volume 10.9 fL (7.4-10.4); Monocytes # 0.8 10^3/uL (0.2-0.9); Neutrophils # 8.02 10^3/uL (1.8-7.7); Nucleated Red Blood Cells % 0 %; Platelet Count 346 10^3/cmm (130-400); Red Blood Count 3.81 10^6/uL (4.1-5.3); Red Cell Distribution Width 14.3 % (12.1-15.1); White Blood Count 9.6 10^3/uL (4.0-10.0)
[2022-02-02 05:52] LABS: Alanine Aminotransferase 10 U/L (0-41); Albumin Level 3.3 g/dL (3.5-5.2); Alkaline Phosphatase 100 U/L (40-130); Blood Urea Nitrogen 39 mg/dL (8-23); Calcium 8.5 mg/dL (8.5-10.5); Carbon Dioxide 25 mmol/L (22-29); Chloride 111 mmol/L (98-107); Globulin 2.5 g/dL (1.3-4.6); Glucose 123 mg/dL (65-115); Magnesium 2.6 mg/dL (1.7-2.3); Osmolality Calculated 317 mOsm/kg (285-295); Phosphorus 3.9 mg/dL (2.5-4.5); Sodium 148 mmol/L (136-145); Total Bilirubin 0.8 mg/dL (0.15-1.2); Total Protein 5.8 g/dL (6.6-8.7)
[2022-02-02 05:59] LABS: Anion Gap 16.3 (5-19); Aspartate Amino Transferase 7 U/L (0-40); Potassium 4.3 mmol/L (3.5-5.1)
[2022-02-02] MEDS: levothyroxine 137 mcg Tablet PO (08:41)
[2022-02-02] MEDS: potassium chloride ER 10 mEq Tablet PO (08:41)
[2022-02-02] MEDS: isosorbide mononitrate ER 30 mg Tablet 15 MG PO (08:41)
[2022-02-02] MEDS: gabapentin 100 mg Capsule PO ×2 (08:41→16:57)
[2022-02-02] MEDS: cefepime 1,000 MG in sodium chloride 0.9% (plus) 50 ML 100 MG IV ×2 (08:41→20:48)
[2022-02-02] MEDS: carvedilol 3.125 mg Tablet PO (08:42)
[2022-02-02] MEDS: citalopram 20 mg Tablet PO (08:42)
[2022-02-02] MEDS: aspirin 81 mg EC Tablet PO (08:42)
[2022-02-02] MEDS: nystatin powder 15 gm Btl 1 APPLIC TOPICAL ×2 (08:43→16:57)
[2022-02-02] MEDS: hyDRALAzine 25 mg Tablet PO ×2 (08:48→20:48)
[2022-02-02] MEDS: levETIRAcetam 500 mg Tablet 1000 MG PO ×2 (08:48→20:47)
[2022-02-02] MEDS: hydroxyurea 500 mg Capsule 1000 MG PO (09:44)
[2022-02-02] MEDS: dextrose 5% 1,000 ML 50 ML IV (13:23)
--- NOTE | 2022-02-02 16:16 | P.PN_ITS ---
Subjective Subjective: No acute overnight events. Patient remains non verbal, does not participate in conversation, planned for surgical fixation tomorrow marcos 48 hrs off anticoagulation Medications: Reviewed: Yes Vitals/I&O/Wt Last Vital Signs Temp 97.9 F 02/02/22 12:00 Pulse 67 02/02/22 12:00 Resp 17 02/02/22 12:00 BP 112/66 02/02/22 12:00 Pulse Ox 92 02/02/22 12:00 O2 Del Method 02/02/22 12:00 O2 Flow Rate 3 02/02/22 12:00 02/02/22 02/02/22 02/02/22 06:59 14:59 22:59 Intake Total 50 / 6009.728 2236 / 1300 Output Total 350 / 1200 Balance -300 / 93.333 1300 / 1300 Weight last 48 hrs Weight 59.874 kg Physical Exam Narrative: General: No acute distress, AO x1 HEENT: PERRLA, pupils bilaterally equal and reactive, pallors not present Chest: Normal vesicular breath sounds anteriorly CVS: S1-S2 regular, no murmurs Abdomen: Soft, nontender, no organomegaly, bowel sounds present Urinary Catheter Management: Tee: Cath Placed During This Visit: yes Reason for Continuing Indwelling Catheter: Perioperative Use in Selected Surgeries Urinary Catheter Date of Insertion: 01/31/22 Urinary Catheter Time of Insertion: 20:45 Data : 02/02/22 04:50 02/02/22 04:50 Micro: Microbiology 01/31/22 22:45 Blood Culture - Preliminary Blood NEGATIVE TO DATE 01/31/22 22:41 Blood Culture - Preliminary Blood NEGATIVE TO DATE 01/31/22 19:55 Bacterial Antigens - Final Urine,Clean Catch 02/01/22 07:05 MRSA Culture - Final Nose A&P Assessment and plan (1) Closed hip fracture: Status: Acute (2) Pneumonia: Status: Acute (3) Fall: Status: Acute (4) Musculoskeletal pain: Status: Acute Plan # subcapital impacted left hip fracture with overlapping fracture fragments -Hold Eliquis . last dose taken on 01/31 am -Planned for hemiarthroplasty tomorrow am -Morphine for pain control -Dysphagia diet -DNR/DNI -SCDs for DVT prophylaxis, anticoagulation on hold for planned surgical intervention Bilateral atelectasis versus infiltrate on chest x-ray -Potentially aspiration pneumonia versus healthcare associated pneumonia -Continue vancomycin, cefepime -Follow blood cultures -Follow sputum cultures Diffuse musculoskeletal pain, complains of spinal pain, fall unwitnessed -History of L2 kyphoplasty after fall -no noted fractures or dislocations on cervical or lumbar spine CT. -Thoracic spine CT shows compression fractures at T2, T11 and left eighth and ninth posterior rib fractures. Encourage spirometry if able to follow commands. -Pain control as above Atrial fibrillation on anticoagulation, hold Eliquis. Noted sinus bradycardia with minimum HR 47. Hold coreg Hypothyroidism continue home medications History of epilepsy continue Keppra Hypertension continue home medications Attestations Medical Necessity Statement*: planned surgical fixation tomorrow Coding Level of Care Code Acute Director [facility] F[facility] Diagnoses Closed hip fracture S72.009A Pneumonia J18.9 Fall W19.XXXA Musculoskeletal pain M79.18
[2022-02-02] MEDS: ondansetron 2 mg/ML SDV 2 mL 4 MG IVP (20:48)
[2022-02-02] MEDS: finasteride 5 mg Tablet PO (20:48)
[2022-02-02] MEDS: tamsulosin 0.4 mg Capsule PO (20:48)
[2022-02-02] MEDS: atorvastatin 40 mg Tablet PO (20:48)
[2022-02-02] MEDS: pantoprazole 40 mg SDV IVP (22:43)
[2022-02-03] VITALS (28 sets, daily range): BP systolic 100–144; BP diastolic 61–92; PULSE 52–94; RESP 15–20; TEMP 36.1–37.6; O2SAT 91–100
[2022-02-03] MEDS: vancomycin 1,000 MG in sodium chloride 0.9% 250 ML 250 MG IV (01:53)
[2022-02-03 03:08] LABS: Basophils # 0.1 10^3/uL (0.0-0.1); Basophils % 0.9 %; Eosinophils # 0.2 10^3/uL (0.0-0.8); Eosinophils % 2.3 %; Hematocrit 42.1 % (42.0-52.0); Lymphocytes # 0.4 10^3/uL (0.8-4.8); Lymphocytes % 4.9 %; Mean Corpuscular HGB Conc 30.9 g/dL (30.0-36.0); Mean Corpuscular Hemoglobin 36.8 pg (28.0-34.0); Mean Corpuscular Volume 119.3 fl (80-94); Mean Platelet Volume 11.2 fL (7.4-10.4); Monocytes # 0.8 10^3/uL (0.2-0.9); Monocytes % 9.2 %; Neutrophils # 6.99 10^3/uL (1.8-7.7); Neutrophils % 81.8 %; Nucleated Red Blood Cells % 0 %; Platelet Count 327 10^3/cmm (130-400); Red Blood Count 3.53 10^6/uL (4.1-5.3); Red Cell Distribution Width 14.1 % (12.1-15.1); White Blood Count 8.6 10^3/uL (4.0-10.0)
[2022-02-03 03:26] LABS: Alanine Aminotransferase 9 U/L (0-41); Albumin Level 2.9 g/dL (3.5-5.2); Alkaline Phosphatase 89 U/L (40-130); Anion Gap 11.1 (5-19); Aspartate Amino Transferase 6 U/L (0-40); Blood Urea Nitrogen 38 mg/dL (8-23); Calcium 8.1 mg/dL (8.5-10.5); Carbon Dioxide 30 mmol/L (22-29); Chloride 111 mmol/L (98-107); Globulin 2.5 g/dL (1.3-4.6); Glucose 138 mg/dL (65-115); Magnesium 2.4 mg/dL (1.7-2.3); Osmolality Calculated 317 mOsm/kg (285-295); Phosphorus 3.6 mg/dL (2.5-4.5); Potassium 4.1 mmol/L (3.5-5.1); Sodium 148 mmol/L (136-145); Total Bilirubin 0.7 mg/dL (0.15-1.2); Total Protein 5.4 g/dL (6.6-8.7)
--- NOTE | 2022-02-03 06:31 | ANES.PREANE2 ---
Pre-Anesthetic Assessment Height/Weight: Height 1.85 m Weight 59.874 kg Temp Pulse Resp BP Pulse Ox O2 Del Method O2 Flow Rate 97.4 F L 70 17 121/61 96 3 02/03/22 06:27 02/03/22 06:27 02/03/22 06:27 02/03/22 06:27 02/03/22 06:27 02/03/22 06:27 02/03/22 06:27 Preop Diagnosis: Left femoral neck fracture Operation Date: 02/03/22 07:55 Proposed Procedures p cemented left bipolar hip(Left) - Yovani Hathaway MD Familial anesthetic complications: Hx from daughter - none known by daughter Was Beta Inez taken within 24 hours: Yes Was Clonidine taken within 24 hours: N/A Last intake: Intake Last Liquid Date 02/03/22 Last Liquid Time 00:00 Last Solid Date 02/02/22 Last Solid Time 18:00 Pulmonary Chronic Obstructive Pulmonary Disease Left posterior rib fractures Potentially aspiration pneumonia versus healthcare associated pneumonia CV/HEM Atrial Fibrillation, Arrythmia (Non sustained v tach on admission ), Coronary Artery Disease, Congestive Heart Failure, Hypertension and Myocardial Infarction Polycythemia vera Pulmonary HTN TTE 01/2021 CONCLUSIONS ?LV systolic function is normal with EF of 55-60% ?Biatrial enlargement ?Trace mitral regurgitation is seen. Mild pulmonic regurgitation ?There is moderate tricuspid regurgitation ?Severe pulmonary hypertension ?Compared to prior echocardiogram from 05/2017, no significant ?changes are noted 02/01/22 ?Interpretive Statements ATRIAL FIBRILLATION WITH ABERRANT CONDUCTION OR VENTRICULAR PREMATURE COMPLEXES ST DEVIATION AND MARKED T-WAVE ABNORMALITY, CONSIDER ANTEROLATERAL ISCHEMIA [-0.5+ mV T-WAVE IN I/aVL/V3-V6] ST DEVIATION AND MODERATE T-WAVE ABNORMALITY, CONSIDER INFERIOR ISCHEMIA ?[-0.1+ mV T-WAVE IN II/aVF] Compared to ECG 09/16/2021 14:00:09 Ventricular premature complex(es) now present Aberrant conduction of supraventricular beat(s) now present T-wave abnormality now present Possible ischemia now present Myocardial infarct finding no longer present Electronically Signed On 02-01-2022 8:24:32 CDT by Brayan Gorman M.D. [email or web address] Hypernatremia Na [address] [place] Hepatic None reported GI Gastroesophageal Reflux Disease Metabolic Thyroid Disease [facility] [place] Femoral neck fx left CT 01/31/22 FINDINGS: Bones/joints: L2 vertebral body chronic appearing compression fracture with retropulsion of bony fragments resulting in severe spinal canal narrowing, with vertebroplasty changes. L4 vertebral body compression fracture without retropulsion of bony fragments, not seen on prior exam, potentially acute. L1-L2: No significant disc protrusion. No severe spinal canal stenosis. No significant neural foraminal narrowing. L2-L3: No significant disc protrusion. No severe spinal canal stenosis. No significant neural foraminal narrowing. L3-L4: No significant disc protrusion. No severe spinal canal stenosis. No significant neural foraminal narrowing. L4-L5: No significant disc protrusion. No severe spinal canal stenosis. No significant neural foraminal narrowing. L5-S1: No significant disc protrusion. No severe spinal canal stenosis. No significant neural foraminal narrowing. Neuropsych Dementia (Alzheimer disease ) and Seizure CT head 01/31/22 CT/CT head wo con* [id number] IMPRESSION: Negative for intracranial hemorrhage or mass effect. ? Anesthetic Plan ASA status: 3 Anesthesia: General and Regional (specify below) (Spinal ) Other: Consent discussed with patient's daughter/POA. We discussed risk and benefits of general vs spinal anesthesia including DVT risk, infection, paralysis/catastrophic nerve injury, back bruising/pain, PDPH, conversion to general in case of spinal, PONV, sore throat (sometimes severe), corneal abrasion, positioning and peripheral nerve injuries, life threatening allergic reaction, post operative ICU admission requiring prolonged intubation, stroke, heart attack, , post operative delirium and/or post operative cognitive decline, and rare incidences of recall (under general anesthesia). Daughter consents to both spinal or general and has no preference. Risk of > 500 ml blood loss (7ml/kg in children): No Other Pertinent Information Apixaban last taken 01/31/22 Medications/Allergies Home Medications Medication Instructions Recorded Confirmed Last Taken Type apixaban 2.5 mg tablet (Eliquis) 2.5 mg PO BID@0800,199906/12/19 01/31/22 09/15/21 History finasteride 5 mg tablet 5 mg PO DAILY@2000 0101/31/22 09/15/21 History tamsulosin 0.4 mg capsule 0.4 mg PO DAILY@199906/12/19 01/31/22 09/15/21 History potassium chloride 10 mEq 10 meq PO DAILY@79905/22/20 01/31/22 09/15/21 History capsule,extended release levetiracetam 1,000 mg tablet 1,000 mg PO BID@08,199901/09/21 01/31/22 09/15/21 History citalopram 20 mg tablet 20 mg PO DAILY@08/02/21 01/31/22 09/15/21 History furosemide 80 mg tablet (Lasix) 40 mg PO DAILY@08/02/21 01/31/22 09/15/21 History aloe vera 1 applic topical DAILY PRN dry skin 09/06/21 01/31/22 Unknown History hydroxyurea 500 mg capsule See Rx Instructions .Route .COMPLEX 09/06/21 01/31/22 09/15/21 History acetaminophen 500 mg tablet 500 mg PO Q6H PRN pain #100 tabs 09/08/21 01/31/22 Unknown Rx (Acetaminophen Extra Strength) aspirin 81 mg tablet,delayed 81 mg PO DAILY@09/10/21 01/31/22 09/15/21 History release levothyroxine 137 mcg tablet 137 mcg PO DAILY@09/10/21 01/31/22 09/15/21 History nystatin 100,000 unit/gram topical 1 applic topical BID PRN Redness 09/16/21 01/31/22 Unknown History powder oxycodone 5 mg tablet 5 mg PO Q4H PRN Moderate Pain #20 09/19/21 01/31/22 Unknown Rx tabs bisacodyl 10 mg rectal suppository 10 mg AK DAILY PRN Constipation 01/31/22 01/31/22 Unknown History (Dulcolax (bisacodyl)) duloxetine 30 mg capsule,delayed 30 mg PO DAILY 01/31/22 01/31/22 Unknown History release esomeprazole magnesium 20 mg 20 mg PO DAILY 01/31/22 01/31/22 Unknown History capsule,delayed release magnesium hydroxide 400 mg/5 mL 30 ml PO DAILY PRN Constipation 01/31/22 01/31/22 Unknown History oral suspension (Milk of Magnesia) neomycin-bacitracn Zn-polymyxn 3.5 1 applic topical DAILY 01/31/22 01/31/22 Unknown History mg-400 unit-5,000 unit top oint pkt (Triple Antibiotic) polyethylene glycol 3350 17 gram 17 g PO DAILY 01/31/22 01/31/22 Unknown History oral powder packet (Miralax) sodium phosphates 19 gram-7 118 ml AK DAILY PRN Constipation 01/31/22 01/31/22 Unknown History gram/118 mL enema (Fleet Enema) Allergies Allergy/AdvReac Type Severity Reaction Status Date / Time lorazepam [From Ativan] AdvReac hallucinati Verified 10/02/21 08:17 ons Current Medications Generic Name Dose Route Start Last Admin Trade Name Freq PRN Reason Stop Dose Admin Aspirin 81 mg 02/01/22 09:00 02/02/22 08:42 Aspirin 81 Mg Ec Tablet PO 81 mg DAILY TARIK Administration Atorvastatin Calcium 40 mg 02/01/22 21:00 02/02/22 20:48 Atorvastatin 40 Mg Tablet PO 40 mg BEDTIME TARIK Administration Carvedilol 3.125 mg 02/01/22 09:00 02/02/22 08:42 Carvedilol 3.125 Mg Tablet PO 3.125 mg BID TARIK Administration Citalopram Hydrobromide 20 mg 02/01/22 08:00 02/02/22 08:42 Citalopram 20 Mg Tablet PO 20 mg DAILY@08 TARIK Administration Finasteride 5 mg 02/01/22 20:00 02/02/22 20:48 Finasteride 5 Mg Tablet PO 5 mg DAILY@1999 TARIK Administration Gabapentin 100 mg 02/01/22 09:00 02/02/22 16:57 Gabapentin 100 Mg Capsule PO 100 mg BID TARIK Administration Hydralazine HCl 25 mg 02/01/22 08:00 02/02/22 20:48 Hydralazine 25 Mg Tablet PO 25 mg BID@0800,1999 TARIK Administration Hydroxyurea 1,000 mg 02/02/22 09:00 02/02/22 09:44 Hydroxyurea 500 Mg Capsule PO 1,000 mg MoWeFr@0900 TARIK Administration Cefepime HCl 1,000 mg/ Sodium 50 mls @ 100 mls/hr 02/01/22 09:00 02/02/22 21:20 Chloride IV Infused Q12H [facility] Infusion Protocol Vancomycin HCl 1,000 mg/ 250 mls @ 250 mls/hr 02/01/22 01:00 02/03/22 02:55 Sodium Chloride IV Infused Q24H [facility] Infusion Dextrose 1,000 mls @ 50 mls/hr 02/02/22 13:00 02/02/22 13:23 D5w IV 50 mls/hr .Q20H TARIK Administration Isosorbide Mononitrate 15 mg 02/01/22 08:00 02/02/22 08:41 Isosorbide Mononitrate Er 30 Mg Tablet PO 15 mg DAILY@0800 TARIK Administration Levetiracetam 1,000 mg 02/01/22 08:00 02/02/22 20:47 Levetiracetam 500 Mg Tablet PO 1,000 mg BID@799,1999 [facility] Administration Levothyroxine Sodium 137 mcg 02/01/22 08:00 02/02/22 08:41 Levothyroxine 137 Mcg Tablet PO 137 mcg DAILY@08 [facility] Administration Morphine Sulfate 2 mg 01/31/22 22:44 02/03/22 03:47 Morphine 2 Mg/Ml Syr 1 Ml IVP 2 mg Q4H PRN Administration SEVERE PAIN Non-Formulary Medication 24 mg 02/01/22 08:00 02/02/22 08:43 Galantamine PO Not Given DAILY@08 [facility] Nystatin 1 applic 02/01/22 09:00 02/02/22 16:57 Nystatin Powder 15 Gm Btl TOPICAL 1 applic BID TARIK Administration Ondansetron HCl 4 mg 01/31/22 22:26 02/02/22 20:48 Ondansetron 2 Mg/Ml Sdv 2 Ml IVP 4 mg Q8H PRN Administration vomiting, or N/V if npo Pantoprazole Sodium 40 mg 01/31/22 22:26 02/02/22 22:43 Pantoprazole 40 Mg Sdv IVP 40 mg Q24H TARIK Administration Potassium Chloride 10 meq 02/01/22 08:00 02/02/22 08:41 Potassium Chloride Er 10 Meq Tablet PO 10 meq DAILY@0800 T[facility] Administration Tamsulosin HCl 0.4 mg 02/01/22 20:00 02/02/22 20:48 Tamsulosin 0.4 Mg Capsule PO 0.4 mg DAILY@1999 [facility] Administration [facility] Anesthesia Medical History Acquired polycythemia vera Alzheimer disease Atrial fibrillation with slow ventricular response Bradycardia CAD (coronary artery disease) Cardiomegaly CHF (congestive heart failure), NYHA class III Chronic atrial fibrillation COPD (chronic obstructive pulmonary disease) Diarrhea Encounter for rehabilitation evaluation 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 Hernia Hypertension Hypothyroid Lower urinary tract symptoms (LUTS) Mild cognitive impairment with memory loss Obstructive sleep apnea Pancytopenia Pulmonary hypertension Restless leg Vertebrobasilar dolichoectasia Weakness of both lower extremities Surgical History History of kyphoplasty Family History Father CAD (coronary artery disease) CHF (congestive heart failure) Social History Smoking and tobacco status: never smoked Second hand smoke exposure: No Smoking risk assessment/counseling performed?: No Alcohol intake: never Counseling given: No Counseling given: No Lives independently: Yes Marital status: / Current occupational status: retired History of recent travel: No Current gender identity: Male Data Anesthesia : 02/03/22 02:26 02/03/22 02:26 Short CBC 02/02/22 02/03/22 Range/Units 04:50 02:26 WBC 9.6 8.6 (4.0-10.0) 10^3/uL Hgb 14.1 13.0 (11.7-16.6) g/dL Hct 45.7 42.1 (42.0-52.0) % MCV 119.9 H 119.3 H (80-94) fl Plt Count 346 327 (130-400) 10^3/cmm Neut % (Auto) 84.0 81.8 % Neut # (Auto) 8.02 H 6.99 (1.8-7.7) 10^3/uL BMP 02/02/22 02/03/22 04:50 02:26 Sodium 148 H 148 H Potassium 4.3 4.1 Chloride 111 H 111 H Carbon Dioxide 25 30 H BUN 39 H 38 H Creatinine 1.3 H 1.3 H Glucose 123 H 138 H Calcium 8.5 8.1 L Cardiac Enzymes 02/01/22 Range/Units 07:05 Troponin T Hi Sens 6Hr 105.5 H (0-15) ng/L Troponin T Hi Sens 6Hr Delta -22.5 L (0-12) ng/L Liver Function 02/02/22 02/03/22 Range/Units 04:50 02:26 Total Bilirubin 0.8 0.7 (0.15-1.2) mg/dL AST 7 6 (0-40) U/L ALT 10 9 (0-41) U/L Alkaline Phosphatase 100 89 (40-130) U/L Albumin 3.3 L 2.9 L (3.5-5.2) g/dL Cardiac Studies: Echocardiogram 01/10/21 Sestamibi Stress Test (Cardiology) 10/12/19 Holter Monitor 09/28/19
[2022-02-03] MEDS: sodium chloride 0.9% 1,000 ML 30 ML IV (06:41)
--- NOTE | 2022-02-03 12:48 | P.PN_ITS ---
Subjective Subjective: Patient was seen and examined this morning no acute events overnight, due for OR today. Medications: Reviewed: Yes Medication Review Details: Generic Name Dose Route Start Last Admin Trade Name Fran PRN Reason Stop Dose Admin Aspirin 81 mg 02/01/22 09:00 02/02/22 08:42 Aspirin 81 Mg Ec Tablet PO 81 mg DAILY TARIK Administration Atorvastatin Calci um 40 mg 02/01/22 21:00 02/02/22 20:48 Atorvastatin 40 Mg Tablet PO 40 mg BEDTIME TARIK Administration Carvedilol 3.125 mg 02/01/22 09:00 02/02/22 08:42 Carvedilol 3.125 Mg Tablet PO 3.125 mg BID TARIK Administration Citalopram Hydrobr omide 20 mg 02/01/22 08:00 02/02/22 08:42 Citalopram 20 Mg Tablet PO 20 mg DAILY@08 [facility] Administration Finasteride 5 mg 02/01/22 20:00 02/02/22 20:48 Finasteride 5 Mg Tablet PO 5 mg DAILY@1999 T[facility] Administration Gabapentin 100 mg 02/01/22 09:00 02/02/22 16:57 Gabapentin 100 M g Capsule PO 100 mg BID TARIK Administration Hydralazine HCl 25 mg 02/01/22 08:00 02/02/22 20:48 Hydralazine 25 M g Tablet PO 25 mg BID@ [facility] Administration Hydroxyurea 1,000 mg 02/02/22 09:00 02/02/22 09:44 Hydroxyurea 500 Mg Capsule PO 1,000 mg MoWeFr@0900 TARIK Administration Cefepime HCl 1,000 mg/ Sodium 50 mls @ 100 mls/ hr 02/01/22 09:00 02/02/22 21:20 Chloride IV Infused Q12H [facility] Infusion Protocol Vancomycin HCl 1,0 00 mg/ 250 mls @ 250 mls /hr 02/01/22 01:00 02/03/22 02:55 Sodium Chloride IV Infused Q24H [facility] Infusion Dextrose 1,000 mls @ 50 ml s/hr 02/02/22 13:00 02/02/22 13:23 D5w IV 50 mls/hr .Q20H TARIK Administration Sodium Chloride 1,000 mls @ 30 ml s/hr 02/03/22 06:45 02/03/22 06:41 Sodium Chloride 0.9% IV 02/04/22 06:44 30 mls/hr .Q24H TARIK Administration Isosorbide Mononit rate 15 mg 02/01/22 08:00 02/02/22 08:41 Isosorbide [place] itrate Er 30 Mg Ta blet PO 15 mg DAILY@08 TARIK Administration Levetiracetam 1,000 mg 02/01/22 08:00 02/02/22 20:47 Levetiracetam 50 0 Mg Tablet PO 1,000 mg BID@ [facility] Administration Levothyroxine Sodi um 137 mcg 02/01/22 08:00 02/02/22 08:41 Levothyroxine 13 7 Mcg Tablet PO 137 mcg DAILY@ [facility] Administration Morphine Sulfate 2 mg 01/31/22 22:44 02/03/22 03:47 Morphine 2 Mg/Ml Syr 1 Ml IVP 2 mg Q4H PRN Administration SEVERE PAIN Non-Formulary Medi cation 24 mg 02/01/22 08:00 02/02/22 08:43 Galantamine PO Not Given DAILY@08 [facility] Nystatin 1 applic 02/01/22 09:00 02/02/22 16:57 Nystatin Powder 15 Gm Btl TOPICAL 1 applic BID [facility] Administration Ondansetron HCl 4 mg 01/31/22 22:26 02/02/22 20:48 Ondansetron 2 Mg /Ml Sdv 2 Ml IVP 4 mg Q8H PRN Administration vomiting, or N/V if npo Pantoprazole Sodiu m 40 mg 01/31/22 22:26 02/02/22 22:43 Pantoprazole 40 Mg Sdv IVP 40 mg Q24H [facility] Administration Potassium Chloride 10 meq 02/01/22 08:00 02/02/22 08:41 Potassium Chlori de Er 10 Meq Table t PO 10 meq DAILY@08 [facility] Administration Tamsulosin HCl 0.4 mg 02/01/22 20:00 02/02/22 20:48 Tamsulosin 0.4 M g Capsule PO 0.4 mg DAILY@1999 [facility] Administration Vitals/I&O/Wt Last Vital Signs Temp 97.4 F L 02/03/22 06:27 Pulse 70 02/03/22 06:27 Resp 17 02/03/22 06:27 BP 121/61 02/03/22 06:27 Pulse Ox 96 02/03/22 06:27 O2 Del Method 02/03/22 06:27 O2 Flow Rate 3 02/03/22 06:27 02/02/22 02/03/22 02/03/22 22:59 06:59 14:59 Intake Total 50 / 1350 250 / 1600 Output Total 400 / 400 400 / 800 Balance -350 / 950 -150 / 800 Physical Exam Resp: COMMON NORMALS: normal respiratory effort, No retractions, No use of accessory muscles and clear to auscultation bilaterally EFFORT & INSPECTION: Yes symmetric chest movement AUSCULTATION: clear to auscultation bilaterally Cardio: COMMON NORMALS: regular rate, regular rhythm, S1 normal heart sound present, S2 normal heart sound present, No gallops present (Cardio), No murmurs present (Cardio), No rub (Cardio) and Peripheral pulses 2+ throughout RATE: regular rate RHYTHM: regular rhythm HEART SOUNDS: S1 normal heart sound present and S2 normal heart sound present PERIPHERAL PULSES: Peripheral pulses 2+ throughout GI: COMMON NORMALS: Normal to inspection, nondistended, normoactive bowel sounds present, Soft to palpation, non-tender, No hepatosplenomegaly present and no masses AUSCULTATION: Yes normoactive bowel sounds PALPATION: Yes Soft to palpation and Yes No hepatosplenomegaly present RECTAL EXAM: Yes deferred Extremity: COMMON NORMALS: no clubbing, cyanosis or edema and no pedal edema Urinary Catheter Management: Tee: Cath Placed During This Visit: yes Reason for Continuing Indwelling Catheter: Required Immobilization for Trauma or Surgery or Anesthesia Urinary Catheter Date of Insertion: 01/31/22 Urinary Catheter Time of Insertion: 20:45 Data : 02/03/22 02:26 02/03/22 02:26 A&P Assessment and plan (1) Closed hip fracture: Status: Acute (2) Pneumonia: Status: Acute (3) Fall: Status: Acute (4) Musculoskeletal pain: Status: Acute Plan # subcapital impacted left hip fracture with overlapping fracture fragments -Hold Eliquis . last dose taken on 01/31 am -Planned for hemiarthroplasty tomorrow am -Morphine for pain control -Dysphagia diet -DNR/DNI -SCDs for DVT prophylaxis, anticoagulation on hold for planned surgical in tervention Bilateral atelectasis versus infiltrate on chest x-ray -Potentially aspiration pneumonia versus healthcare associated pneumonia -Continue vancomycin, cefepime -Follow blood cultures -Follow sputum cultures Diffuse musculoskeletal pain, complains of spinal pain, fall unwitnessed -History of L2 kyphoplasty after fall -no noted fractures or dislocations on cervical or lumbar spine CT. -Thoracic spine CT shows compression fractures at T2, T11 and left eighth and ninth posterior rib fractures. Encourage spirometry if able to follow commands. -Pain control as above Atrial fibrillation on anticoagulation, hold Eliquis. Noted sinus bradycardia with minimum HR 47. Hold coreg Hypothyroidism continue home medications History of epilepsy continue Keppra Hypertension continue home medications Attestations Medical Necessity Statement*: Patient is to be in hospital for management of left hip fracture. Coding Level of Care Code Acute String Studies Director for [facility] Diagnoses Closed hip fracture S72.009A Pneumonia J18.9 Fall W19.XXXA Musculoskeletal pain M79.18
--- NOTE | 2022-02-03 12:48 | PM.PN ---
Subjective Subjective: Patient examined in holding this morning. Sedate but arousable. Vitals/I&O/Wt Last Vital Signs Temp 97.4 F L 02/03/22 06:27 Pulse 70 02/03/22 06:27 Resp 17 02/03/22 06:27 BP 121/61 02/03/22 06:27 Pulse Ox 96 02/03/22 06:27 O2 Del Method 02/03/22 06:27 O2 Flow Rate 3 02/03/22 06:27 02/02/22 02/03/22 02/03/22 22:59 06:59 14:59 Intake Total 50 / 1350 250 / 1600 Output Total 400 / 400 400 / 800 Balance -350 / 950 -150 / 800 Physical Exam Narrative: Shortening and external rotation left hip Urinary Catheter Management: Tee: Cath Placed During This Visit: yes Reason for Continuing Indwelling Catheter: Required Immobilization for Trauma or Surgery or Anesthesia Urinary Catheter Date of Insertion: 01/31/22 Urinary Catheter Time of Insertion: 20:45 Data : 02/03/22 02:26 02/03/22 02:26 A&P Assessment and plan (1) Displaced fracture of left femoral neck: Case discussed with daughter at bedside. We will proceed to the OR today for bipolar hip. 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
[2022-02-03] MEDS: ceFAZolin 2,000 MG in sodium chloride 0.9% (plus) 50 ML 100 MG IV ×2 (13:02→20:05)
[2022-02-03] MEDS: tranexamic acid 1,000 mg/10mL SDV 1000 MG IV (13:18)
[2022-02-03] MEDS: tobramycin 40 mg/mL SDV 2mL 160 MG XX (13:32)
[2022-02-03] MEDS: tranexamic acid 1,000 mg/10mL SDV 2000 MG IRRIGATION (13:32)
[2022-02-03] MEDS: sodium chloride 0.9% 100 mL Bag XX ×2 (13:34→13:35)
--- NOTE | 2022-02-03 14:32 | PM.OP ---
Operative Report Date of procedure: February 03, 2022 Pre-op diagnosis: Preop Diagnosis Left femoral neck fracture Post-op diagnosis: same Procedure done: Hemiarthroplasty left hip Implants: Ángel 1) Accolade cemented stem, size [] 2) 55 bipolar femoral head 3) 28mm/-4 neck length femoral head 4) 2 bags Simplex tobramycin cement Pathology: none sent Surgeon: Yovani Hathaway Anesthesia: Nerve Block (Spinal) Estimated blood loss (mL): 50 Findings: The patient had the previously described displaced fracture of the right femoral neck Disposition: PACU Procedure: The patient was taken to the operating room and a final anesthesia was provided by the anesthesia service. They were given 2 g of Ancef and 1 g of tranexamic acid and positioned in the lateral position with the hip exposed. A 10 cm long incision was made over the greater trochanter with a scalpel blade. Dissection was carried down through the fascia lamin to the greater trochanter. The anterior two thirds of gluteus medius and minimus were elevated off the greater trochanter with electrocautery. The capsule was divided T like fashion. The hip was externally rotated and the neck brought up into the wound. An oscillating saw was really used to resect the neck just above the level of the lesser trochanter. The femoral head was removed and the acetabulumt sized to a 55 mm bipolar head. As bone quality was less than ideal a cemented application was chosen. Sequential reaming and broaching of the canal was accomplished up to a size 6. A size 6 Ángel Accolade cemented stem was cemented into place. A trial reduction with a -4 mm neck provided excellent stability. The final head and neck were placed and the hip reduced. The anterior capsule were reapproximated with 1 Ethibond. The gluteus medius and minimus were repaired through the greater trochanter with 5 Ethibond and reinforced with 1 Ethibond. The fascia lamin was closed with 1 Stratafix. The subcutaneous tissues were closed with 2-0 Stratafix. The skin was closed with a running 4-0 Stratafix. The incision was covered with a Prineo dressing. Sterile Opsitedressings were applied. The patient was placed in abduction pillow and taken recovery room in stable condition.
--- NOTE | 2022-02-03 15:07 | XR_ITS ---
WS: [id number] Exam: XR hip LT 1V wo/w pel [id number] Date/Time of Exam: 02/03/2022 3:16 PM Reason For Exam: POST LT HIP Comparison 01/31/2022. A left hip prosthesis is in place. Postoperative changes in the adjacent soft tissues. XR/XR hip LT 1V wo/w pel [id number] IMPRESSION: 1. Left hip prosthesis placement.
--- NOTE | 2022-02-03 15:20 | SUR.PHASEI ---
1442 PT TO PACU 5 SLEEPY WITH GOOD RESP EFFORT, VSS, HOB AT 20 DEGREES, LT HIP DRESSING D/I FIRST ICE TO SITE DISTAL FOOT COOL PINK WITH PULSE PALPATED +1 WARM BLANKETS TO PT X 3, ABD PILLOW IN PLACE AND SCD TO BILAT LEGS, WORKING TO RT LEG. HAMILTON TO DD WITH YELLOW URINE TO TUBING AND BAG. STATLOCK TO RT INNER THIGH, IV #20 TO RT AC WITH 150ML UP AT KVO RATE PER GRAVITY, ID BRACELET TO RT WRIST , PT ID'D WITH 2 IDENTIFERS.
--- NOTE | 2022-02-03 15:24 | SUR.PHASEI ---
1505 PT AWAKES, DENIES PAIN AND NAUSEA, CONFUSED TO ALL BUT NAME, PT QUICKLY BACK TO SLEEP , WAITING FOR X RAY, PT HOB AT 30 DEGREES PT TOLERATES WELL PT WAS SPINAL ANESTHESIA, UNABLE TO ACCESS LEVEL OF NORMAL SENSATION PT IS CONFUSED AN SLEEPY. PT ON 3LNC FOR COMFORT 1525 X RAY AT BEDSIDE.
--- NOTE | 2022-02-03 15:41 | ANE.PACU2 ---
Inpatient post-anesthesia follow up: Airway intact: Yes Vital signs: Temperature 97 F Pulse Rate 74 Respiratory Rate 15 Blood Pressure 135/91 Pulse Oximetry 97 Oxygen Delivery Me thod [ Nasal Cannula Current Rate & Del armaan] Oxygen Delivery Me thod Nasal Cannula Oxygen Flow Rate [ Current Rate 2.5 & Delivery] Oxygen Flow Rate 3 Fraction of Inspir ed Oxygen Hydration adequate: Yes Nausea and vomiting: No Pain level: 1 Mental status: Baseline Additional Comments: Some dried fluid noted in robb on arrival to PACU. No emesis noted by CELL MANAGER during case, ran very light on sedation which should have preserved protective airway reflexes. No desaturations, bronchospasm, no coughing noted during case or in PACU. Patient back on pre op O2 nasal cannula.
--- NOTE | 2022-02-03 15:58 | SUR.PHASEI ---
LEFT MESSAGE ON DAUGHTER (JEANETH) PHONE THAT MR SINGH IS WELL AND BACK IN HIS ROOM. PT TO FLOOR PER BED PT AWAKE, CONFUSED TO ALL BUT NAME, PT DOES NOT FOLLOA COMMANDS, DOES NOT MOVE FEET TO TOUCH, BUT STATES HE FEELS TOUCH AT HIP LEVEL, WITH PT'S CONFUSION, IT IS DIFFICULT TO ASCERTAIN SPINAL LEVEL BUT PT STATES GOOD SENSATION TO T-12 LEVEL, DISTAL LT FOOT PINK WARM WITH PULSE PALPATED , MONITOR STILL IRREGULAR , CAP REFILL LESS THAN 3 SECONDS. DRESSING TO LT HIP UNCHANGED FIRST ICE IN PLACE HANDOFF AT BEDSIDE TO RN ON FLOOR.
--- NOTE | 2022-02-03 16:09 | PC.SOCIAL ---
IMM update IMM updated with patient's daughter as he is in surgery. Verbalized an understanding. Initialled, dated, timed, and placed in chart.
[2022-02-03] MEDS: carvedilol 3.125 mg Tablet PO ×2 (17:03→17:04)
[2022-02-03] MEDS: cefepime 1,000 MG in sodium chloride 0.9% (plus) 50 ML 100 MG IV (20:06)
[2022-02-03] MEDS: pantoprazole 40 mg SDV IVP (20:06)
--- NOTE | 2022-02-03 20:14 | PC.NURSE ---
Addendum entered by Malu Mcclelland RN 02/03/22 20:55: Informed Dr Curiel and doctor placed order for Geodon 10mg IM ONCE. Medication given as ordered and documented. Original Note: Patient extremely confused this night. Patient attempting to get out of bed and remove abduction pillow. Patient refusing to take oral medications at this time. Patient using profanity and yelling stating, I am going home. Patient punching and pulling at bed at this time. Will continue to monitor. Patient medicated for pain as ordered and documented.
[2022-02-03] MEDS: ziprasidone 20 mg/mL SDV 10 MG IM (20:53)
--- NOTE | 2022-02-03 21:09 | PC.NURSE ---
patient becoming more calm but continues to pull at lines and wires.
[2022-02-04] VITALS (60 sets, daily range): BP systolic 112–141; BP diastolic 71–87; PULSE 55–80; RESP 2–25; TEMP 36.8–37.5; O2SAT 91–99
[2022-02-04 00:58] LABS: Basophils # 0.1 10^3/uL (0.0-0.1); Basophils % 0.6 %; Eosinophils # 0.1 10^3/uL (0.0-0.8); Eosinophils % 0.8 %; Hematocrit 49.7 % (42.0-52.0); Hemoglobin 15.3 g/dL (11.7-16.6); Lymphocytes # 0.3 10^3/uL (0.8-4.8); Lymphocytes % 2.5 %; Mean Corpuscular HGB Conc 30.8 g/dL (30.0-36.0); Mean Corpuscular Hemoglobin 37.6 pg (28.0-34.0); Mean Corpuscular Volume 122.1 fl (80-94); Monocytes # 0.7 10^3/uL (0.2-0.9); Monocytes % 5.7 %; Neutrophils # 11.71 10^3/uL (1.8-7.7); Neutrophils % 89.9 %; Nucleated Red Blood Cells % 0 %; Platelet Count 340 10^3/cmm (130-400); Red Blood Count 4.07 10^6/uL (4.1-5.3); Red Cell Distribution Width 14.2 % (12.1-15.1)
[2022-02-04 01:34] LABS: Vancomycin Trough 14.6 ug/mL (10-15)
[2022-02-04] MEDS: dextrose 5% 1,000 ML 50 ML IV ×2 (01:43→23:08)
[2022-02-04] MEDS: vancomycin 1,000 MG in sodium chloride 0.9% 250 ML 250 MG IV (01:43)
[2022-02-04] MEDS: ceFAZolin 2,000 MG in sodium chloride 0.9% (plus) 50 ML 100 MG IV ×2 (04:22→15:24)
[2022-02-04] MEDS: cefepime 1,000 MG in sodium chloride 0.9% (plus) 50 ML 100 MG IV ×2 (08:52→21:42)
[2022-02-04] MEDS: nystatin powder 15 gm Btl 1 APPLIC TOPICAL ×2 (09:01→18:23)
--- NOTE | 2022-02-04 13:46 | PM.PN ---
Subjective Subjective: Patient was seen and examined this morning, extremely drowsy, received Geodon last night, and also received morphine around 2 AM this morning. Telemetry monitoring has shown frequent PVCs. Medications: Reviewed: Yes Medication Review Details: Generic Name Dose Route Start Last Admin Trade Name Dickq PRN Reason Stop Dose Admin Aspirin 81 mg 02/01/22 09:00 02/02/22 08:42 Aspirin 81 Mg Ec Tablet PO 81 mg DAILY TARIK Administration Atorvastatin Calci um 40 mg 02/01/22 21:00 02/02/22 20:48 Atorvastatin 40 Mg Tablet PO 40 mg BEDTIME TARIK Administration Carvedilol 3.125 mg 02/01/22 09:00 02/02/22 08:42 Carvedilol 3.125 Mg Tablet PO 3.125 mg BID TARIK Administration Citalopram Hydrobr omide 20 mg 02/01/22 08:00 02/02/22 08:42 Citalopram 20 Mg Tablet PO 20 mg DAILY@08 TARIK Administration Finasteride 5 mg 02/01/22 20:00 02/02/22 20:48 Finasteride 5 Mg Tablet PO 5 mg DAILY@1999 T[facility] Administration Gabapentin 100 mg 02/01/22 09:00 02/02/22 16:57 Gabapentin 100 M g Capsule PO 100 mg BID TARIK Administration Hydralazine HCl 25 mg 02/01/22 08:00 02/02/22 20:48 Hydralazine 25 M g Tablet PO 25 mg BID@ TARIK Administration Hydroxyurea 1,000 mg 02/02/22 09:00 02/02/22 09:44 Hydroxyurea 500 Mg Capsule PO 1,000 mg MoWeFr@0900 TARIK Administration Cefepime HCl 1,000 mg/ Sodium 50 mls @ 100 mls/ hr 02/01/22 09:00 02/02/22 21:20 Chloride IV Infused Q12H TAR[facility] Infusion Protocol Vancomycin HCl 1,0 00 mg/ 250 mls @ 250 mls /hr 02/01/22 01:00 02/03/22 02:55 Sodium Chloride IV Infused Q24H TARIK Infusion Dextrose 1,000 mls @ 50 ml s/hr 02/02/22 13:00 02/02/22 13:23 D5w IV 50 mls/hr .Q20H TARIK Administration Sodium Chloride 1,000 mls @ 30 ml s/hr 02/03/22 06:45 02/03/22 06:41 Sodium Chloride 0.9% IV 02/04/22 06:44 30 mls/hr .Q24H TARIK Administration Isosorbide Mononit rate 15 mg 02/01/22 08:00 02/02/22 08:41 Isosorbide Ephraim itrate Er 30 Mg Ta blet PO 15 mg DAILY@08 TARIK Administration Levetiracetam 1,000 mg 02/01/22 08:00 02/02/22 20:47 Levetiracetam 50 0 Mg Tablet PO 1,000 mg BID@799,1999 [facility] Administration Levothyroxine Sodi um 137 mcg 02/01/22 08:00 02/02/22 08:41 Levothyroxine 13 7 Mcg Tablet PO 137 mcg DAILY@08 [facility] Administration Morphine Sulfate 2 mg 01/31/22 22:44 02/03/22 03:47 Morphine 2 Mg/Ml Syr 1 Ml IVP 2 mg Q4H PRN Administration SEVERE PAIN Non-Formulary Medi cation 24 mg 02/01/22 08:00 02/02/22 08:43 Galantamine PO Not Given DAILY@08 [facility] Nystatin 1 applic 02/01/22 09:00 02/02/22 16:57 Nystatin Powder 15 Gm Btl TOPICAL 1 applic BID [facility] Administration Ondansetron HCl 4 mg 01/31/22 22:26 02/02/22 20:48 Ondansetron 2 Mg /Ml Sdv 2 Ml IVP 4 mg Q8H PRN Administration vomiting, or N/V if npo Pantoprazole Sodiu m 40 mg 01/31/22 22:26 02/02/22 22:43 Pantoprazole 40 Mg Sdv IVP 40 mg Q24H [facility] Administration Potassium Chloride 10 meq 02/01/22 08:00 02/02/22 08:41 Potassium Chlori de Er 10 Meq Table t PO 10 meq DAILY@0800 [facility] Administration Tamsulosin HCl 0.4 mg 02/01/22 20:00 02/02/22 20:48 Tamsulosin 0.4 M g Capsule PO 0.4 mg DAILY@1999 [facility] Administration Vitals/I&O/Wt Last Vital Signs Temp 98.8 F 02/04/22 11:22 Pulse 59 L 02/04/22 11:22 Resp 16 02/04/22 11:22 BP 112/76 02/04/22 11:22 Pulse Ox 98 02/04/22 11:22 O2 Del Method 02/04/22 11:22 O2 Flow Rate 4 02/04/22 08:00 02/03/22 02/04/22 02/04/22 22:59 06:59 14:59 Intake Total 2181 / 2231 300 / 2531 710 / 710 Output Total 300 / 750 Balance 2181 / 1781 0 / 1781 710 / 710 Physical Exam Resp: COMMON NORMALS: normal respiratory effort, No retractions, No use of accessory muscles and clear to auscultation bilaterally EFFORT & INSPECTION: Yes symmetric chest movement AUSCULTATION: clear to auscultation bilaterally Cardio: COMMON NORMALS: regular rate, regular rhythm, S1 normal heart sound present, S2 normal heart sound present, No gallops present (Cardio), No murmurs present (Cardio), No rub (Cardio) and Peripheral pulses 2+ throughout RATE: regular rate RHYTHM: regular rhythm HEART SOUNDS: S1 normal heart sound present and S2 normal heart sound present PERIPHERAL PULSES: Peripheral pulses 2+ throughout GI: COMMON NORMALS: Normal to inspection, nondistended, normoactive bowel sounds present, Soft to palpation, non-tender, No hepatosplenomegaly present and no masses AUSCULTATION: Yes normoactive bowel sounds PALPATION: Yes Soft to palpation and Yes No hepatosplenomegaly present RECTAL EXAM: Yes deferred Extremity: COMMON NORMALS: no clubbing, cyanosis or edema and no pedal edema Urinary Catheter Management: Tee: Cath Placed During This Visit: yes Reason for Continuing Indwelling Catheter: Acute Urinary Retention or Obstruction Urinary Catheter Date of Insertion: 01/31/22 Urinary Catheter Time of Insertion: 20:45 Data : 02/04/22 00:50 02/03/22 02:26 A&P Assessment and plan (1) Closed hip fracture: Status: Acute (2) Pneumonia: Status: Acute (3) Fall: Status: Acute (4) Musculoskeletal pain: Status: Acute Plan # subcapital impacted left hip fracture with overlapping fracture fragments S/p: Hemiarthroplasty left hip Pain control Bowel regimen Orthopedic on board -Bilateral atelectasis versus infiltrate on chest x-ray -Potentially aspiration pneumonia versus healthcare associated pneumonia. -MRSA PCR negative -Blood culture negative -Urine bacterial antigen panel negative -Vancomycin has been discontinued -Continue cefepime Diffuse musculoskeletal pain, complains of spinal pain, fall unwitnessed -History of L2 kyphoplasty after fall -no noted fractures or dislocations on cervical or lumbar spine CT. -Thoracic spine CT shows compression fractures at T2, T11 and left eighth and ninth posterior rib fractures. Encourage spirometry if able to follow commands. -Pain control as above Atrial fibrillation: Continue carvedilol Resume Eliquis Hypothyroidism continue home medications History of epilepsy continue Keppra Hypertension continue home medications Attestations Medical Necessity Statement*: Patient is to be in hospital for management of left hip fracture. Coding Level of Care Code Acute Stock Grader for [facility] Fwd Diagnoses Closed hip fracture S72.009A Pneumonia J18.9 Fall W19.XXXA Musculoskeletal pain M79.18
--- NOTE | 2022-02-04 16:02 | P.PN_ITS ---
Subjective Subjective: Patient arousable. Unable to give any history Vitals/I&O/Wt Last Vital Signs Temp 98.8 F 02/04/22 11:22 Pulse 59 L 02/04/22 11:22 Resp 16 02/04/22 11:22 BP 112/76 02/04/22 11:22 Pulse Ox 98 02/04/22 11:22 O2 Del Method 02/04/22 11:22 O2 Flow Rate 4 02/04/22 08:00 02/04/22 02/04/22 02/04/22 06:59 14:59 22:59 Intake Total 300 / 2531 710 / 710 50 / 760 Output Total 300 / 750 300 / 300 Balance 0 / 1781 710 / 710 -250 / 460 Physical Exam Narrative: Dressing clean and dry. Minimal swelling left thigh Urinary Catheter Management: Tee: Cath Placed During This Visit: yes Reason for Continuing Indwelling Catheter: Acute Urinary Retention or Obstruction Urinary Catheter Date of Insertion: 01/31/22 Urinary Catheter Time of Insertion: 20:45 Data : 02/04/22 00:50 02/03/22 02:26 A&P Assessment and plan (1) Status post left hip replacement: Continue supportive care. Really not a rehabilitative candidate. Okay to transfer to detention. Status: Acute Attestations Medical Necessity Statement*: Okay for detention discharge per Ortho. Coding Level of Care Code Acute Mill Representative for [facility] Diagnoses Status post left hip replacement Z96.642
[2022-02-04] MEDS: gabapentin 100 mg Capsule PO (18:20)
[2022-02-04] MEDS: carvedilol 3.125 mg Tablet PO (18:20)
[2022-02-04] MEDS: apixaban 5 mg Tablet 2.5 MG PO (20:04)
[2022-02-04] MEDS: levETIRAcetam 500 mg Tablet 1000 MG PO (20:04)
[2022-02-04] MEDS: finasteride 5 mg Tablet PO (20:04)
[2022-02-04] MEDS: hyDRALAzine 25 mg Tablet PO (20:04)
[2022-02-04] MEDS: tamsulosin 0.4 mg Capsule PO (20:04)
[2022-02-04] MEDS: atorvastatin 40 mg Tablet PO (20:04)
[2022-02-04] MEDS: pantoprazole 40 mg SDV IVP (21:43)
[2022-02-05] VITALS (14 sets, daily range): BP systolic 142–159; BP diastolic 73–92; PULSE 63–83; RESP 16–20; TEMP 36.6–36.9; O2SAT 94–98
[2022-02-05 02:34] LABS: Basophils # 0.1 10^3/uL (0.0-0.1); Eosinophils # 0.5 10^3/uL (0.0-0.8); Eosinophils % 4.3 %; Hematocrit 45.3 % (42.0-52.0); Hemoglobin 14.3 g/dL (11.7-16.6); Lymphocytes # 0.4 10^3/uL (0.8-4.8); Lymphocytes % 3.5 %; Mean Corpuscular HGB Conc 31.6 g/dL (30.0-36.0); Mean Corpuscular Hemoglobin 36.9 pg (28.0-34.0); Mean Corpuscular Volume 116.8 fl (80-94); Mean Platelet Volume 11.4 fL (7.4-10.4); Monocytes # 0.8 10^3/uL (0.2-0.9); Monocytes % 6.9 %; Neutrophils # 10.22 10^3/uL (1.8-7.7); Neutrophils % 83.5 %; Nucleated Red Blood Cells % 0 %; Platelet Count 336 10^3/cmm (130-400); Red Blood Count 3.88 10^6/uL (4.1-5.3); White Blood Count 12.2 10^3/uL (4.0-10.0)
[2022-02-05 03:00] LABS: Anion Gap 10.7 (5-19); Blood Urea Nitrogen 37 mg/dL (8-23); Calcium 8.3 mg/dL (8.5-10.5); Carbon Dioxide 27 mmol/L (22-29); Chloride 109 mmol/L (98-107); Glucose 163 mg/dL (65-115); Osmolality Calculated 308 mOsm/kg (285-295); Potassium 3.7 mmol/L (3.5-5.1); Sodium 143 mmol/L (136-145)
[2022-02-05 08:50] LABS: SARS Covid-2 Antigen Negative (Negative)
--- NOTE | 2022-02-05 09:43 | PC.NURSE ---
during rounding with provider expressed concerns of patient not being able to swallow instructions received to hold all PO medication
[2022-02-05] MEDS: FUROsemide 10 mg/mL SDV 2mL 20 MG IVP (09:58)
[2022-02-05] MEDS: nystatin powder 15 gm Btl 1 APPLIC TOPICAL (10:22)
[2022-02-05] MEDS: cefepime 1,000 MG in sodium chloride 0.9% (plus) 50 ML 100 MG IV ×2 (10:22→19:33)
--- NOTE | 2022-02-05 10:34 | CT_ITS ---
WS: [id number] CT HEAD NONCONTRAST HISTORY: ams TECHNIQUE: Contiguous axial imaging performed through the brain in 2.5 mm imaging. Bone and soft tiss ue windows. Sagittal and coronal reformats reviewed. All CT scans at [facility] use at least one of these dose optimization techniques: automated exposure control; mA and/or kV adjustment per pa tient size (includes targeted exams where dose is matched to clinical indication); or iterative recon struction. DLP: 1716.18 mGy.cm COMPARISON: 01/31/2022 No acute intracranial hemorrhage, midline shift or mass effect. Moderate atrophy and extensive small vessel ischemic disease. 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 Very similar appearance to the prior examinations. There is probably a small glendy te LEFT thalamic lacunar infarct also. Ventricles: No midline shift. No inferior displacement of the cerebellar tonsils. Paranasal sinuses: As visualized are clear. Mastoid air cells: Well pneumatized. Calvarium and scalp: Skull is intact with no soft tissue edema or swelling. Ectatic dilated distal LEFT vertebral artery. Atherosclerosis throughout the intracranial carotid art eries. CT/CT head wo con* [id number] IMPRESSION: 1. No acute intracranial hemorrhage or edema. 2. Remote RIGHT occipital lobe infarct with encephalomalacia. 3. Moderate atrophy with extensive small vessel ischemic disease is unchanged.
--- NOTE | 2022-02-05 11:02 | PM.PN ---
Subjective Subjective: Patient was seen and examined this morning, continues to be extremely drowsy, responded minimally on repeated verbal cues, though he has been afebrile, his other vitals and labs have been reviewed. Medications: Reviewed: Yes Medication Review Details: Generic Name Dose Route Start Last Admin Trade Name Fran PRN Reason Stop Dose Admin Apixaban 2.5 mg 02/04/22 08:10 02/05/22 09:45 Apixaban 5 Mg Ta blet PO Not Given BID@799,1999 [facility] Aspirin 81 mg 02/01/22 09:00 02/05/22 09:45 Aspirin 81 Mg Ec Tablet PO Not Given DAILY [facility] Atorvastatin Calci um 40 mg 02/01/22 21:00 02/04/22 20:04 Atorvastatin 40 Mg Tablet PO 40 mg BEDTIME [facility] Administration Carvedilol 3.125 mg 02/01/22 09:00 02/05/22 09:45 Carvedilol 3.125 Mg Tablet PO Not Given BID [facility] Citalopram Hydrobr omide 20 mg 02/01/22 08:00 02/05/22 09:45 Citalopram 20 Mg Tablet PO Not Given DAILY@08 [facility] Finasteride 5 mg 02/01/22 20:00 02/04/22 20:04 Finasteride 5 Mg Tablet PO 5 mg DAILY@1999 [facility] Administration Gabapentin 100 mg 02/01/22 09:00 02/05/22 09:45 Gabapentin 100 M g Capsule PO Not Given BID [facility] Hydralazine HCl 25 mg 02/01/22 08:00 02/05/22 09:45 Hydralazine 25 M g Tablet PO Not Given BID@ [facility] Hydroxyurea 1,000 mg 02/02/22 09:00 02/04/22 11:26 Hydroxyurea 500 Mg Capsule PO Not Given MoWeFr@899 [facility] Hydroxyurea 500 mg 02/03/22 09:00 02/05/22 09:46 Hydroxyurea 500 Mg Capsule PO Not Given TuTh@899 [facility] Cefepime HCl 1,000 mg/ Sodium 50 mls @ 100 mls/ hr 02/01/22 09:00 02/05/22 10:22 Chloride IV 100 mls/hr Q12H [facility] Administration Protocol Isosorbide Mononit rate 15 mg 02/01/22 08:00 02/05/22 09:45 Isosorbide Hibbs itrate Er 30 Mg Ta blet PO Not Given DAILY@08 [facility] Levetiracetam 1,000 mg 02/01/22 08:00 02/05/22 09:44 Levetiracetam 50 0 Mg Tablet PO Not Given BID@799,1999 [facility] Levothyroxine Sodi um 137 mcg 02/01/22 08:00 02/05/22 09:44 Levothyroxine 13 7 Mcg Tablet PO Not Given DAILY@08 [facility] Morphine Sulfate 2 mg 01/31/22 22:44 02/04/22 01:46 Morphine 2 Mg/Ml Syr 1 Ml IVP 2 mg Q4H PRN Administration SEVERE PAIN Non-Formulary Medi cation 24 mg 02/01/22 08:00 02/05/22 08:48 Galantamine PO Not Given DAILY@08 [facility] Nystatin 1 applic 02/01/22 09:00 02/05/22 10:22 Nystatin Powder 15 Gm Btl TOPICAL 1 applic BID [facility] Administration Ondansetron HCl 4 mg 01/31/22 22:26 02/02/22 20:48 Ondansetron 2 Mg /Ml Sdv 2 Ml IVP 4 mg Q8H PRN Administration vomiting, or N/V if npo Pantoprazole Sodiu m 40 mg 01/31/22 22:26 02/04/22 21:43 Pantoprazole 40 Mg Sdv IVP 40 mg Q24H [facility] Administration Potassium Chloride 10 meq 02/01/22 08:00 02/05/22 09:44 Potassium Chlori de Er 10 Meq Table t PO Not Given DAILY@08 [facility] Tamsulosin HCl 0.4 mg 02/01/22 20:00 02/04/22 20:04 Tamsulosin 0.4 M g Capsule PO 0.4 mg DAILY@1999 [facility] Administration Vitals/I&O/Wt Last Vital Signs Temp 98.3 F 02/05/22 07:13 Pulse 70 02/05/22 08:00 Resp 18 02/05/22 07:13 BP 150/85 02/05/22 07:13 Pulse Ox 95 02/05/22 08:00 O2 Del Method 02/05/22 08:00 O2 Flow Rate 3 02/05/22 08:00 02/04/22 02/05/22 02/05/22 22:59 06:59 14:59 Intake Total 1190 / 1900 50 / 1950 820 / 820 Output Total 300 / 300 500 / 800 Balance 890 / 1600 -450 / 1150 820 / 820 Physical Exam Resp: COMMON NORMALS: normal respiratory effort and clear to auscultation bilaterally EFFORT & INSPECTION: Yes symmetric chest movement AUSCULTATION: clear to auscultation bilaterally Cardio: COMMON NORMALS: regular rate, regular rhythm, S1 normal heart sound present, S2 normal heart sound present, No gallops present (Cardio), No murmurs present (Cardio), No rub (Cardio) and Peripheral pulses 2+ throughout RATE: regular rate RHYTHM: regular rhythm HEART SOUNDS: S1 normal heart sound present and S2 normal heart sound present PERIPHERAL PULSES: Peripheral pulses 2+ throughout GI: COMMON NORMALS: Normal to inspection, nondistended, normoactive bowel sounds present, Soft to palpation, non-tender, No hepatosplenomegaly present and no masses AUSCULTATION: Yes normoactive bowel sounds PALPATION: Yes Soft to palpation and Yes No hepatosplenomegaly present RECTAL EXAM: Yes deferred Extremity: COMMON NORMALS: no clubbing, cyanosis or edema and no pedal edema Urinary Catheter Management: Tee: Cath Placed During This Visit: yes Reason for Continuing Indwelling Catheter: Acute Urinary Retention or Obstruction Urinary Catheter Date of Insertion: 01/31/22 Urinary Catheter Time of Insertion: 20:45 Data : 02/05/22 02:03 02/05/22 02:03 A&P Assessment and plan (1) Closed hip fracture: Status: Acute (2) Pneumonia: Status: Acute (3) Fall: Status: Acute (4) Musculoskeletal pain: Status: Acute (5) Altered mental status: Status: Acute Plan # subcapital impacted left hip fracture with overlapping fracture fragments S/p: Hemiarthroplasty left hip Pain control Bowel regimen Orthopedic on board #Altered mental status: CT head without contrast on admission: Failed to show any acute intracranial pathology. Repeat CT head without contrast: Blood culture negative till this date Urine culture -Bilateral atelectasis versus infiltrate on chest x-ray -Potentially aspiration pneumonia versus healthcare associated pneumonia. -MRSA PCR negative -Blood culture negative -Urine bacterial antigen panel negative -Vancomycin has been discontinued -Continue cefepime Diffuse musculoskeletal pain, complains of spinal pain, fall unwitnessed -History of L2 kyphoplasty after fall -no noted fractures or dislocations on cervical or lumbar spine CT. -Thoracic spine CT shows compression fractures at T2, T11 and left eighth and ninth posterior rib fractures. Encourage spirometry if able to follow commands. -Pain control as above Atrial fibrillation: Continue carvedilol Resume Eliquis Hypothyroidism continue home medications History of epilepsy continue Keppra Hypertension continue home medications Attestations Medical Necessity Statement*: Patient is still in hospital for management of altered mental status. Coding Level of Care Code Acute Bilingual Instructor for [facility] Mehreen Diagnoses Closed hip fracture S72.009A Pneumonia J18.9 Fall W19.XXXA Musculoskeletal pain M79.18 Altered mental status R41.82
--- NOTE | 2022-02-05 12:46 | PC.SOCIAL ---
IMM Update pg 2 of IMM updated and reviewed w/ patients daughter. Copy provided to patient. Copy in chart dated and initialed.
[2022-02-05] MEDS: pantoprazole 40 mg SDV IVP (19:33)
[2022-02-06] VITALS (7 sets, daily range): BP systolic 146–157; BP diastolic 72–84; PULSE 51–79; RESP 16–18; TEMP 36.4–36.6; O2SAT 96–98
[2022-02-06 02:39] LABS: Basophils # 0.1 10^3/uL (0.0-0.1); Basophils % 0.8 %; Eosinophils # 0.3 10^3/uL (0.0-0.8); Eosinophils % 2.6 %; Hematocrit 44.8 % (42.0-52.0); Hemoglobin 14.1 g/dL (11.7-16.6); Lymphocytes # 0.5 10^3/uL (0.8-4.8); Lymphocytes % 3.7 %; Mean Corpuscular HGB Conc 31.5 g/dL (30.0-36.0); Mean Corpuscular Hemoglobin 37.1 pg (28.0-34.0); Mean Corpuscular Volume 117.9 fl (80-94); Mean Platelet Volume 11.1 fL (7.4-10.4); Monocytes # 0.9 10^3/uL (0.2-0.9); Neutrophils # 10.65 10^3/uL (1.8-7.7); Neutrophils % 85.2 %; Nucleated Red Blood Cells % 0 %; Platelet Count 340 10^3/cmm (130-400); Red Cell Distribution Width 14.2 % (12.1-15.1); White Blood Count 12.5 10^3/uL (4.0-10.0)
[2022-02-06 03:21] LABS: Anion Gap 14.8 (5-19); Blood Urea Nitrogen 33 mg/dL (8-23); Calcium 8.4 mg/dL (8.5-10.5); Carbon Dioxide 26 mmol/L (22-29); Chloride 112 mmol/L (98-107); Glucose 152 mg/dL (65-115); Osmolality Calculated 318 mOsm/kg (285-295); Potassium 3.8 mmol/L (3.5-5.1); Sodium 149 mmol/L (136-145)
[2022-02-06] MEDS: cefepime 1,000 MG in sodium chloride 0.9% (plus) 50 ML 100 MG IV (09:43)
[2022-02-06] MEDS: nystatin powder 15 gm Btl 1 APPLIC TOPICAL (09:44)
--- NOTE | 2022-02-06 11:06 | P.DS_ITS ---
Discharge Providers Date of Admission: 01/31/22 20:11 Date of Discharge: February 06, 2022 Attending Provider at Admission: Alexis Amaro MD Attending Provider at Discharge: Nguyễn Herrera MD Primary Care Provider: Chin Salazar DO Diagnoses at Discharge Discharge Diagnosis (1) Closed hip fracture: Status: Acute (2) Pneumonia: Status: Acute (3) Fall: Status: Acute (4) Musculoskeletal pain: Status: Acute (5) Altered mental status: Status: Acute Reason for Visit Reason for Visit: [facility] Hospital Course Hospital Course HPI: Alexis Amaro MD Casey Alves is a 86 year old male with a past medical history of dementia, polycythemia, history of spinal stenosis requiring kyphoplasty in September, atrial fibrillation on Eliquis, pulm hypertension, CHF, history of epilepsy, history of COPD, history of BPH, who presents to [facility] for [facility] due to a unwitnessed fall.? Currently patient is alert to person, not to place, to time, most of the history was provided by [facility].? According to nursing staff patient fell a couple of days ago, had an unwitnessed fall, since then he has been experiencing increasing fatigue, decreased mentation, diffuse pain complaints.? According to nursing staff patient has been participating with physical therapy, can ambulate with physical therapy with help of walker, but recently that has decreased since his fall.? In addition he has been increasingly confused, no fevers, history of UTIs, during my examination, he complains of back pain, hip pain, and diffuse musculoskeletal pain. Hospital course: Patient was admitted for the management of subcapital impacted left hip fracture with overlapping fracture fragments , S/p: Hemiarthroplasty left hip. During the hospital stay patient lately also was having altered mental status, likely secondary to metabolic encephalopathy secondary to pneumonia, patient was kept on Broad-spectrum antibiotics, CT head without contrast x2 was negative, blood cultures were negative, urine bacterial antigen panel was negative. His mentation at the time of discharge was improving but definitely it was not at his baseline mentation, he was responding to strong verbal cues, at baseline he is more oriented and alert. Patient was also managed for elevated troponin likely type II ND, patient denied any chest pain, no aggressive intervention was done. Given the fact that the patient has been progressively declining over a period of time, and with all his underlying comorbid condition, family decided to make patient hospice, [facility]. Physical Exam Resp: COMMON NORMALS: normal respiratory effort, No retractions, No use of accessory muscles and clear to auscultation bilaterally EFFORT & INSPECTION: Yes symmetric chest movement AUSCULTATION: clear to auscultation bilaterally Cardio: COMMON NORMALS: regular rate, regular rhythm, S1 normal heart sound present, S2 normal heart sound present, No gallops present (Cardio), No murmurs present (Cardio), No rub (Cardio) and Peripheral pulses 2+ throughout RATE: regular rate RHYTHM: regular rhythm HEART SOUNDS: S1 normal heart sound present and S2 normal heart sound present PERIPHERAL PULSES: Peripheral pulses 2+ throughout GI: COMMON NORMALS: Normal to inspection, nondistended, normoactive bowel sounds present, Soft to palpation, non-tender, No hepatosplenomegaly present and no masses AUSCULTATION: Yes normoactive bowel sounds PALPATION: Yes Soft to palpation and Yes No hepatosplenomegaly present RECTAL EXAM: Yes deferred Extremity: COMMON NORMALS: no clubbing, cyanosis or edema and no pedal edema Urinary Catheter Management: Tee: Cath Placed During This Visit: yes Reason for Continuing Indwelling Catheter: Acute Urinary Retention or Obstruction Urinary Catheter Date of Insertion: 01/31/22 Urinary Catheter Time of Insertion: 20:45 Discharge Data Studies Completed and Pending Completed Studies During Hospitalization Category Date Time Status CT cervical spin wo con* [id number] Stat Cat Scan 01/31/22 20:[address] head wo con* [id number] Routine Cat Scan 02/05/22 10:[address] head wo con* [id number] Stat Cat Scan 01/31/22 18:[address] lumbar spine wo con* [id number] Stat Cat Scan 01/31/22 20:[address] thoracic spine wo con [CT thoracic spin wo con* Cat Scan 01/31/22 20:34 Completed [id number]] Stat XR chest 1V portable [id number] Stat Exams 01/31/22 18:46 Completed XR hip LT 1V wo/w pel [id number] Routine Exams 02/03/22 15:07 Completed XR hip LT 2-3V wo/w pel* [id number] Stat Exams 01/31/22 18:46 Completed Pending at discharge Category Date Time Status BMP [Basic Metabolic Panel] AM LABS Lab 02/07/22 04:00 Ordered CBC Auto Diff [Complete Blood Count w/Auto] AM LABS Lab 02/07/22 04:00 Ordered Sputum Culture and Gram Stain Stat Lab 01/31/22 20:50 Uncollected Urine Culture Routine Lab 02/05/22 11:19 Results Radiology Impressions Chest X-Ray 01/31/22 18:46 IMPRESSION: 1. Cardiomegaly and pulmonary vascular congestion. 2. Bilateral hilar atelectasis versus minimal infiltrate. 3. Small left pleural effusion. Hip/Pelvis X-Ray 01/31/22 18:46 IMPRESSION: Subcapital impacted hip fracture with overlap of the fracture fragments. Lumbar Spine CT 01/31/22 20:14 IMPRESSION: 1. L2 vertebral body chronic appearing compression fracture with retropulsion of bony fragments resulting in severe spinal canal narrowing, with vertebroplasty changes. 2. L4 vertebral body compression fracture without retropulsion of bony fragments, not seen on prior exam, potentially acute. 3. Cholelithiasis. 4. Left kidney cyst. COMMENTS: Consistent with the [employer]'s Incidental Findings Committee white paper (J Am Tomy Radiol 2018): Any incidental renal lesion less than 1 cm or classified as too small to characterize, or any incidental cystic renal lesion characterized as simple-appearing, is likely benign. No follow-up imaging is recommended for these lesions per consensus recommendations based on imaging criteria. Cervical Spine CT 01/31/22 20:33 IMPRESSION: No acute findings. Thoracic Spine CT 01/31/22 20:34 IMPRESSION: 1. T2 vertebral body superior endplate compression fracture, somewhat advanced compared to prior exam, likely chronic, negative for retropulsion of bony fragments or spinal canal narrowing. 2. T11 vertebral body chronic appearing compression fracture with retropulsion of bony fragments resulting in moderate spinal canal narrowing with vertebroplasty changes. 3. Small bilateral pleural effusions. 4. Hepatic cysts and left renal cyst partially visualized. 5. Cholelithiasis. 6. Bilateral dependent atelectasis versus infiltrate. 7. Left 8th and 9th posterior rib fractures somewhat visualized. Hip X-Ray 02/03/22 15:07 IMPRESSION: 1. Left hip prosthesis placement. Head CT 02/05/22 10:34 IMPRESSION: 1. No acute intracranial hemorrhage or edema. 2. Remote RIGHT occipital lobe infarct with encephalomalacia. 3. Moderate atrophy with extensive small vessel ischemic disease is unchanged. Laboratory Results WBC 12.5 10^3/uL (4.0-10.0) H 02/06/22 02:24 RBC 3.80 10^6/uL (4.1-5.3) L 02/06/22 02:24 Hgb 14.1 g/dL (11.7-16.6) 02/06/22 02:24 Hct 44.8 % (42.0-52.0) 02/06/22 02:24 MCV 117.9 fl (80-94) H 02/06/22 02:24 MCH 37.1 pg (28.0-34.0) H 02/06/22 02:24 MCHC 31.5 g/dL (30.0-36.0) 02/06/22 02:24 RDW 14.2 % (12.1-15.1) 02/06/22 02:24 Plt Count 340 10^3/cmm (130-400) 02/06/22 02:24 MPV 11.1 fL (7.4-10.4) H 02/06/22 02:24 Neut % (Auto) 85.2 % 02/06/22 02:24 Lymph % (Auto) 3.7 % 02/06/22 02:24 [place] % (Auto) 7.0 % 02/06/22 02:24 Eos % (Auto) 2.6 % 02/06/22 02:24 Baso % (Auto) 0.8 % 02/06/22 02:24 Neut # (Auto) 10.65 10^3/uL (1.8-7.7) H 02/06/22 02:24 Lymph # (Auto) 0.5 10^3/uL (0.8-4.8) L 02/06/22 02:24 [place] # (Auto) 0.9 10^3/uL (0.2-0.9) 02/06/22 02:24 Eos # (Auto) 0.3 10^3/uL (0.0-0.8) 02/06/22 02:24 Baso # (Auto) 0.1 10^3/uL (0.0-0.1) 02/06/22 02:24 Nucleated RBC % (auto) 0 % 02/06/22 02:24 Nucleated RBCs # 0.0 /100WBC 02/06/22 02:24 ESR 6 mm/hr (0-10) 01/31/22 20:57 Specimen Type Arterial 01/31/22 19:05 Sample Site Radial, right 01/31/22 19:05 ABG pH 7.45 (7.35-7.45) 01/31/22 19:05 ABG pCO2 42.3 mmHg (35-45) 01/31/22 19:05 ABG pO2 56.9 mmHg (80.0-100.0) L 01/31/22 19:05 ABG HCO3 29.0 mmol/L (22-26) H 01/31/22 19:05 ABG Base Excess 4.4 mmol/L (-2.0-2.0) H 01/31/22 19:05 Gordon Test Pos 01/31/22 19:05 Hematocrit 47.9 % (42-52) 01/31/22 19:05 O2 Delivery Device Nc 01/31/22 19:05 O2 Liters/Min 4.0 % 01/31/22 19:05 Senior Cyber Security Analyst ID Alexandre 01/31/22 19:05 Sodium 149 mmol/L (136-145) H 02/06/22 02:24 Potassium 3.8 mmol/L (3.5-5.1) 02/06/22 02:24 Chloride 112 mmol/L (98-107) H 02/06/22 02:24 Carbon Dioxide 26 mmol/L (22-29) 02/06/22 02:24 Anion Gap 14.8 (5-19) 02/06/22 02:24 BUN 33 mg/dL (8-23) H 02/06/22 02:24 Creatinine 1.5 mg/dL (0.7-1.2) H 02/06/22 02:24 GFR Calculation Not Reportable 02/06/22 02:24 Glucose 152 mg/dL (65-115) H 02/06/22 02:24 Calculated Osmolality 318 mOsm/kg (285-295) H 02/06/22 02:24 Lactate 2.5 mmol/L (0.5-2.2) H 01/31/22 19:12 Calcium 8.4 mg/dL (8.5-10.5) L 02/06/22 02:24 Phosphorus 3.6 mg/dL (2.5-4.5) 02/03/22 02:26 Magnesium 2.4 mg/dL (1.7-2.3) H 02/03/22 02:26 Total Bilirubin 0.7 mg/dL (0.15-1.2) 02/03/22 02:26 AST 6 U/L (0-40) 02/03/22 02:26 ALT 9 U/L (0-41) 02/03/22 02:26 Alkaline Phosphatase 89 U/L (40-130) 02/03/22 02:26 Ammonia 40 umol/L (16-60) 01/31/22 19:12 Troponin T Baseline 128 ng/L (0-15) H* 02/01/22 01:05 Troponin T 120 Minute 129.4 ng/L (0-15) H 02/01/22 03:10 Delta Troponin T 1.4 ABS# (0-10) 02/01/22 03:10 Troponin T Hi Sens 6Hr 105.5 ng/L (0-15) H 02/01/22 07:05 Troponin T Hi Sens 6Hr Delta -22.5 ng/L (0-12) L 02/01/22 07:05 C-Reactive Protein 91.3 mg/L (0.0-4.9) H 01/31/22 19:12 Total Protein 5.4 g/dL (6.6-8.7) L 02/03/22 02:26 Albumin 2.9 g/dL (3.5-5.2) L 02/03/22 02:26 Globulin 2.5 g/dL (1.3-4.6) 02/03/22 02:26 Lipase 9 U/L (13-60) L 01/31/22 19:12 Procalcitonin 0.21 ng/mL (0-0.5) 01/31/22 19:12 TSH 1.63 uIU/mL (0.27-4.20) 01/31/22 19:12 Urine Color Dark yellow (Yellow) 01/31/22 19:59 Urine Appearance Clear (CLEAR) 01/31/22 19:59 Urine pH 5 (5-7) 01/31/22 19:59 Ur Specific [place] 1.025 (1.005-1.030) 01/31/22 19:59 Urine Protein Trace (Negative) 01/31/22 19:59 Urine Glucose (UA) Norm (Normal) 01/31/22 19:59 Urine Ketones Negative (Negative) 01/31/22 19:59 Urine Blood Neg (Negative) 01/31/22 19:59 Urine Nitrate Negative (Negative) 01/31/22 19:59 Urine Bilirubin 1+ (Negative) H 01/31/22 19:59 Urine Urobilinogen 4 mg/dL (Negative) H 01/31/22 19:59 Ur Leukocyte Esterase Negative (Negative) 01/31/22 19:59 Urine RBC 0-4 /hpf (0-2) H 01/31/22 19:59 Urine WBC 0-4 /hpf (0-5) H 01/31/22 19:59 Ur Squamous Epith Cells 0-4 /hpf (0-5) H 01/31/22 19:59 Amorphous Sediment Not Reportable 01/31/22 19:59 Urine Bacteria 1+ /hpf (NONE) H 01/31/22 19:59 Hyaline Casts 40-55 /lpf H 01/31/22 19:59 Urine Mucus Trace /hpf 01/31/22 19:59 Vancomycin Trough 14.6 ug/mL (10-15) 02/04/22 00:50 Salicylates < 0.3 mg/dL (3-10) L 01/31/22 19:12 Acetaminophen < 5.0 ug/mL (10-30) L 01/31/22 19:12 Ethyl Alcohol < 10 mg/dL (0-10) 01/31/22 19:12 SARS-CoV-2 Ag (Rapid) Negative (Negative) 02/05/22 08:18 Vitals Last Vital Signs Temp 97.8 F 02/06/22 07:37 Pulse 79 02/06/22 08:00 Resp 16 02/06/22 07:37 BP 157/83 02/06/22 07:37 Pulse Ox 97 02/06/22 08:00 O2 Del Method 02/06/22 08:00 O2 Flow Rate 3 02/06/22 08:00 Discharge Plan Discharge Patient Disposition: Hospice - Medical Facility Condition: Stable Prescriptions: Continued Eliquis 2.5 mg tablet 2.5 mg PO BID@0800,1999 finasteride 5 mg tablet 5 mg PO DAILY@1999 tamsulosin 0.4 mg capsule 0.4 mg PO DAILY@1999 hydroxyurea 500 mg capsule See Rx Instructions .ROUTE .COMPLEX Rx Instructions: 1,000MG PO EVERY WEDNESDAY,WEDNESDAY, AND WEDNESDAY AND 500MG PO ON WEDNESDAY AND WEDNESDAY potassium chloride 10 mEq capsule, extended release 10 meq PO DAILY@0800 aloe vera Gel 1 applic topical DAILY PRN (Reason: dry skin) acetaminophen [Acetaminophen Extra Strength] 500 mg tablet 500 mg PO Q6H PRN (Reason: pain) Qty: 100 2RF levetiracetam 1,000 mg tablet 1,000 mg PO BID@0800,1999 furosemide [Lasix] 80 mg Tablet 40 mg PO DAILY@08 citalopram 20 mg tablet 20 mg PO DAILY@08 levothyroxine 137 mcg tablet 137 mcg PO DAILY@08 aspirin 81 mg tablet,delayed release (DR/EC) 81 mg PO DAILY@08 nystatin 100,000 unit/gram Powder 1 applic TOPICAL BID PRN (Reason: Redness) Rx Instructions: to groin area oxycodone 5 mg Tablet 5 mg PO Q4H PRN (Reason: Moderate Pain) Qty: 20 0RF Miralax 17 gram Powder In Packet 17 g PO DAILY Milk of Magnesia 400 mg/5 mL Suspension 30 ml PO DAILY PRN (Reason: Constipation) Dulcolax (bisacodyl) 10 mg Suppository 10 mg OK DAILY PRN (Reason: Constipation) esomeprazole magnesium 20 mg Capsule,Delayed Release(Dr/Ec) 20 mg PO DAILY duloxetine 30 mg Capsule,Delayed Release(Dr/Ec) 30 mg PO DAILY Fleet Enema 19-7 gram/118 mL Enema 118 ml OK DAILY PRN (Reason: Constipation) Triple Antibiotic 3.5-400-5,000 [id number] Ointment In Packet 1 applic TOPICAL DAILY Rx Instructions: cleanse with ns, apply aaron, cover with telfa daily to right elbow Discharge Orders: Discharge Order (Routine); Ordered 02/06/22 Ordered By: Nguyễn Herrera Referrals: [facility] [Outside] Justin Gomes FNP [Physician Floor Covering Installer] - 03/12/22 9:00 am Chin Salazar DO [Primary Care Provider] - Patient Instructions: Hospice Care (GEN), Opioid Safety Activity Restrictions/Additional Instructions: Replace dressing as needed for drainage Okay to shower or sponge bathe as long as incision free of drainage Weight-bear as tolerated operative hip Discharge Attestations Time Spent in Discharge Care*: less than 30 min Quality Metrics Clinical Quality Measures [ No reported AMI, CVA or VTE this stay] Coding Level of Care Code Acute Chg FW DC note Exam Expanded Problem Focused Diagnoses Closed hip fracture S72.009A Pneumonia J18.9 Fall W19.XXXA Musculoskeletal pain M79.18 Altered mental status R41.82
--- NOTE | 2022-02-06 13:36 | PC.NURSE ---
Discharge Note Patient discharged to SNF via ambulance accompanied by personnel. Discharge instructions reviewed with patient and/or banking representative. Mobile pharmacy medications and/or prescriptions provided. Belongings/home medications returned.
== END 2022-02-06 13:37 | disposition hospice, home (50) | DRG 521 ==
LOC: ER 20:27 → MEDSURG 21:17
PROVIDERS: Orthopaedic Surgery; Admitting Provider Family Medicine; Emergency Provider Emergency Medicine; PCP Internal Medicine; Visit Provider Internal Medicine
PROC: 0SRS0J9 Replacement of Left Hip Joint, Femoral Surface with Synthetic Substitute, Cemented, Open Approach (ICD-10-PCS; CPT 27125; principal; 2022-02-03 07:55)
DX: S72.012A Unspecified intracapsular fracture of left femur, initial encounter for closed fracture (principal); G93.41 Metabolic encephalopathy; J18.9 Pneumonia, unspecified organism; I21.A1 Myocardial infarction type 2; J98.11 Atelectasis; I48.20 Chronic atrial fibrillation, unspecified; W19.XXXA Unspecified fall, initial encounter; Z79.01 Long term (current) use of anticoagulants; Z79.82 Long term (current) use of aspirin; M48.061 Spinal stenosis, lumbar region without neurogenic claudication; Z66 Do not resuscitate; E03.9 Hypothyroidism, unspecified; I10 Essential (primary) hypertension; G40.909 Epilepsy, unspecified, not intractable, without status epilepticus; M48.04 Spinal stenosis, thoracic region; F03.90 Unspecified dementia, unspecified severity, without behavioral disturbance, psychotic disturbance, mood disturbance, and anxiety
CPT/HCPCS: 36415; 36600; 51702; 70450; 71045; 72125; 72128; 72131; 73501; 73502; 80048; 80053; 80202; 80307; 81001; 82140; 82803; 83605; 83690; 83735; 84100; 84145; 84443; 84484; 85025; 85651; 86140; 86403; 87040; 87086; 87426; 87641; 93005; 94664; 96365; 96367; 96372; 96375; 97110; 97161; 97530; 99285; C1713; C1776; C9113; J0692; J1940; J2270; J2405; J2704; J3260; J3370; J3486; J3490; J7030; J7040; J7050; J8999